=== PATIENT | female | born 1935 | race Caucasian/White ===

== ENCOUNTER 2017-08-05 23:07 | Inpatient (IN) | payer MEDICARE, OTHER ==
[~2017-08-05] VITALS: Ht 157.5 cm
[~2017-08-05 23:07] MED LIST: ACYCLOVIR PO; ACYCLOVIR200 MG; ANUCORT-HC25 MG; ASPIR 8181 MG PO; CALAN SR120 MG PO; CALCIUM600 MG PO; DOXAZOSIN MESYLA2 MG PO; FISH OIL500 M1; LOSARTAN POTASS50 MG PO; LYSINE500 MG PO; MAGNESIUM; MIRALAX17 GM PO; MULTIVITAMINS1 EAC7 PO; NEXIUM40 MG PO; NITROFURANTOIN100 MG PO; NITROGLYCERIN0.4 MG SL; PRAVACHOL40 MG PO; PRAVASTATIN SOD40 MG PO; PREMARIN42.5 GM VG; VERAPAMIL ER120 MG PO
--- OUTSIDE RECORDS SUMMARY | 2017-08-05 23:11 | XMS REPORT ---
Author Author [facility] Address Unknown Phone Unavailable Care Team Providers Care Commercial Internship Name Role Phone ALE STEVE Unavailable Unavailable Problems This patient has no known problems. Allergies, Adverse Reactions, Alerts This patient has no known allergies or adverse reactions. Medications This patient has no known medications. Results Test Description Test Time Test Comments Text Results Atomic Results Result Comments CHEST SINGLE (PORTABLE) [place] [address] Patient Name: LILLY BREWSTER MR #: [id number] : 1935 Age/Sex: 81/F Req #: [id number] Adm Physician: Ordered by: ALE STEVE MD Report #: [id number] Location: ER Room/Bed: Procedure: [id number] DX/CHEST SINGLE (PORTABLE) Exam Date: 01/18/17 Exam Time: 0920 REPORT STATUS: Signed PROCEDURE: A single AP view of the chest. COMPARISON: Portable chest 10/04/2014. INDICATIONS: CHEST PAIN FINDINGS: Lines/tubes: None. Lungs : The lungs are well inflated and clear. There is no evidence of pneumonia or pulmonary edema. Pleura: There is no pleural effusion or pneumothorax. Heart and mediastinum: The heart and the mediastinum are unremarkable. Bones: No acute bony abnormality. Degenerative changes of the thoracic spine. IMPRESSION: No acute radiographic abnormality. Dictated by: Elbert Thompson M.D. on 01/18/2017 at 9:55 Electronically approved by: Elbert Thompson M.D. on 01/18/2017 at 9:55 Dictated By: ELBERT THOMPSON MD 4 COPY TO: ALE STEVE MD
[2017-08-06] VITALS (8 sets, daily range): BP systolic 111–188; BP diastolic 65–98
[2017-08-06 00:12] LABS: BASOPHILS # (AUTO) 0.1 (0.0-0.1); BASOPHILS % 1.1 % (0.0-1.0); EOSINOPHILS # (AUTO) 0.2 (0.0-0.4); EOSINOPHILS % 2.4 % (0.0-6.0); HEMOGLOBIN 10.2 g/dL (12.0-16.0); LYMPHOCYTES % 21.9 % (18.0-39.1); MEAN CORPUSCULAR HEMOGLOBIN 29.1 pg (28-32); MEAN CORPUSCULAR HGB CONC 35.2 g/dL (31-35); MEAN CORPUSCULAR VOLUME 82.9 fL (81-99); MONOCYTES # (AUTO) 1.2 (0.2-0.8); MONOCYTES % 13.9 % (4.4-11.3); NEUTROPHILS # (AUTO) 5.4 (2.1-6.9); NEUTROPHILS % 60.5 % (38.7-80.0); PLATELET COUNT 274 x10e3/uL (140-360); RED CELL DISTRIBUTION WIDTH 12.4 % (11.7-14.4)
[2017-08-06 00:32] LABS: ALBUMIN/GLOBULIN RATIO 1.4 (0.8-2.0); ANION GAP 13.5 mmol/L (8-16); CREATININE, SERUM 1.25 mg/dL (0.57-1.11); POTASSIUM 4.5 mmol/L (3.5-5.1)
[2017-08-06] MEDS ORDERED: SODIUM CHLORIDE 0.9% 1000ML 1,000 ML ONE (02:39)
[2017-08-06] MEDS: SODIUM CHLORIDE 0.9% 1000ML 1,000 ML IV SCH ×3 (02:42→17:18)
[2017-08-06] MEDS ORDERED: ONDANSETRON HCL INJ 2 MG/ML VIAL IV PRN (02:45)
[2017-08-06] MEDS ORDERED: MORPHINE SULFATE 2 MG/ML SYR IV PRN (03:03)
[2017-08-06] MEDS ORDERED: ACYCLOVIR200 MG PO (04:13)
[2017-08-06] MEDS ORDERED: ASPIR 8181 MG PO (04:13)
[2017-08-06] MEDS ORDERED: HYDRALAZINE HCL25 MG PO (04:13)
[2017-08-06] MEDS ORDERED: ROPINIROLE HC0.25 MG PO (04:18)
[2017-08-06] MEDS ORDERED: RANITIDINE HCL150 MG PO (04:18)
[2017-08-06] MEDS ORDERED: VERAPAMIL ER120 MG PO (04:18)
[2017-08-06] MEDS ORDERED: PREMARIN VAGINAL TOP (04:18)
[2017-08-06] MEDS ORDERED: PRAVASTATIN SOD80 MG PO (04:18)
[2017-08-06] MEDS ORDERED: [UNRECOGNIZED DRUG - OTHER] PO (04:18)
[2017-08-06] MEDS ORDERED: OMEPRAZOLE40 MG PO (04:18)
[2017-08-06] MEDS ORDERED: ACETAMINOPHEN 325 MG TAB PO PRN (16:15)
[2017-08-06] MEDS ORDERED: CLONIDINE HCL 0.1 MG TAB PO PRN (16:15)
[2017-08-06] MEDS: HYDRALAZINE HCL 25 MG TAB PO SCH (18:20)
[2017-08-06] MEDS ORDERED: SIMVASTATIN 40 MG TAB PO SCH (21:00)
[2017-08-06] MEDS: SODIUM CHLORIDE 1 GM TAB PO SCH (21:33)
[2017-08-07 00:24] VITALS: BP 145/92
--- NOTE | 2017-08-07 02:18 | History and Physical ---
HISTORY OF PRESENT ILLNESS: My[age]old female with past medical history positive for hypertension, history of chronic renal failure, anemia of chronic disease, came here because her sodium was found to be low on her routine lab work which was 120. Patient was sent to the ER. The sodium today is 121. REVIEW OF SYSTEMS: CARDIOVASCULAR: No chest pain, no palpitations. RESPIRATORY: No shortness of breath, no cough. GASTROINTESTINAL: No nausea, no vomiting, no diarrhea. GENITOURINARY: No frequency, no dysuria. ALLERGIES: SHE IS ALLERGIC TO A LONG LIST OF MEDICATIONS INCLUDING LISINOPRIL, PAROXETINE, SERTRALINE, ERYTHROMYCIN, LATEX, LEVAQUIN, ALENDRONATE, AND DILTIAZEM AND NOVOCAIN. PAST MEDICAL HISTORY: Hypertension, hypertensive nephropathy. SOCIAL HISTORY: She does not smoke, she does not drink. PHYSICAL EXAMINATION: HEART: Shows regular rhythm. Normal S1 and S2 sounds. LUNGS: Clear bilaterally. ABDOMEN: Soft. EXTREMITIES: Showed no evidence of cyanosis, edema, or trauma. BLOOD WORK: We have BMP with a sodium of 121, potassium 4.5, chloride 88, CO2 24, BUN 27, creatinine 1.25, glucose 93. On the CBC: White blood count 8.90, hemoglobin 10.2, hematocrit 29.0, platelet count 274,000. AST 21, ALT 18, total bilirubin 0.8, alkaline phosphatase 44. FINAL IMPRESSION: 1. Severe hyponatremia. 2. Uncontrolled hypertension. 3. Hypertensive nephropathy. 4. Chronic renal failure, stage 3 secondary to hypertensive nephropathy. 5. Anemia of chronic disease secondary to chronic renal insufficiency. PLAN OF TREATMENT: Continue sodium chloride 125 mL an hour, which we are going to decrease to 80 mL an hour. Continue sodium tablets 2 g q.8h. Continue Zofran 4 mg IV every 4 hours as needed. Continue home medications. We are going to get a nephrology consult with Dr. Garcia also. Job#: [id number]
[2017-08-07 05:55] VITALS: BP 151/66
[2017-08-07 07:05] VITALS: BP 163/67
[2017-08-07] MEDS ORDERED: PANTOPRAZOLE SOD 40 MG TABEC PO SCH (07:30)
[2017-08-07 07:34] VITALS: BP 163/67
[2017-08-07 08:27] LABS: ANION GAP 10.3 mmol/L (8-16); BLOOD UREA NITROGEN 18 mg/dL (7-26); BUN/CREATININE RATIO 23 (6-25); CALCIUM 9.6 mg/dL (8.4-10.2); CARBON DIOXIDE 24 mmol/L (22-29); CHLORIDE 103 mmol/L (98-107); EST GLOMERULAR FILTRATION RATE > 60 ML/MIN (60-); GLUCOSE 80 mg/dL (74-118); POTASSIUM 4.3 mmol/L (3.5-5.1); SODIUM 133 mmol/L (136-145)
[2017-08-07] MEDS ORDERED: ROPINIROLE HCL 0.25 MG TAB PO SCH (09:00)
[2017-08-07] MEDS ORDERED: VERAPAMIL HCL 120 MG TABSR PO SCH (09:00)
[2017-08-07] MEDS ORDERED: HYDRALAZINE HCL 25 MG TAB PO SCH (09:00)
[2017-08-07] MEDS ORDERED: ASPIRIN 81 MG CHEW TAB PO SCH (09:00)
[2017-08-07] MEDS: HYDRALAZINE HCL 25 MG TAB PO SCH (09:21)
[2017-08-07] MEDS: SODIUM CHLORIDE 1 GM TAB PO SCH ×2 (09:22→15:26)
--- NOTE | 2017-08-07 11:32 | Consultation ---
DATE OF CONSULTATION: August 06, 2017 ATTENDING PHYSICIAN: Dr. Snyder REASON FOR CONSULTATION: Hyponatremia. HISTORY OF PRESENT ILLNESS: The patient is a pleasant, 82-year-old, female with a past medical history of hypertension, admitted with hyponatremia. The patient was started on hydrochlorothiazide 25 mg p.o. daily in early July because of lower extremity edema. The patient went to see her primary care physician on Tuesday, and hydrochlorothiazide and hydralazine were stopped as the blood pressure was running low. The patient had blood work done and was found to have sodium of 120. She came to the emergency room. The patient was started on normal saline. This morning, sodium was at 121. The patient has been having poor p.o. intake, and she s a very picky eater. PAST MEDICAL HISTORY 1. Hypertension. 2. Gastroesophageal reflux disease. 3. Hyperlipidemia. PAST SURGICAL HISTORY 1. Hysterectomy in 1973. 2. Appendectomy in 1979. 3. Rectocele and cystocele repair in 1990. ALLERGIES: ERYTHROMYCIN, NOVOCAIN, ALENDRONATE, ALOE VERA, CARVEDILOL, DILTIAZEM, SERTRALINE, PAROXETINE, AND LISINOPRIL. REVIEW OF SYSTEMS GENERAL: No fatigue. No fever, no chills. HEENT: No headache or blurry vision. NECK: No dysphagia. CARDIOVASCULAR: No chest pain. No PND. No orthopnea. RESPIRATORY: No shortness of breath or dyspnea on exertion. No cough or hemoptysis. GI: No nausea, vomiting, diarrhea, constipation, abdominal pain, hematemesis, melena. MUSCULOSKELETAL: No ankle swelling. NEUROLOGIC: No numbness or tingling. SKIN: No new rash. PHYSICAL EXAMINATION VITAL SIGNS: Blood pressure 188/82, pulse 75, respirations 18, temperature 97.3. GENERAL: Awake, alert and oriented times 3. Not in apparent distress. HEENT: PERRLA. Extraocular muscles are intact. NECK: No JVD. HEART: S1 and S2. LUNGS: Clear to auscultation bilaterally. ABDOMEN: Soft. Bowel sounds positive. EXTREMITIES: No cyanosis, clubbing or edema. NEUROLOGIC: No focal deficits. SKIN: No new rash. MEDICATIONS: At home, the patient was on acyclovir, aspirin, hydralazine, losartan, omeprazole, pravastatin, ranitidine, ropinirole, verapamil. Also was on hydrochlorothiazide. The hydrochlorothiazide and hydralazine were stopped recently yesterday. Here in the hospital, the patient has been on clonidine p.r.n., normal saline at 125 mL an hour, verapamil, ropinirole, pantoprazole, hydralazine 25 mg p.o. daily, and Zofran. LABS: White count 8.9, hemoglobin 10.2, platelet count 274. Sodium 121, potassium 4.5, chloride 88, CO2 24, BUN 27, creatinine 1.25, glucose 93, calcium 10.0, albumin 4.0. ASSESSMENT AND PLAN 1. Hyponatremia, likely secondary to hydrochlorothiazide. The patient currently is hypovolemic. The blood pressure is up. Will discontinue normal saline after this bag is done and repeat the labs in the morning. Hydrochlorothiazide has been stopped already. 2. Hypertension. Adjust the hydralazine and discontinue IV fluids after this bag. 3. Gastroesophageal reflux disease on pantoprazole. 4. Hyperlipidemia. I want to thank Dr. Snyder for the consult. Discussed with at bedside. Job#: [id number]
[2017-08-07 11:53] VITALS: BP 142/73
--- NOTE | 2017-08-08 06:44 | Discharge Summary ---
Patient is an 82-year-old female with a past medical history positive for hypertension. The patient came with hyponatremia. Sodium was 120 when she came and now is 133. She was placed on normal saline and sodium tablets. Patient is going home. She was seen by calculating machine operator also, and dietary as well in the past. PHYSICAL EXAMINATION HEART: Shows regular rhythm. Normal S1 and S2 sounds. LUNGS: Clear bilaterally. ABDOMEN: Soft. EXTREMITIES: Show no evidence of cyanosis or trauma. VITALS: Blood pressure 142/73, temperature 97 degrees, heart rate 65 per minute, respiratory rate is 18 per minute, oxygen saturation 97%. On the BMP, sodium 133, potassium 4.3, chloride 103, CO2 24, BUN 18, creatinine 0.8, glucose 80. On the CBC, white blood count 8.90, hemoglobin 10.2, hematocrit 29, and platelet count 274,000. AST 21, ALT 18, total bilirubin 0.8, alkaline phosphatase 44. FINAL IMPRESSION 1. Hyponatremia. 2. Hypertension. PLAN OF TREATMENT: Patient will continue with the rest of the home medications. Continue with: 1. Sodium tablets 2 g daily. 2. Protonix 40 mg daily. 3. Verapamil 120 mg daily. 4. Hydralazine 25 mg twice a day. 5. Clonidine 0.1 mg 3 times a day. 6. Requip 0.25 mg at bedtime. Follow up with Dr. Vasyl Kimbrough, her primary care physician a week. ALIRIO HARRIS MD Job#: [id number] [place]
== END 2017-08-07 15:58 | disposition home or self-care (01) | DRG 641 ==
LOC: ER 23:07 → MED/SURG3 08-06 04:55
DX: E87.1 Hypo-osmolality and hyponatremia (principal); I13.10 Hypertensive heart and chronic kidney disease without heart failure, with stage 1 through stage 4 chronic kidney disease, or unspecified chronic kidney disease; N18.3 Chronic kidney disease, stage 3 (moderate); D63.1 Anemia in chronic kidney disease; Z88.5 Allergy status to narcotic agent; Z88.8 Allergy status to other drugs, medicaments and biological substances; Z88.1 Allergy status to other antibiotic agents; Z91.040 Latex allergy status; K21.9 Gastro-esophageal reflux disease without esophagitis; E78.5 Hyperlipidemia, unspecified
CPT/HCPCS: 36415; 80048; 80053; 85025; 96361; 99284; J7030

== ENCOUNTER → 2018-08-14 | Outpatient (CLI) | payer MEDICARE, OTHER ==
[~2018-08-14] MED LIST changes: +ACYCLOVIR200 MG PO; +HYDRALAZINE HCL25 MG PO; +OMEPRAZOLE40 MG PO; +PRAVASTATIN SOD80 MG PO; +PREMARIN VAGINAL TOP; +RANITIDINE HCL150 MG PO; +ROPINIROLE HC0.25 MG PO; +[UNRECOGNIZED DRUG - OTHER] PO
--- NOTE | 2018-08-14 13:35 | Diagnostic Imaging Report ---
TECHNIQUE: Magnetic resonance imaging of the LEFT SHOULDER was performed WITHOUT injected contrast. COMPARISON: None available. HISTORY: Left shoulder pain FINDINGS: MUSCLES AND TENDONS: Rotator Cuff: Tendons: Supraspinatus: Intact Infraspinatus: Intact Teres Minor: Intact Subscapularis: Intact Muscles: No focal muscle atrophy. Biceps Tendon: The long head of the biceps tendon is intact and within the intertubercular groove. GLENOHUMERAL JOINT: Glenoid Labrum: No displaced tear. Articular Cartilage: No focal defect. AC JOINT AND ACROMION: Mild hypertrophic degenerative changes of the acromioclavicular joint. Subacromial spurring. BONE: No specific evidence of a focal or infiltrative bone marrow replacing abnormality. No acute fracture. SOFT TISSUES: Mild subacromial subdeltoid bursal fluid. IMPRESSION: Intact rotator cuff. Subacromial spurring with mild subacromial subdeltoid bursal fluid may reflect bursitis. Signed by: Dr. Denzel Dior M.D. on 08/14/2018 1:32 PM
== END ==
LOC: MRI 10:58
PROVIDERS: ATTEND Internal Medicine
DX: M25.512 Pain in left shoulder (principal)

== ENCOUNTER 2018-09-01 08:05 | Outpatient (RCR) | payer MEDICARE, OTHER | END 2018-09-03 | LOC: PT 08:05 | PROVIDERS: ATTEND Specialist | DX: S46.012A Strain of muscle(s) and tendon(s) of the rotator cuff of left shoulder, initial encounter (principal) ==

== ENCOUNTER 2018-10-02 08:59 | Outpatient (RCR) | payer MEDICARE, OTHER | END 2018-10-04 | LOC: PT 08:59 | PROVIDERS: ATTEND Specialist | DX: S46.012D Strain of muscle(s) and tendon(s) of the rotator cuff of left shoulder, subsequent encounter (principal); M25.512 Pain in left shoulder; M25.612 Stiffness of left shoulder, not elsewhere classified; M47.812 Spondylosis without myelopathy or radiculopathy, cervical region; M62.81 Muscle weakness (generalized) | CPT/HCPCS: 97139 ==

== ENCOUNTER 2018-10-24 15:00 | Outpatient (RCR) | payer MEDICARE | END 2018-11-04 | LOC: PT 15:00 | PROVIDERS: ATTEND Specialist | DX: M47.812 Spondylosis without myelopathy or radiculopathy, cervical region (principal); S46.012D Strain of muscle(s) and tendon(s) of the rotator cuff of left shoulder, subsequent encounter; M25.512 Pain in left shoulder; M62.81 Muscle weakness (generalized) | CPT/HCPCS: 97139 ==

== ENCOUNTER → 2018-12-06 | Outpatient (CLI) | payer MEDICARE | LOC: RAD 12:11 | PROVIDERS: ATTEND Internal Medicine | DX: M79.604 Pain in right leg (principal) | CPT/HCPCS: 93971 ==

== ENCOUNTER 2019-10-13 18:55 | Emergency (ER) | payer MEDICARE ==
[~2019-10-13] VITALS: Ht 157.5 cm; Wt 62.6 kg
[2019-10-13] MEDS ORDERED: CLONIDINE HCL 0.1 MG TAB PO ONE (20:15)
--- NOTE | 2019-10-13 21:36 | Emergency Department Note ---
History of Present Illnes History of Present Illness Chief Complaint: Hypertension History of Present Illness This is a 84 year old female PRESENTS TO ED WITH REPORT OF HTN AND BRAY; BP 191/68 AT THIS TIME, PT REPORTS TOOK RX'D HYDRALAZINE AT APPROX 1600; PT REPORTS BRAY HAS RESOLVED; GAIT STEADY;. Historian: Patient, Family Member Arrival Mode: Car Onset (how long ago): hour(s) (6) Location: HEAD Quality: HEADACHE, ELEVATED BLOOD PRESSURE Radiation: Reports non-radiation Severity: mild Onset quality: gradual Duration (how long): hour(s) (6) Timing of current episode: unable to specify Progression: improving Context: Denies recent illness Relieving factors: none Exacerbating factors: none Associated symptoms: Reports headaches Treatments prior to arrival: none Past Medical/Family History Physician Review I have reviewed the patient's past medical and family history. Any updates have been documented here. Past Medical History Recent Fever: No Clinical Suspicion of Infectio: No New/Unexplained Change in Ment: No Past Medical History: Hypertension, Hypothyroidism Other Medical History: FATTY TUMOR TO KIDNEY ATHEROSCLEROSIS DIVERTICULOSIS Past Surgical History: Appendectomy, Hysterectomy Other Surgery: COLON SURGERY "PROLAPSE OF VAGINA AND COLON" PER PT LEFT BREAST BIOPSY Social History Smoking Cessation: Never Smoker Counseling Performed: No Alcohol Use: None Any Illegal Drug Use: No Other Last Tetanus: UTD Any Pre-Existing Lines (PICC,: No Review of Systems Review of Systems Constitutional: Reports no symptoms EENTM: Reports no symptoms Cardiovascular: Reports no symptoms Respiratory: Reports no symptoms Gastrointestinal: Reports no symptoms Genitourinary: Reports no symptoms Musculoskeletal: Reports no symptoms Integumentary: Reports no symptoms Neurological: Reports as per HPI Psychological: Reports no symptoms Endocrine: Reports no symptoms Hematological/Lymphatic: Reports no symptoms Physical Exam Related Data Allergies: Coded Allergies: Erythromycin Lactobionate (Verified Allergy, Unknown, 01/18/17) alendronate sodium (Verified Allergy, Unknown, 01/18/17) aloe vera (Verified Allergy, Unknown, 01/18/17) azithromycin (Verified Allergy, Unknown, 01/18/17) carvedilol (Verified Allergy, Unknown, 01/18/17) diltiazem (Verified Allergy, Unknown, 01/18/17) hydrochlorothiazide (Verified Allergy, Unknown, 01/18/17) latex (Verified Allergy, Unknown, 01/18/17) levofloxacin (Verified Allergy, Unknown, 01/18/17) lisinopril (Verified Allergy, Unknown, 01/18/17) metoprolol (Verified Allergy, Unknown, 01/18/17) paroxetine HCl (Verified Allergy, Unknown, 01/18/17) sertraline HCl (Verified Allergy, Unknown, 01/18/17) simvastatin (Verified Allergy, Unknown, 01/18/17) sulfamethoxazole (Verified Allergy, Unknown, 01/18/17) trimethoprim (Verified Allergy, Unknown, 01/18/17) Uncoded Allergies: NOVACAINE (Allergy, Unknown, 01/18/17) Triage Vital Signs Vital Signs Date Time Temp Pulse Resp B/P (MAP) Pulse Ox O2 Delivery O2 Flow Rate FiO2 10/13/19 19:34 97.7 78 16 191/78 98 Room Air Vital signs reviewed: Yes Physical Exam CONSTITUTIONAL Constitutional: Present well-developed, Present well-nourished HENT HENT: Present normocephalic, Present atraumatic, Present oropharynx clear/moist, Present nose normal HENT L/R: Present left ext ear normal, Present right ext ear normal EYES Eyes: Reports PERRL, Reports conjunctivae normal NECK Neck: Present ROM normal PULMONARY Pulmonary: Present effort normal, Present breath sounds normal CARDIOVASCULAR Cardiovascular: Present regular rhythm, Present heart sounds normal, Present capillary refill normal, Present normal rate GASTROINTESTINAL Abdominal: Present soft, Present nontender, Present bowel sounds normal GENITOURINARY Genitourinary: Present exam deferred SKIN Skin: Present warm, Present dry MUSCULOSKELETAL Musculoskeletal: Present ROM normal NEUROLOGICAL Neurological: Present alert, Present oriented x 3, Present no gross motor or sensory deficits PSYCHOLOGICAL Psychological: Present mood/affect normal, Present judgement normal Assessment & Plan Medical Decision Making MDM PT WITH ELEVATED BLOOD PRESSURE, HAD A MILD HEADACHE EARLIER THAT HAS RESOLVED CLONIDINE 0.1 MG ORDERED Reassessment Reassessment time: 21:25 Reassessment BP NOW 164/69 PT STATES SHE FEELS FINE, HAS NO SYMPTOMS AT THIS TIME Assessment & Plan Final Impression: (1) Hypertensive urgency Depart Disposition: HOME, SELF-CARE Last Vital Signs Date Time Temp Pulse Resp B/P (MAP) Pulse Ox O2 Delivery O2 Flow Rate FiO2 10/13/19 21:23 96.6 72 18 169/64 98 Room Air Home Meds Reported Medications Ranitidine Hcl (RANITIDINE HCL) 150 Mg Tablet, 150 MG PO DAILY 08/06/17 Omeprazole (OMEPRAZOLE) 40 Mg Capsule.dr, 40 MG PO DAILY 08/06/17 Verapamil Hcl (VERAPAMIL ER) 120 Mg Cap24h.pel, 120 MG PO DAILY 08/06/17 [Premarin Vaginal Crm] No Conflict Check, 1 APPLIC TOP PRN 08/06/17 Ropinirole Hcl (ROPINIROLE HCL) 0.25 Mg Tablet, 0.25 MG PO DAILY, #90 TAB 08/06/17 Pravastatin Sodium (PRAVASTATIN SODIUM) 80 Mg Tablet, 80 MG PO DAILY THERAPEUTICALLY SUBSTITUTED WITH SIMVASTATIN 40MG 08/06/17 [Perform Total Health] No Conflict Check, 1 TAB PO DAILY 08/06/17 Hydralazine Hcl (HYDRALAZINE HCL) 25 Mg Tab, 25 MG PO DAILY, TAB 08/06/17 Aspirin (ASPIR 81) 81 Mg Tablet.dr, 81 MG PO DAILY 08/06/17 Acyclovir (ACYCLOVIR) 200 Mg Capsule, 400 MG PO DAILY, #30 CAP 08/06/17 Losartan Potassium (LOSARTAN POTASSIUM) 50 Mg Tablet, 100 MG PO DAILY 02/18/14 [Acyclovir] No Conflict Check, 400 MG PO QID PRN FOR OUTBREAKS 02/18/14 Medications in the ED Clonidine HCl 0.1 mg ONCE ONCE PO Last administered on 10/13/19at 20:08; Admin Dose 0.1 MG; Start 10/13/19 at 20:15; Stop 10/13/19 at 20:16 SVEN TRAN MD Oct 13, 2019 21:36
--- OUTSIDE RECORDS SUMMARY | 2019-10-13 23:02 | XMS REPORT | Clinical Summary ---
Author Author [facility] Address Unknown Phone Unavailable Care Team Providers Care Wheel Presser Name Role Phone Panda Kimbrough MD PCP Allergies Not on File Medications End Date Status Medication Sig Dispensed Refills Start Date Active verapamil sustained Take 120 mg 0 release (CALAN-SR) 120 MG by mouth. 6 SR tablet Active hydrALAZINE (APRESOLINE) 25 mg 3 0 06/20 25 MG tablet (three) times 9 a day. Active Problems Not on file Family History Relation Name Status Comments Father Mother Social History Date Tobacco Use Types Packs/Day Years Used Never Smoker Smokeless Tobacco: Never Used Drinks/Week oz/Week Comments Alcohol Use No Alcohol Habits Answer Date Recorded How often do you have a drink containing alcohol? Never 06/21/2018 How many drinks containing alcohol do you have on No t asked a typical day when you are drinking? How often do you have six or more drinks on one Not asked occasion? Sex Assigned at Date Recorded Not on file Industry Job Start Date Occupation Not on file Not on file Not on file Travel End Travel History Travel Start No recent travel history available. Last Filed Vital Signs Not on file Plan of Treatment Health Maintenance Due Date Last Done Comments SHINGLES VACCINES (#1) 1985 65+ PNEUMOCOCCAL VACCINE 2000 (1 of 2 - PCV13) INFLUENZA VACCINE 10/06/2019 Results Not on fileafter 10/12/2018 Insurance Type Payer Benefit Subscriber ID Effective Phone Address Plan / Dates Group Medicare MEDICARE MEDICARE xxxxxxxxxx 2000-P [place], PART A AND resent [place] Commercial [employer] xxxxxxxxxx 2015- L LIFE INS Present [employer] [place] Advance Directives For more information, please contact: [phone] Patient Sap Specialist Explanation Type Date Recorded Advance Directives, Living Will and Medical Power of Virology Teacher
--- OUTSIDE RECORDS SUMMARY | 2019-10-13 23:02 | XMS REPORT | Continuity of Care Document ---
Author Author [facility] [employer] [employer] Address Unknown Phone Unavailable Care Team Providers Care Abrasives Sales Representative Name Role Phone [employer] Unavailable Un available Problems Problem Status Onset Date Classification Date Reported Comments Source Abnormal EKG Active Problem 04/19/2017 Sallie Vincent Essential hypertension Active Problem 04/19/2017 Sallie Vincent Precordial pain Active Problem 04/19/2017 Sallie Vincent Hypertensive left ventricular hypertroph y, without heart failure Active Prob isra 04/19/2017 Sallie Vincent Arteriosclerosis of both carotid arteries Active Problem 04/19/2017 Sallie Vincent Nonrheumatic tricuspid (valve) insufficiency Active Problem 04/19/2017 Sallie Vincent Former smoker Active Problem 04/19/2017 Sallie Vincent Palpitations Active Problem 04/19/2017 Sallie Vincent Right carotid bruit Active Problem 04/19/2017 Sallie Vincent Exertional dyspnea Active Problem 04/19/2017 Sallie Vincent Memory loss, short term Active Diagnosis 04/19/2017 Sallie Vincent Medications Medication Details Route Status Patient Instructions Ordering Provider Order Date Source Verapamil HCl 1 tablet Orally Active 120 MG Orally Three lang es a day Melisa Vincent Losartan Potassium 1 tablet Orally Active 100 MG Orally Once a day Melisa Vincent HydrALAZINE HCl 1 tablet Orally Active 25 MG Orally daily Melisa Vincent Vitamin D3 1 capsule Orally Active 1000 UNIT Orally Once a day Melisa Vincent Doxazosin Mesylate 2 tablet Orally Active 2 MG Orally qAM and 1.5tablets qPM Melisa Vincent Acyclovir 1 tablet Orally Active 400 MG Orally Twice a d ay Melisa Vincent Allergies, Adverse Reactions, Alerts Substance Category Reaction Severity Reaction type Status Date Reported Comments Source Zoloft Adverse Reaction tingling Adverse Reaction Active 02/23/2017 Mohamed O Jeroudi Zocor Adverse Reaction myalgias Adverse Reaction Active 02/23/2017 Mohamed O Jeroudi Diltiazem CD Adverse Reaction rash Adverse Reaction Active 02/23/2017 Mohamed O Jeroudi Metoprolol Succinate Adverse R eaction cold extremities Adverse Reaction Active 02/23/2017 Mohamed O Jeroudi Lisinopril Adverse Reaction rash Adverse Reaction Active 02/23/2017 Mohamed O Jeroudi Levaquin Adverse Reaction dizziness Adverse Reaction Active 02/23/2017 Mohamed O Jeroudi Hydrochlorothiazide Adverse Re action hyponatremia Adverse Reaction Active 02/23/2017 Mohamed O Jeroudi Fosamax Adverse Reaction nausea Adverse Reaction Active 02/23/2017 Mohamed O Jeroudi Erythromycin Adverse Reaction rash Adverse Reaction Active 02/23/2017 Mohamed O Jeroudi Coreg Adverse Reaction fatigue Adverse Reaction Active 02/23/2017 Mohamed O Jeroudi Bactrim Adverse Reaction palpitations Adverse Reaction Active 02/23/2017 Mohamed O Jeroudi Azithromycin Adverse Reaction rash Adverse Reaction Active 02/23/2017 Mohamed O Jaylonoudi aloe vera latex gloves Adverse Reaction blisters Ad verse Reaction Active 02/23/2017 Mohamed O Jeroudi Immunizations No Data Provided for This Section Results No Data Provided for This Section Pathology Reports No Data Provided for This Section Diagnostic Reports No Data Provided for This Section Consultation Notes No Data Provided for This Section Discharge Summaries No Data Provided for This Section History and Physicals No Data Provided for This Section Vital Signs Vital Sign Value Date Comments Source Weight 138 02/23/2017 Mohamed O Jaylonoudi Height 62 1 04/26/2016 Mohamed O Jaylonoudi Temperature Oral (F) 97.0 F 02/23/2017 Mohamed O Jaylonoudi Heart Rate 71 02/23/2017 Mohamed O Jeroudi Diastolic (mm Hg) 60 02/23/2017 Mohamed O Jeroudi Systolic (mm Hg) 112 02/23/2017 Mohamed O Jaylonoudi Encounters No Data Provided for This Section Procedures No Data Provided for This Section Assessment and Plan No Data Provided for This Section Plan of Care No Data Provided for This Section Social History No Data Provided for This Section Family History No Data Provided for This Section Advance Directives No Data Provided for This Section Functional Status No Data Provided for This Section
--- OUTSIDE RECORDS SUMMARY | 2019-10-13 23:03 | XMS REPORT | Summary of Care ---
Author Author [facility] Organization [facility] Address Unknown Phone Unavailable Care Team Providers Care Cataloging Assistant Name Role Phone PCP Unavailable Reason for Referral * Test (Routine) Referred By Contact Referred To Contact Status Reason Specialty Diagnoses / Procedures Usman Verdugo MD [address] [place] [id number] Pending Consult, Test, and Cardiology Diagnoses Treat HTN (hypertension), benign P rocedures EXTENDED HOLTER MONITOR (CONTINUOUS >48) Reason for Visit * Reason Comments Cardiology Follow-up Encounter Details Care Team Description Date Type Department Usman Verdugo MD [address] [place] [id number] Cardiology Follow-up 10/24/[address] [facility] Cardiology [address] [place] [id number] Allergies Comments Active Allergy Reactions Severity Noted Date Alendronic Acid Nausea And 11/07/2013 Vomiting Other reaction(s): Other: See Comments "fever blisters" Aloe Africana 11/07/2013 Azithromycin Rash 11/07/2013 Sulfamethoxazole Palpitations 05/17/2017 W/Trimethoprim Other reaction(s): Drowsiness/Fatigue Carvedilol 11/07/2013 Diltiazem Rash 11/07/2013 Erythromycin Rash 11/07/2013 Other reaction(s): Other: See Comments "Low sodium" Hydrochlorothiazide 11/07/2013 Blisters Latex Itching, Rash High 11/06/2013 Levofloxacin 11/07/2013 Lisinopril Rash 11/07/2013 Other reaction(s): Other: See Comments "cold extremities" Metoprolol 11/07/2013 Paroxetine 11/07/2013 Other reaction(s): Other: See Comments decreased RR Procaine 11/07/2013 Other reaction(s): Other: See Comments "tingling" Sertraline 11/07/2013 Other reaction(s): Other: See Comments "Myalgias" Simvastatin 11/07/2013 Sulfamethoxazole-Trimetho Palpitations 11/07/2013 prim documented as of this encounter (statuses as of 10/24/2018) Medications End Date Status Medication Sig Dispensed Refills Start Date Active acyclovir (ZOVIRAX) 400 as needed. 0 MG tablet 8 Active hydrALAZINE (APRESOLINE) 0 25 MG tablet 8 Active losartan (COZAAR) 100 MG 0 tablet 8 Active ropinirole (REQUIP) 0.25 Take 0.25 mg 0 MG tablet by mouth. Active verapamil (CALAN-SR) 120 Take 120 mg 0 11/16 MG CR tablet by mouth. 6 Active AZO-CRANBERRY OR Take by 0 mouth. Active Acetaminophen (TYLENOL) Take by 0 325 MG CAPS mouth. Active MELALEUCA SC Inject into 0 the skin. Active Aspirin (ASPIRIN 81) 81 Take 81 mg by 0 MG tablet mouth once. documented as of this encounter (statuses as of 10/24/2018) Active Problems Problem Noted Date H/O breast biopsy 05/18/2017 H/O: hysterectomy 05/18/2017 S/P appendectomy 05/18/2017 Chest pain 05/18/2017 documented as of this encounter (statuses as of 10/24/2018) Social History Date Tobacco Use Types Packs/Day Years Used Former Smoker Smokeless Tobacco: Never Used Drinks/Week oz/Week Comments Alcohol Use occas No Sex Assigned at Date Recorded Not on file Industry Job Start Date Occupation Not on file Not on file Not on file Travel End Travel History Travel Start No recent travel history available. documented as of this encounter Last Filed Vital Signs Reading Time Taken Comments Vital Sign 144/52 10/24/2018 9:44 AM CDT Blood Pressure 74 10/24/2018 9:44 AM CDT Pulse - - Temperature - - Respiratory Rate 99% 10/24/2018 9:44 AM CDT Oxygen Saturation - - Inhaled Oxygen Concentration 58.1 kg (128 lb) 10/24/2018 9:44 AM CDT Weight 160 cm (5' 3") 10/24/2018 9:44 AM CDT Height 22.67 10/24/2018 9:44 AM CDT Body Mass Index documented in this encounter Patient Instructions * Patient Instructions* Usman Verdugo MD - 10/24/2018 9:40 AM CDT 1) CBC,BMP,BNP,Lipids,Liver profile: HTN. 2) Follow-up in 6-8 weeks. 3) EKG now. 4) CardioKey x 4 weeks: Palpitations. documented in this encounter Progress Notes * Hua Lozada FNPC - 10/24/2018 9:40 AM CDT Date: October 24, 2018 Patient Name: Suzan Hong : 1935 Reason for Visit: Follow up: Last OV 1 year ago Problem List: #HTN - Losartan, hydralazine, verapamil Chief Complaint: Chief Complaint Patient presents with Cardiology Follow-up History of Present Illness: Suzan Hong is a 83 y.o. female with HTN. She she st ates noticed her feet last year for which he sought care from her primary care yovani gilbert. She presents to the clinic today after one year for her follow-up. Sh e states to have an episode of palpitations last night which resolved on own wit h no associated symptoms. No active complaints of chest pain, SOB, dizziness, s yncope/near syncopal episodes. Current Medications: Current Outpatient Medications Medication Sig Dispense Refill Acetaminophen (TYLENOL) 325 MG CAPS Take by mouth. acyclovir (ZOVIRAX) 400 MG tablet as needed. Aspirin (ASPIRIN 81) 81 MG tablet Take 81 mg by mouth once. AZO-CRANBERRY OR Take by mouth. hydrALAZINE (APRESOLINE) 25 MG tablet losartan (COZAAR) 100 MG tablet MELALEUCA SC Inject into the skin. ropinirole (REQUIP) 0.25 MG tablet Take 0.25 mg by mouth. verapamil (CALAN-SR) 120 MG CR tablet Take 120 mg by mouth. No current facility-administered medications for this visit. Allergies: Allergies Allergen Reactions Latex Itching and Rash Blisters Alendronic Acid Nausea And Vomiting Aloe Africana Other reaction(s): Other: See Comments "fever blisters" Azithromycin Rash Bactrim [Sulfamethoxazole W/Trimethoprim] Palpitations Carvedilol Other reaction(s): Drowsiness/Fatigue Diltiazem Rash Erythromycin Rash Hydrochlorothiazide Other reaction(s): Other: See Comments "Low sodium" Levofloxacin Lisinopril Rash Metoprolol Other reaction(s): Other: See Comments "cold extremities" Paroxetine Procaine Other reaction(s): Other: See Comments decreased RR Sertraline Other reaction(s): Other: See Comments "tingling" Simvastatin Other reaction(s): Other: See Comments "Myalgias" Sulfamethoxazole-Trimethoprim Palpitations Past Medical History: No past medical history on file. Past Surgical History: No past surgical history on file. Social History: Social History Tobacco Use Smoking status: Former Smoker Smokeless tobacco: Never Used Substance Use Topics Alcohol use: No Comment: occas Family History: No family history on file. Review of Systems: Constitutional: Negative. HENT: Negative. Eyes: Negative. Respiratory: Negative for shortness of breath. Cardiovascular: Positive for palpitations Gastrointestinal: Negative for abdominal pain. Genitourinary: Negative. Musculoskeletal: Negative. Skin: Negative. Neurological: Negative. Endo/Heme/Allergies: Negative. Psychiatric/Behavioral: Negative. EXAMINATION BP 144/52 | Pulse 74 | Ht 5' 3" (1.6 m) | Wt 128 lb (58.1 kg) | SpO2 99% | BMI 22.67 kg/m General appearance: alert, cooperative, no distress, appears stated age Head: Normocephalic, without obvious abnormality, atraumatic Eyes: conjunctivae/corneas clear. PERRL, EOM's intact. Fundi benign Neck: supple, symmetrical, trachea midline, no adenopathy, thyroid: not enlarg ed, symmetric, no tenderness/mass/nodules, no carotid bruit and no JVD Lungs: clear to auscultation bilaterally Heart: regular rate and rhythm, S1, S2 normal Abdomen: Soft, non-tender. Bowel sounds normal. No masses, No organomegaly Extremities: extremities normal, atraumatic, no cyanosis or edema Pulses: 2+ and symmetric Skin: Skin color, texture, turgor normal. No rashes or lesions Neurologic: Patient is alert and oriented to person, place, and time Laboratory Testing: No results found for this or any previous visit (from the past 24 hour(s)). ASSESSMENT/PLAN: 1. Palpitations - CBC,BMP,BNP,Lipids,Liver profile: HTN - CardioKey x 4 weeks: Palpitations. - EKG now - Follow-up in 6-8 weeks. Hua Lozada, MSN, CHLORINATOR, DENTAL SALES REPRESENTATIVE-C Nurse Practitioner/Instructor Office: Nurse Practitioner to Dr. Usman Verdugo MD Interventional Cardiology and Structural Heart Disease [facility] Supervising Physician Attestation: I, Usman Verdugo MD., have seen and examined the patient and discussed with Hua Lozada NP. I agree with the noted findings, examination, assessment and pl an of care as documented in the note. I have also reviewed the medications, lab s, and human resource consultant notes. Usman Verdugo MD, [facility] ([phone]) Interventional Cardiology and Structural Heart Disease Cardiology Section, [facility] Director, Structural Heart Disease [facility], [facility] 45 minutes spent in the care of the patient, with at least 50% of this time spen t face to face with patient in counseling and coordination of care. documented in this encounter Plan of Treatment Date/Time Name Type Priority Associated Diag noses 10/24/2018 10:16 AM CDT ELECTROCARDIOGRAM ECG Routine HTN (hyperte nsion), COMPLETE benign Palpitation Order Schedule Name Type Priority Associated Diag noses Expected: 10/24/2018, Expires: 0 EXTENDED HOLTER MONITOR ECG Routine HTN (h ypertension), (CONTINUOUS >48) benign Ordered: 10/24/2018 CBC W/AUTO DIFF WITH Lab Routine HTN (hype rtension), PLATELETS benign Ordered: 10/24/2018 BASIC METABOLIC PANEL Lab Routine HTN (hyp ertension), benign Ordered: 10/24/2018 BRAIN NATRIURETIC PEPTIDE Lab Routine HTN (hypertension), benign Ordered: 10/24/2018 LIPID PANEL Lab Routine HTN (hypertensi on), benign Ordered: 10/24/2018 HEPATIC FUNCTION PANEL Lab Routine HTN (hy pertension), benign Health Maintenance Due Date Last Done Comments MEDICARE AWV 1935 TETANUS SHOT (ADULT) 1950 FALL SCREEN 2000 OSTEOPOROSIS SCREENING 2000 PNEUMOVAX >=65 (PPSV23) 2000 PREVNAR >= 65 (PCV13) 2000 FLU VACCINE > 6 MONTHS 10/05/2018 documented as of this encounter Procedures Comments Procedure Name Priority Date/Time Associated Diag nosis ELECTROCARDIOGRAM Routine 10/24/2018 HTN (hyperte nsion), COMPLETE 10:16 AM CDT benign Palpitation documented in this encounter Results Not on filedocumented in this encounter Visit Diagnoses Diagnosis HTN (hypertension), benign - Primary Essential hypertension, benign Palpitation Palpitations documented in this encounter Insurance Type Payer Benefit Subscriber ID Effective Phone Address Plan / Dates Group Medicare MEDICARE MEDICARE xxxxxxxxxxx 2000-P [id number] [place] [address] documented as of this encounter
--- OUTSIDE RECORDS SUMMARY | 2019-10-13 23:03 | XMS REPORT | Continuity of Care Document ---
Author Author [facility] t Organization [facility] Address 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 Name Role Phone ALRIIO HARRIS MD PCP Lucina ALEXIS, Usman Attphys ALIRIO HARRIS Attphys Unavailable Janae STEVE Attphys Unavailable Payers Payer Name Policy Type Policy Number Effective Date Expiration Date Federico austin [employer] Medicare Replacement [id number] 2015 00:00:00 [facility] Medicare A & B [id number] 2000 00:00:00 [facility] A[employer]na Medicare Supplement Plan [id number] 2015 00:00 :00 [facility] Problems Condition Name Condition Details Condition Category Status Onset Date Resolution Date Last Treatment Date Treating Clinician Comments Source 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 2017-01-02 00:00:00 Last Assessment & Plan: Component Latest Ref Rng & Units 06/26/2018 Total Protein 6.0 - 8.2 gm/dL 7.0 Albumin 3.3 - 5.4 gm/dL 4.2 Alpha 1 Globulin 0.1 - 0.2 gm/dL 0.3 (H) Alpha 2 Globulin 0.6 - 0.9 gm/dL 0.7 Beta Globulin 0.6 - 1.1 gm/dL 0.9 Gamma Globulin 0.7 - 1.5 gm/dL 0.9 SPE Path Review Serum Immunofixation JOHANNA Path Review Gel 1 Gel 2 U Knights[place]-Shields <0.9000 mg/dL Lambda Total Light Chain Urine <0.7000 mg/dL U K/L Ratio-Shields 0.7000 - 6.20 SPE Path Interp The follow-up serum protein electrophoretic pattern does not show definitive evidence of an M-protein peak. If a paraproteinemia is suspected clinically, however, serum JOHANNA studies, serum immunoglobulin quantitation and urine Bence-Patrick protein studies . . . Free Lambda 5.71 - 26.30 mg/L 16.64 Free Knightsen 3.30 - 19.40 mg/L 19.66 (H) IgM 35 - 242 mg/dL IgG 600 - 1,616 mg/dL IgA 85 - 499 mg/dL Free Knightsen/ Free Lambda Ratio 0.26 - 1.65 1.18 JOHANNA Path Int Beta2 Microglob 0.8 - 2.3 mg/L There has been no progression of her abnormal kappa light chain. We will continue to observe. MD Ardon Osteoporosis Osteoporosis Disease Active 2015-12-22 00:00:00 Last Assessment & Plan: I have seen the patient with . Dilcia Gardner and co- managed the case. I participated in all aspects, including history, physical exam, and decision making. I confirm the above findings.My involvement included review of history and relevant imaging and laboratory studies, discussion with Ms. Gardner of diagnostic possibilities, evaluation of the patient, interaction with family and making recommendations regarding therapy. Briefly, Mrs. Brewster has been followed for osteoporosis. Since her initial visit she has MD Ardon Gastric reflux Gastric reflux syndrome Problem Active [facility] Hyponatremia Hyponatremia Problem Active [facility] Abnormal EKG Abno rmal EKG Active Problem 04/19/2017 Sallie Vincent Problem Active 2017-04-19 03:45:20 [facility] Essential hypertension Esse ntial hypertension Active Problem 04/19/2017 Sallie Vincent Problem Active 20 24-04-12 03:45:20 [facility] Precordial pain Prec ordial pain Active Problem 04/19/2017 Sallie Vincent Problem Active 2017-04-19 03:45:20 [facility] [place] Hypertensive left ventricular hypertrophy, without hea rt failure Hypertensive left ventricular hypertrophy, without heart failure Active Problem 04/19/2017 Sallie Vincent Problem Active 20 24-04-12 03:45:20 [facility] Chint[place] Arteriosclerosis of both carotid arteries Arteriosclerosis of both carotid arteries Active Problem 04/19/2017 Sallie Vincent Problem Active 2017-04-19 03:45:20 [facility] [place] Nonrheumatic tricuspid (valve) insufficiency Nonrheumatic tricuspid (valve) insufficiency Active Problem 04/19/2017 Sallie Vincent Problem Active 2017-04-19 03:45:20 [facility] [place] Former smoker Form er smoker Active Problem 04/19/2017 Sallie Vincent Problem Active 2017-04-19 03:45:20 [facility] [place] Palpitations Palp itations Active Problem 04/19/2017 Sallie Vincent Problem Active 2017-04-19 03:45:20 [facility] Right carotid bruit Righ t carotid bruit Active Problem 04/19/2017 Sallie Vincent Problem Active 2017-04-19 03:45:20 [facility] Exertional dyspnea Exer tional dyspnea Active Problem 04/19/2017 Sallie Vincent Problem Active 2017-04-19 03:45:20 [facility] [place] Memory loss, short term Cal ry loss, short term Active Diagnosis 04/19/2017 Sallie Vincent Diagnosis Active 2017-04-19 03:45:20 Asiya Woodson Arthritis of spine Arthritis of spine Disease Active MD Ardon Allergies, Adverse Reactions, Alerts Allergy Name Allergy Type Status Severity Reaction(s) Onset Date Inacti ve Date Treating Clinician Comments Source Zoloft Zoloft Active tingling 2017-02-23 00:00:00 Asiya Woodson Zocor Zocor Active myalgias 2017-02-23 00:00:00 Asiya Woodson Diltiazem CD Diltiazem CD Active rash 2017-02-23 00:00:00 Asiya Woodson Metoprolol Succinate Metoprolol Succinate Active cold extremities 2017-02-23 00:00:00 Asiya Woodson Lisinopril Lisinopril Active rash 2017-02-23 00:00:00 [facility] Levaquin Levaquin Active dizziness 2017-02-23 00:00:00 [facility] Hydrochlorothiazide Hydrochlorothiazide Active hyponat remia 2017-02-23 00:00:00 [facility] Fosamax Fosamax Active nausea 2017-02-23 00:00:00 [facility] Erythromycin Erythromycin Active rash 2017-02-23 00:00:00 [facility] Coreg Coreg Active fatigue 2017-02-23 00:00:00 [facility] Bactrim Bactrim Active palpitations 2017-02-23 00:00:00 [facility] Azithromycin Azithromycin Active rash 2017-02-23 00:00:00 [facility] aloe vera latex gloves aloe vera latex gloves Active b listers 2017-02-23 00:00:00 [facility] Erythromycin Lactobionate Allergy to Substance Active 2 00:00:[address] [facility] sertraline HCl Allergy to Substance Active 2017-01-18 00:00 :00 [facility] paroxetine HCl Allergy to Substance Active 2017-01-18 00:00 :00 [facility] Lisinopril Allergy to Substance Active 2017-01-18 00:00:00 [facility] aloe vera Allergy to Substance Active 2017-01-18 00:00:00 [facility] Hydrochlorothiazide Allergy to Substance Active 2017-01-18 00:00:00 [facility] Sulfamethoxazole Allergy to Substance Active 2017-01-18 00: 00:00 [facility] Trimethoprim Allergy to Substance Active 2017-01-18 00:00:0 0 [facility] Simvastatin Allergy to Substance Active 2017-01-18 00:00:00 [facility] Metoprolol Allergy to Substance Active 2017-01-18 00:00:00 [facility] Azithromycin Allergy to Substance Active 2017-01-18 00:00:0 0 [facility] Carvedilol Allergy to Substance Active 2017-01-18 00:00:00 [facility] Diltiazem Allergy to Substance Active 2017-01-18 00:00:00 [facility] Alendronate sodium Allergy to Substance Active 2017-01-18 0 0:00:00 [facility] Levofloxacin Allergy to Substance Active 2017-01-18 00:00:0 0 [facility] Latex Allergy to Substance Active 2017-01-18 00:00:00 [facility] NOVACAINE Allergy to Substance Active 2017-01-18 00:00:00 [facility] lisinopril DA Active U 2013-09-12 00:00:00 [facility] erythromycin base DA Active U 2013-09-12 00:00:00 [facility] sulfamethoxazole DA Active U 2013-09-12 00:00:00 [facility] trimethoprim DA Active U 2013-09-12 00:00:00 [facility] simvastatin DA Active U 2013-09-12 00:00:00 [facility] azithromycin DA Active U 2013-09-12 00:00:00 [facility] paroxetine DA Active U 2013-09-12 00:00:00 [facility] diltiazem DA Active U 2013-09-12 00:00:00 [facility] sertraline DA Active U 2013-09-12 00:00:00 [facility] levofloxacin DA Active U 2013-09-12 00:00:00 [facility] NOVACAIN DA Active U 2013-09-12 00:00:00 [facility] Family History Family Member Diagnosis Comments Start Date Stop Date Source Natural brother Heart attack MD Junito jha Natural father Heart attack MD Gray son Natural mother Osteoporosis Isaac son Natural sister Heart attack Isaac son Natural son Heart attack MD Ardon Social History Social Habit Start Date Stop Date Quantity Comments Source History of tobacco use 1955-12-22 00:00:00 Current smoker MD Ardon History SDOH Alcohol Std Drinks [place] [employer] History SDOH Alcohol Binge [place] [employer] Sex Assigned At MD Ardon Tobacco use and exposure 2018-07-24 00:00:00 2018-07-24 00:00:00 Den Ardon Alcohol intake 2018-07-24 00:00:00 2018-07-24 00:00:00 Current drinker of alcohol (finding) MD Ardon History SDOH Alcohol Frequency 2018-06-21 00:00:00 2018-06-21 00:00:0 0 1 Randall Savage Tobacco Comment 2015-12-22 00:00:00 2015-12-22 00:00:00 Socially , but heavily for a total of 2 yrs MD Ardon Alcohol Comment 2015-12-22 00:00:00 2015-12-22 00:00:00 Once or twi ce per week. MD Ardon Smoking Status Start Date Stop Date Source Former smoker 2018-07-24 00:00:00 2018-07-24 00:00:00 Isaac son Never smoker Randall richard Medications Ordered Medication Name Filled Medication Name Start Date Stop Da te Current Medication? Ordering Clinician Indication Dosage Frequency Signature (SIG) Comments Components Source UNABLE TO FIND 2018-07-24 18:03:51 Yes 1{t bl} Take 1 tablet by mouth daily. Med Name: Melaluca vitamin supplement [employer]. Unknown amount of Calcium and D. MD Junito jha cholecalciferol, vitamin D3, (VITAMIN D3) 5,000 units tab ta blet 2018-07-24 18:01:16 Yes 5000U Take 5,000 Units by mouth cristobal ry 7 days. MD Ardon acyclovir (ZOVIRAX) 400 mg tablet 2018-07-24 18:01:16 Yes 400mg Take 400 mg by mouth daily. MD Ardon aspirin 81 mg EC tablet 2018-07-24 18:01:16 Yes 1{tbl} Take 1 tablet by mouth daily. MD Ardon celecoxib (CeleBREX) 200 mg capsule 2018-07-21 00:00:00 Yes 1{capsule} Take 1 capsule by mouth daily. [place] Ardon hydrALAZINE (APRESOLINE) 25 MG tablet 2018-06-20 00:00:00 Yes 25mg [id number] 25 mg 3 (three) times a day. Randall Savage atorvastatin (LIPITOR) 40 mg tablet 2018-06-20 00:00:00 Yes 1{tbl} Take 1 tablet by mouth at bedtime. MD Zoey leon hydrALAZINE (APRESOLINE) 25 mg tablet 2017-04-29 00:00:00 Y es 1{tbl} Take 1 tablet by mouth 3 (three) times a day. MD Ardon Verapamil HCl 2017-04-19 03:45:20 Yes Sallie Iyermarilyndi 1 tablet [facility] Losartan Potassium 2017-04-19 03:45:20 Yes Sallie Iyeroudi 1 tablet [facility] HydrALAZINE HCl 2017-04-19 03:45:20 Yes Sallie Garciadi 1 tablet [facility] Vitamin D3 2017-04-19 03:45:20 Yes Sallie Garciadi 1 capsule [facility] Doxazosin Mesylate 2017-04-19 03:45:20 Yes Sallie Garciadi 2 tablet [facility] Acyclovir 2017-04-19 03:45:20 Yes [facility] Tuls[facility]aye Garciadi 1 tablet [facility] verapamil sustained release (CALAN-SR) 120 MG SR tablet 2015-11-17 00:00:00 Yes 120mg Take 120 mg by mouth. Jose dickson [employer]oro[employer] verapamil (CALAN-SR) 120 mg CR tablet 2015-11-17 00:00:00 Y es 120mg Take 120 mg by mouth at bedtime. MD Zoey leon Acyclovir Acyclovir Yes 400 Four Times Daily [facility] Acyclovir 200 Mg Capsule Acyclovir 200 Mg Capsule Yes 400 Daily [facility] Aspirin (Aspir 81) 81 Mg Tablet. Aspirin (Aspir 81) 81 Mg Tablet. Yes 81 Daily [facility] Hydralazine Hcl 25 Mg Tab Hydralazine Hcl 25 Mg Tab Yes 25 Daily [facility] Losartan Potassium 50 Mg Tablet Losartan Potassium 50 Mg Tablet Yes 100 Daily [facility] Omeprazole 40 Mg Capsule. Omeprazole 40 Mg Capsule. Yes [address] [facility] Perform Total Health Perform Total Health Yes 1 Daily [facility] Pravastatin Sodium 80 Mg Tablet Pravastatin Sodium 80 Mg Tablet Yes 80 Daily [facility] Premarin Vaginal Crm Premarin Vaginal Crm Yes 1 As Needed [facility] Ranitidine Hcl 150 Mg Tablet Ranitidine Hcl 150 Mg Tablet Y es 150 Daily [facility] Ropinirole Hcl 0.25 Mg Tablet Ropinirole Hcl 0.25 Mg Tablet Yes .25 Daily [facility] Verapamil Hcl (Verapamil Er) 120 Mg Cap24h.pel Verapam il Hcl (Verapamil Er) 120 Mg Cap24h.pel Yes [address] [facility] Doxazosin Mesylate 2 Mg Tablet, 2 Mg Oral Doxazosin Me sylate 2 Mg Tablet, 2 Mg Oral 2017-08-06 00:00:00 No 2 Daily [facility] Doxazosin Mesylate 2 Mg Tablet, 1 Mg Oral Doxazosin Me sylate 2 Mg Tablet, 1 Mg Oral 2017-08-06 00:00:00 No 1 Bedtime [facility] Estrogens, Conjugated (Premarin) 42.5 Gm Cream.appl, 4 5 Gm Vaginal Estrogens, Conjugated (Premarin) 42.5 Gm Cream.appl, 45 Gm Vaginal 2017 00:00:00 No 45 Use As Directed [facility] Multivitamin (Multivitamins) 1 Each Capsule, Oral Mu ltivitamin (Multivitamins) 1 Each Capsule, Oral 2017-08-06 00:00:00 No D aily [facility] Pravastatin Sodium 40 Mg Tablet, 80 Mg Oral Pravastati n Sodium 40 Mg Tablet, 80 Mg Oral 2017-08-06 00:00:00 No 80 Daily [facility] Verapamil Hcl (Calan Sr) 120 Mg Tablet.er, 120 Mg Oral Verapamil Hcl (Calan Sr) 120 Mg Tablet.er, 120 Mg Oral 2017-08-06 00:00:00 No 120 Bedtime [facility] Esomeprazole Magnesium (Nexium) 40 Mg Capsule., 40 M g Oral Esomeprazole Magnesium (Nexium) 40 Mg Capsule.dr, 40 Mg Oral 2014-10-04 00:00:00 No 40 Daily [facility] Acyclovir 200 Mg Capsule, Acyclovir 200 Mg Capsule, 00:00:00 No [facility] Calcium Carbonate (Calcium) 600 Mg Tablet, 1200 Mg Ora l Calcium Carbonate (Calcium) 600 Mg Tablet, 1200 Mg Oral 2014-02-18 00:00:00 No 1200 Rt Daily [facility] Hydrocortisone Acetate (Anucort-Hc) 25 Mg Supp.rect, H ydrocortisone Acetate (Anucort-Hc) 25 Mg Supp.rect, 2014-02-18 00:00:00 No [facility] Losartan Potassium 50 Mg Tablet, 50 Mg Oral Losartan P otassium 50 Mg Tablet, 50 Mg Oral 2014-02-18 00:00:00 No 50 Rt Daily [facility] Lysine 500 Mg Tablet, 1500 Mg Oral Lysine 500 Mg Tablet, 1500 Mg Oral 2014-02-18 00:00:00 No 1500 [facility] Magnesium , Magnesium , 2014-02-18 00:00:00 No [facility] Nitrofurantoin Macrocrystal (Nitrofurantoin) 100 Mg Ca psule, 100 Mg Oral Nitrofurantoin Macrocrystal (Nitrofurantoin) 100 Mg Capsule, 100 Mg Oral 2014-02-18 00:00:00 No 100 Daily [facility] Nitroglycerin 0.4 Mg Tab.subl, 0.4 Mg Sublingual Nitro glycerin 0.4 Mg Tab.subl, 0.4 Mg Sublingual 2014-02-18 00:00:00 No .4 [facility] [place]-3 Fatty Acids (Fish Oil) 500 Mg Capsule.Julio Cesar lundberg a-3 Fatty Acids (Fish Oil) 500 Mg Capsule., 2014-02-18 00:00:00 No [facility] Polyethylene Glycol 3350 (Miralax) 17 Gm Powd.pack, 17 Gm Oral Polyethylene Glycol 3350 (Miralax) 17 Gm Powd.pack, 17 Gm Oral 2014-02-18 00:00:00 No 17 Rt Daily [facility] Pravastatin Sodium (Pravachol) 40 Mg Tablet, 40 Mg Ora l Pravastatin Sodium (Pravachol) 40 Mg Tablet, 40 Mg Oral 2014-02-18 00:00:00 No [address] [facility] Verapamil Hcl (Verapamil Er) 120 Mg Cap24h.pel, 120 Mg Oral Verapamil Hcl (Verapamil Er) 120 Mg Cap24h.pel, 120 Mg Oral 2014-02-18 00:00:00 No 120 Rt Daily [facility] Vital Signs Vital Name Observation Time Observation Value Comments Source Weight 2017-02-23 20:00:00 [facility] Height 2017-02-23 20:00:00 [facility] Temperature Oral (F) 2017-02-23 20:00:00 97.0 F [facility] Heart Rate 2017-02-23 20:00:00 [facility] Diastolic (mm Hg) 2017-02-23 20:00:00 [facility] [place] Systolic (mm Hg) 2017-02-23 20:00:00 [facility] Procedures Procedure Date / Time Performed Performing Clinician Sour e MRI joint upr extrem w/o dye 2018-08-14 00:00:00 ALIRIO HARRIS [facility] Plan of Care Planned Activity Planned Date Details Comments Source Future Scheduled Test 2019-10-06 00:00:00 INFLUENZA VACCINE [code = INFLUENZA VACCINE] [facility] Future Scheduled Test 2000 00:00:00 65+ PNEUMOCOCCAL V ACCINE (1 of 2 - PCV13) [code = 65+ PNEUMOCOCCAL VACCINE (1 of 2 - PCV13)] [facility] Scheduled Test 1985 00:00:00 SHINGLES VACCINES (#1) [code = SHINGLES VACCINES (#1)] [facility] Encounters Start Date/Time End Date/Time Encounter Type Admission Type Attendi RUST Care Department Encounter ID Source 2018-12-12 10:18:03 2018-12-12 10:38:03 Office Visit Usman Verdugo [facility] [id number] 2018-10-24 15:00:00 2018-11-04 23:59:00 Discharged Recurring [facility] [id number] [facility] 2018-10-24 09:13:19 2018-10-24 09:33:19 Office Visit Usman Verdugo [facility] [id number] 2018-09-05 11:12:00 2018-10-04 23:59:00 Discharged Recurring [facility] [id number] [facility] 2018-09-01 08:05:00 2018-09-03 23:59:00 Discharged Recurring [facility] [id number] [facility] 2018-08-14 10:58:00 2018-08-14 10:58:00 Registered Clinic 3 ALIRIO HARRIS [facility] [id number] [facility] 2018-06-06 13:34:00 2018-06-06 16:58:00 Departed Emergency Room [facility] [id number] [facility] 2017-08-06 04:55:00 2017-08-07 15:58:00 Discharged Inpatient [facility] [id number] [facility] 2017-02-23 14:00:00 2017-02-23 14:00:00 Outpatient Sallie Vincent MD [place] [id number] [employer] 2017-01-18 08:56:00 2017-01-18 18:20:00 Departed Emergency Room ER ALE STEVE [facility] [id number] [facility] Results Test Description Test Time Test Comments Results Result Comments Source MRI SHOULDER LEFT WO 2018-08-14 13:30:00 [place] [address] Patient Name: LILLY BREWSTER MR #: [id number] : 1935 Age/Sex: 83/F Req #: [id number] Adm Physician: Ordered by: ALIRIO HARRIS MD Report #: [id number] Location: MRI Room/Bed: Procedure: [id number] MRI/MRI SHOULDER LEFT WO Exam Date: Exam Time: REPORT STATUS: Signed TECHNIQUE: Magnetic resonance imaging of the LEFT SHOULDER was performed WITHOUT injected contrast. COMPARISON: None available. HISTORY: Left shoulder pain FINDINGS: MUSCLES AND TENDONS: Rotator Cuff: Tendons: Supraspinatus: Intact Infraspinatus: Intact Teres Minor: Intact Subscapularis: Intact Muscles: No focal muscle atrophy. Biceps Tendon: The long head of the biceps tendon is intact and within the intertubercular groove. GLENOHUMERAL JOINT: Glenoid Labrum: No displaced tear. Articular Cartilage: No focal defect. AC JOINT AND ACROMION: Mild hypertrophic degenerative changes of the acromioclavicular joint. Subacromial spurring. BONE: No specific evidence of a focal or infiltrative bone marrow replacing abnormality. No acute fracture. SOFT TISSUES: Mild subacromial subdeltoid bursal fluid. IMPRESSION: Intact rotator cuff. Subacromial spurring with mi ld subacromial subdeltoid bursal fluid may reflect bursitis. Signed by: Dr. Art Munoz M.D. on 08/14/2018 1:32 PM Dictated By: ART MUNOZ MD 31 Transcribed By: CODEY on 08/14/181331 COPY TO: ALIRIO HARRIS MD - XR FOREARM 2 VIEWS 2018-07-08 18:29:00 FAX : Airam Tatum MD [phone] [place]: B St: REG -- Name: LILLY BREWSTER [facility] : 1935 Age/S: 83/F [address] [facility] Unit #: [id number] Loc: [place] [address] Phys: Airam Tatum MD Acct: [id number] Dis Date: Status: REG ER PHONE #: [phone] Exam Date: 07/08/20181809 FAX #: [phone] Reason: pain, trauma EXAMS: CPT CODE: [id number] XR FOREARM [address] [place] [id number] CLINICAL HISTORY: pain, trauma TECHNIQUE: AP and lateral views of the bilateral forearms COMPARISON: None FINDINGS: No acute fracture. Bony trabecular pattern is unremarkable. No cortical destruction or periosteal reaction. Elbow and wrist joints do not appear dislocated. Regional soft tissues are unremarkable. IMPRESSION: No acute fracture or dislocation of the bilateral forearms. at 1829 Reported and signed by: Naya Reddy D.O. CC: Airam Tatum MD Technologist: JAROD BUCHANAN(R) Trnscrd Date/Time/By: 07/08/2018 (1828) : By: [email or web address] Orig Print D/T: S: 07/08/2018 (1831) PAGE 1 Signed Report - XR HUMERUS 2 + V BI 2018-07-08 18:28:00 FAX: Airam Tatum MD [phone] [place]: St: REG -- Name: LILYL BREWSTER [facility] : 1935 Age/S: 83/F [address] Unit #: [id number] Loc: [place] [address] Phys: Airam Tatum MD Acct: [id number] Dis Date: Status: REG ER PHONE #: [phone] Exam Date: 07/08/20181809 FAX #: [phone] Reason: pain, trauma EXAMS: CPT CODE: [id number] XR HUMERUS 2 + [place] [id number] CLINICAL HISTORY: pain, trauma TECHNIQUE: AP and lateral views of the bilateral humerus COMPARISON: None FINDINGS: No acute fracture. Bony trabecular pattern is unremarkable. No cortical destruction or periosteal reaction. Shoulder and elbow joints do not appear dislocated. Regional soft tissues are unremarkable. IMPRESSION: No acute fracture or dislocation of the bilateral humerus. at 1828 Reported and signed by: Naya Reddy D.O. CC: Airam Tatum MD Technologist: JAROD BUCHANAN(R) Trnscrd Date/Time/By: 07/08/2018 (1827) : By: [email or web address] Orig Print D/T: S: 07/08/2018 (1830) PAGE 1 Signed Report - CT C-SPINE W/O CONTRAST 2018-07-08 18:22:00 Name: LILLY BREWSTER [facility] : 1935 Age/S: 83 / F [address] [facility] Unit #: [id number] Loc: [place] [address] Phys: Airam Tatum MD Acct: [id number] Dis Date: Status: REG ER PHONE #: [phone] Exam Date: 07/08/20181801 FAX #: [phone] Reason: pain, trauma EXAMS: CPT CODE: [id number] CT C-SPINE W/O CONTRAST 76180 HISTORY: pain, trauma TECHNIQUE: 2.[address] of the cervical spine. Sagittal and coronal reformatted images were generated. Automated exposure control for dose reduction. COMPARISON: None FINDINGS: Craniocervical and cervicothoracic articulations are appropriate. Mild degenerative changes of the atlantoaxial joint. Mild dextroscoliosis. Vertebral body alignment is satisfactory. Vertebral body heights are preserved. Moderate C4-C5 disc space loss with posterior disc/osteophyte complex and bilateral uncovertebral arthrosis. Multilevel cervical facet arthrosis. No central canal or foraminal stenosis. No prevertebral or paraspinal soft tissue abnormality. Visualized posterior fossa contents are grossly unremarkable. Mild biapical intralobular septal thickening and patchy groundglass opacity. IMPRESSION: No acute fracture or subluxation of the cervical spine. at 1822 Reported and signed by: Naya Reddy D.O. CC: Airam Ttaum MD Technologist:Morena MorejonRT(R),CT; Estela CTDI: DLP: Trnscb Date/Time: 07/08/2018 (1821) [email or web address] Orig Print D/T: S: 07/08/2018 (1825) CTDI: DLP: PAGE 1 Signed Report - CT HEAD/BRAIN W/O CONT 2018-07-08 18:19:00 N shanna: [facility]Y [facility] : 1935 Age/S: 83 / F [address] [facility] Unit #: [id number] Loc: [place] [address] Phys: Airam Tatum MD Acct: [id number] Dis Date: Status: REG ER PHONE #: [phone] Exam Date: 07/08/20181801 FAX #: [phone] Reason: pain, trauma EXAMS: CPT CODE: [id number] CT HEAD/BRAIN W/O CONT 38109 HISTORY: pain, trauma TECHNIQUE: Noncontrast 2.[address] of the head. Examination acquired within 24 hours of arrival. Automated exposure control for dose reduction; DLP: 709 mGy-cm. COMPARISON: None FINDINGS: No acute hemorrhage. No CT evidence of acute infarct. Chronic left cerebellar lacunar infarct. Moderate periventricular chronic microvascular ischemic changes. No intracranial mass or mass effect. Mild parenchymal atrophy. No hydrocephalus. No extra-axial fluid collection. Atherosclerotic vascular calcification of the internal carotid and vertebral arteries. Visualized paranasal sinuses are clear. Mastoid air cells and middle ear cavities are clear. Bilateral lens implants. Calvarium and skull base are intact. IMPRESSION: No acute in tracranial process. No calvarial fracture. at 1819 Reported and signed by: Naya Reddy D.O. CC: Airam Tatum MD Technologist:RT Lianne(R),CT; Estela CTDI: DL P: Trnscb Date/Time: 07/08/2018 (1818) [email or web address] Orig Print D/T: S: 07/08/2018 (1821) CTDI: DLP: PAGE 1 Signed Report SCR MAMM BILATERAL ART CAD DIGITAL 2018-06-28 08:45:36 - SCR MAMM BILATERAL ART CAD DIGITALBILATERAL DIGITAL SCREENING MAMMOGRAM 3D/2D WITH CAD: 06/28/2018CLINICAL: Asymptomatic. Digital breast tomosynthesis was performed in addition to routine CC and MLO views. Current mammographic images were evaluated by either a Trenergi M-Vu or a Segmint ImageChecker CAD (computer aided detection system). Comparison is made to exams dated 03/18/2017 mammogram, 10/30 mammogram, and 07/01/2014 mammogram - [facility]. There are scattered fibroglandular tissues in both breasts. There are benign calcifications in both breasts. No suspicious mass, architectural distortion, malignant type calcification, or lymph node abnormality detected. Breast architecture is stable compared to prior exams.IMPRESSION: BENIGNThere is no mammographic evidence of malignancy. Resume annual screening mammography in one year. Jeovanny Cabrera M.D. et/penrad:06/28/2018 08:45:36 Nurse Practitioner Manager: Shirin AMARO, [facility] sent: BIRADS 1-2 Normal Mammogram BI-RADS: 2 Benign Urine WBC 2018-06-06 14:39:00 Test Item Urine WBC (test code = 5821-4) 0-5 0-5 [facility] [id number] 14:39:00* Test Item Value Reference Range Interpretation Comments Urine RBC (test code = 31124-4) NONE 0-5 [facility] Nmangybx0576-01-42 14:39:00* Test Item Value Reference Range Interpretation Comments Urine Bacteria (test code = 01444-8) NONE NONE [facility] Epithelial Wsuhu9834-53-47 14:39:00 * Test Item Value Reference Range Interpretation Comments Urine Epithelial Cells (test code = 28453-9) RARE NONE [facility] [id number] 14:39:00* Test Item Value Reference Range Interpretation Comments Urine WBC (test code = 5821-4) 0-5 0-5 [facility] [id number] 14:39:00* Test Item Value Reference Range Interpretation Comments Urine RBC (test code = 27185-6) NONE 0-5 [facility] Tueifiow6974-31-92 14:39:00* Test Item Value Reference Range Interpretation Comments Urine Bacteria (test code = 63135-2) NONE NONE [facility] Epithelial Yugxx3906-67-44 14:39:00 * Test Item Value Reference Range Interpretation Comments Urine Epithelial Cells (test code = 60548-1) RARE NONE [facility] GHK8038-69-61 14:39:00* Test Item Value Reference Range Interpretation Comments Urine WBC (test code = 5821-4) 0-5 0-5 [facility] NVT7127-30-98 14:39:00* Test Item Value Reference Range Interpretation Comments Urine RBC (test code = 42070-3) NONE 0-5 [facility] Zjrfsehy8038-67-73 14:39:00* Test Item Value Reference Range Interpretation Comments Urine Bacteria (test code = 87513-1) NONE NONE [facility] Epithelial Qyiar1832-90-99 14:39:00 * Test Item Value Reference Range Interpretation Comments Urine Epithelial Cells (test code = 10548-8) RARE NONE [facility] [id number] 14:39:00* Test Item Value Reference Range Interpretation Comments Urine WBC (test code = 5821-4) 0-5 0-5 [facility] [id number] 14:39:00* Test Item Value Reference Range Interpretation Comments Urine RBC (test code = 73877-6) NONE 0-5 [facility] Ksoglfvs6915-60-98 14:39:00* Test Item Value Reference Range Interpretation Comments Urine Bacteria (test code = 82988-3) NONE NONE [facility] Epithelial Sxpkv2927-96-55 14:39:00 * Test Item Value Reference Range Interpretation Comments Urine Epithelial Cells (test code = 42540-8) RARE NONE [facility] Wwtku3681-28-40 14:32:00* Test Item Value Reference Range Interpretation Comments Sodium Level (test code = 2951-2) 130 136-145 L [facility] CampusPotassium Jsvys4379-09-53 14:32:00* Test Item Value Reference Range Interpretation Comments Potassium Level (test code = 2823-3) 3.8 3.5-5.1 [facility] CampusChloride Xgvuk5001-99-98 14:32:00* Test Item Value Reference Range Interpretation Comments Chloride Level (test code = 2075-0) 97 98-107 L [facility] CampusCarbon Dioxide Jfauz2328-12-45 14:32:00* Test Item Value Reference Range Interpretation Comments Carbon Dioxide Level (test code = 2028-9) 26 22-29 [facility] CampusAnion Qbl2331-17-33 14:32:00* Test Item Value Reference Range Interpretation Comments Anion Gap (test code = 20056-3) 10.8 8-16 [facility] CampusBlood Urea Emcxfbak8915-26-78 14:32:00* Test Item Value Reference Range Interpretation Comments Blood Urea Nitrogen (test code = 3094-0) 12 7-26 [facility] CampusCreatinine2019-04-02 14:32:00* Test Item Value Reference Range Interpretation Comments Creatinine (test code = 2160-0) 0.75 0.57-1.11 [facility] CampusBUN/Creatinine Wsrmi9552-70-46 14:32:00* Test Item Value Reference Range Interpretation Comments BUN/Creatinine Ratio (test code = 3097-3) 16 6-25 [facility] CampusEstimat Glomerular Filtration Rate 2018-06-06 14:32:00* Test Item Value Reference Range Interpretation Comments Estimat Glomerular Filtration Rate (test code = 771245420) > 60 >60 Ranges were taken from the National Kidney Disease Education Program and the [facility] literature.Reference ranges:60 or greater: Dqkygc05-84 ( for 3 consecutive months): Chronic kidney disease 15 or less: Kidney failureThe [facility] of [facility] CampusGlucose Bslrk6772-63-49 14:32:00* Test Item Value Reference Range Interpretation Comments Glucose Level (test code = PSH8645) 86 74-118 [facility] CampusCalcium Fzwoi2765-62-95 14:32:00* Test Item Value Reference Range Interpretation Comments Calcium Level (test code = 64981-3) 10.1 8.4-10.2 [facility] CampusTotal Tikvbnshp8943-18-26 14:32:00* Test Item Value Reference Range Interpretation Comments Total Bilirubin (test code = 1975-2) 0.4 0.2-1.2 [facility] CampusAspartate Amino Transf (AST/SGOT) 2018-06-06 14:32:00* Test Item Value Reference Range Interpretation Comments Aspartate Amino Transf (AST/SGOT) (test code = Aspartate Amino Transf (AST/SGOT)) 27 5-34 [facility] CampusAlanine Aminotransferase (ALT/SGPT) 2018-06-06 14:32:00* Test Item Value Reference Range Interpretation Comments Alanine Aminotransferase (ALT/SGPT) (test code = 1742-6) 21 0-55 [facility] CampusTotal Glrofja6111-73-51 14:32:00* Test Item Value Reference Range Interpretation Comments Total Protein (test code = 2885-2) 7.5 6.5-8.1 [facility] CampusAlbumin2019-04-02 14:32:00* Test Item Value Reference Range Interpretation Comments Albumin (test code = 1751-7) 3.7 3.5-5.0 [facility] CampusGlobulin2019-04-02 14:32:00* Test Item Value Reference Range Interpretation Comments Globulin (test code = 53091-6) 3.8 2.3-3.5 H [facility] CampusAlbumin/Globulin Oanig9465-57-16 14:32:00 * Test Item Value Reference Range Interpretation Comments Albumin/Globulin Ratio (test code = 1759-0) 1.0 0.8-2.0 [facility] CampusAlkaline Cvtothmzgoe0056-89-14 14:32:00* Test Item Value Reference Range Interpretation Comments Alkaline Phosphatase (test code = 6768-6) 48 40-150 [facility] Njlqg8844-97-72 14:32:00* Test Item Value Reference Range Interpretation Comments Sodium Level (test code = 2951-2) 130 136-145 L [facility] CampusPotassium Zpfwo2119-77-68 14:32:00* Test Item Value Reference Range Interpretation Comments Potassium Level (test code = 2823-3) 3.8 3.5-5.1 [facility] CampusChloride Qpwmj3230-33-60 14:32:00* Test Item Value Reference Range Interpretation Comments Chloride Level (test code = 2075-0) 97 98-107 L [facility] CampusCarbon Dioxide Mobzo5673-85-19 14:32:00* Test Item Value Reference Range Interpretation Comments Carbon Dioxide Level (test code = 2028-9) 26 22-29 [facility] CampusAnion Eif0300-98-53 14:32:00* Test Item Value Reference Range Interpretation Comments Anion Gap (test code = 99832-8) 10.8 8-16 [facility] CampusBlood Urea Tfsgmnxb0776-21-75 14:32:00* Test Item Value Reference Range Interpretation Comments Blood Urea Nitrogen (test code = 3094-0) 12 7-26 [facility] CampusCreatinine2019-04-02 14:32:00* Test Item Value Reference Range Interpretation Comments Creatinine (test code = 2160-0) 0.75 0.57-1.11 [facility] CampusBUN/Creatinine Nvogl8471-23-59 14:32:00* Test Item Value Reference Range Interpretation Comments BUN/Creatinine Ratio (test code = 3097-3) 16 6-25 [facility] CampusEstimat Glomerular Filtration Rate 2018-06-06 14:32:00* Test Item Value Reference Range Interpretation Comments Estimat Glomerular Filtration Rate (test code = 821619589) > 60 >60 Ranges were taken from the National Kidney Disease Education Program and the [facility] literature.Reference ranges:60 or greater: Rvaoln21-07 ( for 3 consecutive months): Chronic kidney disease 15 or less: Kidney failureThe [facility] of [facility] CampusGlucose Jhkup9403-11-63 14:32:00* Test Item Value Reference Range Interpretation Comments Glucose Level (test code = FQK1889) 86 74-118 [facility] CampusCalcium Lefmi7943-30-24 14:32:00* Test Item Value Reference Range Interpretation Comments Calcium Level (test code = 12254-0) 10.1 8.4-10.2 [facility] CampusTotal Xpuhmzavh6246-59-01 14:32:00* Test Item Value Reference Range Interpretation Comments Total Bilirubin (test code = 1975-2) 0.4 0.2-1.2 [facility] CampusAspartate Amino Transf (AST/SGOT) 2018-06-06 14:32:00* Test Item Value Reference Range Interpretation Comments Aspartate Amino Transf (AST/SGOT) (test code = Aspartate Amino Transf (AST/SGOT)) 27 5-34 [facility] CampusAlanine Aminotransferase (ALT/SGPT) 2018-06-06 14:32:00* Test Item Value Reference Range Interpretation Comments Alanine Aminotransferase (ALT/SGPT) (test code = 1742-6) 21 0-55 [facility] CampusTotal Jjvmiqq6040-54-40 14:32:00* Test Item Value Reference Range Interpretation Comments Total Protein (test code = 2885-2) 7.5 6.5-8.1 [facility] CampusAlbumin2019-04-02 14:32:00* Test Item Value Reference Range Interpretation Comments Albumin (test code = 1751-7) 3.7 3.5-5.0 [facility] CampusGlobulin2019-04-02 14:32:00* Test Item Value Reference Range Interpretation Comments Globulin (test code = 45146-4) 3.8 2.3-3.5 H [facility] CampusAlbumin/Globulin Oygms6268-62-56 14:32:00 * Test Item Value Reference Range Interpretation Comments Albumin/Globulin Ratio (test code = 1759-0) 1.0 0.8-2.0 [facility] CampusAlkaline Pzyljaqyecg4491-48-02 14:32:00* Test Item Value Reference Range Interpretation Comments Alkaline Phosphatase (test code = 6768-6) 48 40-150 [facility]odium Csdku6806-50-81 14:32:00* Test Item Value Reference Range Interpretation Comments Sodium Level (test code = 2951-2) 130 136-145 L [facility] CampusPotassium Efvty9053-20-04 14:32:00* Test Item Value Reference Range Interpretation Comments Potassium Level (test code = 2823-3) 3.8 3.5-5.1 [facility] CampusChloride Qunmy0207-61-47 14:32:00* Test Item Value Reference Range Interpretation Comments Chloride Level (test code = 2075-0) 97 98-107 L [facility] CampusCarbon Dioxide Pgkjc8957-92-26 14:32:00* Test Item Value Reference Range Interpretation Comments Carbon Dioxide Level (test code = 2028-9) 26 22-29 [facility] CampusAnion Gfx7753-62-74 14:32:00* Test Item Value Reference Range Interpretation Comments Anion Gap (test code = 65421-6) 10.8 8-16 [facility] CampusBlood Urea Jjknyhkz9100-05-64 14:32:00* Test Item Value Reference Range Interpretation Comments Blood Urea Nitrogen (test code = 3094-0) 12 7-26 [facility] CampusCreatinine2019-04-02 14:32:00* Test Item Value Reference Range Interpretation Comments Creatinine (test code = 2160-0) 0.75 0.57-1.11 [facility] CampusBUN/Creatinine Axykr1255-67-07 14:32:00* Test Item Value Reference Range Interpretation Comments BUN/Creatinine Ratio (test code = 3097-3) 16 6-25 [facility] CampusEstimat Glomerular Filtration Rate 2018-06-06 14:32:00* Test Item Value Reference Range Interpretation Comments Estimat Glomerular Filtration Rate (test code = 545763521) > 60 >60 Ranges were taken from the National Kidney Disease Education Program and the [facility] Kidney Foundation literature.Reference ranges:60 or greater: Iymydq68-93 ( for 3 consecutive months): Chronic kidney disease 15 or less: Kidney failureThe [facility] of [facility] CampusGlucose Vihtv8082-89-39 14:32:00* Test Item Value Reference Range Interpretation Comments Glucose Level (test code = VKH5979) 86 74-118 [facility] CampusCalcium Sdwlz1139-64-34 14:32:00* Test Item Value Reference Range Interpretation Comments Calcium Level (test code = 13872-5) 10.1 8.4-10.2 [facility] CampusTotal Byncuxadu9385-44-40 14:32:00* Test Item Value Reference Range Interpretation Comments Total Bilirubin (test code = 1975-2) 0.4 0.2-1.2 [facility] CampusAspartate Amino Transf (AST/SGOT) 2018-06-06 14:32:00* Test Item Value Reference Range Interpretation Comments Aspartate Amino Transf (AST/SGOT) (test code = Aspartate Amino Transf (AST/SGOT)) 27 5-34 [facility] CampusAlanine Aminotransferase (ALT/SGPT) 2018-06-06 14:32:00* Test Item Value Reference Range Interpretation Comments Alanine Aminotransferase (ALT/SGPT) (test code = 1742-6) 21 0-55 [facility] Clubtal Wegnpsn7827-13-38 14:32:00* Test Item Value Reference Range Interpretation Comments Total Protein (test code = 2885-2) 7.5 6.5-8.1 [facility] CampusAlbumin2019-04-02 14:32:00* Test Item Value Reference Range Interpretation Comments Albumin (test code = 1751-7) 3.7 3.5-5.0 [facility] CampusGlobulin2019-04-02 14:32:00* Test Item Value Reference Range Interpretation Comments Globulin (test code = 54326-0) 3.8 2.3-3.5 H [facility] CampusAlbumin/Globulin Eodjd9146-72-60 14:32:00 * Test Item Value Reference Range Interpretation Comments Albumin/Globulin Ratio (test code = 1759-0) 1.0 0.8-2.0 [facility] CampusAlkaline Lwtfsbatgol3938-32-38 14:32:00* Test Item Value Reference Range Interpretation Comments Alkaline Phosphatase (test code = 6768-6) 48 40-150 [facility] Mmtwg2460-30-43 14:32:00* Test Item Value Reference Range Interpretation Comments Sodium Level (test code = 2951-2) 130 136-145 L [facility] CampusPotassium Lwmnn3104-11-37 14:32:00* Test Item Value Reference Range Interpretation Comments Potassium Level (test code = 2823-3) 3.8 3.5-5.1 [facility] CampusChloride Osmak0826-12-91 14:32:00* Test Item Value Reference Range Interpretation Comments Chloride Level (test code = 2075-0) 97 98-107 L [facility] CampusCarbon Dioxide Ofzcn6435-83-89 14:32:00* Test Item Value Reference Range Interpretation Comments Carbon Dioxide Level (test code = 2028-9) 26 22-29 [facility] CampusAnion Hxz1910-22-43 14:32:00* Test Item Value Reference Range Interpretation Comments Anion Gap (test code = 69860-2) 10.8 8-16 [facility] CampusBlood Urea Vyntczra7004-59-35 14:32:00* Test Item Value Reference Range Interpretation Comments Blood Urea Nitrogen (test code = 3094-0) 12 7-26 [facility] CampusCreatinine2019-04-02 14:32:00* Test Item Value Reference Range Interpretation Comments Creatinine (test code = 2160-0) 0.75 0.57-1.11 [facility] CampusBUN/Creatinine Zxwgy8213-31-72 14:32:00* Test Item Value Reference Range Interpretation Comments BUN/Creatinine Ratio (test code = 3097-3) 16 6-25 [facility] CampusEstimat Glomerular Filtration Rate 2018-06-06 14:32:00* Test Item Value Reference Range Interpretation Comments Estimat Glomerular Filtration Rate (test code = 987409827) > 60 >60 Ranges were taken from the National Kidney Disease Education Program and the [facility] Kidney Foundation literature.Reference ranges:60 or greater: Xvxebx68-00 ( for 3 consecutive months): Chronic kidney disease 15 or less: Kidney failureThe [facility] of [facility] CampusGlucose Rievl2530-69-20 14:32:00* Test Item Value Reference Range Interpretation Comments Glucose Level (test code = CII2990) 86 74-118 [facility] CampusCalcium Duulx7601-25-21 14:32:00* Test Item Value Reference Range Interpretation Comments Calcium Level (test code = 29749-4) 10.1 8.4-10.2 [facility] CampusTotal Xsbqrvrjq1201-83-11 14:32:00* Test Item Value Reference Range Interpretation Comments Total Bilirubin (test code = 1975-2) 0.4 0.2-1.2 [facility] CampusAspartate Amino Transf (AST/SGOT) 2018-06-06 14:32:00* Test Item Value Reference Range Interpretation Comments Aspartate Amino Transf (AST/SGOT) (test code = Aspartate Amino Transf (AST/SGOT)) 27 5-34 [facility] CampusAlanine Aminotransferase (ALT/SGPT) 2018-06-06 14:32:00* Test Item Value Reference Range Interpretation Comments Alanine Aminotransferase (ALT/SGPT) (test code = 1742-6) 21 0-55 [facility] CampusTotal Pzsqjzc4611-64-44 14:32:00* Test Item Value Reference Range Interpretation Comments Total Protein (test code = 2885-2) 7.5 6.5-8.1 [facility] CampusAlbumin2019-04-02 14:32:00* Test Item Value Reference Range Interpretation Comments Albumin (test code = 1751-7) 3.7 3.5-5.0 [facility] CampusGlobulin2019-04-02 14:32:00* Test Item Value Reference Range Interpretation Comments Globulin (test code = 94750-3) 3.8 2.3-3.5 H [facility] CampusAlbumin/Globulin Tgewp8584-13-12 14:32:00 * Test Item Value Reference Range Interpretation Comments Albumin/Globulin Ratio (test code = 1759-0) 1.0 0.8-2.0 [facility] CampusAlkaline Zedzvbddqso8391-08-68 14:32:00* Test Item Value Reference Range Interpretation Comments Alkaline Phosphatase (test code = 6768-6) 48 40-150 [facility] CampusUrine Hajel0526-96-70 14:30:00* Test Item Value Reference Range Interpretation Comments Urine Color (test code = 5778-6) YELLOW YELLOW [facility] CampusUrine Mqraxcm7325-56-69 14:30:00* Test Item Value Reference Range Interpretation Comments Urine Clarity (test code = 20825-4) CLEAR CLEAR [facility] Specific Hfshxiv0562-11-17 14:30:00 * Test Item Value Reference Range Interpretation Comments Urine Specific [place] (test code = 5811-5) 1.010 1.010-1.02 5 [facility] [id number] 14:30:00* Test Item Value Reference Range Interpretation Comments Urine pH (test code = 26507-3) 7 5-7 [facility] Leukocyte Hzdrryrm8788-19-85 14:30:00* Test Item Value Reference Range Interpretation Comments Urine Leukocyte Esterase (test code = 5799-2) NEGATIVE NEGATIVE [facility] Pfzkgkc9651-76-74 14:30:00* Test Item Value Reference Range Interpretation Comments Urine Nitrite (test code = 95258-6) NEGATIVE NEGATIVE [facility] Qpvtyvd5511-28-10 14:30:00* Test Item Value Reference Range Interpretation Comments Urine Protein (test code = 5804-0) NEGATIVE NEGATIVE [facility] Glucose (UA)2018-06-06 14:30:00* Test Item Value Reference Range Interpretation Comments Urine Glucose (UA) (test code = 2349-9) NEGATIVE NEGATIVE [facility] Uycorzr9010-39-13 14:30:00* Test Item Value Reference Range Interpretation Comments Urine Ketones (test code = 88863-9) NEGATIVE NEGATIVE [facility] Cptlrhvqrpyu2458-17-40 14:30:00* Test Item Value Reference Range Interpretation Comments Urine Urobilinogen (test code = 67214-7) 0.2 0.2-1 [facility] Xrqubtlip9042-52-46 14:30:00* Test Item Value Reference Range Interpretation Comments Urine Bilirubin (test code = 1978-6) NEGATIVE NEGATIVE [facility] Ozvle4375-56-20 14:30:00* Test Item Value Reference Range Interpretation Comments Urine Blood (test code = 14362-8) NEGATIVE NEGATIVE [facility] Nfkrn4610-17-60 14:30:00* Test Item Value Reference Range Interpretation Comments Urine Color (test code = 5778-6) YELLOW YELLOW [facility] Rnvenzg5094-30-66 14:30:00* Test Item Value Reference Range Interpretation Comments Urine Clarity (test code = 94163-1) CLEAR CLEAR [facility] Specific Kdaitet4531-85-84 14:30:00 * Test Item Value Reference Range Interpretation Comments Urine Specific [place] (test code = 5811-5) 1.010 1.010-1.02 5 [facility] [id number] 14:30:00* Test Item Value Reference Range Interpretation Comments Urine pH (test code = 08497-9) 7 5-7 [facility] Leukocyte Sxzbimhl0812-02-19 14:30:00* Test Item Value Reference Range Interpretation Comments Urine Leukocyte Esterase (test code = 5799-2) NEGATIVE NEGATIVE [facility] Spzsgfl1900-18-04 14:30:00* Test Item Value Reference Range Interpretation Comments Urine Nitrite (test code = 51405-8) NEGATIVE NEGATIVE [facility] Egqwirv3005-44-61 14:30:00* Test Item Value Reference Range Interpretation Comments Urine Protein (test code = 5804-0) NEGATIVE NEGATIVE [facility] Glucose (UA)2018-06-06 14:30:00* Test Item Value Reference Range Interpretation Comments Urine Glucose (UA) (test code = 2349-9) NEGATIVE NEGATIVE [facility] Qdttzxl2652-14-28 14:30:00* Test Item Value Reference Range Interpretation Comments Urine Ketones (test code = 99092-2) NEGATIVE NEGATIVE [facility] Syauompnspic0939-71-04 14:30:00* Test Item Value Reference Range Interpretation Comments Urine Urobilinogen (test code = 10327-1) 0.2 0.2-1 [facility] Jztxqbqub6831-54-50 14:30:00* Test Item Value Reference Range Interpretation Comments Urine Bilirubin (test code = 1978-6) NEGATIVE NEGATIVE [facility] Mzgxk6778-95-68 14:30:00* Test Item Value Reference Range Interpretation Comments Urine Blood (test code = 36250-0) NEGATIVE NEGATIVE [facility] Qnimf3259-99-08 14:30:00* Test Item Value Reference Range Interpretation Comments Urine Color (test code = 5778-6) YELLOW YELLOW [facility] Mskltys7754-90-22 14:30:00* Test Item Value Reference Range Interpretation Comments Urine Clarity (test code = 89372-1) CLEAR CLEAR [facility] Specific Hjfykyl2258-39-47 14:30:00 * Test Item Value Reference Range Interpretation Comments Urine Specific [place] (test code = 5811-5) 1.010 1.010-1.02 5 [facility] eF5613-14-97 14:30:00* Test Item Value Reference Range Interpretation Comments Urine pH (test code = 52243-8) 7 5-7 [facility] Leukocyte Wejfctal9201-97-73 14:30:00* Test Item Value Reference Range Interpretation Comments Urine Leukocyte Esterase (test code = 5799-2) NEGATIVE NEGATIVE [facility] Gfkntwf4971-69-58 14:30:00* Test Item Value Reference Range Interpretation Comments Urine Nitrite (test code = 55349-6) NEGATIVE NEGATIVE [facility] Bnppdhd4740-22-33 14:30:00* Test Item Value Reference Range Interpretation Comments Urine Protein (test code = 5804-0) NEGATIVE NEGATIVE [facility] Glucose (UA)2018-06-06 14:30:00* Test Item Value Reference Range Interpretation Comments Urine Glucose (UA) (test code = 2349-9) NEGATIVE NEGATIVE [facility] Sildhnl2020-63-02 14:30:00* Test Item Value Reference Range Interpretation Comments Urine Ketones (test code = 49268-3) NEGATIVE NEGATIVE [facility] Fvyogrhdsoqw8609-33-27 14:30:00* Test Item Value Reference Range Interpretation Comments Urine Urobilinogen (test code = 61387-7) 0.2 0.2-1 [facility] Kgyqkdelg9514-28-12 14:30:00* Test Item Value Reference Range Interpretation Comments Urine Bilirubin (test code = 1978-6) NEGATIVE NEGATIVE [facility] Vwwvp8326-95-69 14:30:00* Test Item Value Reference Range Interpretation Comments Urine Blood (test code = 12800-9) NEGATIVE NEGATIVE [facility] Kgikv0119-24-33 14:30:00* Test Item Value Reference Range Interpretation Comments Urine Color (test code = 5778-6) YELLOW YELLOW [facility] Zsthqlz7815-81-15 14:30:00* Test Item Value Reference Range Interpretation Comments Urine Clarity (test code = 28069-5) CLEAR CLEAR [facility] Specific Mhqtorq5107-19-86 14:30:00 * Test Item Value Reference Range Interpretation Comments Urine Specific [place] (test code = 5811-5) 1.010 1.010-1.02 5 [facility] rT0619-11-38 14:30:00* Test Item Value Reference Range Interpretation Comments Urine pH (test code = 30996-1) 7 5-7 [facility] Leukocyte Loytknet1870-92-88 14:30:00* Test Item Value Reference Range Interpretation Comments Urine Leukocyte Esterase (test code = 5799-2) NEGATIVE NEGATIVE [facility] Pndoidu6191-10-10 14:30:00* Test Item Value Reference Range Interpretation Comments Urine Nitrite (test code = 52969-6) NEGATIVE NEGATIVE [facility] Ljqcqvt0371-74-87 14:30:00* Test Item Value Reference Range Interpretation Comments Urine Protein (test code = 5804-0) NEGATIVE NEGATIVE [facility] Glucose (UA)2018-06-06 14:30:00* Test Item Value Reference Range Interpretation Comments Urine Glucose (UA) (test code = 2349-9) NEGATIVE NEGATIVE [facility] Yoswzrh1134-14-10 14:30:00* Test Item Value Reference Range Interpretation Comments Urine Ketones (test code = 20825-3) NEGATIVE NEGATIVE [facility] Lqerwawdapuv6851-43-89 14:30:00* Test Item Value Reference Range Interpretation Comments Urine Urobilinogen (test code = 11299-2) 0.2 0.2-1 [facility] Bqkwcuums1871-40-00 14:30:00* Test Item Value Reference Range Interpretation Comments Urine Bilirubin (test code = 1978-6) NEGATIVE NEGATIVE [facility] Ocpyq9148-15-65 14:30:00* Test Item Value Reference Range Interpretation Comments Urine Blood (test code = 92655-1) NEGATIVE NEGATIVE [facility] CampusWhite Blood Sjdnf0025-86-96 14:13:00* Test Item Value Reference Range Interpretation Comments White Blood Count (test code = 6690-2) 5.63 4.8-10.8 [facility] CampusRed Blood Ooxkf8360-92-66 14:13:00* Test Item Value Reference Range Interpretation Comments Red Blood Count (test code = 789-8) 3.81 3.6-5.1 [facility] CampusHemoglobin2019-04-02 14:13:00* Test Item Value Reference Range Interpretation Comments Hemoglobin (test code = 17809-1) 11.4 12.0-16.0 L [facility] CampusHematocrit2019-04-02 14:13:00* Test Item Value Reference Range Interpretation Comments Hematocrit (test code = 4544-3) 33.8 34.2-44.1 L [facility] CampusMean Corpuscular Rqwlsj1792-97-25 14:13:00* Test Item Value Reference Range Interpretation Comments Mean Corpuscular Volume (test code = 787-2) 88.7 81-99 [facility] CampusMean Corpuscular Cxfnojlali7949-67-89 14:13:00* Test Item Value Reference Range Interpretation Comments Mean Corpuscular Hemoglobin (test code = 785-6) 29.9 28-32 [facility] CampusMean Corpuscular Hemoglobin Concent 2018-06-06 14:13:00* Test Item Value Reference Range Interpretation Comments Mean Corpuscular Hemoglobin Concent (test code = 786-4) 33.7 31-35 [facility] CampusRed Cell Distribution Bnhcb6868-18-05 14:13:00* Test Item Value Reference Range Interpretation Comments Red Cell Distribution Width (test code = 89899-6) 13.1 11.7 -14.4 [facility] CampusPlatelet Vaaga0456-30-47 14:13:00* Test Item Value Reference Range Interpretation Comments Platelet Count (test code = 777-3) 284 140-360 [facility] CampusNeutrophils (%) (Auto)2018-06-06 14:13:00 * Test Item Value Reference Range Interpretation Comments Neutrophils (%) (Auto) (test code = 20390-1) 55.5 38.7-80.0 [facility] CampusLymphocytes (%) (Auto)2018-06-06 14:13:00 * Test Item Value Reference Range Interpretation Comments Lymphocytes (%) (Auto) (test code = 736-9) 25.8 18.0-39.1 [facility] CampusMonocytes (%) (Auto)2018-06-06 14:13:00* Test Item Value Reference Range Interpretation Comments Monocytes (%) (Auto) (test code = 5905-5) 13.0 4.4-11.3 H [facility] CampusEosinophils (%) (Auto)2018-06-06 14:13:00 * Test Item Value Reference Range Interpretation Comments Eosinophils (%) (Auto) (test code = 713-8) 4.3 0.0-6.0 [facility] CampusBasophils (%) (Auto)2018-06-06 14:13:00* Test Item Value Reference Range Interpretation Comments Basophils (%) (Auto) (test code = 706-2) 1.2 0.0-1.0 H [facility] CampusIM GRANULOCYTES %2018-06-06 14:13:00* Test Item Value Reference Range Interpretation Comments IM GRANULOCYTES % (test code = IM GRANULOCYTES %) 0.2 0.0- 1.0 [facility] CampusNeutrophils # (Auto)2018-06-06 14:13:00* Test Item Value Reference Range Interpretation Comments Neutrophils # (Auto) (test code = 751-8) 3.1 2.1-6.9 [facility] CampusLymphocytes # (Auto)2018-06-06 14:13:00* Test Item Value Reference Range Interpretation Comments Lymphocytes # (Auto) (test code = 32348-1) 1.5 1.0-3.2 [facility] CampusMonocytes # (Auto)2018-06-06 14:13:00* Test Item Value Reference Range Interpretation Comments Monocytes # (Auto) (test code = 742-7) 0.7 0.2-0.8 [facility] CampusEosinophils # (Auto)2018-06-06 14:13:00* Test Item Value Reference Range Interpretation Comments Eosinophils # (Auto) (test code = 711-2) 0.2 0.0-0.4 [facility] CampusBasophils # (Auto)2018-06-06 14:13:00* Test Item Value Reference Range Interpretation Comments Basophils # (Auto) (test code = 704-7) 0.1 0.0-0.1 [facility] CampusAbsolute Immature Granulocyte (auto 2018-06-06 14:13:00* Test Item Value Reference Range Interpretation Comments Absolute Immature Granulocyte (auto (chuyita t code = Absolute Immature Granulocyte (auto) 0.01 0-0.1 [facility] CampusWhite Blood Sdrmn2022-71-03 14:13:00* Test Item Value Reference Range Interpretation Comments White Blood Count (test code = 6690-2) 5.63 4.8-10.8 [facility] CampusRed Blood Hxjup6388-24-71 14:13:00* Test Item Value Reference Range Interpretation Comments Red Blood Count (test code = 789-8) 3.81 3.6-5.1 [facility] CampusHemoglobin2019-04-02 14:13:00* Test Item Value Reference Range Interpretation Comments Hemoglobin (test code = 92714-1) 11.4 12.0-16.0 L [facility] CampusHematocrit2019-04-02 14:13:00* Test Item Value Reference Range Interpretation Comments Hematocrit (test code = 4544-3) 33.8 34.2-44.1 L [facility] CampusMean Corpuscular Xrplcn2900-31-49 14:13:00* Test Item Value Reference Range Interpretation Comments Mean Corpuscular Volume (test code = 787-2) 88.7 81-99 [facility] CampusMean Corpuscular Xsvpeustof2188-94-56 14:13:00* Test Item Value Reference Range Interpretation Comments Mean Corpuscular Hemoglobin (test code = 785-6) 29.9 28-32 [facility] CampusMean Corpuscular Hemoglobin Concent 2018-06-06 14:13:00* Test Item Value Reference Range Interpretation Comments Mean Corpuscular Hemoglobin Concent (test code = 786-4) 33.7 31-35 [facility] CampusRed Cell Distribution Eeplk0912-04-93 14:13:00* Test Item Value Reference Range Interpretation Comments Red Cell Distribution Width (test code = 97956-7) 13.1 11.7 -14.4 [facility] CampusPlatelet Mxmmo3154-24-87 14:13:00* Test Item Value Reference Range Interpretation Comments Platelet Count (test code = 777-3) 284 140-360 [facility] CampusNeutrophils (%) (Auto)2018-06-06 14:13:00 * Test Item Value Reference Range Interpretation Comments Neutrophils (%) (Auto) (test code = 16520-4) 55.5 38.7-80.0 [facility] CampusLymphocytes (%) (Auto)2018-06-06 14:13:00 * Test Item Value Reference Range Interpretation Comments Lymphocytes (%) (Auto) (test code = 736-9) 25.8 18.0-39.1 [facility] CampusMonocytes (%) (Auto)2018-06-06 14:13:00* Test Item Value Reference Range Interpretation Comments Monocytes (%) (Auto) (test code = 5905-5) 13.0 4.4-11.3 H [facility] CampusEosinophils (%) (Auto)2018-06-06 14:13:00 * Test Item Value Reference Range Interpretation Comments Eosinophils (%) (Auto) (test code = 713-8) 4.3 0.0-6.0 [facility] CampusBasophils (%) (Auto)2018-06-06 14:13:00* Test Item Value Reference Range Interpretation Comments Basophils (%) (Auto) (test code = 706-2) 1.2 0.0-1.0 H [facility] CampusIM GRANULOCYTES %2018-06-06 14:13:00* Test Item Value Reference Range Interpretation Comments IM GRANULOCYTES % (test code = IM GRANULOCYTES %) 0.2 0.0- 1.0 [facility] CampusNeutrophils # (Auto)2018-06-06 14:13:00* Test Item Value Reference Range Interpretation Comments Neutrophils # (Auto) (test code = 751-8) 3.1 2.1-6.9 [facility] CampusLymphocytes # (Auto)2018-06-06 14:13:00* Test Item Value Reference Range Interpretation Comments Lymphocytes # (Auto) (test code = 37549-2) 1.5 1.0-3.2 [facility] CampusMonocytes # (Auto)2018-06-06 14:13:00* Test Item Value Reference Range Interpretation Comments Monocytes # (Auto) (test code = 742-7) 0.7 0.2-0.8 [facility] CampusEosinophils # (Auto)2018-06-06 14:13:00* Test Item Value Reference Range Interpretation Comments Eosinophils # (Auto) (test code = 711-2) 0.2 0.0-0.4 [facility] CampusBasophils # (Auto)2018-06-06 14:13:00* Test Item Value Reference Range Interpretation Comments Basophils # (Auto) (test code = 704-7) 0.1 0.0-0.1 [facility] CampusAbsolute Immature Granulocyte (auto 2018-06-06 14:13:00* Test Item Value Reference Range Interpretation Comments Absolute Immature Granulocyte (auto (chuyita t code = Absolute Immature Granulocyte (auto) 0.01 0-0.1 [facility] CampusWhite Blood Vorhd8745-18-20 14:13:00* Test Item Value Reference Range Interpretation Comments White Blood Count (test code = 6690-2) 5.63 4.8-10.8 [facility] CampusRed Blood Bhquk8613-86-17 14:13:00* Test Item Value Reference Range Interpretation Comments Red Blood Count (test code = 789-8) 3.81 3.6-5.1 [facility] CampusHemoglobin2019-04-02 14:13:00* Test Item Value Reference Range Interpretation Comments Hemoglobin (test code = 01891-5) 11.4 12.0-16.0 L [facility] CampusHematocrit2019-04-02 14:13:00* Test Item Value Reference Range Interpretation Comments Hematocrit (test code = 4544-3) 33.8 34.2-44.1 L [facility] CampusMean Corpuscular Upwdix3102-22-28 14:13:00* Test Item Value Reference Range Interpretation Comments Mean Corpuscular Volume (test code = 787-2) 88.7 81-99 [facility] CampusMean Corpuscular Lvqanjyxiz1791-42-27 14:13:00* Test Item Value Reference Range Interpretation Comments Mean Corpuscular Hemoglobin (test code = 785-6) 29.9 28-32 [facility] CampusMean Corpuscular Hemoglobin Concent 2018-06-06 14:13:00* Test Item Value Reference Range Interpretation Comments Mean Corpuscular Hemoglobin Concent (test code = 786-4) 33.7 31-35 [facility] CampusRed Cell Distribution Iwuov0376-18-44 14:13:00* Test Item Value Reference Range Interpretation Comments Red Cell Distribution Width (test code = 84263-4) 13.1 11.7 -14.4 [facility] CampusPlatelet Spcby0428-09-37 14:13:00* Test Item Value Reference Range Interpretation Comments Platelet Count (test code = 777-3) 284 140-360 [facility] CampusNeutrophils (%) (Auto)2018-06-06 14:13:00 * Test Item Value Reference Range Interpretation Comments Neutrophils (%) (Auto) (test code = 16655-4) 55.5 38.7-80.0 [facility] CampusLymphocytes (%) (Auto)2018-06-06 14:13:00 * Test Item Value Reference Range Interpretation Comments Lymphocytes (%) (Auto) (test code = 736-9) 25.8 18.0-39.1 [facility] CampusMonocytes (%) (Auto)2018-06-06 14:13:00* Test Item Value Reference Range Interpretation Comments Monocytes (%) (Auto) (test code = 5905-5) 13.0 4.4-11.3 H [facility] CampusEosinophils (%) (Auto)2018-06-06 14:13:00 * Test Item Value Reference Range Interpretation Comments Eosinophils (%) (Auto) (test code = 713-8) 4.3 0.0-6.0 [facility] CampusBasophils (%) (Auto)2018-06-06 14:13:00* Test Item Value Reference Range Interpretation Comments Basophils (%) (Auto) (test code = 706-2) 1.2 0.0-1.0 H [facility] CampusIM GRANULOCYTES %2018-06-06 14:13:00* Test Item Value Reference Range Interpretation Comments IM GRANULOCYTES % (test code = IM GRANULOCYTES %) 0.2 0.0- 1.0 [facility] CampusNeutrophils # (Auto)2018-06-06 14:13:00* Test Item Value Reference Range Interpretation Comments Neutrophils # (Auto) (test code = 751-8) 3.1 2.1-6.9 [facility] CampusLymphocytes # (Auto)2018-06-06 14:13:00* Test Item Value Reference Range Interpretation Comments Lymphocytes # (Auto) (test code = 72992-7) 1.5 1.0-3.2 [facility] CampusMonocytes # (Auto)2018-06-06 14:13:00* Test Item Value Reference Range Interpretation Comments Monocytes # (Auto) (test code = 742-7) 0.7 0.2-0.8 [facility]Eosinophils # (Auto)2018-06-06 14:13:00* Test Item Value Reference Range Interpretation Comments Eosinophils # (Auto) (test code = 711-2) 0.2 0.0-0.4 [facility] CampusBasophils # (Auto)2018-06-06 14:13:00* Test Item Value Reference Range Interpretation Comments Basophils # (Auto) (test code = 704-7) 0.1 0.0-0.1 [facility] CampusAbsolute Immature Granulocyte (auto 2018-06-06 14:13:00* Test Item Value Reference Range Interpretation Comments Absolute Immature Granulocyte (auto (chuyita t code = Absolute Immature Granulocyte (auto) 0.01 0-0.1 [facility]White Blood Sxutt4989-53-11 14:13:00* Test Item Value Reference Range Interpretation Comments White Blood Count (test code = 6690-2) 5.63 4.8-10.8 [facility]Red Blood Ktiew1275-74-83 14:13:00* Test Item Value Reference Range Interpretation Comments Red Blood Count (test code = 789-8) 3.81 3.6-5.1 [facility] CampusHemoglobin2019-04-02 14:13:00* Test Item Value Reference Range Interpretation Comments Hemoglobin (test code = 15329-5) 11.4 12.0-16.0 L [facility] CampusHematocrit2019-04-02 14:13:00* Test Item Value Reference Range Interpretation Comments Hematocrit (test code = 4544-3) 33.8 34.2-44.1 L [facility] CampusMean Corpuscular Mwbqcs5648-38-22 14:13:00* Test Item Value Reference Range Interpretation Comments Mean Corpuscular Volume (test code = 787-2) 88.7 81-99 [facility] CampusMean Corpuscular Xzmytppekj4945-34-51 14:13:00* Test Item Value Reference Range Interpretation Comments Mean Corpuscular Hemoglobin (test code = 785-6) 29.9 28-32 [facility] Hemoglobin Concent 2018-06-06 14:13:00* Test Item Value Reference Range Interpretation Comments Mean Corpuscular Hemoglobin Concent (test code = 786-4) 33.7 31-35 [facility] CampusRed Cell Distribution Zxhzz8755-92-68 14:13:00* Test Item Value Reference Range Interpretation Comments Red Cell Distribution Width (test code = 15992-7) 13.1 11.7 -14.4 [facility] CampusPlatelet Bvdal1336-59-34 14:13:00* Test Item Value Reference Range Interpretation Comments Platelet Count (test code = 777-3) 284 140-360 [facility] CampusNeutrophils (%) (Auto)2018-06-06 14:13:00 * Test Item Value Reference Range Interpretation Comments Neutrophils (%) (Auto) (test code = 09821-4) 55.5 38.7-80.0 [facility] CampusLymphocytes (%) (Auto)2018-06-06 14:13:00 * Test Item Value Reference Range Interpretation Comments Lymphocytes (%) (Auto) (test code = 736-9) 25.8 18.0-39.1 [facility] CampusMonocytes (%) (Auto)2018-06-06 14:13:00* Test Item Value Reference Range Interpretation Comments Monocytes (%) (Auto) (test code = 5905-5) 13.0 4.4-11.3 H [facility] CampusEosinophils (%) (Auto)2018-06-06 14:13:00 * Test Item Value Reference Range Interpretation Comments Eosinophils (%) (Auto) (test code = 713-8) 4.3 0.0-6.0 [facility] CampusBasophils (%) (Auto)2018-06-06 14:13:00* Test Item Value Reference Range Interpretation Comments Basophils (%) (Auto) (test code = 706-2) 1.2 0.0-1.0 H [facility] CampusIM GRANULOCYTES %2018-06-06 14:13:00* Test Item Value Reference Range Interpretation Comments IM GRANULOCYTES % (test code = IM GRANULOCYTES %) 0.2 0.0- 1.0 [facility] CampusNeutrophils # (Auto)2018-06-06 14:13:00* Test Item Value Reference Range Interpretation Comments Neutrophils # (Auto) (test code = 751-8) 3.1 2.1-6.9 [facility] CampusLymphocytes # (Auto)2018-06-06 14:13:00* Test Item Value Reference Range Interpretation Comments Lymphocytes # (Auto) (test code = 57278-1) 1.5 1.0-3.2 [facility] CampusMonocytes # (Auto)2018-06-06 14:13:00* Test Item Value Reference Range Interpretation Comments Monocytes # (Auto) (test code = 742-7) 0.7 0.2-0.8 [facility] CampusEosinophils # (Auto)2018-06-06 14:13:00* Test Item Value Reference Range Interpretation Comments Eosinophils # (Auto) (test code = 711-2) 0.2 0.0-0.4 [facility] CampusBasophils # (Auto)2018-06-06 14:13:00* Test Item Value Reference Range Interpretation Comments Basophils # (Auto) (test code = 704-7) 0.1 0.0-0.1 [facility] CampusAbsolute Immature Granulocyte (auto 2018-06-06 14:13:00* Test Item Value Reference Range Interpretation Comments Absolute Immature Granulocyte (auto (chuyita t code = Absolute Immature Granulocyte (auto) 0.01 0-0.1 [facility]odium Oppeg0484-11-36 08:28:00* Test Item Value Reference Range Interpretation Comments Sodium Level (test code = 2951-2) 133 136-145 L [facility] CampusPotassium Buwbs4938-77-25 08:28:00* Test Item Value Reference Range Interpretation Comments Potassium Level (test code = 2823-3) 4.3 3.5-5.1 [facility] CampusChloride Jzytf8317-84-73 08:28:00* Test Item Value Reference Range Interpretation Comments Chloride Level (test code = 2075-0) 103 98-107 [facility] CampusCarbon Dioxide Pobrs2177-71-63 08:28:00* Test Item Value Reference Range Interpretation Comments Carbon Dioxide Level (test code = 2028-9) 24 22-29 [facility] CampusAnion Jxb2002-28-76 08:28:00* Test Item Value Reference Range Interpretation Comments Anion Gap (test code = 19478-4) 10.3 8-16 [facility] CampusBlood Urea Khcohyio3546-70-48 08:28:00* Test Item Value Reference Range Interpretation Comments Blood Urea Nitrogen (test code = 3094-0) 18 7-26 [facility] CampusCreatinine2018-06-03 08:28:00* Test Item Value Reference Range Interpretation Comments Creatinine (test code = 2160-0) 0.80 0.57-1.11 [facility] CampusBUN/Creatinine Orgug6382-95-11 08:28:00* Test Item Value Reference Range Interpretation Comments BUN/Creatinine Ratio (test code = 3097-3) 23 6-25 [facility] CampusEstimat Glomerular Filtration Rate 2017-08-07 08:28:00* Test Item Value Reference Range Interpretation Comments Estimat Glomerular Filtration Rate (test code = 33413-3) 60- >60 Ranges were taken from the National Kidney Disease Education Program and the [facility] Kidney Foundation literature.Reference ranges:60 or greater: Lncxxb49-17 ( for 3 consecutive months): Chronic kidney disease 15 or less: Kidney failureThe [facility] of [facility] CampusGlucose Djrrb8799-94-33 08:28:00* Test Item Value Reference Range Interpretation Comments Glucose Level (test code = WTY4669) 80 74-118 [facility] CampusCalcium Ndlww4112-86-51 08:28:00* Test Item Value Reference Range Interpretation Comments Calcium Level (test code = 56803-2) 9.6 8.4-10.2 [facility] CampusTothe [facility] Xpoadjlun0023-30-72 00:37:00* Test Item Value Reference Range Interpretation Comments Total Bilirubin (test code = 1975-2) 0.8 0.2-1.2 [facility] CampusAspartate Amino Transf (AST/SGOT) 2017-08-06 00:37:00* Test Item Value Reference Range Interpretation Comments Aspartate Amino Transf (AST/SGOT) (test code = Aspartate Amino Transf (AST/SGOT)) 21 5-34 [facility] CampusAlanine Aminotransferase (ALT/SGPT) 2017-08-06 00:37:00* Test Item Value Reference Range Interpretation Comments Alanine Aminotransferase (ALT/SGPT) (test code = 1742-6) 18 0-55 [facility] Clubtal Vxtovsl5174-61-13 00:37:00* Test Item Value Reference Range Interpretation Comments Total Protein (test code = 2885-2) 6.9 6.5-8.1 [facility] CampusAlbumin2018-06-02 00:37:00* Test Item Value Reference Range Interpretation Comments Albumin (test code = 1751-7) 4.0 3.5-5.0 [facility] CampusGlobulin2018-06-02 00:37:00* Test Item Value Reference Range Interpretation Comments Globulin (test code = 76004-7) 2.9 2.3-3.5 [facility] CampusAlbumin/Globulin Nmbtt5625-95-74 00:37:00 * Test Item Value Reference Range Interpretation Comments Albumin/Globulin Ratio (test code = 1759-0) 1.4 0.8-2.0 [facility] CampusAlkaline Wsxpwtedpof0397-56-50 00:37:00* Test Item Value Reference Range Interpretation Comments Alkaline Phosphatase (test code = 6768-6) 44 40-150 [facility] CampusWhite Blood Hjyuv2519-40-06 00:13:00* Test Item Value Reference Range Interpretation Comments White Blood Count (test code = 6690-2) 8.90 4.8-10.8 [facility] CampusRed Blood Btwdc6385-19-73 00:13:00* Test Item Value Reference Range Interpretation Comments Red Blood Count (test code = 789-8) 3.50 3.6-5.1 L [facility] CampusHemoglobin2018-06-02 00:13:00* Test Item Value Reference Range Interpretation Comments Hemoglobin (test code = 93745-8) 10.2 12.0-16.0 L [facility] CampusHematocrit2018-06-02 00:13:00* Test Item Value Reference Range Interpretation Comments Hematocrit (test code = 4544-3) 29.0 34.2-44.1 L [facility] CampusMean Corpuscular Xinwxi4825-10-66 00:13:00* Test Item Value Reference Range Interpretation Comments Mean Corpuscular Volume (test code = 787-2) 82.9 81-99 [facility] CampusMean Corpuscular Volleqqumv3401-61-10 00:13:00* Test Item Value Reference Range Interpretation Comments Mean Corpuscular Hemoglobin (test code = 785-6) 29.1 28-32 [facility] CampusMean Corpuscular Hemoglobin Concent 2017-08-06 00:13:00* Test Item Value Reference Range Interpretation Comments Mean Corpuscular Hemoglobin Concent (test code = 786-4) 35.2 31-35 H [facility] CampusRed Cell Distribution Cjeex8333-06-19 00:13:00* Test Item Value Reference Range Interpretation Comments Red Cell Distribution Width (test code = 19277-8) 12.4 11.7 -14.4 [facility] CampusPlatelet Tzqxa8673-52-72 00:13:00* Test Item Value Reference Range Interpretation Comments Platelet Count (test code = 777-3) 274 140-360 [facility] CampusNeutrophils (%) (Auto)2017-08-06 00:13:00 * Test Item Value Reference Range Interpretation Comments Neutrophils (%) (Auto) (test code = 66689-6) 60.5 38.7-80.0 [facility] CampusLymphocytes (%) (Auto)2017-08-06 00:13:00 * Test Item Value Reference Range Interpretation Comments Lymphocytes (%) (Auto) (test code = 736-9) 21.9 18.0-39.1 [facility] CampusMonocytes (%) (Auto)2017-08-06 00:13:00* Test Item Value Reference Range Interpretation Comments Monocytes (%) (Auto) (test code = 5905-5) 13.9 4.4-11.3 H [facility] CampusEosinophils (%) (Auto)2017-08-06 00:13:00 * Test Item Value Reference Range Interpretation Comments Eosinophils (%) (Auto) (test code = 713-8) 2.4 0.0-6.0 [facility] CampusBasophils (%) (Auto)2017-08-06 00:13:00* Test Item Value Reference Range Interpretation Comments Basophils (%) (Auto) (test code = 706-2) 1.1 0.0-1.0 H [facility] CampusIM GRANULOCYTES %2017-08-06 00:13:00* Test Item Value Reference Range Interpretation Comments IM GRANULOCYTES % (test code = IM GRANULOCYTES %) 0.2 0.0- 1.0 [facility] CampusNeutrophils # (Auto)2017-08-06 00:13:00* Test Item Value Reference Range Interpretation Comments Neutrophils # (Auto) (test code = 751-8) 5.4 2.1-6.9 [facility] CampusLymphocytes # (Auto)2017-08-06 00:13:00* Test Item Value Reference Range Interpretation Comments Lymphocytes # (Auto) (test code = 29452-9) 2.0 1.0-3.2 [facility] CampusMonocytes # (Auto)2017-08-06 00:13:00* Test Item Value Reference Range Interpretation Comments Monocytes # (Auto) (test code = 742-7) 1.2 0.2-0.8 H [facility] CampusEosinophils # (Auto)2017-08-06 00:13:00* Test Item Value Reference Range Interpretation Comments Eosinophils # (Auto) (test code = 711-2) 0.2 0.0-0.4 [facility] CampusBasophils # (Auto)2017-08-06 00:13:00* Test Item Value Reference Range Interpretation Comments Basophils # (Auto) (test code = 704-7) 0.1 0.0-0.1 [facility] CampusAbsolute Immature Granulocyte (auto 2017-08-06 00:13:00* Test Item Value Reference Range Interpretation Comments Absolute Immature Granulocyte (auto (chuyita t code = Absolute Immature Granulocyte (auto) 0.02 0-0.1 [facility] CampusUrine Hktumpm7236-18-04 09:24:00* Test Item Value Reference Range Interpretation Comments Urine Culture (test code = 630-4) Organism: STREPTOCOCCUS VIRIDANS [facility] CampusTroponin Y1190-49-91 16:20:00* Test Item Value Reference Range Interpretation Comments Troponin I (test code = TOT1303) 0.017 0-0.300 [facility] CampusUrine TCP7574-76-00 12:48:00* Test Item Value Reference Range Interpretation Comments Urine WBC (test code = 5821-4) 6-10 0-5 H [facility] CampusUrine TMH2290-93-47 12:48:00* Test Item Value Reference Range Interpretation Comments Urine RBC (test code = 94806-1) NONE 0-5 [facility] CampusUrine Humsufub7739-99-01 12:48:00* Test Item Value Reference Range Interpretation Comments Urine Bacteria (test code = 09882-6) FEW NONE [facility] CampusUrine Epithelial Mtesw5227-40-34 12:48:00 * Test Item Value Reference Range Interpretation Comments Urine Epithelial Cells (test code = 63729-7) RARE NONE [facility] CampusUrine Transitional Epithelial Cells 2017-01-18 12:48:00* Test Item Value Reference Range Interpretation Comments Urine Transitional Epithelial Cells (test code = 8249-5) FEW NONE H [facility] CampusUrine Renal Epithelial Fxuem7210-95-45 12:48:00* Test Item Value Reference Range Interpretation Comments Urine Renal Epithelial Cells (test code = 07524-7) RARE NON E H [facility] CampusUrine Lpvwh5941-43-84 12:29:00* Test Item Value Reference Range Interpretation Comments Urine Color (test code = 5778-6) YELLOW YELLOW [facility] CampusUrine Glrpnzu0164-71-24 12:29:00* Test Item Value Reference Range Interpretation Comments Urine Clarity (test code = 28144-0) SL CLOUDY CLEAR [facility] CampusUrine Specific Ijotusw3027-53-13 12:29:00 * Test Item Value Reference Range Interpretation Comments Urine Specific [place] (test code = 5811-5) 1.015 1.010-1.02 5 [facility] CampusUrine hL7141-42-18 12:29:00* Test Item Value Reference Range Interpretation Comments Urine pH (test code = 01715-2) 8 5-7 H [facility] CampusUrine Leukocyte Fwmzbugu7664-88-65 12:29:00* Test Item Value Reference Range Interpretation Comments Urine Leukocyte Esterase (test code = 5799-2) 2+ NEGATIVE H [facility] CampusUrine Xuomwlt6222-00-50 12:29:00* Test Item Value Reference Range Interpretation Comments Urine Nitrite (test code = 67510-0) NEGATIVE NEGATIVE [facility] CampusUrine Xuttqta9107-66-93 12:29:00* Test Item Value Reference Range Interpretation Comments Urine Protein (test code = 5804-0) NEGATIVE NEGATIVE [facility] CampusUrine Glucose (UA)2017-01-18 12:29:00* Test Item Value Reference Range Interpretation Comments Urine Glucose (UA) (test code = 2349-9) NEGATIVE NEGATIVE [facility] CampusUrine Bviprmv6217-95-47 12:29:00* Test Item Value Reference Range Interpretation Comments Urine Ketones (test code = 40061-0) NEGATIVE NEGATIVE [facility] CampusUrine Sdbqslovmmcd4399-15-61 12:29:00* Test Item Value Reference Range Interpretation Comments Urine Urobilinogen (test code = 92196-9) 0.2 0.2-1 [facility] CampusUrine Vwqtpieyg0361-69-26 12:29:00* Test Item Value Reference Range Interpretation Comments Urine Bilirubin (test code = 1978-6) NEGATIVE NEGATIVE [facility] CampusUrine Rvakz4466-59-55 12:29:00* Test Item Value Reference Range Interpretation Comments Urine Blood (test code = 42457-0) NEGATIVE NEGATIVE [facility] CampusCreatine Kinase MX6925-97-08 10:52:00* Test Item Value Reference Range Interpretation Comments Creatine Kinase MB (test code = 13651-6) 1.80 0-4.3 [facility] CampusCreatine Wdxlai2329-47-44 10:50:00* Test Item Value Reference Range Interpretation Comments Creatine Kinase (test code = 2157-6) 103 29-168 [facility] CampusLipase2017-11-14 10:50:00* Test Item Value Reference Range Interpretation Comments Lipase (test code = 3040-3) 17 8-78 [facility] CampusD-Dimer Quantitative (PE/DVT)2017-01-18 10:43:00* Test Item Value Reference Range Interpretation Comments D-Dimer Quantitative (PE/DVT) (test code = 78005-6) 0.78 0. 00-0.45 H As with all in vitro diagnostic tests, the test results should be interpreted by the physician in conjunction with clinical findings and other test results.Test results are reported in NEW D-dimer units(ug/mLFEU).[facility] CampusCHEST SINGLE (PORTABLE) [place] [address] Patient Name: LILLY BREWSTER MR #: [id number] : 1935 Age/Sex: 81/F Req #: [id number] Adm Physician: Ordered by: ALE STEVE MD Report #: [id number] Location: ER Room/Bed: Procedure: [id number] DX/CHEST SINGLE (PORTABLE) Ex am Date: 01/18/17 Exam Time: 919 REPORT STATUS : Signed PROCEDURE: A single AP view of the chest. COMPARISON: Portab le chest 10/04/2014. INDICATIONS: CHEST PAIN FINDINGS: Lines/ tubes: None. Lungs: The lungs are well inflated and clear. There is no e vidence of pneumonia or pulmonary edema. Pleura: There is no pleural e ffusion or pneumothorax. Heart and mediastinum: The heart and the mediast inum are unremarkable. Bones: No acute bony abnormality. Degenerative craig nges of the thoracic spine. IMPRESSION: No acute radiographic ab normality. Dictated by: Elbert Thompson M.D. on 01/18/2017 at 9:55 El ectronically approved by: Elbert Thompson M.D. on 01/18/2017 at 9:55 Dictated By: ELBERT THOMPSON MD 4 COPY TO: ALE STEVE MD
--- OUTSIDE RECORDS SUMMARY | 2019-10-13 23:03 | XMS REPORT | Summary of Care ---
Author Author [facility] Organization [facility] Address Unknown Phone Unavailable Care Team Providers Care Network Security Officer Name Role Phone PCP Unavailable Reason for Visit * Reason Comments Cardiology Follow-up Encounter Details Care Team Description Date Type Department Usman Verdugo MD [address] [place] [address] Cardiology Follow-up 12/12/2018 Office Visit [facility] Cardiology [address] [facility] [address] [place] [address] Allergies Comments Active Allergy Reactions Severity [...] as of this encounter (statuses as of 12/12/2018) Medications End Date Status Medication Sig Dispensed [...] as of this encounter (statuses as of 12/12/2018) Active Problems Problem Noted Date H/O breast biopsy 05/18/2017 H/O: hysterectomy 05/18/2017 S/P appendectomy 05/18/2017 Chest pain 05/18/2017 documented as of this encounter (statuses as of 12/12/2018) Social History Date Tobacco Use Types Packs/Day [...] Signs Reading Time Taken Comments Vital Sign 140/60 12/12/2018 10:24 AM CDT Blood Pressure 87 12/12/2018 10:24 AM CDT Pulse - - Temperature 15 12/12/2018 10:24 AM CDT Respiratory Rate 98% 12/12/2018 10:24 AM CDT Oxygen Saturation - - Inhaled Oxygen Concentration 58.5 kg (129 lb) 12/12/2018 10:24 AM CDT Weight 160 cm (5' 3") 12/12/2018 10:24 AM CDT Height 22.85 12/12/2018 10:24 AM CDT Body Mass Index documented in this encounter Patient Instructions * Patient Instructions* Hua Lozada FNPC - 12/12/2018 10:20 AM CDT 1. Palpitations - Monitor results reviewed - Per patient self resolved 2. HTN - Continue to monitor BP at home. To keep a log and bring to clinic during next office visit - Low sodium diet. Less than 1,500mg/1.5grams of sodium daily - Engage in relaxation techniques: Meditation, Yoga 3. Follow up in 3-4 months documented in this encounter Progress Notes * Hua Lozada FNPC - 12/12/2018 10:20 AM CDT Date: December 12, 2018 Patient Name: Suzan Hong : 1935 Reason for Visit: Follow up: Last OV 1 year ago Problem List: #HTN - Losartan, hydralazine, verapamil #Palpitations - Cardio [place] with occasional sinus tachycardia. No A-fib Chief Complaint: Chief Complaint Patient presents with Cardiology Follow-up History of Present Illness: Suzan Hong is a 83 y.o. female with HTN. She she st ates noticed her feet last year for which he sought care from her primary care yovani gilbert. She presents to the clinic today for her palpitation follow up. No ac tive complaints of chest pain, SOB, palpitations, dizziness, syncope/near syncop al episodes. Current Medications: Current Outpatient Medications Medication [...] Respiratory: Negative for shortness of breath. Cardiovascular: Negative Gastrointestinal: Negative for abdominal pain. Genitourinary: Negative. Musculoskeletal: Negative. Skin: Negative. Neurological: Negative. Endo/Heme/Allergies: Negative. Psychiatric/Behavioral: Negative. EXAMINATION BP 140/60 | Pulse 87 | Resp 15 | Ht 5' 3" (1.6 m) | Wt 129 lb (58.5 kg) | S pO2 98% | BMI 22.85 kg/m General appearance: alert, cooperative, no distress, [...] and oriented to person, place, and time Echocardiogram: TTE 05/23/2017: SUMMARY: ++++++++++++++++++++++++++++++++++++ 1. Left ventricular chamber size (by PSLAX dimension) is small (female - LVIDd < 3.8 cm). Mild concentric LVH noted. All of the LV segments contract normally. LVEF by quantitative assessment is normal (> 60%). Grade 2 diastolic dysfunction (moderately increased LA pressure). 2. The right ventricular chamber size and systolic function are within normal limits. 3. LA size is mildly enlarged. RA cavity size is normal. 4. Mild mitral annular calcification. Mild MV leaflet thickening and calcification. Mild mitral regurgitation. 5. A trace of tricuspid regurgitation. Unable to estimate peak systolic PA pressure; inadequate TR velocity signal. The estimated RA pressure by IVC dynamics 0-5 mm Hg. No prior exam available for comparison. ASSESSMENT/PLAN: 1. Palpitations - Monitor results reviewed - Per patient self resolved 2. HTN - Continue to monitor BP at home. To keep a log and bring to clinic during next office visit - Low sodium diet. Less than 1,500mg/1.5grams of sodium daily - Engage in relaxation techniques: Meditation, Yoga Hua Lozada, MSN, AIRPLANE MECHANIC APPRENTICE, [employer] Nurse Practitioner/Instructor Office: Nurse Practitioner to Dr. Usman Verdugo MD Interventional Cardiology and Structural Heart Disease [facility] [employer] [facility] Supervising Physician Attestation: I, Usman Verdugo MD., have seen and examined the patient and discussed with Hua Lozada NP. I agree with the noted findings, examination, assessment and pl an of care as documented in the note. I have also reviewed the medications, lab s, and documentation consultant notes. Usman Verdugo MD, [facility] ([phone]) Interventional Cardiology and Structural Heart Disease Cardiology Section, [facility] Director, Structural Heart Disease [facility], [facility] [employer] 45 minutes spent in the care of the patient, with at least 50% of this time spen t face to face with patient in counseling and coordination of care. documented in this encounter Plan of Treatment Health Maintenance Due Date Last Done Comments MEDICARE AWV 1935 FALL SCREEN 2000 OSTEOPOROSIS SCREENING 2000 PNEUMOVAX >=65 (PPSV23) 2000 PREVNAR >= 65 (PCV13) 2000 FLU VACCINE > 6 MONTHS 10/05/2018 TETANUS SHOT (ADULT) 07/24/2024 07/24/2014 documented as of this encounter Results Not on filedocumented in this encounter Visit Diagnoses Diagnosis Palpitation - Primary Palpitations documented in this encounter Insurance Type Payer Benefit Subscriber ID Effective Phone Address Plan / Dates Group Medicare MEDICARE MEDICARE xxxxxxxxxxx 2000-P [id number] [place] [address] Medicare AETNA AETNA xxxxxxxxxx 2015-P [address] resent [id number] [place] [address] documented as of this encounter
== END 2019-10-13 21:00 | disposition home or self-care (01) ==
LOC: ER 20:10
DX: I16.0 Hypertensive urgency (principal); R51 Headache; I10 Essential (primary) hypertension; E03.9 Hypothyroidism, unspecified
CPT/HCPCS: 99282

== ENCOUNTER 2020-01-26 02:18 | Observation (INO) | payer MEDICARE, OTHER ==
[~2020-01-26] VITALS: Ht 157.5 cm; Wt 62.6 kg
[2020-01-26] VITALS (7 sets, daily range): BP systolic 126–157; BP diastolic 41–60
--- NOTE | 2020-01-26 02:22 | Emergency Department Note ---
History of Present Illnes History of Present Illness History of Present Illness This is a 84 year old female with epigastric pain of 3 days duration. patient seen at [facility]. Historian: Patient, Family Member Arrival Mode: Car Onset (how long ago): day(s) (3) Location: epigastric Radiation: Reports non-radiation Severity: moderate Duration (how long): day(s) (3) Timing of current episode: constant Progression: worsening Chronicity: new Context: Reports recent immobilization Relieving factors: none Exacerbating factors: none Associated symptoms: Reports chest pain, Reports shortness of breath Treatments prior to arrival: none Previous service: tests performed, observation, one or more referrals, re- evaluation Past Medical/Family History Physician Review I have reviewed the patient's past medical and family history. Any updates have been documented here. Past Medical History Recent Fever: No Clinical Suspicion of Infectio: No New/Unexplained Change in Ment: No Past Medical History: Hypertension, Hypothyroidism Other Medical History: FATTY TUMOR TO KIDNEY ATHEROSCLEROSIS DIVERTICULOSIS Past Surgical History: Appendectomy, Hysterectomy Other Surgery: COLON SURGERY "PROLAPSE OF VAGINA AND COLON" PER PT LEFT BREAST BIOPSY Social History Smoking Cessation: Never Smoker Alcohol Use: None Any Illegal Drug Use: No Other Last Tetanus: UTD Review of Systems Review of Systems Constitutional: Reports no symptoms EENTM: Reports no symptoms Cardiovascular: Reports no symptoms Respiratory: Reports dyspnea Gastrointestinal: Reports abdominal pain; Denies nausea, Denies vomiting Genitourinary: Reports no symptoms Musculoskeletal: Reports no symptoms Integumentary: Reports no symptoms Neurological: Reports no symptoms Psychological: Reports no symptoms Endocrine: Reports no symptoms Hematological/Lymphatic: Reports no symptoms Physical Exam Related Data Allergies: Coded Allergies: Erythromycin Lactobionate (Verified Allergy, Unknown, 01/18/17) alendronate sodium (Verified Allergy, Unknown, 01/18/17) aloe vera (Verified Allergy, Unknown, 01/18/17) amoxicillin (Verified Allergy, Unknown, "EFFECTED THE HEART", 01/26/20) azithromycin (Verified Allergy, Unknown, 01/18/17) carvedilol (Verified Allergy, Unknown, 01/18/17) clavulanic acid (Verified Allergy, Unknown, "EFFECTED THE HEART", 01/26/20) diltiazem (Verified Allergy, Unknown, 01/18/17) doxycycline (Verified Allergy, Unknown, NAUSEA, 01/26/20) hydrochlorothiazide (Verified Allergy, Unknown, 01/18/17) latex (Verified Allergy, Unknown, 01/18/17) levofloxacin (Verified Allergy, Unknown, 01/18/17) lisinopril (Verified Allergy, Unknown, 01/18/17) metoprolol (Verified Allergy, Unknown, 01/18/17) paroxetine HCl (Verified Allergy, Unknown, 01/18/17) sertraline HCl (Verified Allergy, Unknown, 01/18/17) simvastatin (Verified Allergy, Unknown, 01/18/17) sulfamethoxazole (Verified Allergy, Unknown, 01/18/17) trimethoprim (Verified Allergy, Unknown, 01/18/17) Uncoded Allergies: ALOE VERA LATEX GLOVES (Allergy, Unknown, FEVER BLISTERS, 01/26/20) NOVACAINE (Allergy, Unknown, 01/18/17) VASACARE (Allergy, Unknown, DIZZINESS, 01/26/20) Triage Vital Signs Vital Signs Date Time Temp Pulse Resp B/P (MAP) Pulse Ox O2 Delivery O2 Flow Rate FiO2 01/26/20 02:18 98.3 75 19 155/55 100 Room Air Vital signs reviewed: Yes Physical Exam CONSTITUTIONAL Constitutional: Present well-developed, Present well-nourished HENT HENT: Present normocephalic, Present atraumatic, Present oropharynx clear/moist, Present nose normal HENT L/R: Present left ext ear normal, Present right ext ear normal EYES Eyes: Reports PERRL, Reports conjunctivae normal NECK Neck: Present ROM normal PULMONARY Pulmonary: Present effort normal, Present breath sounds normal CARDIOVASCULAR Cardiovascular: Present regular rhythm, Present heart sounds normal, Present capillary refill normal, Present normal rate GASTROINTESTINAL Abdominal: Present soft, Present tender (epigastrdic) GENITOURINARY Genitourinary: Present exam deferred SKIN Skin: Present warm, Present dry MUSCULOSKELETAL Musculoskeletal: Present ROM normal NEUROLOGICAL Neurological: Present alert, Present oriented x 3, Present no gross motor or sensory deficits PSYCHOLOGICAL Psychological: Present mood/affect normal, Present judgement normal Results Laboratory Lab results reviewed: Yes Laboratory comments Laboratory Tests Test 01/26/20 04:35 01/26/20 02:50 White Blood Count 10.95 x10e3/uL (4.8-10.8) Red Blood Count 3.56 x10e6/uL (3.6-5.1) Hemoglobin 10.4 g/dL (12.0-16.0) Hematocrit 31.4 % (34.2-44.1) Mean Corpuscular Volume 88.2 fL (81-99) Mean Corpuscular Hemoglobin 29.2 pg (28-32) Mean Corpuscular Hemoglobin Concent 33.1 g/dL (31-35) Red Cell Distribution Width 12.8 % (11.7-14.4) Platelet Count 250 x10e3/uL (140-360) Neutrophils (%) (Auto) 65.5 % (38.7-80.0) Lymphocytes (%) (Auto) 17.3 % (18.0-39.1) Monocytes (%) (Auto) 12.4 % (4.4-11.3) Eosinophils (%) (Auto) 3.7 % (0.0-6.0) Basophils (%) (Auto) 0.7 % (0.0-1.0) Neutrophils # (Auto) 7.2 (2.1-6.9) Lymphocytes # (Auto) 1.9 (1.0-3.2) Monocytes # (Auto) 1.4 (0.2-0.8) Eosinophils # (Auto) 0.4 (0.0-0.4) Basophils # (Auto) 0.1 (0.0-0.1) Absolute Immature Granulocyte (auto 0.04 x10e3/uL (0-0.1) Urine Color Yellow (YELLOW) Urine Clarity Sl cloudy (CLEAR) Urine pH 7 (5 - 7) Urine Specific [place] 1.015 (1.010-1.025) Urine Protein Negative (NEGATIVE) Urine Glucose (UA) Negative (NEGATIVE) Urine Ketones Negative (NEGATIVE) Urine Blood Negative (NEGATIVE) Urine Nitrite Positive (NEGATIVE) Urine Bilirubin Negative (NEGATIVE) Urine Urobilinogen 0.2 mg/dL (0.2 - 1) Urine Leukocyte Esterase Moderate (NEGATIVE) Urine RBC 0-5 /HPF (0-5) Urine WBC >50 /HPF (0-5) Urine Epithelial Cells Few /LPF (NONE) Urine Bacteria Moderate /HPF (NONE) Sodium Level 129 mmol/L (136-145) Potassium Level 3.9 mmol/L (3.5-5.1) Chloride Level 97 mmol/L (98-107) Carbon Dioxide Level 19 mmol/L (22-29) Anion Gap 16.9 mmol/L (8-16) Blood Urea Nitrogen 11 mg/dL (7-26) Creatinine 0.72 mg/dL (0.57-1.11) Estimat Glomerular Filtration Rate > 60 ML/MIN (60-) BUN/Creatinine Ratio 15 (6-25) Glucose Level 113 mg/dL (74-118) Calcium Level 8.9 mg/dL (8.4-10.2) Total Bilirubin 0.4 mg/dL (0.2-1.2) Aspartate Amino Transf (AST/SGOT) 22 IU/L (5-34) Alanine Aminotransferase (ALT/SGPT) 18 IU/L (0-55) Alkaline Phosphatase 36 IU/L (40-150) Creatine Kinase 109 IU/L (29-168) Creatine Kinase MB 2.10 ng/mL (0-5.0) Troponin I 0.010 ng/mL (0-0.300) Total Protein 7.0 g/dL (6.5-8.1) Albumin 3.9 g/dL (3.5-5.0) Globulin 3.1 g/dL (2.3-3.5) Albumin/Globulin Ratio 1.3 (0.8-2.0) Lipase 28 U/L (8-78) Imaging Imaging results reviewed: Yes Impressions [place] [address] Patient Name: LILLY BREWSTER MR #: [id number] : 1935 Age/Sex: 84/F Req #: [id number] Adm Physician: Ordered by: MAGDALENA ESCOTO DO Report #: [id number] Location: ER Room/Bed: Procedure: CT/CT ABDOMEN/PELVIS WO Exam Date: 01/26/20 Exam Time: 316 REPORT STATUS: Signed EXAM: CT Abdomen and Pelvis WITHOUT contrast INDICATION: ^epigastric ^[id number] ^316 COMPARISON: TECHNIQUE: Abdomen and pelvis were scanned utilizing a multidetector helical scanner from the lung base to the pubic symphysis without administration of IV contrast. Absence of intravenous contrast decreases sensitivity for detection of focal lesions and vascular pathology. Coronal and sagittal reformations were obtained. Routine protocol was performed. IV CONTRAST: None ORAL CONTRAST: None COMPLICATIONS: None FINDINGS: LOWER THORAX: Unremarkable HEPATOBILIARY: Unchanged lobulated left hepatic lobe cysts as seen on prior CT. No biliary ductal dilation. GALLBLADDER: No radio-opaque stones or sludge. No wall thickening. Nondistended. SPLEEN: No splenomegaly. PANCREAS: No focal masses or ductal dilatation. ADRENALS: Mild thickening of the left adrenal gland. 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 Additional complex cystic lesions seen on prior CT no definitely increased in size, but although evaluation is markedly limited given noncontrast technique. No urinary tract calculi. No hydronephrosis. GI TRACT: No abnormal distention, wall thickening, or evidence of bowel obstruction. Appendix is not clearly identified. There is however no fat stranding or adenopathy in the right lower quadrant to suggest appendicitis. Stomach is decompressed which limits evaluation. Extensive sigmoid diverticulosis without evidence of acute diverticulitis. PELVIC ORGANS/BLADDER: Uterus is absent.. LYMPH NODES: No lymphadenopathy. 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 Moderate to severe atherosclerotic calcifications of the abdominal aorta and its main branches. No aneurysmal dilatation of the abdominal aorta. PERITONEUM / RETROPERITONEUM: No free air or fluid. BONES: There are degenerative changes in the spine. IMPRESSION: 1. No acute abdominopelvic process. 2. Complex bilateral renal lesions are incompletely assessed on this noncontrast CT exam, but not definitely changed in size. Recommend nonemergent follow-up renal mass protocol MRI for definitive characterization. 3. Extensive diverticulosis of the sigmoid colon without evidence of acute diverticulitis. Signed by: Elbert Mary MD on 01/26/2020 4:23 AM Dictated By: ELBERT MARY MD 2 Transcribed By: CODEY on 01/26/20422 COPY TO: MAGDALENA ESCOTO DO~ [place] [address] Patient Name: LILLY BREWSTER MR #: [id number] : 1935 Age/Sex: 84/F Req #: [id number] Adm Physician: Ordered by: MAGDALENA ESCOTO DO Report #: [id number] Location: ER Room/Bed: Procedure: [id number] DX/CHEST SINGLE (PORTABLE) Exam Date: Exam Time: REPORT STATUS: Signed EXAMINATION: CHEST SINGLE (PORTABLE) INDICATION: ^epigastric COMPARISON: xray 01/18/17 FINDINGS: LUNGS: Normal lung volumes. Lungs are clear. No consolidations. PLEURA: No pleural effusion or pneumothorax. HEART AND MEDIASTINUM: The cardiomediastinal silhouette is unremarkable. IMPRESSION: No acute thoracic radiographic abnormality. Signed by: Elbert Mary MD on 01/26/2020 3:48 AM Dictated By: ELBERT MARY MD 7 Transcribed By: CODEY on 01/26/20347 COPY TO: MAGDALENA ESCOTO DO~ Procedures 12 Lead ECG Interpretation ECG Interpretation : ECG: ECG 1 Contract Administration Coordinator: Interpreted by ED physician Date: Jan 26, 2020 Time: 02:39 Prior ECG tracings: reviewed Rhythm: sinus rhythm Rate: normal BPM: 74 QRS axis: normal ST segments normal: No ST segment flattening: V4, V5, V6 T waves flattening: aVR, aVL Assessment & Plan Medical Decision Making MDM Diff Dx: ACS, PE, ACS, Sepsis, PNA, covid-19 URI, pancreatitis , Appendicitis, biliary pathology Reassessment Reassessment Patient concerned that is missing $85 from purse. Earlier conversation , patient stated that while she was in [facility] that the physician that had seen her appeared "drunk". Assessment & Plan Final Impression: (1) Chest pain Depart Disposition: ADMITTED Home Meds Reported Medications Ranitidine Hcl (RANITIDINE HCL) 150 Mg Tablet, 150 MG PO DAILY 08/06/17 Omeprazole (OMEPRAZOLE) 40 Mg Capsule.dr, 40 MG PO DAILY 08/06/17 Verapamil Hcl (VERAPAMIL ER) 120 Mg Cap24h.pel, 120 MG PO DAILY 08/06/17 [Premarin Vaginal Crm] No Conflict Check, 1 APPLIC TOP PRN 08/06/17 Ropinirole Hcl (ROPINIROLE HCL) 0.25 Mg Tablet, 0.25 MG PO DAILY, #90 TAB 08/06/17 Pravastatin Sodium (PRAVASTATIN SODIUM) 80 Mg Tablet, 80 MG PO DAILY THERAPEUTICALLY SUBSTITUTED WITH SIMVASTATIN 40MG 08/06/17 [Perform Total Health] No Conflict Check, 1 TAB PO DAILY 08/06/17 Hydralazine Hcl (HYDRALAZINE HCL) 25 Mg Tab, 25 MG PO DAILY, TAB 08/06/17 Aspirin (ASPIR 81) 81 Mg Tablet.dr, 81 MG PO DAILY 08/06/17 Acyclovir (ACYCLOVIR) 200 Mg Capsule, 400 MG PO DAILY, #30 CAP 08/06/17 Losartan Potassium (LOSARTAN POTASSIUM) 50 Mg Tablet, 100 MG PO DAILY 02/18/14 [Acyclovir] No Conflict Check, 400 MG PO QID PRN FOR OUTBREAKS 02/18/14 MAGDALENA ESCOTO DO Jan 26, 2020 02:22
[2020-01-26 03:01] LABS: BASOPHILS # (AUTO) 0.1 (0.0-0.1); BASOPHILS % 0.7 % (0.0-1.0); EOSINOPHILS # (AUTO) 0.4 (0.0-0.4); EOSINOPHILS % 3.7 % (0.0-6.0); HEMATOCRIT 31.4 % (34.2-44.1); HEMOGLOBIN 10.4 g/dL (12.0-16.0); LYMPHOCYTES # (AUTO) 1.9 (1.0-3.2); LYMPHOCYTES % 17.3 % (18.0-39.1); MEAN CORPUSCULAR HEMOGLOBIN 29.2 pg (28-32); MEAN CORPUSCULAR HGB CONC 33.1 g/dL (31-35); MEAN CORPUSCULAR VOLUME 88.2 fL (81-99); MONOCYTES # (AUTO) 1.4 (0.2-0.8); MONOCYTES % 12.4 % (4.4-11.3); NEUTROPHILS # (AUTO) 7.2 (2.1-6.9); NEUTROPHILS % 65.5 % (38.7-80.0); PLATELET COUNT 250 x10e3/uL (140-360); RED BLOOD COUNT 3.56 x10e6/uL (3.6-5.1); RED CELL DISTRIBUTION WIDTH 12.8 % (11.7-14.4)
[2020-01-26 03:02] LABS: BILIRUBIN,URINE NEGATIVE (NEGATIVE); CLARITY,URINE SL CLOUDY (CLEAR); COLOR,URINE YELLOW (YELLOW); KETONES,URINE NEGATIVE (NEGATIVE); LEUKOCYTE ESTERASE ,URINE MODERATE (NEGATIVE); NITRITE,URINE POSITIVE (NEGATIVE); PROTEIN,URINE DIPSTICK NEGATIVE (NEGATIVE); URINE UROBILINOGEN 0.2 mg/dL (0.2 - 1)
--- NOTE | 2020-01-26 03:08 | NUR ---
Unable to obtain IV access at this time. ER notified.
[2020-01-26 03:11] LABS: BACTERIA,URINE MODERATE /HPF; EPITHELIAL CELLS,URINE FEW /LPF; RBC,URINE 0-5 /HPF (0-5); WBC,URINE (MAN) >50 /HPF (0-5)
[2020-01-26 03:24] LABS: ALANINE AMINOTRANSFERASE 18 IU/L (0-55); ALBUMIN 3.9 g/dL (3.5-5.0); ALBUMIN/GLOBULIN RATIO 1.3 (0.8-2.0); ALKALINE PHOSPHATASE 36 IU/L (40-150); ANION GAP 16.9 mmol/L (8-16); BLOOD UREA NITROGEN 11 mg/dL (7-26); BUN/CREATININE RATIO 15 (6-25); CALCIUM 8.9 mg/dL (8.4-10.2); CARBON DIOXIDE 19 mmol/L (22-29); CHLORIDE 97 mmol/L (98-107); CREATINE KINASE 109 IU/L (29-168); CREATININE, SERUM 0.72 mg/dL (0.57-1.11); EST GLOMERULAR FILTRATION RATE > 60 ML/MIN (60-); GLUCOSE 113 mg/dL (74-118); POTASSIUM 3.9 mmol/L (3.5-5.1); SODIUM 129 mmol/L (136-145)
--- NOTE | 2020-01-26 03:52 | Diagnostic Imaging Report ---
EXAMINATION: CHEST SINGLE (PORTABLE) INDICATION: ^epigastric COMPARISON: xray 01/18/17 FINDINGS: LUNGS: Normal lung volumes. Lungs are clear. No consolidations. PLEURA: No pleural effusion or pneumothorax. HEART AND MEDIASTINUM: The cardiomediastinal silhouette is unremarkable. IMPRESSION: No acute thoracic radiographic abnormality. Signed by: Donald Hill MD on 01/26/2020 3:48 AM
--- NOTE | 2020-01-26 04:27 | Diagnostic Imaging Report ---
EXAM: CT Abdomen and Pelvis WITHOUT contrast INDICATION: ^epigastric ^[id number] ^[id number] COMPARISON: TECHNIQUE: Abdomen and pelvis were scanned utilizing a multidetector helical scanner from the lung base to the pubic symphysis without administration of IV contrast. Absence of intravenous contrast decreases sensitivity for detection of focal lesions and vascular pathology. Coronal and sagittal reformations were obtained. Routine protocol was performed. IV CONTRAST: None ORAL CONTRAST: None COMPLICATIONS: None FINDINGS: LOWER THORAX: Unremarkable HEPATOBILIARY: Unchanged lobulated left hepatic lobe cysts as seen on prior CT. No biliary ductal dilation. GALLBLADDER: No radio-opaque stones or sludge. No wall thickening. Nondistended. SPLEEN: No splenomegaly. PANCREAS: No focal masses or ductal dilatation. ADRENALS: Mild thickening of the left adrenal gland. 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 Additional complex cystic lesions seen on prior CT no definitely increased in size, but although evaluation is markedly limited given noncontrast technique. No urinary tract calculi. No hydronephrosis. GI TRACT: No abnormal distention, wall thickening, or evidence of bowel obstruction. Appendix is not clearly identified. There is however no fat stranding or adenopathy in the right lower quadrant to suggest appendicitis. Stomach is decompressed which limits evaluation. Extensive sigmoid diverticulosis without evidence of acute diverticulitis. PELVIC ORGANS/BLADDER: Uterus is absent.. LYMPH NODES: No lymphadenopathy. 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 Moderate to severe atherosclerotic calcifications of the abdominal aorta and its main branches. No aneurysmal dilatation of the abdominal aorta. PERITONEUM / RETROPERITONEUM: No free air or fluid. BONES: There are degenerative changes in the spine. IMPRESSION: 1. No acute abdominopelvic process. 2. Complex bilateral renal lesions are incompletely assessed on this noncontrast CT exam, but not definitely changed in size. Recommend nonemergent follow-up renal mass protocol MRI for definitive characterization. 3. Extensive diverticulosis of the sigmoid colon without evidence of acute diverticulitis. Signed by: Donald Hill MD on 01/26/2020 4:23 AM
[2020-01-26] MEDS ORDERED: ONDANSETRON HCL INJ 2MG/ML 2ML 2 MG/ML VIAL IV PRN (04:45)
[2020-01-26] MEDS ORDERED: MORPHINE SULFATE INJ 4 MG/ML INJ 1ML IV PRN (04:45)
[2020-01-26] MEDS ORDERED: ASPIRIN 81 MG CHEW TAB PO ONE (04:45)
--- NOTE | 2020-01-26 04:46 | NUR ---
Consent for PICC line obtained at this time
--- NOTE | 2020-01-26 05:30 | NUR ---
patient is a new admit from the Emergency Room. patient is alert and oriented. Upon patients arrival was notified by Emergency room nurse that patient claims she lost $84 down in the Emergency room. patient has been assisted into the bed. bed is in the lowest position and call light is within reach. will continue to monitor patient.
--- NOTE | 2020-01-26 06:41 | NUR ---
Cardiologists answering service notified of routine consultation.
--- OUTSIDE RECORDS SUMMARY | 2020-01-26 10:29 | XMS REPORT | Clinical Summary ---
Author Author [facility] Organization [facility] Address Unknown Phone Unavailable Care Team Providers Care Keg Raiser Name Role Phone Panda Kimbrough MD PCP Allergies Not on File Medications End Date Status Medication Sig Dispensed Refills Start Date Active verapamil sustained Take 120 mg 0 release (CALAN-SR) 120 MG by mouth. 6 SR tablet Active hydrALAZINE (APRESOLINE) 25 mg 3 0 06/20 25 MG tablet (three) times 9 a day. Active Problems Not on file Encounters Care Team Description Date Type Specialty Augusto Little NP-C 12/25/2019 Telephone Neurology Augusto Little NP-C 12/24/2019 Telephone Neurology Lien Tony MD 12/20/2019 Orders Only Neurology Augusto Little NP-C Mild cognitive impairment (Primary Dx); Vitamin B12 deficiency; Other disorders of iron metabolism ; Pyridoxine deficiency 12/20/2019 Orders Only Neurology Chelo Rodríguez MA 12/12/2019 Telephone Neurology Augusto Little NP-C 12/10/2019 Telephone Neurology Lien Tony MD Cognitive impairment 12/06/2019 Hospital Radiology Encounter 12/06/2019 Travel Chelo Rodríguez MA Cognitive impairment (Primary Dx) 12/05/2019 Orders Only Neurology 12/04/2019 Lien Zamora MD 12/04/2019 Telephone Neurology Lien Tony MD Dulay, Mario, PhD Cognitive impairment; Memory loss; Executive function deficit; Mild cognitive impairment, so stated; Mild traumatic brain injury, with loss of consciousness of 30 minutes or less, initial encounter ([facility]); Apathy; Depression, unspecified depression type 11/30/2019 Office Visit Neuropsychology 11/30/2019 Travel 11/06/2019 Chelo Frost MA Cognitive impairment (Primary Dx) 11/02/2019 Telephone Neurology 10/29/2019 Travel after 01/25/2019 Surgical History Surgery Date Site/Laterality Comments BLADDER SUSPENSION RECTAL SURGERY CATARACT EXTRACTION, BILATERAL HYSTERECTOMY, VAGINAL BREAST BIOPSY Medical History Medical History Date Comments Sleep apnea Hypertension Family History Relation Name Status Comments Father [...] Assigned at Date Recorded Not on file Last Filed Vital Signs Not on file Plan of Treatment Care Team Description Date Type Specialty Lien Tony MD [address] [place] [address] [phone] Augusto Little NP-C [address] [place] [address], [place] [address] [phone] 02/06/2020 Office Visit Neurology Health Maintenance Due Date Last Done Comments SHINGLES VACCINES (#1) 1985 65+ PNEUMOCOCCAL VACCINE 2000 (1 of 1 - PPSV23) INFLUENZA VACCINE 10/06/2019 Procedures Comments Procedure Name Priority Date/Time Associated Diag nosis HEMOGLOBIN A1C Routine 12/20/2019 12:35 PM CDT VITAMIN B6 LEVEL, PLASMA Routine 12/20/2019 12:35 PM CDT VITAMIN B12 LEVEL Routine 12/20/2019 12:35 PM CDT THYROID STIMULATING Routine 12/20/2019 HORMONE 12:35 PM CDT FOLATE LEVEL Routine 12/20/2019 12:35 PM CDT VITAMIN B1 LEVEL Routine 12/20/2019 12:35 PM CDT SEDIMENTATION RATE Routine 12/20/2019 12:35 PM CDT MRI BRAIN WO CONTRAST Routine 12/06/2019 Cognitiv e impairment 11:01 AM CDT KARINA SCREEN W IFA W REFLEX Routine 12/06/2019 Cogn itive impairment TO TITER 12:00 AM CDT after 01/25/2019 Results * Sedimentation rate (12/20/2019 12:35 PM CDT) Sedimentation 6 < OR = 30 mm/h Simin[facility] TACOMA Specimen Narrative Performed At FASTING:YES [facility] FASTING: YES Resulting Agency Comment Performing Organization Information: Site ID: [id number] Name: [facility] Address: [address] [place] [phone] Director: Michel Cabrera Performing Organization Address [facility] P kailey Number [facility] [place] [phone] * Thyroid stimulating hormone (12/20/2019 12:35 PM CDT) Pathologist [facility] TSH 2.64 0.40 - 4.50 mIU/L Disability Care Givers [place] Specimen Narrative Performed At FASTING:YES [facility] FASTING: YES Resulting Agency Comment Performing Organization Information: Site ID: [facility] Name: [facility] Address: [address] [place] [phone] Director: Michel Cabrera Performing Organization Address [facility] P kailey Number [facility] [place] [phone] * Vitamin B1 level (12/20/2019 12:35 PM CDT) Pathologist [facility] Vitamin B1 24 8 - 30 nmol/L [facility] Comment: DIAGNOSTICS Vitamin supplementation within [place] 24 hours prior to [place] blood draw may affect the accuracy of results. This test was developed and its analytical performance characteristics have been determined by [facility]. It has not been cleared or approved by the FDA. This assay has been validated pursuant to the CLIA regulations and is used for clinical purposes. Specimen Narrative Performed At FASTING:YES [facility] FASTING: YES Resulting Agency Comment Performing Organization Information: Site ID: [id number] Name: [facility] Address: [address] [place] [address] Director: Cecil Hamlin M.D. Performing Organization Address [facility] P kailey Number [facility] [place] [id number] [place] [phone] [place] * Vitamin B6 level, plasma (12/20/2019 12:35 PM CDT) Vitamin B6 29.2 (H) 2.1 - 21.7 ng/mL [facility] Comment: DIAGNOSTICS Vitamin supplementation within [place] 24 hours prior to blood [place] draw may affect the accuracy of results. This test was developed and its analytical performance characteristics have been determined by [facility]. It has not been cleared or approved by the FDA. This assay has been validated pursuant to the CLIA regulations and is used for clinical purposes. Specimen Narrative Performed At FASTING:YES [facility] FASTING: YES Resulting Agency Comment Performing Organization Information: Site ID: SLI Name: [facility] Address: [address] [place] [phone] Director: Cecil Hamlin M.D. Performing Organization Address [facility] P kailey Number [facility] [place] [phone] [place] * Hemoglobin A1c (12/20/2019 12:35 PM CDT) Hemoglobin A1C 5.2 <5.7 % of total Hgb [facility] Comment: DIAGNOSTICS For the purpose of screening [place] for the presence of diabetes: <5.7% Consistent with the absence of diabetes 5.7-6.4% Consistent with increased risk for diabetes (prediabetes) > or =6.5% Consistent with diabetes This assay result is consistent with a decreased risk of diabetes. Currently, no consensus exists regarding use of hemoglobin A1c for diagnosis of diabetes in children. According to [place] Diabetes Association (ADA) guidelines, hemoglobin A1c <7.0% represents optimal control in non- diabetic patients. Different metrics may apply to specific patient populations. Standards of Medical Care in Diabetes(ADA). Specimen Narrative Performed At FASTING:YES [facility] FASTING: YES Resulting Agency Comment Performing Organization Information: Site ID: RGA Name: [facility] Address: [address] [place] [phone] Director: Michel Cabrera Performing Organization Address [facility] P kailey Number [facility] [address] [phone] * Folate level (12/20/2019 12:35 PM CDT) Folate 17.5 ng/mL [facility] Comment: [facility] Reference Range Low: <3.4 Borderline: 3.4-5.4 Normal: >5.4 Specimen Narrative Performed At FASTING:YES [facility] FASTING: YES Resulting Agency Comment Performing Organization Information: Site ID: [facility] Name: [facility] Lab Address: [address] [place], [place] [phone] Director: Michel Cabrera Performing Organization Address City/[facility] P kailey Number [place] [phone] * Vitamin B12 level (12/20/2019 12:35 PM CDT) Vitamin B12 694 200 - 1,100 pg/mL [facility] Specimen Narrative Performed At FASTING:YES [facility] FASTING: YES Resulting Agency Comment Performing Organization Information: Site ID: [facility] Name: [facility] Lab Address: [address] [place] [address] Director: Michel Cabrera Performing Organization Address [facility] P kailey Number [place] [phone] * MRI Brain Wo Contrast (12/06/2019 11:01 AM CDT) Specimen Narrative Performed At [facility] EXAMINATION: MRI BRAIN WO CONTRAST CLINICAL HISTORY: R41.89 Other symptoms and signs involving cognitive functions and awareness, Neuro deficit(s) subac larry COMPARISON: None TECHNIQUE: Multiplanar and multisequenc e MRI imaging of the brain was obtained without contrast. FINDINGS: Extensive T2/FLAIR hyperintensities are noted throughout the periventricular and subcortical white matter, nonspecific b ut likely related to advanced chronic microvascular ischemic changes. No rest ricted diffusion identified to indicate recent infarct. No intra or extra-axial fluid collectio ns identified. No mass, mass effect, or midline shift is seen. The basal ganglia, thalami, midbrain, p ons and cervicomedullary junction are unremarkable. Sella turcica is partiall y empty, nonspecific. The ventricular system and sulci are prominent, compati ble with global parenchymal volume loss, unremarkable for patient's age. The basal cisterns are p atent. The calvarium appears intact. The major intracranial vascular flow voids are present. Prior cataract lens extractions are not ed bilaterally. The paranasal sinuses are unremarkable. Tiny left mastoid effusio n is noted. The right mastoid air cells and middle ear cavities are clear. IMPRESSION: No acute intracranial abnormality ident ified. Age commensurate global parenchymal volume loss and extensive n onspecific white matter findings, likely reflecting advanced chronic microvascul ar ischemic changes. [id number] Procedure Note Hm Interface, Radiology Results Incoming - 12/06/2019 11:10 AM CDT EXAMINATION: MRI BRAIN WO CONTRAST CLINICAL HISTORY: R41.89 Other symptoms and signs involving cognitive functions and awareness, Neuro deficit(s) subacute COMPARISON: None TECHNIQUE: Multiplanar and multisequence MRI imaging of the brain was obtained without contrast. FINDINGS: Extensive T2/FLAIR hyperintensities are noted throughout the periventricular and subcortical white matter, nonspecific but likely related to advanced chronic microvascular ischemic changes. No restricted diffusion identified to indicate recent infarct. No intra or extra-axial fluid collections identified. No mass, mass effect, or midline shift is seen. The basal ganglia, thalami, midbrain, huy and cervicomedullary junction are unremarkable. Sella turcica is partially empty, nonspecific. The ventricular system and sulci are prominent, compatible with global parenchymal volume loss, unremarkable for patient's age. The basal cisterns are patent. The calvarium appears intact. The major intracranial vascular flow voids are present. Prior cataract lens extractions are noted bilaterally. The paranasal sinuses are unremarkable. Tiny left mastoid effusion is noted. The right mastoid air cells and middle ear cavities are clear. IMPRESSION: No acute intracranial abnormality identified. Age commensurate global parenchymal volume loss and extensive nonspecific white matter findings, likely reflecting advanced chronic microvascular ischemic changes. [id number] Performing Organization Address City/State/ZIP Code P kailey Number [facility] [address] [place] [address] * KARINA SCREEN W IFA W REFLEX TO TITER (12/06/2019 12:00 AM CDT) KARINA screen POSITIVE (A) NEGATIVE [facility] Comment: DIAGNOSTICS-KAYE KARINA IFA is a first line screen ING II for detecting the presence of up to approximately 150 autoantibodies in various autoimmune diseases. A positive KARINA IFA result is suggestive of autoimmune disease and reflexes to titer and pattern. Further laboratory testing may be considered if clinically indicated. For additional information, please refer to http://education.Live[employer]/faq/OON709 (This link is being provided for informational/ educational purposes only.) KARINA titer 1:40 (H) titer [facility] Comment: DIAGNOSTICS-KAYE A low level KARINA titer may be ING II present in pre-clinical autoimmune diseases and normal individuals. Reference Range <1:40 Negative 1:40-1:80 Low Antibody Level >1:80 Elevated Antibody Level KARINA pattern Cytoplasmic (A) [facility] Comment: DIAGNOSTICS-KAYE The presence of cytoplasmic ING II fluorescence was noted on the HEp-2 slide. Other reactivities (e.g., anti- mitochondrial antibodies or anti-smooth muscle antibodies) may be responsible for this fluorescence. The clinical significance of this finding is uncertain. Clinical correlation is recommended. AC-15 to AC-23: Cytoplasmic International Consensus on KARINA Patterns (https://doi.org/10.1515/cclm- 5083-4447) KARINA titer 1:80 (H) titer [facility] Comment: DIAGNOSTICS-KAYE A low level KARINA titer may be ING II present in pre-clinical autoimmune diseases and normal individuals. Reference Range <1:40 Negative 1:40-1:80 Low Antibody Level >1:80 Elevated Antibody Level KARINA pattern Nuclear, Homogeneous (A) [facility] Comment: DIAGNOSTICS-KAYE Homogeneous pattern is ING II associated with systemic lupus erythematosus (SLE), drug-induced lupus and juvenile idiopathic arthritis. AC-1: Homogeneous International Consensus on KARINA Patterns (https://doi.org/10.1515/cclm- 9082-5258) Specimen Blood Resulting Agency Comment Performing Organization Information: Site ID: IG Name: [facility] Address: [address] [place] [address] Director: Dr. Michel Cabrera Performing Organization Address City/State/ZIP Code P kailey Number [facility] [address] [place] [address]. 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
--- OUTSIDE RECORDS SUMMARY | 2020-01-26 10:30 | XMS REPORT | Clinical Summary ---
Author Author BRI ClipsourceB[facility] HospitalNearbox [facility] CenterS[facility]Military [facility] Address Unknown Phone Unavailable Care Team Providers Care Director Of Casino Marketing Name Role Phone Elbert Victoria Unavailable Allergies Comments Active Allergy Reactions Severity Noted Date Aloe 01/22/2020 Amoxicillin-Pot 01/22/2020 Clavulanate Azithromycin 01/22/2020 Sulfamethoxazole-Trimetho 01/22/2020 prim Carvedilol 01/22/2020 Diltiazem 01/22/2020 Doxycycline 01/22/2020 Erythromycin 01/22/2020 Alendronate 01/22/2020 Hydrochlorothiazide 01/22/2020 Levofloxacin 01/22/2020 Lisinopril 01/22/2020 Metoprolol 01/22/2020 Paroxetine Hcl 01/22/2020 Simvastatin 01/22/2020 Sertraline 01/22/2020 Medications End Date Status Medication Sig Dispensed Refills Start Date Active acyclovir (ZOVIRAX) 400 Take 400 mg 0 MG tablet by mouth 3 (three) times daily as needed for Outbreaks. Active aspirin 81 MG EC tablet Take 81 mg by 0 mouth daily. Active hydrALAZINE (APRESOLINE) Take 25 mg by 0 25 MG tablet mouth 2 (two) times daily . Active verapamiL (CALAN-SR) 120 Take 120 mg 0 MG ER tablet by mouth nightly. Active Problems Problem Noted Date SOB (shortness of breath) 01/24/2020 Chest pain 01/22/2020 Osteoporosis Memory loss or impairment MGUS (monoclonal gammopathy of unknown significance) Encounters Care Team Description Date Type Specialty Hedy Pop MD Hospital Follow Up 01/25/2020 Telephone Geriatric Medicine Vasyl Cesar MD Brann, MD Danielito Arguello Srilakshmi, MD SOB (shortness of breath) (Primary Dx); Other chest pain; Chest pain, unspecified type; MCI (mild cognitive impairment) with memory loss; Paranoia (HCC); Frailty syndrome in geriatric patient; Mood disorder (HCC) 01/22/2020 Hospital Cardiology - Encounter 01/24/2020 01/22/2020 Orders Only General Internal Me jason 01/22/2020 Travel after 01/25/2019 Family History Medical History Relation Name Comments Heart disease Brother Heart disease Sister Relation Name Status Comments Brother Sister Social History Date Tobacco Use Types Packs/Day Years Used Former Smoker Smokeless Tobacco: Never Used Drinks/Week oz/Week Comments Alcohol Use Yes Alcohol Habits Answer Date Recorded How often do you have a drink containing alcohol? Monthly or less 01/23/2020 How many drinks containing alcohol do you have on No t asked a typical day when you are drinking? How often do you have six or more drinks on one Not asked occasion? Sex Assigned at Date Recorded Not on file Date Recorded COVID-19 Exposure Response 01/22/2020 7:28 PM OPTICS TEST TECHNICIAN In the last month, have you been in contact with No / Unsure someone who was confirmed or suspected to have Coronavirus / COVID-19? Last Filed Vital Signs Reading Time Taken Comments Vital Sign 145/63 01/24/2020 8:16 PM OPTICS TEST TECHNICIAN Blood Pressure 77 01/24/2020 8:16 PM OPTICS TEST TECHNICIAN Pulse 36.2 C (97.2 F) 01/24/2020 8:16 PM OPTICS TEST TECHNICIAN Temperature 18 01/24/2020 8:16 PM OPTICS TEST TECHNICIAN Respiratory Rate 97% 01/24/2020 8:16 PM OPTICS TEST TECHNICIAN Oxygen Saturation - - Inhaled Oxygen Concentration 60 kg (132 lb 4.8 oz) 01/24/2020 4:59 AM OPTICS TEST TECHNICIAN Weight 160 cm (5' 2.99") 01/23/2020 4:00 AM OPTICS TEST TECHNICIAN Height 23.44 01/23/2020 4:00 AM OPTICS TEST TECHNICIAN Body Mass Index Plan of Treatment Health Maintenance Due Date Last Done Comments PNEUMOCOCCAL 65+ YRS (1 2000 of 1 - [id number]) MEDICARE ANNUAL WELLNESS 04/08/2001 (YEAR 2 or FIRST YEAR if no IPPE) INFLUENZA VACCINE (#1) 2019 Procedures Comments Procedure Name Priority Date/Time Associated Diag nosis NM MYOCARDIAL PERFUSION Routine 01/24/2020 PET/CT (REST & STRESS) 12:27 PM OPTICS TEST TECHNICIAN ECG 12-LEAD Routine 01/24/2020 12:19 PM OPTICS TEST TECHNICIAN Procedure Note - Interface, External Ris In - 01/24/2020 12:39 PM OPTICS TEST TECHNICIAN Ventricula r Rate 70 BPM Atrial Rate 70 BPM P-R Interval 204 ms QRS Duration 78 ms Q-T Interval 432 ms QTC Calculatio n(Bazett) 466 ms P [place] 64 degrees R [place] 50 degrees T [place] 68 degrees Normal sinus rhythm Nonspecifi c ST and T wave abnormalit y Abnormal ECG ECG 12-LEAD Routine 01/24/2020 12:19 PM OPTICS TEST TECHNICIAN ECG 12-LEAD Routine 01/24/2020 12:19 PM OPTICS TEST TECHNICIAN Procedure Note - Interface, External Ris In - 01/24/2020 12:39 PM OPTICS TEST TECHNICIAN Ventricula r Rate 67 BPM Atrial Rate 67 BPM P-R Interval 202 ms QRS Duration 80 ms Q-T Interval 428 ms QTC Calculatio n(Bazett) 452 ms P [place] 64 degrees R [place] 47 degrees T [place] 57 degrees Normal sinus rhythm Nonspecifi c ST and T wave abnormalit y Abnormal ECG 2D ECHO W/ DOPPLER STAT 01/24/2020 (CW/PW/COLOR) 7:58 AM OPTICS TEST TECHNICIAN CBC W/PLT COUNT & AUTO Routine 01/24/2020 DIFFERENTIAL 3:54 AM OPTICS TEST TECHNICIAN IRON, TIBC, % SAT. Routine 01/24/2020 (WITHOUT FERRITIN) 3:54 AM OPTICS TEST TECHNICIAN VITAMIN B12 AND FOLATE Routine 01/24/2020 3:54 AM OPTICS TEST TECHNICIAN TSH/FREE T4 IF INDICATED Routine 01/24/2020 3:54 AM OPTICS TEST TECHNICIAN CBC W/PLT COUNT & AUTO Routine 01/24/2020 DIFFERENTIAL 3:54 AM OPTICS TEST TECHNICIAN BASIC METABOLIC PANEL (7) Routine 01/24/2020 3:54 AM OPTICS TEST TECHNICIAN TROPONIN I STAT 01/23/2020 10:02 PM OPTICS TEST TECHNICIAN CHLORIDE, RANDOM URINE Routine 01/23/2020 4:02 PM OPTICS TEST TECHNICIAN SODIUM, RANDOM URINE Routine 01/23/2020 4:02 PM OPTICS TEST TECHNICIAN OSMOLALITY, URINE Routine 01/23/2020 4:02 PM OPTICS TEST TECHNICIAN URINALYSIS WITHOUT Routine 01/23/2020 MICROSCOPIC 4:02 PM OPTICS TEST TECHNICIAN TROPONIN I STAT 01/23/2020 3:35 PM OPTICS TEST TECHNICIAN CBC W/PLT COUNT & AUTO Routine 01/23/2020 DIFFERENTIAL 6:04 AM OPTICS TEST TECHNICIAN CBC W/PLT COUNT & AUTO Routine 01/23/2020 DIFFERENTIAL 6:04 AM OPTICS TEST TECHNICIAN BASIC METABOLIC PANEL (7) Routine 01/23/2020 6:04 AM OPTICS TEST TECHNICIAN OSMOLALITY, SERUM Routine 01/23/2020 6:04 AM OPTICS TEST TECHNICIAN PHOSPHORUS Routine 01/23/2020 6:04 AM OPTICS TEST TECHNICIAN MAGNESIUM Routine 01/23/2020 6:04 AM OPTICS TEST TECHNICIAN PROTHROMBIN TIME/INR Routine 01/23/2020 6:04 AM OPTICS TEST TECHNICIAN CT CHEST WITHOUT IV Routine 01/23/2020 CONTRAST 4:10 AM OPTICS TEST TECHNICIAN SARS-COV2/RT-PCR ([facility] & STAT 01/22/2020 REF LABS) 10:47 PM OPTICS TEST TECHNICIAN D-DIMER STAT 01/22/2020 8:55 PM OPTICS TEST TECHNICIAN CBC W/PLT COUNT & AUTO STAT 01/22/2020 DIFFERENTIAL 8:54 PM OPTICS TEST TECHNICIAN HEPATIC FUNCTION PANEL Routine 01/22/2020 8:54 PM OPTICS TEST TECHNICIAN TROPONIN I STAT 01/22/2020 8:54 PM OPTICS TEST TECHNICIAN BASIC METABOLIC PANEL (7) STAT 01/22/2020 8:54 PM OPTICS TEST TECHNICIAN B-TYPE NATRIURETIC FACTOR STAT 01/22/2020 (BNP) 8:54 PM OPTICS TEST TECHNICIAN CBC W/PLT COUNT & AUTO STAT 01/22/2020 DIFFERENTIAL 8:54 PM OPTICS TEST TECHNICIAN XR CHEST 1 VIEW STAT 01/22/2020 PORTABLE/BEDSIDE 8:25 PM OPTICS TEST TECHNICIAN ED ECG INTERPRETATION Routine 01/22/2020 8:11 PM OPTICS TEST TECHNICIAN ECG 12-LEAD Routine 01/22/2020 7:24 PM OPTICS TEST TECHNICIAN Procedure Note - Interface, External Ris In - 01/23/2020 12:25 AM OPTICS TEST TECHNICIAN Ventricula r Rate 79 BPM Atrial Rate 79 BPM P-R Interval 188 ms QRS Duration 76 ms Q-T Interval 376 ms QTC Calculatio n(Bazett) 431 ms P [place] 65 degrees R [place] 16 degrees T [place] 79 degrees Normal sinus rhythm Nonspecifi c T wave abnormalit y Abnormal ECG No previous ECGs available ECG 12-LEAD STAT 01/22/2020 7:24 PM OPTICS TEST TECHNICIAN after 01/25/2019 Results * NM Myocardial Perfusion Pet/CT (Rest & Stress) (01/24/2020 12:27 PM OPTICS TEST TECHNICIAN) Specimen Narrative Performed At FINAL REPORT [employer] [facility] [place] PROCEDURE: MYOCARDIAL PERFUSION PET/CT IMAGING (Rest/Stress) CPT CODE: 34506 INDICATION: Chest pain, coronary artery disease CARDIOVASCULAR PROFILE: CAD History: None Symptoms: Chest pain, dyspnea Risk Factors: Hypertension, tobacco use BMI: 24.2 Medications: Hydralazine STRESS PROTOCOL: Pharmacologic stress was achieved with a 10-second intravenous infusion of regadenoson 0.4 mg. The rad iopharmaceutical was administered 30 seconds after the start of the regadenoson infusion. IMAGING PROTOCOL: Limited low-dose CT imaging was perform ed for attenuation correction. 40.0 mCi of Rb-82 chloride was injected intravenously at rest, and gated PET images were obtained. Then, 4 0.1 mCi of Rb-82 chloride was injected intravenously at peak stress, and gated PET images were obtained. REST FINDINGS: HR: 69/min BP: 143/63 mmHg Prelim. EKG: Normal sinus rhythm. Perfusion: Mild decrease in activity in the apical LV Wall Motion: Normal (LVEF >70%). LV Volume: Normal. STRESS FINDINGS: HR: 83/min (61% of MPHR) BP: 113/29 mmHg Prelim. EKG: >than [address] depressions. Symptoms: None (treatment not required) . Perfusion:Mild decrease in activity in the lateral apical, apical LV segments. Wall Motion: Normal (LVEF >70%). LV Volume: Not significantly changed fr om rest. IMPRESSION: 1. Abnormal study. 2. Abnormal myocardial perfusion. There is a small, mild, mostly reversible apical/periapical perfusion defect. 3. Normal resting LVEF, which does not deteriorate with pharmacologic stress. 4. Normal extracardiac tracer distribut ion. 5. There is no prior study for comparis on. Signed: Mercy Green MD Report Verified Date/Time: 01/24/2020 15:06:52 Reading Location: [address] Reading Room Procedure Note Interface, External Ris In - 01/24/2020 3:09 PM OPTICS TEST TECHNICIAN FINAL REPORT PROCEDURE: MYOCARDIAL PERFUSION PET/CT IMAGING (Rest/Stress) CPT CODE: 11047 INDICATION: Chest pain, coronary artery disease CARDIOVASCULAR PROFILE: CAD History: None Symptoms: Chest pain, dyspnea Risk Factors: Hypertension, tobacco use BMI: 24.2 Medications: Hydralazine STRESS PROTOCOL: Pharmacologic stress was achieved with a 10-second intravenous infusion of regadenoson 0.4 mg. The radiopharmaceutical was administered 30 seconds after the start of the regadenoson infusion. IMAGING PROTOCOL: Limited low-dose CT imaging was performed for attenuation correction. 40.0 mCi of Rb-82 chloride was injected intravenously at rest, and gated PET images were obtained. Then, 40.1 mCi of Rb-82 chloride was injected intravenously at peak stress, and gated PET images were obtained. REST FINDINGS: HR: 69/min BP: 143/63 mmHg Prelim. EKG: Normal sinus rhythm. Perfusion: Mild decrease in activity in the apical LV Wall Motion: Normal (LVEF >70%). LV Volume: Normal. STRESS FINDINGS: HR: 83/min (61% of MPHR) BP: 113/29 mmHg Prelim. EKG: >than [address] depressions. Symptoms: None (treatment not required). Perfusion:Mild decrease in activity in the lateral apical, apical LV segments. Wall Motion: Normal (LVEF >70%). LV Volume: Not significantly changed from rest. IMPRESSION: 1. Abnormal study. 2. Abnormal myocardial perfusion. There is a small, mild, mostly reversible apical/periapical perfusion defect. 3. Normal resting LVEF, which does not d eteriorate with pharmacologic stress. 4. Normal extracardiac tracer distributi on. 5. There is no prior study for andreao n. Signed: Mercy Green MD Report Verified Date/Time: 01/24/2020 15:06:52 Reading Location: [place] [id number] Reading Room Performing Organization Address City/[facility] Ph one Number GE RIS * ECG 12 lead (01/24/2020 12:19 PM OPTICS TEST TECHNICIAN) Only the most recent of 2 results within the time period is included. Specimen Narrative Performed At Ventricular Rate 67 BPM GE MUSE Atrial Rate 67 BPM P-R Interval 202 ms QRS Duration 80 ms Q-T Interval 428 ms QTC Calculation(Bazett) 452 ms P [place] 64 degrees R [place] 47 degrees T [place] 57 degrees Normal sinus rhythm Nonspecific ST and T wave abnormality Abnormal ECG Confirmed by MD Almaraz Roberto ([id number]) on 01/24/2020 3:04:31 PM Procedure Note Interface, External Ris In - 01/24/2020 3:04 PM OPTICS TEST TECHNICIAN Ventricular Rate 67 BPM Atrial Rate 67 BPM P-R Interval 202 ms QRS Duration 80 ms Q-T Interval 428 ms QTC Calculation(Bazett) 452 ms P [place] 64 degrees R [place] 47 degrees T [place] 57 degrees Normal sinus rhythm Nonspecific ST and T wave abnormality Abnormal ECG Confirmed by MD Almaraz Roberto ([id number]) on 01/24/2020 3:04:31 PM Performing Organization Address [facility] one Number GE MUSE * 2D Echo W/Doppler(CW/PW/Color) (01/24/2020 7:58 AM OPTICS TEST TECHNICIAN) Ejection [facility] ECHO Fraction [facility] Specimen Narrative Performed At Transthoracic Echocardiography Report (TTE) [facility] ECH O HEARTLAB Demographics [facility] Patient Name LILLY BREWSTER Brannon e of Study 01/24/2020 KELLY Gender Female Visit Number [id number] Ra ce R oom Number [id number] Number Date of 1935 Ref erring Physician Lucina Mary MD Age 84 year(s) Aircraft Stress Analyst Fanny Duffy RDCS Interpreting Bob Carpenter MD Physician Procedure Type of Study TTE procedure:2DECHO W DOPP LER(CW/PW/COLOR) (STAT) Indications:Acute Chest Pain/ Suspected CAD. Clinical History HGB 9.6 HCT 28.7% HTN, MGUS, HX SMOKING Contrast Medium: Bubble Study. Height: 63 inches Weight: 59.87 kg (132 lbs) BSA: 1.62 m^2 BMI: 23.38 kg/m^2 HR: 74 bpm BP: 124/58 mmHg Summary 1. The left ventricle is chamber size ( by vol index) is normal. Normal LV wall thickness. All of the LV segments contract normally . LVEF by Almanza's method of disk assessment is normal (>60%) . Grade 1 diastolic dysfunction (impaired relaxation with m ildly elevated LA pressure). LA size is normal (16-34 ml/m2) . 2. RV chamber size is normal . Global R V systolic function is normal . RA size is normal. Unable to estimate peak systolic PA pressure; inadequate TR velocity signal. 3. No significant valvular abnormalitie s. 4. Redundant interatrial septum (not me eting criteria for aneurysm). IV saline contrast injection demonstrates a PFO (patent foramen ovale) post Valsalva . Previous Study No prior studies available for comparis on. Signature Findings Rhythm/BP Regular s inus rhythm during the exam. Left Ventricle The LV endoc ardium is adequately visualized. The left ventricle is chamber size (by vol index) is n ormal (female - LVED vol - 29-61ml/m2). Norm al LV wall thickness. All of the LV segments contract normally . LVEF by Almanza's method of disk assessment is norm al (>60%) .Grade 1 diastolic dysfunction (imp aired relaxation with mildly elevated LA pres sure). Left Atrium LA size is normal (16-34 ml/m2) . Right Ventricle RV chamber s ize is normal . Glob al RV systolic function is normal . Right Atrium RA size is normal. Atrial Septum Redundant i nteratrial septum (not meeting criteria for aneurysm). IV s jen contrast injection demonstrates a PFO (pat ent foramen ovale) post Valsalva . Aortic Valve Normal tri- leaflet Aortic Valve. Mild AoV cusp thic kening. No evidence of aortic regurgitation. Mitral Valve Mild to mod erate mitral annular calcification. Mild MV leaflet thickening. Trac e mitral regurgitation. Tricuspid Valve TV structure is normal. A tr travis of tricuspid regurgitation. Unab le to estimate peak systolic PA pressure; inad equate TR velocity signal. Pulmonic Valve Normal PV st ructure and function by limited views and Doppler. Aorta Aortic root size (SInus of Valsalva diameter) is norm al . Pericardium No pericar dial effusion is visualized. IVC/SVC/PA/PV/Pleural The estimated R A pressure by IVC dynamics 5-10mmHg . Chambers/Structures Left Atrium LA Volume: 51.21 ml LA Area: 18.64 cm^2 LA Vol. Index: 32 ml/m^2 Left Ventricle LVIDd: 3.76 cm LVEDV:60.32 ml LVIDs: 2.74 cm LVESV:20.65 ml LV Septum Diastolic: 0.79 cm LVEF 2D Cube: 61.1 % LV PW Diastolic: 0.88 cm LVEDV Almanza's:77.01 ml LV Length: 7.26 cm LVESV Almanza's:26.18 ml LV FS: 27.1 % LVEF Almanza's: 66 % LVEDVI: 48 ml/m^2 LVOT Diameter: 1.96 cm LVESVI: 16 ml/m^2 LVEF: 65.8 % Right Atrium RA Area: 14.47 cm^ 2 Right Ventricle RVOT VTI: 25.59 cm TAPSE: 2.22 cm Aorta Ao Root S of Jesi.: 2.7 cm Ascending Aorta: 3.1 cm Doppler/Quantitative Measurements Mitral Valve MV Peak E-Wave: 0.95 m/s MV Peak A-Wave: 1.34 m/s P1/2t: 97.8 msec E/A Ratio: 0.71 Peak Gradient: 3.64 mmHg Deceleration Time: 333.6 msec MV Area (PHT): 2.25 cm^2 MV Scooby. Peak: Tissue Doppler E' Septal Velocity: 0.07 m/s E/E': 15.15 E' Lateral Velocity: 0.06 m/s Aortic Valve Peak Velocity: 1.42 m/s Mean Velocity: 1 m/s Peak Gradient: 8.06 mmHg Mean Gradient: 4.38 mmHg AV Area (continuity): 2.5 cm^2 AV VTI: 32.04 cm AV DVI: 0.83 LVOT Peak Velocity: 1.14 m/s Peak Gradient: 5.19 mmHg Mean Velocity: 0.86 m/s Mean Gradient: 3.11 mmHg LVOT Diameter: 1.96 cm LVOT VTI: 26.54 cm LVOT Area: 3.02 cm^2 LVOT SV:80.04 ml LVOT CO: 5.92 l/min LVOT CI: 3.65 l/min/m^2 Procedure Note Interface, External Ris In - 01/24/2020 1:00 PM OPTICS TEST TECHNICIAN Transthoracic Echocardiography Report (TTE) Demographics Patient Name LILLY BREWSTER Date of Study 01/24/2020 KELLY Gender Female Visit Number [id number] Race Room Number [id number] Number Date of 1935 Referring Physician Lucina Mary MD Age 84 year(s) Aircraft Stress Analyst Fanny Duffy [facility] Interpreting Bob Carpenter MD Physician Procedure Type of Study TTE procedure:2DECHO W DOPPLER(CW/PW/COLOR) (STAT) Indications:Acute Chest Pain/ Suspected CAD. Clinical History HGB 9.6 HCT 28.7% HTN, MGUS, HX SMOKING Contrast Medium: Bubble Study. Height: 63 inches Weight: 59.87 kg (132 lbs) BSA: 1.62 m^2 BMI: 23.38 kg/m^2 HR: 74 bpm BP: 124/58 mmHg Summary 1. The left ventricle is chamber size (by vol index) is normal. Normal LV wall thickness. All of the LV segments contract normally . LVEF by Almanza's method of disk assessment is normal (>60%) . Grade 1 diastolic dysfunction (impaired relaxation with mildly elevated LA pressure). LA size is normal (16-34 ml/m2) . 2. RV chamber size is normal . Global RV systolic function is normal . RA size is normal. Unable to estimate peak systolic PA pressure; inadequate TR velocity signal. 3. No significant valvular abnormalities. 4. Redundant interatrial septum (not meeting criteria for aneurysm). IV saline contrast injection demonstrates a PFO (patent foramen ovale) post Valsalva . Previous Study No prior studies available for comparison. Signature Findings Rhythm/BP Regular sinus rhythm during the exam. Left Ventricle The LV endocardium is adequately visualized. The left ventricle is chamber size (by vol index) is normal (female - LVED vol - 29-61ml/m2). Normal LV wall thickness. All of the LV segments contract normally . LVEF by Almanza's method of disk assessment is normal (>60%) .Grade 1 diastolic dysfunction (impaired relaxation with mildly elevated LA pressure). Left Atrium LA size is normal (16-34 ml/m2) . Right Ventricle RV chamber size is normal . Global RV systolic function is normal . Right Atrium RA size is normal. Atrial Septum Redundant interatrial septum (not meeting criteria for aneurysm). IV saline contrast injection demonstrates a PFO (patent foramen ovale) post Valsalva . Aortic Valve Normal tri-leaflet Aortic Valve. Mild AoV cusp thickening. No evidence of aortic regurgitation. Mitral Valve Mild to moderate mitral annular calcification. Mild MV leaflet thickening. Trace mitral regurgitation. Tricuspid Valve TV structure is normal. A trace of tricuspid regurgitation. Unable to estimate peak systolic PA pressure; inadequate TR velocity signal. Pulmonic Valve Normal PV structure and function by limited views and Doppler. Aorta Aortic root size (SInus of Valsalva diameter) is normal . Pericardium No pericardial effusion is visualized. IVC/SVC/PA/PV/Pleural The estimated RA pressure by IVC dynamics 5-10mmHg . Chambers/Structures Left Atrium LA Volume: 51.21 ml LA Area: 18.64 cm^2 LA Vol. Index: 32 ml/m^2 Left Ventricle LVIDd: 3.76 cm LVEDV:60.32 ml LVIDs: 2.74 cm LVESV:20.65 ml LV Septum Diastolic: 0.79 cm LVEF 2D Cube: 61.1 % LV PW Diastolic: 0.88 cm LVEDV Almanza's:77.01 ml LV Length: 7.26 cm LVESV Almanza's:26.18 ml LV FS: 27.1 % LVEF Almanza's: 66 % LVEDVI: 48 ml/m^2 LVOT Diameter: 1.96 cm LVESVI: 16 ml/m^2 LVEF: 65.8 % Right Atrium RA Area: 14.47 cm^2 Right Ventricle RVOT VTI: 25.59 cm TAPSE: 2.22 cm Aorta Ao Root S of Jesi.: 2.7 cm Ascending Aorta: 3.1 cm Doppler/Quantitative Measurements Mitral Valve MV Peak E-Wave: 0.95 m/s MV Peak A-Wave: 1.34 m/s P1/2t: 97.8 msec E/A Ratio: 0.71 Peak Gradient: 3.64 mmHg Deceleration Time: 333.6 msec MV Area (PHT): 2.25 cm^2 MV Scooby. Peak: Tissue Doppler E' Septal Velocity: 0.07 m/s E/E': 15.15 E' Lateral Velocity: 0.06 m/s Aortic Valve Peak Velocity: 1.42 m/s Mean Velocity: 1 m/s Peak Gradient: 8.06 mmHg Mean Gradient: 4.38 mmHg AV Area (continuity): 2.5 cm^2 AV VTI: 32.04 cm AV DVI: 0.83 LVOT Peak Velocity: 1.14 m/s Peak Gradient: 5.19 mmHg Mean Velocity: 0.86 m/s Mean Gradient: 3.11 mmHg LVOT Diameter: 1.96 cm LVOT VTI: 26.54 cm LVOT Area: 3.02 cm^2 LVOT SV:80.04 ml LVOT CO: 5.92 l/min LVOT CI: 3.65 l/min/m^2 Performing Organization Address [facility] one Number AFSHAN ECHO HEARTLAB [id number] CPACS * Vitamin B12 and Folate (01/24/2020 3:54 AM OPTICS TEST TECHNICIAN) Vitamin B12 512 213 - 816 pg/mL [facility] Folate 13.20 >=7.00 ng/mL [facility] Specimen Blood Narrative Performed At Supervisor [employer] Storage ID - [facility] Performing Organization Address [facility] one Number [address] [phone] [place] [address] * TSH/Free T4 If Indicated (01/24/2020 3:54 AM OPTICS TEST TECHNICIAN) TSH 1.768 0.350 - 4.940 uIU/mL [facility] Specimen Blood Narrative Performed At Supervisor Tank Storage ID - [facility] [place] [facility] Performing Organization Address [facility] one [address] 0 [phone] [place] [address] * Iron, TIBC, % sat. (without ferritin) (01/24/2020 3:54 AM OPTICS TEST TECHNICIAN) Iron 73.0 40.0 - 160.0 ug/dL [facility] TIBC 271 250 - 450 ug/dL [facility] Iron % 27 20 - 55 % [facility] Specimen Blood Narrative Performed At Supervisor Tank Storage ID - [facility] Performing Organization Address [facility] one Number [address] [facility] * CBC with platelet count + automated diff (01/24/2020 3:54 AM OPTICS TEST TECHNICIAN) Only the most recent of 3 results within the time period is included. WBC 10.6 (H) 3.5 - 10.5 K/L [facility] RBC 3.26 (L) 3.93 - 5.22 M/L [facility] Hemoglobin 9.6 (L) 11.2 - 15.7 GM/DL [facility] Hematocrit 28.7 (L) 34.1 - 44.9 % [facility] MCV 88.0 79.4 - 94.8 fL [facility] MCH 29.4 25.6 - 32.2 pg [facility] MCHC 33.4 32.2 - 35.5 GM/DL [facility] RDW 13.0 11.7 - 14.4 % [facility] Platelets 242 150 - 450 K/CU MM [facility] MPV 8.9 (L) 9.4 - 12.3 fL [facility] nRBC 0 0 - 0 /100 WBC [facility] % Neutros 71 % [facility] % Lymphs 12 % [facility] % Monos 13 % [facility] % Eos 3 % [facility] % Baso 1 % [facility] # Neutros 7.53 (H) 1.56 - 6.13 K/L [facility] # Lymphs 1.28 1.18 - 3.74 K/L [facility] [facility]PITAL # Monos 1.39 (H) 0.24 - 0.36 K/L [facility] # Eos 0.30 0.04 - 0.36 K/L [facility] # Baso 0.05 0.01 - 0.08 K/L [facility] Immature 0 0 - 1 % [facility] Specimen Blood Performing Organization Address [facility] one Number [address] [address] [facility] * Basic metabolic panel (01/24/2020 3:54 AM OPTICS TEST TECHNICIAN) Only the most recent of 3 results within the time period is included. Sodium 131 (L) 136 - 145 meq/L [facility] Potassium 4.2 3.5 - 5.1 meq/L [facility] Chloride 100 98 - 107 meq/L [facility] CO2 24 22 - 29 meq/L [facility] BUN 14 7 - 21 mg/dL [facility] Creatinine 0.75 0.57 - 1.25 mg/dL [facility] Glucose 99 70 - 105 mg/dL [facility] Calcium 8.7 8.4 - 10.2 mg/dL [facility] EGFR 74Comment: ESTIMATED GFR IS mL/min/1.73 sq m [facility] NOT ACCURATE CREATININE [facility] CLEARANCE IN PREDICTING MEDICAL CENTER GLOMERULAR FILTRATION RATE. ESTIMATED GFR IS NOT APPLICABLE FOR DIALYSIS PATIENTS. Specimen Blood Narrative Performed At [employer] ID - TESFAYE Osborne [facility] Performing Organization Address [facility] one Number [address] [facility] * Troponin I (01/23/2020 10:02 PM OPTICS TEST TECHNICIAN) Only the most recent of 3 results within the time period is included. Troponin I 0.03 0.00 - 0.03 ng/mL [facility] Specimen Blood Narrative Performed At Troponin I (TnI) levels must be interpreted in the co ntext of the presenting [facility] symptoms and the clinical findings. Elevated TnI leve ls indicate myocardial [facility] damage, but are not specific for ischem ic heart disease. Elevated TnI levels are seen in patients with other cardiac con ditions (including myocarditis and congestive heart failure), and slight T nI elevations occur in patients with other conditions, including sepsis, aliza al failure, acidosis, acute neurological disease, and persistent tachyarrhythmia . [employer] ID - BS Performing Organization Address [facility] one Number [place] [address] [facility] * Urinalysis without Microscopic (01/23/2020 4:02 PM OPTICS TEST TECHNICIAN) Color, UA Yellow [facility] Clarity, UA Hazy [facility] Specific 1.010 1.001 - 1.035 [facility] [place], [facility] pH, UA 6.0 5.0 - 8.0 [facility] Protein, UA Negative Negative [facility] Glucose, UA Negative Negative [facility] Ketones, UA Negative Negative [facility] Bilirubin, UA Negative Negative [facility] Blood, UA Negative Negative [facility] Nitrite, UA Negative Negative [facility] Leukocytes, UA Large (A) Negative [facility] Urobilinogen, 0.2 0.2 - 1.0 mg/dL [facility] Specimen Source [facility] Specimen Urine Narrative Performed At [employer] ID - [auto] [facility] Performing Organization Address [facility] one Number [place] [address] [facility] * Sodium, random urine (01/23/2020 4:02 PM OPTICS TEST TECHNICIAN) Sodium Urine 34 meq/L [facility] Specimen Urine Narrative Performed At Reference Range: No Normals [facility] Super[employer] ID - BS [facility] Performing Organization Address [facility] one Number [address] [facility] * Osmolality, urine (01/23/2020 4:02 PM OPTICS TEST TECHNICIAN) Osmolality, Ur 276 50-1,200 mOsm/kg [facility] mOsm/kg [facility] Specimen Urine Performing Organization Address [facility] one Number [address] [facility] * Chloride, random urine (01/23/2020 4:02 PM OPTICS TEST TECHNICIAN) ChlorideUr 32 meq/L [facility] Specimen Urine Narrative Performed At Reference Range: No Normals [facility] [employer] ID - BS [facility] Performing Organization Address [facility] one Number [address] [facility] * Prothrombin time/INR (01/23/2020 6:04 AM OPTICS TEST TECHNICIAN) Protime 13.0 11.9 - 14.2 seconds [facility] INR 1.01 <=5.90 [facility] Specimen Blood Narrative Performed At Effective 08/02/2018: PT Reference Range Change [facility] New: 11.9-14.2 Previous: 11.7-14.7 [facility] MEDICAL SANDRA TER RECOMMENDED COUMADIN/WARFARIN INR THERA PY RANGES STANDARD DOSE: 2.0-3.0 Includes: PROP HYLAXIS for venous thrombosis, systemic embolization; TREATMENT for venous thro mbosis and/or pulmonary embolus. HIGH RISK: Target INR is 2.5-3.5 for pa tients wiht mechanical heart valves. Performing Organization Address [facility] one Number [address] [facility] * Phosphorus (01/23/2020 6:04 AM OPTICS TEST TECHNICIAN) Phosphorus 3.3 2.3 - 4.7 mg/dL [facility] Specimen Blood Narrative Performed At [employer] ID - PRISCILLA Serrano [facility] Performing Organization Address City/[facility] one Number [facility] [address] [place] [address] [address] [facility] * Osmolality, serum (01/23/2020 6:04 AM OPTICS TEST TECHNICIAN) Osmolality 278 275 - 295 mOsm/kg [facility] Specimen Blood Performing Organization Address City/[facility] one Anil [address] [facility] * Magnesium (01/23/2020 6:04 AM OPTICS TEST TECHNICIAN) Magnesium 1.9 1.6 - 2.6 mg/dL [facility] Specimen Blood Narrative Performed At [employer] ID - PRISCILLA Serrano [facility] Performing Organization Address City/[facility] Ph one Number [address] 0 [phone] [place] [address] * CT chest without IV contrast (01/23/2020 4:10 AM OPTICS TEST TECHNICIAN) Specimen Narrative Performed At FINAL REPORT [employer] [facility] TECHNIQUE: CT scan of the chest WITHOUT intravenous contrast. Dose modulation, iterative reconstruction, a nd/or weight-based adjustment of the mA/kV was utilized to reduce the radiation dose to as low as reasonably achievable. INDICATION: Dyspnea, chronic Shortness of breath. COMPARISON: None. FINDINGS: ABSENCE OF INTRAVENOUS CONTRAST DECREAS ES SENSITIVITY FOR DETECTION OF FOCAL LESIONS AND VASCULAR PATHOLOGY . LINES/TUBES: None. LUNGS AND AIRWAYS: A right lower lobe c alcified granuloma measures 0.3 cm. There bilateral subpleural reti cular opacities. Mild bronchiectasis in the right base. There are more central prominent interstitial opacities as well. PLEURA: The pleural spaces are clear. HEART AND MEDIASTINUM: Prior left thyro idectomy. A nodule in thyroid measures 2.1 cm. No significant mediast inal, hilar, or axillary lymphadenopathy. Calcified subcarinal a nd right hilar lymph nodes. The heart and pericardium are within no rmal limits. Moderate calcification of the arch branch vessel s. Marked calcification of the descending thoracic aorta. Marked calci fication the left anterior descending coronary artery. Moderate ca lcification of the right coronary artery. SOFT TISSUES AND BONES: The bones are d iffusely demineralized. UPPER ABDOMEN: A fat density left renal mass measures 0.9 cm. A cyst in segment IV measures 0.5 cm. A cyst i n segment III measures 2.9 cm. Moderate calcification of the proximal superior mesenteric artery. IMPRESSION: 1.The bilateral subpleural reticular op acities could be atelectasis but are concerning for interstitial fib rosis. Interstitial lung opacities in the right base are most li hiro fibrosis given the adjacent bronchiectasis. This could be further evaluated with an interstitial lung disease protocol CT o n a nonemergent basis. 2.There are more prominent central inte rstitial opacities as well which are indeterminate but may be due to interstitial pulmonary edema. 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 4.A right thyroid nodule measures 2.1 c m. Further evaluation with a thyroid ultrasound is recommended. Signed: Sincere Begum MD Report Verified Date/Time: 01/23/2020 08:17:57 Reading Location: [facility] Reading Room - [place] [address] Procedure Note Interface, External Ris In - 01/23/2020 8:20 AM OPTICS TEST TECHNICIAN FINAL REPORT TECHNIQUE: CT scan of the chest WITHOUT intravenous contrast. Dose modulation, iterative reconstruction, and/or weight-based adjustment of the mA/kV was utilized to reduce the radiation dose to as low as reasonably achievable. INDICATION: Dyspnea, chronic Shortness of breath. COMPARISON: None. FINDINGS: ABSENCE OF INTRAVENOUS CONTRAST DECREASES SENSITIVITY FOR DETECTION OF FOCAL LESIONS AND VASCULAR PATHOLOGY. LINES/TUBES: None. LUNGS AND AIRWAYS: A right lower lobe calcified granuloma measures 0.3 cm. There bilateral subpleural retic ular opacities. Mild bronchiectasis in the right base. There are more central prominent interstitial opacities as well. PLEURA: The pleural spaces are clear. HEART AND MEDIASTINUM: Prior left thyroidectomy. A nodule in thyroid measures 2.1 cm. No significant mediastinal, hilar, or axillary lymphadenopathy. Calcified subcarinal and right hilar lymph nodes. The heart and pericardium are within normal limits. Moderate calcification of the arch branch vessels. Marked calcification of the descending thoracic aorta. Marked calcification the left anterior descending coronary artery. Moderate calcification of the right coronary artery. SOFT TISSUES AND BONES: The bones are diffusely demineralized. UPPER ABDOMEN: A fat density left renal mass measures 0.9 cm. A cyst in segment IV measures 0.5 cm. A cyst in segment III measures 2.9 cm. Moderate calcification of the proximal superior mesenteric artery. IMPRESSION: 1.The bilateral subpleural reticular opa cities could be atelectasis but are concerning for interstitial fibrosis. Interstitial lung opacities in the right base are most likely fibrosis given the adjacent bronchiectasis. This could be further evaluated with an interstitial lung disease protocol CT on a nonemergent basis. 2.There are more prominent central inter stitial opacities as well which are indeterminate but may be due to interstitial pulmonary edema. 3.A left renal angiomyolipoma measures 0 .9 cm. 4.A right thyroid nodule measures 2.1 cm . Further evaluation with a thyroid ultrasound is recommended. Signed: Sincere Begum MD Report Verified Date/Time: 01/23/2020 08:17:57 Reading Location: [facility] Diagnostic Imaging Reading Room - [place] [address] Performing Organization Address City/State/Zipcode Ph one Number [facility] * SARS-CoV2/RT-PCR (Asymptomatic ONLY) (01/22/2020 10:47 PM OPTICS TEST TECHNICIAN) SARS-COV2/RT-PC Negative Not Detected, [facility] R Negative, See [facility] external report for [facility] linked test SARS-COV-2 [facility] SAMEER [facility] PERFORMING LAB [facility] Specimen Other - Nasopharyngeal wall structure (body structure) Narrative Performed At Negative result for this test determine s that SARS-CoV-2 RNA was not present in [facility] the specimen above the Limit of Detecti on (LOD). However, Negative results do [facility] not preclude SARS-CoV-2 infection and s hould not be used as the sole basis for treatment or patient management decisio ns. Negative results must be combined with clinical observations, patient his tory, and epidemiological information. A false negative result may occur if a sp ecimen is improperly collected, transported or handled. A false negat chen result should be considered if patient's recent exposures or clinical presentation indicate that COVID-19 (SARS-CoV-2) is likely and diagnostic t ests for other causes of illness are negative. Re-testing should be consid ered in cases of suspected false negatives. The limit of detection for this assay i s 800 copies/mL. This SARS CoV-2 test is a real-time RT- PCR test intended for the qualitative detection of nucleic acid from SARS-CoV -2 in a nasopharyngeal swab specimen collected from individuals suspected of COVID-19 by their healthcare provider. This test has not been Food and Drug Ad ministration (FDA) cleared or approved. This is a modified version of an appr mallory Emergency Use Authorization (EUA) and is in the process of review by the FDA. Once authorized by the FDA, the issued EUA will be effective until the declaration that circumstances exist justifying the authorization of the khurram rgency use of in vitro diagnostic tests for detection and/or diagnosis of COVID -19 is terminated under Section 564(b)(2) of the Act or the EUA is revoked under Section 564(g) of the Act. Fact Sheet for Healthcare Providers: https://www.[employer]/sites/default/files/product/documents/Fact_Sheet_HC_Provi papv_Fcsy_HKCJ-IgI-6.pdf Fact Sheet for Healthcare Patients: https://www.[employer]/sites/default/files/product/documents/Fact_Sheet_Patients _Czna_DRWZ-QgF-7.pdf Performing Laboratory: [address] [place] [address] Performing Organization Address City/State/Zipcode Ph one Number [address] [facility] * D-dimer, quantitative (01/22/2020 8:55 PM OPTICS TEST TECHNICIAN) D-Dimer, Quant 0.70 (H) <0.50 MG/L FEU [facility] Specimen Blood Narrative Performed At Intended Use: The D-Dimer Assay can be used to aid in the diagnosis of Deep Vein [facility] Thrombosis (DVT) and Pulmonary Embolism Disease (PED) . [facility] In patients with low pre-test probabili ty, various studies concerning STA Liatest D-dimer test have reported that with a cutoff value of 0.50 MG/L FEU, the Negative Predictive Value (NPV) reg arding the exclusion of thrombosis is within 95-100% range. Performing Organization Address [facility] one Number [place] [address] [phone] [place] [address] * B-type Natriuretic Factor (BNP) (01/22/2020 8:54 PM OPTICS TEST TECHNICIAN) BNP 66 0 - 100 pg/mL [facility] Specimen Blood Narrative Performed At [employer] ID - BS [facility] Performing Organization Address [facility] Ph one Number [place] [address] [phone] [place] [address] * Hepatic function panel (01/22/2020 8:54 PM OPTICS TEST TECHNICIAN) Protein, Total 7.1Comment: Specimen slightly 6.0 - 8.3 gm/dL [facility] Albumin 4.1Comment: Specimen slightly 3.5 - 5.0 g/dL [facility] Total Bilirubin 0.2Comment: Specimen slightly 0.2 - 1.2 mg/dL [facility] Bilirubin, 0.1Comment: Specimen slightly 0.1 - 0.5 mg/dL [facility] Direct [facility] Alkaline 35 (L) 40 - 150 U/L [facility] AST 24Comment: Specimen slightly 5 - 34 U/L [facility] ALT 17Comment: Specimen slightly 6 - 55 U/L C HI [facility] hemolyzed [facility] Specimen Blood Narrative Performed At [employer] ID - TESFAYE [place] [facility] Performing Organization Address City/[facility] Ph one Number [facility] [address] [place], [place] [address] [facility] * XR chest 1 view portable / bedside (01/22/2020 8:25 PM OPTICS TEST TECHNICIAN) Specimen Narrative Performed At FINAL REPORT [facility] INDICATION: SHORTNESS OF BREATH COMPARISON: None TECHNIQUE: Single frontal view of the c hest. IMPRESSION: Lungs and pleura: There is bilateral ve nous congestion with bibasilar streaky opacities suggestive of atelect asis. No consolidation or effusion.. Heart and mediastinum: Normal heart siz e. Unremarkable mediastinal contours. Osseous structures: No acute abnormalit y. Other: None. Signed: Elbert Fitzpatrick MD Report Verified Date/Time: 01/22/2020 21:03:40 Procedure Note Interface, External Ris In - 01/22/2020 9:05 PM OPTICS TEST TECHNICIAN FINAL REPORT INDICATION: SHORTNESS OF BREATH COMPARISON: None TECHNIQUE: Single frontal view of the chest. IMPRESSION: Lungs and pleura: There is bilateral venous congestion with bibasilar streaky opacities suggestive of atelectasis. No consolidation or effusion.. Heart and mediastinum: Normal heart size. Unremarkable mediastinal contours. Osseous structures: No acute abnormality. Other: None. Signed: Elbert Fitzpatrick MD Report Verified Date/Time: 01/22/2020 21:03:40 Performing Organization Address City/State/Zipcode Ph one Number [facility] * ECG/EKG Interpretation (01/22/2020 8:11 PM OPTICS TEST TECHNICIAN) Narrative Performed At Vasyl Cesar MD 01/23/2020 10:38 AM ECG/EKG Interpretation Date/Time: 01/22/2020 9:16 PM Performed by: Vasyl Cesar MD Authorized by: Vasyl Cesar MD The ECG was interpreted by ED physician . This ECG was compared with previous ECG(s).The ECG is interpreted as sinus rhythm. Rate is normal rate. Heart rate is 79 BPM. Conduction: conduction normal. ST segme nts normal. T waves abnormal. T-wave flattening in lead(s) aVL. [place] is normal. Clinical Impression: non-specific ECG a nd abnormal ECGECG reviewed and does not meet STEMI criteria. after 01/25/2019 Insurance Type Payer Benefit Subscriber ID Effective Phone Address Plan / Dates Group Medicare MEDICARE MEDICARE A [id number] [id number] B resent MCR SUPPLEMENT/INDIVIDUAL [employer] [id number] 2019-P SENIOR resent SUPPLEMENT [place] Advance Directives For more information, please contact: [phone] Date Inactivated Comments Code Status Date Activated 01/24/2020 10:49 PM Full Code 01/23/2020 1:01 AM This code status was determined by: Patient
--- OUTSIDE RECORDS SUMMARY | 2020-01-26 10:30 | XMS REPORT | Continuity of Care Document ---
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
--- OUTSIDE RECORDS SUMMARY | 2020-01-26 10:31 | XMS REPORT | Continuity of Care Document ---
Author Author TelepathyLILLY Telepathy Address Unknown Phone Unavailable Care Team Providers Care Cigar Brander Name Role Phone [employer] Unavailable Un available Problems Problem [...]
--- OUTSIDE RECORDS SUMMARY | 2020-01-26 10:31 | XMS REPORT | Continuity of Care Document ---
Author Author [facility] t Organization [facility] Address [address] [place] [address] Phone Unavailable Care Team Providers Care Fractionation Supervisor Name Role Phone NO, PCP PCP Unavailable MAGDALENA ESCOTO Attphys Unavailable Donn ALEXIS, Hedy Attphys Arsenio ALEXIS, David Fallon Attphys Raghav ALEXIS, Jose Guadalupe Mohamud Attphys Danielito ALEXIS, Coretta Attphys [phone] DAVID CESAR Attphys Unavailable Nate REYES Attphys Unavailable Nate Reyes MD Attphys [place] [employer], Phillip Casas Attphys [phone] Shaun Tony MD Attphys Anjali PhD, Graeme Attphys Chelo Rodríguez MA Attphys Unavailable Lucina ALEXIS, Usman Attphys ALIRIO HARRIS Attphys Unavailable Janae STEVE Attphys Unavailable JOSE GUADALUPE GANDHI Admphys Unavailable Payers Payer Name Policy Type Policy Number Effective Date Expiration Date Federico austin MEDICAREMEDICARE A [id number] 2000-PresentMedicare [id number] 2000 00:00:00 [facility] r MCR SUPPLEMENT/INDIVIDUALAETNA SENIOR [id number] 2019-Present [id number] 2019 00:00:00 [facility] MEDICARE PART A AND B [id number] 2000 00:00:00 [employer]ETNA SENIOR SUPPLEMENT-SECONDARY ONLY [id number] 00:00:00 GENERIC [id number] 2015 00:00:00 MEDICAREMEDICARE PART A AND [id number]/[id number][place] [id number] 2000 00:00:00 Randall Savage AETNACONTINENTAL LIFE INS CO OF [id number] [id number] 2015 00:00:00 Randall Justine cowart Aetna Medicare Replacement [id number] 2015 00:00:00 [facility] Medicare A & B [id number] 2000 00:00:00 [facility] Aetna Medicare Supplement Plan [id number] 2015 00:00 :00 [facility] Problems Condition Name Condition Details Condition Category Status Onset Date Resolution Date Last Treatment Date Treating Clinician Comments Source SOB (shortness of breath) SOB (shortness of breath) Disease Ac tive 2020-01-24 00:00:00 [facility] Chest pain Chest pain Disease Active 2020-01-22 00:00:00 [facility] Monoclonal gammopathy of uncertain significance Monocl onal [...] Path Review Gel 1 Gel 2 U [place]-Shields <0.9000 mg/dL Lambda Total Light Chain Urine <0.7000 mg/dL U K/L Ratio-Shields 0.7000 - 6.20 SPE Path Interp The follow-up serum protein electrophoretic pattern does not show definitive evidence of an M-protein peak. If a paraproteinemia is suspected clinically, however, serum JOHANNA studies, serum immunoglobulin quantitation and urine Bence-Patrick protein studies . . . 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 We will continue to observe. MD Ardon Osteoporosis Osteoporosis Disease Active 2015-12-22 00:00:00 Last Assessment & Plan: I have seen the patient with Ms. Dilcia Gardner and co- managed the case. [...] reflux Gastric reflux syndrome Problem Active [facility] Hyponatremia Hyponatremia Problem Active [facility] Hypertensive urgency Problem Active [facility] Abnormal EKG Abno rmal EKG Active Problem 04/19/2017 Sallie Vincent Problem Active 2017-04-19 03:45:20 [facility] Essential hypertension Esse ntial hypertension Active Problem 04/19/2017 Sallie Vincent Problem Active 24-04-12 03:45:20 Asiya Woodson Precordial pain Prec ordial pain Active Problem 04/19/2017 Sallie Vincent Problem Active 2017-04-19 03:45:20 [facility] Hypertensive left ventricular hypertrophy, without hea rt failure Hypertensive left ventricular hypertrophy, without heart failure Active Problem 04/19/2017 Sallie Vincent Problem Active 24-04-12 03:45:20 Asiya Woodson Arteriosclerosis of both carotid arteries Arteriosclerosis of both carotid arteries Active Problem 04/19/2017 Sallie Vincent Problem Active 2017-04-19 03:45:20 Cal rial [place] Nonrheumatic tricuspid (valve) insufficiency Nonrheumatic tricuspid (valve) insufficiency Active Problem 04/19/2017 Sallie Vincent Problem Active 2017-04-19 03:45:20 [facility] Former smoker Form er smoker Active Problem 04/19/2017 Sallie Vincent Problem Active 2017-04-19 03:45:20 [facility] Palpitations Palp itations Active Problem 04/19/2017 Sallie Vincent Problem Active 2017-04-19 03:45:20 [facility] Right carotid bruit Righ t carotid bruit Active Problem 04/19/2017 Sallie Vincent Problem Active 2017-04-19 03:45:20 [facility] Exertional dyspnea Exer tional dyspnea Active Problem 04/19/2017 Sallie Vincent Problem Active 2017-04-19 03:45:20 [facility] Memory loss, short term Cal ry loss, short term Active Diagnosis 04/19/2017 Sallie Vincent Diagnosis Active 2017-04-19 03:45:20 [facility] Memory loss or impairment Memory loss or impairment Disease Active [facility] Arthritis of spine Arthritis of spine Disease Active MD Ardon Allergies, Adverse Reactions, Alerts Allergy Name Allergy Type Status Severity Reaction(s) Onset Date Inacti ve Date Treating Clinician Comments Source Aloe Drug Allergy Active 2020-01-22 00:00:00 [facility] Amoxicillin-Pot Clavulanate Propensity to adverse reactions Active 2020-01-22 00:00:00 [facility] Azithromycin Propensity to adverse reactions Active 202 00:00:00 [facility] Sulfamethoxazole-Trimethoprim Propensity to adverse reactions Active 2020-01-22 00:00:00 [facility] Carvedilol Propensity to adverse reactions Active 2020-01-06 7 00:00:00 [facility] Diltiazem Propensity to adverse reactions Active 2020-01-22 00:00:00 [facility] Doxycycline Propensity to adverse reactions Active 2019 00:00:00 [facility] Erythromycin Propensity to adverse reactions Active 202 00:00:00 [facility] Alendronate Propensity to adverse reactions Active 2019 00:00:00 [facility] Hydrochlorothiazide Propensity to adverse reactions Active 2020-01-22 00:00:00 [facility] Levofloxacin Propensity to adverse reactions Active 00:00:00 [facility] Lisinopril Propensity to adverse reactions Active 2020-01-06 00:00:00 [facility] Metoprolol Propensity to adverse reactions Active 2020-01-06 7 00:00:00 [facility] Paroxetine Hcl Propensity to adverse reactions Active 2 [facility] Sim[facility] Propensity to adverse reactions Active 2019 00:00:00 [facility] Sertraline Propensity to adverse reactions Active 2020-01-06 00:00:00 [facility] Zoloft Zoloft Active tingling 2017-02-23 00:00:00 [facility] Zocor Zocor Active myalgias 2017-02-23 00:00:00 [facility]an Diltiazem CD Diltiazem CD Active rash 2017-02-23 00:00:00 [facility] Metoprolol Succinate Metoprolol Succinate Active cold extremities 2017-02-23 00:00:00 [facility] Lisinopril Lisinopril Active rash 2017-02-23 00:00:00 [facility] Levaquin Levaquin Active dizziness 2017-02-23 00:00:00 [facility] Hydrochlorothiazide Hydrochlorothiazide Active hyponat remia 2017-02-23 00:00:00 [facility] Fosamax Fosamax Active nausea 2017-02-23 00:00:00 [facility] Erythromycin Erythromycin Active rash 2017-02-23 00:00:00 [facility] Coreg Coreg Active fatigue 2017-02-23 00:00:00 [facility] Bactrim Bactrim Active palpitations 2017-02-23 00:00:00 [facility] Azithromycin Azithromycin Active rash 2017-02-23 00:00:00 [facility] aloe vera latex gloves aloe vera latex gloves Active b listers 2017-02-23 00:00:00 [facility] Erythromycin Lactobionate Allergy to substance Active 2 00:00:00 [facility] sertraline HCl Allergy to substance Active 2017-01-18 00:00 :00 [facility] paroxetine HCl Allergy to substance Active 2017-01-18 00:00 :00 [facility] Lisinopril Allergy to substance Active 2017-01-18 00:00:00 [facility] aloe vera Allergy to substance Active 2017-01-18 00:00:00 [facility] Hydrochlorothiazide Allergy to substance Active 2017-01-18 00:00:00 [facility] Sulfamethoxazole Allergy to substance Active 2017-01-18 00: 00:00 [facility] Trimethoprim Allergy to substance Active 2017-01-18 00:00:0 0 [facility] Simvastatin Allergy to substance Active 2017-01-18 00:00:00 [facility] Metoprolol Allergy to substance Active 2017-01-18 00:00:00 [facility] Azithromycin Allergy to substance Active 2017-01-18 00:00:0 0 [facility] Carvedilol Allergy to substance Active 2017-01-18 00:00:00 [facility] Diltiazem Allergy to substance Active 2017-01-18 00:00:00 [facility] Alendronate sodium Allergy to substance Active 2017-01-18 0 0:00:00 [facility] Levofloxacin Allergy to substance Active 2017-01-18 00:00:0 0 [facility] Latex Allergy to substance Active 2017-01-18 00:00:00 [facility] NOVACAINE Allergy to substance Active 2017-01-18 00:00:00 [facility] lisinopril DA Active U 2013-09-12 00:00:00 [facility] erythromycin base DA Active U 2013-09-12 00:00:00 [facility] sulfamethoxazole DA Active U 2013-09-12 00:00:00 [facility] trimethoprim DA Active U 2013-09-12 00:00:00 [facility] simvastatin DA Active U 2013-09-12 00:00:00 [facility] azithromycin DA Active U 2013-09-12 00:00:00 [facility] paroxetine DA Active U 2013-09-12 00:00:00 [facility] diltiazem DA Active U 2013-09-12 00:00:00 [facility] sertraline DA Active U 2013-09-12 00:00:00 [facility] levofloxacin DA Active U 2013-09-12 00:00:00 [facility] NOVACAIN DA Active U 2013-09-12 00:00:00 [facility] Family History Family Member Diagnosis Comments Start Date Stop Date Source Natural brother Heart disease [facility] Natural brother Heart attack MD Wild rseloy Natural sister Heart disease [facility] Natural sister Heart attack MD Gray son Natural father Heart attack MD Gray son Natural mother Osteoporosis Isaac son Natural son Heart attack MD Ardon Social History Social Habit Start Date Stop Date Quantity Comments Source History of tobacco use 1955-12-22 00:00:00 Current smoker MD Ardon History SDOH Alcohol Std Drinks [facility] History SDOH Alcohol Binge [facility] Exposure to SARS-CoV-2 (event) Not sure [facility] Sex Assigned At MD Ardon History SDOH Alcohol Frequency 2020-01-23 00:00:00 2020-01-23 00:00:0 0 2 [facility] Tobacco use and exposure 2018-07-24 00:00:00 2018-07-24 00:00:00 Den castelan used MD Ardon Alcohol intake 2018-07-24 00:00:00 2018-07-24 00:00:00 Current drinker of alcohol (finding) MD Ardon Tobacco Comment 2015-12-22 00:00:00 2015-12-22 00:00:00 Socially , but heavily for a total of 2 yrs MD Ardon Alcohol Comment 2015-12-22 00:00:00 2015-12-22 00:00:00 Once or twi ce per week. MD Ardon Smoking Status Start Date Stop Date Source Former smoker 2018-07-24 00:00:00 2018-07-24 00:00:00 Isaac son Never smoker [place] richard Medications Ordered Medication Name Filled Medication Name Start Date Stop Da te Current Medication? Ordering Clinician Indication Dosage Frequency Signature (SIG) Comments Components Source acyclovir (ZOVIRAX) 400 MG tablet 2020-01-24 20:49:09 Yes 400mg Take 400 mg by mouth 3 (three) times daily as needed for Outbreaks. [facility] aspirin 81 MG EC tablet 2020-01-24 20:49:09 Yes 81mg QD Take 81 mg by mouth daily. [facility] hydrALAZINE (APRESOLINE) 25 MG tablet 2020-01-24 20:49:09 Y es 25mg Q.5D Take 25 mg by mouth 2 (two) times daily . [facility] verapamiL (CALAN-SR) 120 MG ER tablet 2020-01-24 20:49:09 Y es 120mg QD Take 120 mg by mouth nightly. [facility] cholecalciferol, vitamin D3, (VITAMIN D3) 5,000 units tab ta blet 2020-01-07 18:04:11 Yes 5000U Take 5,000 Units by mouth cristobal ry 7 days. MD Ardon acyclovir (ZOVIRAX) 400 mg tablet 2020-01-07 18:04:11 Yes 400mg Take 400 mg by mouth daily. MD Ardon aspirin 81 mg EC tablet 2020-01-07 18:04:11 Yes 1{tbl} Take 1 tablet by mouth daily. MD Ardon UNABLE TO FIND 2020-01-07 18:04:11 Yes 1{t bl} Take 1 tablet by mouth daily. Med Name: Melaluca vitamin supplement Z-good. Unknown amount of Calcium and D. MD Junito jha celecoxib (CeleBREX) 200 mg capsule 2018-07-21 00:00:0 0 2020-01-07 00:00:00 No 1{capsule} Take 1 capsule by mouth daily. MD Ardon hydrALAZINE (APRESOLINE) 25 MG tablet 2018-06-20 00:00:00 Yes 25mg [id number] 25 mg 3 (three) times a day. Randall Savage atorvastatin (LIPITOR) 40 mg tablet 2018-06-20 00:00:0 0 2020-01-07 00:00:00 No 1{tbl} Take 1 tablet by mouth at bedtime. MD Ardon hydrALAZINE (APRESOLINE) 25 mg tablet 2017-04-29 00:00:00 Y es 1{tbl} Take 1 tablet by mouth 3 (three) times a day. MD Ardon Verapamil HCl 2017-04-19 03:45:20 Yes [facility] Jeroudi 1 tablet [facility] Losartan Potassium 2017-04-19 03:45:20 Yes [facility] Iyeroudi 1 tablet [facility] HydrALAZINE HCl 2017-04-19 03:45:20 Yes [facility] Jaylonoudi 1 tablet [facility] Vitamin D3 2017-04-19 03:45:20 Yes [facility] Garciadi 1 capsule [facility] Doxazosin Mesylate 2017-04-19 03:45:20 Yes [facility] Jaylonoudi 2 tablet [facility] Acyclovir 2017-04-19 03:45:20 Yes [facility] Jaylonoudi 1 tablet [facility] verapamil sustained release (CALAN-SR) 120 MG SR tablet 2015-11-17 00:00:00 Yes 120mg Take 120 mg by mouth. Jose Escobarist verapamil (CALAN-SR) 120 mg CR tablet 2015-11-17 00:00:00 Y es 120mg Take 120 mg by mouth at bedtime. MD Zoey leon Acyclovir Acyclovir Yes 400 Four Times Daily [facility] Acyclovir Acyclovir Yes 400 Daily [facility] Aspirin (Aspir 81) 81 Mg TABLET. Aspirin (Aspir 81) 81 Mg TABLET. Yes 81 Daily [facility] Hydralazine Hcl Hydralazine Hcl Yes 25 Daily [facility] Losartan Potassium Losartan Potassium Yes 100 Da maurice [facility] Omeprazole Omeprazole Yes 40 Daily [facility] Perform Total Health Perform Total Health Yes 1 Daily [facility] Pravastatin Sodium Pravastatin Sodium Yes 80 Da maurice [facility] Premarin Vaginal Crm Premarin Vaginal Crm Yes 1 As Needed [facility] Ranitidine Hcl Ranitidine Hcl Yes 150 Daily [facility] Ropinirole Hcl Ropinirole Hcl Yes .25 Daily [facility] Verapamil Hcl (Verapamil Er) 120 Mg CAP24H.PEL Verapam il Hcl (Verapamil Er) 120 Mg CAP24H.PEL Yes 120 Daily [facility] Doxazosin Mesylate Doxazosin Mesylate 2017-08-06 00:00:00 No 2 Daily [facility] Doxazosin Mesylate Doxazosin Mesylate 2017-08-06 00:00:00 No 1 Bedtime [facility] Estrogens, Conjugated (Premarin) 42.5 Gm CREAM.APPL Es trogens, Conjugated (Premarin) 42.5 Gm CREAM.APPL 2017-08-06 00:00:00 No 45 Use As Directed [facility] Multivitamin (Multivitamins) 1 Each CAPSULE Multivitam in (Multivitamins) 1 Each CAPSULE 2017-08-06 00:00:00 No Daily [facility] Pravastatin Sodium Pravastatin Sodium 2017-08-06 00:00:00 No 80 Daily [facility] Verapamil Hcl (Calan Sr) 120 Mg TABLET.ER Verapamil Hc l (Calan Sr) 120 Mg TABLET.ER 2017-08-06 00:00:00 No 120 Bedtime [facility] Esomeprazole Magnesium (Nexium) 40 Mg CAPSULE.DR Pro prazole Magnesium (Nexium) 40 Mg CAPSULE. 2014-10-04 00:00:00 No 40 Daily [facility] Acyclovir Acyclovir 2014-02-18 00:00:00 No [facility] Calcium Carbonate (Calcium) 600 Mg TABLET Calcium Carb michael (Calcium) 600 Mg TABLET 2014-02-18 00:00:00 No 1200 Rt Daily [facility] Hydrocortisone Acetate (Anucort-Hc) 25 Mg SUPP.RECT Hy drocortisone Acetate (Anucort-Hc) 25 Mg SUPP.RECT 2014-02-18 00:00:00 No [facility] Losartan Potassium Losartan Potassium 2014-02-18 00:00:00 No 50 Rt Daily [facility] Lysine Lysine 2014-02-18 00:00:00 No 1500 [facility] Magnesium Magnesium 2014-02-18 00:00:00 No [facility] Nitrofurantoin Macrocrystal (Nitrofurantoin) 100 Mg CA PSULE Nitrofurantoin Macrocrystal (Nitrofurantoin) 100 Mg CAPSULE 2014-02-18 00:00:00 No 100 Daily [facility] Nitroglycerin Nitroglycerin 2014-02-18 00:00:00 No .4 [facility] Marlow-3 Fatty Acids (Fish Oil) 500 Mg CAPSULE. Marlow -3 Fatty Acids (Fish Oil) 500 Mg CAPSULE. 2014-02-18 00:00:00 No [facility] Polyethylene Glycol 3350 (Miralax) 17 Gm POWD.PACK Fab yethylene Glycol 3350 (Miralax) 17 Gm POWD.PACK 2014-02-18 00:00:00 No 17 Rt Daily [facility] Pravastatin Sodium (Pravachol) 40 Mg TABLET Pravastati n Sodium (Pravachol) 40 Mg TABLET 2014-02-18 00:00:00 No 40 Rt Daily [facility] Verapamil Hcl (Verapamil Er) 120 Mg CAP24H.PEL Verapam il Hcl (Verapamil Er) 120 Mg CAP24H.PEL 2014-02-18 00:00:00 No 120 Rt Daily [facility] Vital Signs Vital Name Observation Time Observation Value Comments Source HEIGHT 2020-01-07 11:53:50 160 cm WEIGHT 2020-01-07 11:53:50 51.9 kg HEIGHT 2020-01-07 11:53:50 160 cm WEIGHT 2020-01-07 11:53:50 51.9 kg Systolic blood pressure 2020-01-24 20:16:00 145 mm[Hg] [facility] Diastolic blood pressure 2020-01-24 20:16:00 63 mm[Hg] [facility] Heart rate 2020-01-24 20:16:00 77 /min [facility] Body temperature 2020-01-24 20:16:00 36.22 Mariana [facility] Respiratory rate 2020-01-24 20:16:00 18 /min [facility] Oxygen saturation in Arterial blood by Pulse oximetry 2019-03 20:16:00 97 /min [facility] Body weight 2020-01-24 04:59:00 60.011 kg [facility] BMI 2020-01-24 04:59:00 23.44 kg/m2 [facility] Body height 2020-01-23 04:00:00 160 cm [facility] Systolic blood pressure 2020-01-07 17:53:50 166 mm[Hg] MD Ardon Diastolic blood pressure 2020-01-07 17:53:50 60 mm[Hg] MD Ardon Heart rate 2020-01-07 17:53:50 69 /min MD Gray son Body temperature 2020-01-07 17:53:50 36.61 Mariana MD Keya burkett Respiratory rate 2020-01-07 17:53:50 17 /min MD Keya burkett Body height 2020-01-07 17:53:50 160 cm MD Isaac culver Body weight 2020-01-07 17:53:50 51.9 kg MD Isaac culver BMI 2020-01-07 17:53:50 20.27 kg/m2 MD Isaac culver Oxygen saturation in Arterial blood by Pulse oximetry 2019-03 17:53:50 98 /min MD Ardon Weight 2019-10-13 19:34:00 138 [lb_av] [facility] BMI (Body Mass Index) 2019-10-13 19:34:00 25.2 kg/m2 [facility] Weight 2017-02-23 20:00:00 [facility] Height 2017-02-23 20:00:00 [facility] Temperature Oral (F) 2017-02-23 20:00:00 97.0 F [facility] Heart Rate 2017-02-23 20:00:00 [facility] Diastolic (mm Hg) 2017-02-23 20:00:00 Mem [facility] Systolic (mm Hg) 2017-02-23 20:00:00 Cal rial [facility] Procedures Procedure Date / Time Performed Performing Clinician Debra ESTRADA MYOCARDIAL PERFUSION PET/CT (REST & STRESS) 2020-01-24 12 :27:00 Usman Verdugo [facility] ECG 12-LEAD 2020-01-24 12:19:44 Unknown, Hl7 Doctor [facility] ECG 12-LEAD 2020-01-24 12:19:26 Unknown, Hl7 Doctor [facility] 2D ECHO W/ DOPPLER (CW/PW/COLOR) 2020-01-24 07:58:33 Chance Verdugo [facility] BASIC METABOLIC PANEL (7) 2020-01-24 03:54:00 Harry Estrada [facility] TSH/FREE T4 IF INDICATED 2020-01-24 03:54:00 [facility] VITAMIN B12 AND FOLATE 2020-01-24 03:54:00 [facility] IRON, TIBC, % SAT. (WITHOUT FERRITIN) 2020-01-24 03:54:00 [facility] CBC W/PLT COUNT & AUTO DIFFERENTIAL 2020-01-24 03:54:00 Harry Estrada [facility] TROPONIN I 2020-01-23 22:02:00 Coretta Esteves [facility] URINALYSIS WITHOUT MICROSCOPIC 2020-01-23 16:02:00 Hue Estrada [facility] OSMOLALITY, URINE 2020-01-23 16:02:00 Natalie, Harry [facility] SODIUM, RANDOM URINE 2020-01-23 16:02:00 Natalie, Harry [facility] CHLORIDE, RANDOM URINE 2020-01-23 16:02:00 [place], Harry Bennett [facility] TROPONIN I 2020-01-23 15:35:00 Coretta Esteves [facility] PROTHROMBIN TIME/INR 2020-01-23 06:04:00 Natalie, Harry Bennett [facility] MAGNESIUM 2020-01-23 06:04:00 Natalie, Harry Bennett [facility] PHOSPHORUS 2020-01-23 06:04:00 [place], Harrydiego Bennett [facility] OSMOLALITY, SERUM 2020-01-23 06:04:00 [place], [facility] BASIC METABOLIC PANEL (7) 2020-01-23 06:04:00 [place], Harry lin [facility] CBC W/PLT COUNT & AUTO DIFFERENTIAL 2020-01-23 06:04:00 Natalie, Harry [facility] CT CHEST WITHOUT IV CONTRAST 2020-01-23 04:10:00 [place], Harry [facility] SARS-COV2/RT-PCR ([facility]) 2020-01-22 22:47:00 [place] [facility] D-DIMER 2020-01-22 20:55:00 Vasyl Cesar [facility] B-TYPE NATRIURETIC FACTOR (BNP) 2020-01-22 20:54:00 Vasyl Cesar [facility] BASIC METABOLIC PANEL (7) 2020-01-22 20:54:00 Vasyl Cesar [facility] TROPONIN I 2020-01-22 20:54:00 ArsenioVasyl rader [facility] HEPATIC FUNCTION PANEL 2020-01-22 20:54:00 [place] [facility] CBC W/PLT COUNT & AUTO DIFFERENTIAL 2020-01-22 20:54:00 Arsenio, [facility] VIEW PORTABLE/BEDSIDE 2020-01-22 20:25:00 Vasyl Cesar [facility] ED ECG INTERPRETATION 2020-01-22 20:11:15 Vasyl Cesar [facility] ECG 12-LEAD 2020-01-22 19:24:23 Unknown, Hl7 Doctor [facility] DEXA BONE MINERAL DENSITY BOTH HIPS AND SPINE 2020-01-07 17: 20:42 Joe Reyes MD ALBUMIN LEVEL 2020-01-07 16:16:00 Joe Reyes MD CTX BETA CROSSLAPS 2020-01-07 16:16:00 Joe Reyes MD son OSTEOCALCIN 2020-01-07 16:16:00 Joe Reyes MD PHOSPHORUS LEVEL 2020-01-07 16:16:00 Joe Reyes MD PTH INTACT 2020-01-07 16:16:00 Joe Reyes MD VITAMIN D 25 HYDROXY LEVEL 2020-01-07 16:16:00 Joe Reyes MD PROCOLLAGEN 1 INTACT N-TERM PP 2020-01-07 16:16:00 Joe Reyes MD FREE LAMBDA LIGHT CHAIN 2020-01-07 16:16:00 Joe Reyes MD SERUM CREATININE 2020-01-07 16:16:00 Joe Reyes MD CALCIUM LEVEL TOTAL 2020-01-07 16:16:00 Joe Reyes MD rson SERUM CREATININE 2020-01-07 16:16:00 Joe Reyes MD .GLOMERULAR FILTRATION RATE 2020-01-07 16:16:00 Joe Reyes MD FREE KAPPA/FREE LAMBDA RATIO 2020-01-07 16:16:00 Joe Reyes MD .DR. EDEN SPENCER PATH REVIEW 2020-01-07 16:16:00 Joe Reyes MD .DR. EDEN ANAYA PATH REVIEW 2020-01-07 16:16:00 Selvin Reyes MD SEDIMENTATION RATE 2019-12-20 12:35:00 Zohra Tony on [facility] VITAMIN B1 LEVEL 2019-12-20 12:35:00 Zohra Tony FOLATE LEVEL 2019-12-20 12:35:00 Zohra Tony THYROID STIMULATING HORMONE 2019-12-20 12:35:00 Zohra Tony VITAMIN B12 LEVEL 2019-12-20 12:35:00 Zohra Tonyto n [facility] VITAMIN B6 LEVEL, PLASMA 2019-12-20 12:35:00 Zohra Tony HEMOGLOBIN A1C 2019-12-20 12:35:00 Zohra Tony MRI BRAIN WO CONTRAST 2019-12-06 11:01:38 Zohra Tony uston [facility] KARINA SCREEN W IFA W REFLEX TO TITER 2019-12-06 00:00:00 Zohra Tony Plan of Care Planned Activity Planned Date Details Comments Source Future Scheduled Test 2019-11-06 00:00:00 INFLUENZA VACCINE (#1) [code = INFLUENZA VACCINE (#1)] [facility] Future Scheduled Test 2019-10-06 00:00:00 INFLUENZA VACCINE [code = INFLUENZA VACCINE] [facility] Future Scheduled Test 2001-04-08 00:00:00 MEDICARE ANNUAL WE LLNESS (YEAR 2 or FIRST YEAR if no IPPE) [code = MEDICARE ANNUAL WELLNESS (YEAR 2 or FIRST YEAR if no IPPE)] [facility] Future Scheduled Test 2000 00:00:00 65+ PNEUMOCOCCAL V ACCINE (1 of 1 - PPSV23) [code = 65+ PNEUMOCOCCAL VACCINE (1 of 1 - PPSV23)] [facility] Future Scheduled Test 2000 00:00:00 PNEUMOCOCCAL 65+ Y RS (1 of 1 - [id number] PCV13) [code = PNEUMOCOCCAL 65+ YRS (1 of 1 - VDIZ50_Xnuirlq PCV13)] [facility] Future Scheduled Test 1985 00:00:00 SHINGLES VACCINES (#1) [code = SHINGLES VACCINES (#1)] [facility] Instructions Hypertension [facility] Encounters Start Date/Time End Date/Time Encounter Type Admission Type Attendi [facility] Care Department Encounter ID Source 2020-01-07 10:02:58 2020-01-07 23:59:00 Outpatient JOE GARDUNO MDA MDA [id number] [place] 2020-01-07 11:45:54 2020-01-07 13:44:08 Outpatient JOE GARDUNO MDA MDA [id number] [place] 2020-01-07 10:41:37 2020-01-07 10:41:37 Outpatient JOE GARDUNO MDA MDA [id number] [place] 2019-12-06 00:00:00 2019-12-06 00:00:00 Outpatient ZOHRA TONY [facility] [id number] [facility] 2019-12-06 00:00:00 2019-12-06 00:00:00 Outpatient ZOHRA TONY [facility] [id number] [facility] 2019-11-30 00:00:00 2019-11-30 00:00:00 Outpatient ZOHRA TONY [facility] [id number] [facility] 2019-10-19 08:42:58 2019-10-19 09:02:58 Office Visit Usman Verdugo [facility] [id number] 2019-10-13 20:10:00 2019-10-13 21:00:00 Departed Emergency Room [facility] [id number] [facility] 2018-12-12 10:18:03 2018-12-12 10:38:03 Office Visit Usman Verdugo [facility] [id number] 2018-10-24 15:00:00 2018-11-04 23:59:00 Discharged Recurring [facility] [id number] [facility] 2018-10-24 09:13:19 2018-10-24 09:33:19 Office Visit Usman Verdugo [facility] [id number] 2018-09-05 11:12:00 2018-10-04 23:59:00 Discharged Recurring [facility] [id number] [facility] 2018-09-01 08:05:00 2018-09-03 23:59:00 Discharged Recurring [facility] [id number] [facility] 2018-08-14 10:58:00 2018-08-14 10:58:00 Registered Clinic 3 ALIRIO HARRIS [facility] [id number] [facility] 2018-06-06 13:34:00 2018-06-06 16:58:00 Departed Emergency Room [facility] [id number] [facility] 2017-08-06 04:55:00 2017-08-07 15:58:00 Discharged Inpatient [facility] [id number] [facility] 2017-02-23 14:00:00 2017-02-23 14:00:00 Outpatient Sallie Vincent MD [place] [id number] [employer] 2017-01-18 08:56:00 2017-01-18 18:20:00 Departed Emergency Room ER ALE STEVE [facility] [id number] [facility] Results Test Description Test Time Test Comments Results Result Comments Source CT ABDOMEN/PELVIS WO 2020-01-26 03:48:00 [facility] 1935 Sex: F [facility] [address] [address] Patient Name: LILLY BREWSTER MR #: [id number] : 1935 Age/Sex: 84/F Req #: [id number] Adm Physician: Ordered by: MAGDALENA ESCOTO DO Report #: [id number] Location: ER Room/Bed: Procedure: [id number] CT/CT ABDOMEN/PELVIS WO Exam Date: 01/26/20 Exam Time: 316 REPORT STATUS: Signed EXAM: CT Abdomen and Pelvis WITHOUT contrast INDICATION: epigastric [id number] COMPARISON: TECHNIQUE: Abdomen and pelvis were scanned utilizing a multidetector helical scanner from the lung base to the pubic symphysis without administration of IV contrast. Absence of intravenous contrast decreases sensitivity for detection of focal lesions and vascular pathology. Coronal and sagittal reformations were obtained. Routine protocol was performed. IV CONTRAST: None ORAL CONTRAST: None COMPLICATIONS: None FINDINGS: LOWER THORAX: Unremarkable HEPATOBILIARY: Unchanged lobulated left hepatic lobe cysts as seen on prior CT. No biliary ductal dilation. GALLBLADDER: No radio-opaque stones or sludge. No wall thickening. Nondistended. SPLEEN: No splenomegaly. PANCREAS: No focal masses or ductal dilatation. ADRENALS: Mild thickening of the left adrenal gland. 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 Additional complex cystic lesions seen on prior CT no definitely increased in size, but although evaluation is markedly limited given noncontrast technique. No urinary tract calculi. No hydronephrosis. GI TRACT: No abnormal distention, wall thickening, or evidence of bowel obstruction. Appendix is not clearly identified. There is however no fat stranding or adenopathy in the right lower quadrant to suggest appendicitis. Stomach is decompressed which limits evaluation. Extensive sigmoid diverticulosis without evidence of acute diverticulitis. PELVIC ORGANS/B LADDER: Uterus is absent.. LYMPH NODES: No lymphadenopathy. 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 Moderate to severe atherosclerotic calcifications of the abdominal aorta and its main branches. No aneurysmal dilatation of the abdominal aorta. PERITONEUM / RETROPERITONEUM: No free air or fluid. BONES: There are degenerative changes in the spine. IMPRESSION: 1. No acute abdominopelvic process. 2. Complex bilateral renal lesions are incompletely assessed on this noncontrast CT exam, but not definitely changed in size. Recommend nonemergent follow-up renal mass protocol MRI for definitive characterization. 3. Extensive diverticulosis of the sigmoid colon without evidence of acute diverticulitis. Signed by: Elbert Hill MD on 01/26/2020 4:23 AM Dictated By: ELBERT HILL MD 2 Transcribed By: CODEY on 01/26/20422 COPY TO: MAGDALENA ESCOTO DO CHEST SINGLE (PORTABLE) 2020-01-26 03:47:00 [facility] 1935 Sex: F [facility] [address] [place] [address] Patient Name: LILLY BREWSTER MR #: [id number] : 1935 Age/Sex: 84/F Req #: [id number] Adm Physician: Ordered by: MAGDALENA ESCOTO DO Report #: [id number] Location: ER Room/Bed: Procedure: [id number] DX/CHEST SINGLE (PORTABLE) Exam Date: Exam Time: REPORT STATUS: Signed EXAMINATION: CHEST SINGLE (PORTABLE) INDICATION: epigastric COMPARISON: xray 01/18/17 FINDINGS: LUNGS: Normal lung volumes. Lungs are clear. No consolidations. PLEURA: No pleural effusion or pneumothorax. HEART AND MEDIASTINUM: The cardiomediastinal silhouette is unremarkable. IMPRESSION: No acute thoracic radiographic abnormality. Signed by: Elbert Hill MD on 01/26/2020 3:48 AM Dictated By: ELBERT HILL MD 7 Transcribed By: CODEY on 01/26/20347 COPY TO: MAGDALENA ESCOTO DO PET/CT, CARDIAC PERF REST AND STRESS 2020-01-24 15:06:00 Reason for exam:->[facility] 1935 Sex: FFINAL REPORT PROCEDURE: MYOCARDIAL PERFUSION PET/CT IMAGING (Rest/Stress)CPT CODE: 00790 INDICATION: Chest pain, coronary artery disease CARDIOVASCULAR PROFILE:CAD History: NoneSymptoms: Chest pain, dyspneaRisk Factors: Hypertension, tobacco useBMI: 24.2Medications: Hydralazine STRESS PROTOCOL:Pharmacologic stress was achieved with a 10-second intravenous infusion of regadenoson 0.4 mg. The radiopharmaceutical was administered 30 seconds after the start of the regadenoson infusion. IMAGING PROTOCOL:Limited low-dose CT imaging was performed for attenuation correction. 40.0 mCi of Rb-82 chloride was injected intravenously at rest, and gated PET images were obtained. Then, 40.1 mCi of Rb-82 chloride was injected intravenously at peak stress, and gated PET images were obtained. REST FINDINGS:HR: 69/minBP: 143/63 mmHgPrelim. EKG: Normal sinus rhythm.Perfusion: Mild decrease in activity in the apical LVWall Motion: Normal (LVEF >70%).LV Volume: Normal. STRESS FINDINGS:HR: 83/min (61% of MPHR)BP: 113/29 mmHgPrelim. EKG: >than [address] depressions.Symptoms: None (treatment not required).Perfusion:Mild decrease in activity in the lateral apical, apical LV segments.Wall Motion: Normal (LVEF >70%).LV Volume: Not significantly changed from rest. IMPRESSION:1. Abnormal study.2. Abnormal myocardial perfusion. There is a small, mild, mostly reversible apical /periapical perfusion defect. 3. Normal resting LVEF, which does not deteriorate with pharmacologic stress.4. Normal extracardiac tracer distribution.5. There is no prior study for comparison. Signed: Bryan Alex MDReport Verified Date/Time: 01/24/2020 15:06:52 Reading Location: [address] Reading Room Myocardial Perfusion Pet/CT (Rest & Stress) 2020-01-24 15:06: 00 Interface, External Ris In - 01/24/2020 3:09 PM CSTFINAL REPORT PROCEDURE: MYOCARDIAL PERFUSION PET/CT IMAGING (Rest/Stress)CPT CODE: 78905 INDICATION: Chest pain, coronary artery disease CARDIOVASCULAR PROFILE:CAD History: NoneSymptoms: Chest pain, dyspneaRisk Factors: Hypertension, tobacco useBMI: 24.2Medications: Hydralazine STRESS PROTOCOL:Pharmacologic stress was achieved with a 10-second intravenous infusion of regadenoson 0.4 mg. The radiopharmaceutical was administered 30 seconds after the start of the regadenoson infusion. IMAGING PROTOCOL:Limited low-dose CT imaging was performed for attenuation correction. 40.0 mCi of Rb-82 chloride was injected intravenously at rest, and gated PET images were obtained. Then, 40.1 mCi of Rb- 82 chloride was injected intravenously at peak stress, and gated PET images were obtained. REST FINDINGS:HR: 69/minBP: 143/63 mmHgPrelim. EKG: Normal sinus rhythm.Perfusion: Mild decrease in activity in the apical LVWall Motion: Normal (LVEF >70%).LV Volume: Normal. STRESS FINDINGS:HR: 83/min (61% of MPHR)BP: 113/29 mmHgPrelim. EKG: >than [address] depressions.Symptoms: None (treatment not required).Perfusion:Mild decrease in activity in the lateral apical, apical LV segments.Wall Motion: Normal (LVEF >70%).LV Volume: Not significantly changed from rest. IMPRESSION:1. Abnormal study.2. Abnormal myocardial perfusion. There is a small, mild, mostly reversible apical/periapical perfusion defect. 3. Normal resting LVEF, which does not deteriorate with pharmacologic stress.4. Normal extracardiac tracer distribution.5. There is no prior study for comparison. Signed: Bryan Alex MDReport Verified Date/Time: 01/24/2020 15:06:52 Reading Location: [address] Reading [facility] 2020-01-24 15:04:33 Interface, E xternal Ris In - 01/24/2020 3:04 PM CSTVentricular Rate 67 BPMAtrial Rate 67 BPMP-R Interval 202 msQRS Duration 80 msQ-T Interval 428 msQTC Calculation(Bazett) 452 msP [place] 64 degreesR [place] 47 degreesT [place] [address] and T wave abnormalityAbnormal ECGConfirmed by MD Almaraz Roberto ([id number]) on 01/24/2020 3:04:31 PM [facility] W/Doppler(CW/PW/Color) 2020-01-24 12:59:51 Ejection FractionSLEH ECHO HEARTLAB MKCKESSON CPACSInterface, External Ris In - 01/24/2020 1:00 PM CSTTransthoracic Echocardiography Report (TTE) Demographics Patient Name LILLY BREWSTER Date of Study 01/24/2020 KELLY Gender Female Visit Number [id number] Race Room Number 1135 Number Date of 1935 Referring Physician Lucina Mary MD Age 84 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 [...] prior studies available for comparison. Signature Findings Rhyt hm/BP Regular sinus rhythm during the exam. Left [...] CO: 5.92 l/min LVOT CI: 3.65 l/min/m^2 [facility] TSH/Free T4 If Indicated 2020-01-24 05:00:00 Test Item TSH (test code = 48540-2) 1.768 0.350- 4.940 uIU/mL CHOLO (test code = CHOLO) [employer] ID - TESFAYE M Lab Interpretation (test code = 88872-2) Normal [facility] CenterVitamin B12 and [id number] 05:00:00* Test Item Value Reference Range Interpretation Comments Vitamin B12 (test code = 2132-9) 512 pg/mL 213-816 Folate (test code = 2284-8) 13.20 ng/mL >=7.00 CHOLO (test code = CHOLO) [employer] ID - TESFAYE M Lab Interpretation (test code = 73425-6) Normal [facility] CenterTSH/FREE T4 IF [id number] 05:00:00* Test Item Value Reference Range Interpretation Comments THYROID STIMULATING HORMONE (BEAKER) (test code = 772) 1.768 uIU /mL 0.350-4.940 [employer] ID - TESFAYE MVITAMIN B12 AND [id number] 05:00:00* Test Item Value Reference Range Interpretation Comments VITAMIN B12 (BEAKER) (test code = 774) 512 pg/mL 213-816 FOLATE (BEAKER) (test code = 362) 13.20 ng/mL >=7.00 [employer] ID - TESFAYE MBasic metabolic [id number] 04:39:00* Test Item Value Reference Range Interpretation Comments Sodium (test code = 2951-2) 131 meq/L 136-145 L Potassium (test code = 2823-3) 4.2 meq/L 3.5-5.1 Chloride (test code = 2075-0) 100 meq/L 98-107 CO2 (test code = 8-9) 24 meq/L 22-29 BUN (test code = 3094-0) 14 mg/dL 7-21 Creatinine (test code = 2160-0) 0.75 mg/dL 0.57-1.25 Glucose (test code = 2345-7) 99 mg/dL 70-105 Calcium (test code = 87953-5) 8.7 mg/dL 8.4-10.2 EGFR (test code = 54484-3) 74 mL/min/1.73 sq m ESTIMATED GFR IS NOT ACCURATE CREATININE CLEARANCE IN PREDICTING GLOMERULAR FILTRATION RATE. ESTIMATED GFR IS NOT APPLICABLE FOR DIALYSIS PATIENTS. CHOLO (test code = CHOLO) [employer] ID Nelly CARLIN M Lab Interpretation (test code = 83976-4) Abnormal [facility] METABOL[facility] [id number] 04:39:00* Test Item Value Reference Range Interpretation Comments SODIUM (BEAKER) (test code = 381) 131 meq/L 136-145 L POTASSIUM (BEAKER) (test code = 379) 4.2 meq/L 3.5-5.1 CHLORIDE (BEAKER) (test code = 382) 100 meq/L 98-107 CO2 (BEAKER) (test code = 355) 24 meq/L 22-29 BLOOD UREA NITROGEN (BEAKER) (test code = 354) 14 mg/dL 7-21 CREATININE (BEAKER) (test code = 358) 0.75 mg/dL 0.57-1.25 GLUCOSE RANDOM (BEAKER) (test code = 652) 99 mg/dL 70-105 CALCIUM (BEAKER) (test code = 697) 8.7 mg/dL 8.4-10.2 EGFR (BEAKER) (test code = 1092) 74 mL/min/1.73 sq m ESTIMATED GFR IS NOT ACCURATE CREATININE CLEARANCE IN PREDICTING GLOMERULAR FILTRATION RATE. ESTIMATED GFR IS NOT APPLICABLE FOR DIALYSIS PATIENTS. [employer] ID - TESFAYE [place]on, TIBC, % sat. (without ferritin)2020-01-24 04:25:00* Test Item Value Reference Range Interpretation Comments Iron (test code = 2498-4) 73.0 ug/dL 40-160 TIBC (test code = 2500-7) 271 ug/dL 250-450 Iron % Saturation (test code = 2502-3) 27 % 20-55 CHOLO (test code = CHOLO) [employer] MATEO Villegas TESFAYE [place] Lab Interpretation (test code = 07151-1) Normal [facility] Hollywood[facility], TIBC, % SAT. (WITHOUT FERRITIN)2020-01-24 04:25:00* Test Item Value Reference Range Interpretation Comments IRON (BEAKER) (test code = 547) 73.0 ug/dL 40.0-160.0 TOTAL IRON BINDING CAPACITY (BEAKER) (test code = 769) 271 ug/dL 250-450 IRON % SATURATION (2) (BEAKER) (test code = 2590) 27 % 20-5 5 [employer] MATEO Villegas TESFAYE MCBC with platelet count + automated [id number] 04:08:00 * Test Item Value Reference Range Interpretation Comments WBC (test code = 6690-2) 10.6 3.5- 10.5 K/L H RBC (test code = 789-8) 3.26 3.93- 5.22 M/L L MCHC (test code = 786-4) 33.4 32.2- 35.5 GM/DL L Hematocrit (test code = 4544-3) 28.7 % 34.1-44.9 L MCV (test code = 787-2) 88.0 fL 79.4-94.8 MCH (test code = 785-6) 29.4 pg 25.6-32.2 RDW (test code = 788-0) 13.0 % 11.7-14.4 Platelets (test code = 777-3) 242 150- 450 K/CU MM MPV (test code = 23827-0) 8.9 fL 9.4-12.3 L nRBC (test code = 413) 0 0- 0 /100 WBC % Neutros (test code = 429) 71 % % Lymphs (test code = 430) 12 % % Monos (test code = 431) 13 % % Eos (test code = 432) 3 % % Baso (test code = 437) 1 % # Neutros (test code = 670) 7.53 1.56- 6.13 K/L H # Lymphs (test code = 414) 1.28 1.18- 3.74 K/L # Monos (test code = 415) 1.39 0.24- 0.36 K/L H # Eos (test code = 416) 0.30 0.04- 0.36 K/L # Baso (test code = 417) 0.05 0.01- 0.08 K/L Immature Granulocytes-Relative (test code = 2801) 0 % 0-1 Lab Interpretation (test code = 42674-6) Abnormal [facility] W/PLT COUNT & AUTO [id number] 04:08:00* Test Item Value Reference Range Interpretation Comments WHITE BLOOD CELL COUNT (BEAKER) (test code = 775) 10.6 K/ L 3.5- 10.5 H RED BLOOD CELL COUNT (BEAKER) (test code = 761) 3.26 M/ L 3.93-5 .22 L HEMOGLOBIN (BEAKER) (test code = 410) 9.6 GM/DL 11.2-15.7 L HEMATOCRIT (BEAKER) (test code = 411) 28.7 % 34.1-44.9 L MEAN CORPUSCULAR VOLUME (BEAKER) (test code = 753) 88.0 fL 79. 4-94.8 MEAN CORPUSCULAR HEMOGLOBIN (BEAKER) (test code = 751) 29.4 pg 25.6-32.2 MEAN CORPUSCULAR HEMOGLOBIN CONC (BEAKER) (test code = 752) 33.4 GM/DL 32.2-35.5 RED CELL DISTRIBUTION WIDTH (BEAKER) (test code = 412) 13.0 % 11.7-14.4 PLATELET COUNT (BEAKER) (test code = 756) 242 K/CU MM 150-450 MEAN PLATELET VOLUME (BEAKER) (test code = 754) 8.9 fL 9.4-12 .3 L NUCLEATED RED BLOOD CELLS (BEAKER) (test code = 413) 0 /100 WBC 0 -0 NEUTROPHILS RELATIVE PERCENT (BEAKER) (test code = 429) 71 % LYMPHOCYTES RELATIVE PERCENT (BEAKER) (test code = 430) 12 % MONOCYTES RELATIVE PERCENT (BEAKER) (test code = 431) 13 % EOSINOPHILS RELATIVE PERCENT (BEAKER) (test code = 432) 3 % BASOPHILS RELATIVE PERCENT (BEAKER) (test code = 437) 1 % NEUTROPHILS ABSOLUTE COUNT (BEAKER) (test code = 670) 7.53 K/ L 1.56-6.13 H LYMPHOCYTES ABSOLUTE COUNT (BEAKER) (test code = 414) 1.28 K/ L 1.18-3.74 MONOCYTES ABSOLUTE COUNT (BEAKER) (test code = 415) 1.39 K/ L 0. 24-0.36 H EOSINOPHILS ABSOLUTE COUNT (BEAKER) (test code = 416) 0.30 K/ L 0.04-0.36 BASOPHILS ABSOLUTE COUNT (BEAKER) (test code = 417) 0.05 K/ L 0. 01-0.08 IMMATURE GRANULOCYTES-RELATIVE PERCENT (BEAKER) (test code = 2801) 0 % 0-1 Troponin [id number] 22:49:00* Test Item Value Reference Range Interpretation Comments Troponin I (test code = 60867-2) 0.03 ng/mL 0-0.03 CHOLO (test code = CHOLO) Troponin I (TnI) levels must be interpreted in the context of the presenting symptoms and the clinical findings. Elevated TnI levels indicate myocardial damage, but are not specific for ischemic heart disease. Elevated TnI levels are seen in patients with other cardiac conditions (including myocarditis and congestive heart failure), and slight TnI elevations occur in patients with other conditions, including sepsis, renal failure, acidosis, acute neurological disease, and persistent tachyarrhythmia.[employer] ID - BS Lab Interpretation (test code = 72330-8) Normal [facility] Hollywood[facility]IN [id number] 22:49:00* Test Item Value Reference Range Interpretation Comments TROPONIN I (BEAKER) (test code = 397) 0.03 ng/mL 0.00-0.03 Troponin I (TnI) levels must be interpreted in the context of the presenting sym ptoms and the clinical findings. Elevated TnI levels indicate myocardial damage, but are not specific for ischemic heart disease. Elevated TnI levels are seen in patients with other cardiac conditions (including myocarditis and congestive h eart failure), and slight TnI elevations occur in patients with other conditions , including sepsis, renal failure, acidosis, acute neurological disease, and per sistent tachyarrhythmia.[employer] ID - BSOsmolality, [id number] 16:43:00* Test Item Value Reference Range Interpretation Comments Osmolality, Ur (test code = 2695-5) 276 50-1,200 mOsm/kg m Osm/kg Lab Interpretation (test code = 95712-1) Normal [facility] CenterUrinalysis without [id number] 16:43:00* Test Item Value Reference Range Interpretation Comments Color, UA (test code = 5778-6) Yellow Clarity, UA (test code = 5767-9) Hazy Specific [place], UA (test code = 5811-5) 1.010 1.001-1.035 pH, UA (test code = 5803-2) 6.0 5.0-8.0 Protein, UA (test code = 10136-0) Negative Negative Glucose, UA (test code = 365) Negative Negative Ketones, UA (test code = 2514-8) Negative Negative Bilirubin, UA (test code = 64639-9) Negative Negative Blood, UA (test code = 83961-8) Negative Negative Nitrite, UA (test code = 5802-4) Negative Negative Leukocytes, UA (test code = 5799-2) Large Negative A Urobilinogen, UA (test code = 45499-0) 0.2 mg/dL 0.2-1 Specimen Source (test code = 2795) CHOLO (test code = CHOLO) [employer] ID - [auto] Lab Interpretation (test code = 58898-3) Abnormal [facility] CenterOSMOLALITY, [id number] 16:43:00* Test Item Value Reference Range Interpretation Comments OSMOLALITY URINE (BEAKER) (test code = 614) 276 mOsm/kg 50-1,200 m Osm/kg URINALYSIS WITHOUT [id number] 16:43:00* Test Item Value Reference Range Interpretation Comments COLOR (BEAKER) (test code = 470) Yellow CLARITY (BEAKER) (test code = 469) Hazy SPECIFIC GRAVITY UA (BEAKER) (test code = 468) 1.010 1.001-1 .035 PH UA (BEAKER) (test code = 467) 6.0 5.0-8.0 PROTEIN UA (BEAKER) (test code = 464) Negative Negative GLUCOSE UA (BEAKER) (test code = 365) Negative Negative KETONES UA (BEAKER) (test code = 371) Negative Negative BILIRUBIN UA (BEAKER) (test code = 462) Negative Negative BLOOD UA (BEAKER) (test code = 461) Negative Negative NITRITE UA (BEAKER) (test code = 465) Negative Negative LEUKOCYTE ESTERASE UA (BEAKER) (test code = 466) Large Negat chen A UROBILINOGEN UA (BEAKER) (test code = 463) 0.2 mg/dL 0.2-1.0 SOURCE(BEAKER) (test code = 2795) [employer] ID - [auto]Chloride, random [id number] 16:39:00* Test Item Value Reference Range Interpretation Comments ChlorideUr (test code = 11105-7) 32 meq/L CHOLO (test code = CHOLO) Reference Range: No NormalsOperator ID - BS [facility] [id number] 16:39:00* Test Item Value Reference Range Interpretation Comments Sodium Urine (test code = 2955-3) 34 meq/L CHOLO (test code = CHOLO) Reference Range: No NormalsOperator ID - BS [facility] CenterCHLORIDE, RANDOM [id number] 16:39:00* Test Item Value Reference Range Interpretation Comments CHLORIDE URINE (BEAKER) (test code = 682) 32 meq/L Reference Range: No NormalsOperator ID - BSSODIUM, RANDOM [id number] 16:39:00* Test Item Value Reference Range Interpretation Comments SODIUM URINE (BEAKER) (test code = 243) 34 meq/L Reference Range: No NormalsOperator ID - BLANKA [id number] 16:13:00* Test Item Value Reference Range Interpretation Comments TROPONIN I (DUCAKER) (test code = 397) 0.02 ng/mL 0.00-0.03 Troponin I (TnI) levels must be interpreted in the context of the presenting sym ptoms and the clinical findings. Elevated TnI levels indicate myocardial damage, but are not specific for ischemic heart disease. Elevated TnI levels are seen i n patients with other cardiac conditions (including myocarditis and congestive h eart failure), and slight TnI elevations occur in patients with other conditions , including sepsis, renal failure, acidosis, acute neurological disease, and per sistent tachyarrhythmia.[employer] Executive ID - ADMINSARS-CoV2/RT-PCR (Asymptomatic ONLY) 2020-01-23 12:56:00* Test Item Value Reference Range Interpretation Comments SARS-COV2/RT-PCR (test code = 11546-5) Negative N ot Detected, Negative, See external report for linked test SARS-COV-2 PERFORMING LAB (test code = 40675-2) [facility] SAMEER EMMANUEL (test code = CHOLO) Negative result for this chuyita t determines that SARS-CoV-2 RNA was not present in the specimen above the Limit of Detection (LOD). However, Negative results do not preclude SARS-CoV-2 infection and should not be used as the sole basis for treatment or patient management decisions. Negative results must be combined with clinical observations, patient history, and epidemiological information. A false negative result may occur if a specimen is improperly collected, transported or handled. A false negative result should be considered if patient's recent exposures or clinical presentation indicate that COVID-19 (SARS-CoV-2) is likely and diagnostic tests for other causes of illness are negative. Re-testing should be considered in cases of suspected false negatives. The limit of detection for this assay is 800 copies/mL. This SARS CoV-2 test is a real-time RT-PCR test intended for the qualitative detection of nucleic acid from SARS-CoV-2 in a nasopharyngeal swab specimen collected from individuals suspected of COVID-19 by their healthcare provider. This test has not been Food and Drug Administration (FDA) cleared or approved. This is a modified version of an approved Emergency Use Authorization (EUA) and is in the process of review by the FDA. Once authorized by the FDA, the issued EUA will be effective until the declaration that circumstances exist justifying the authorization of the emergency use of in vitro diagnostic tests for detection and/or diagnosis of COVID-19 is terminated under Section 564(b)(2) of the Act or the EUA is revoked under Section 564(g) of the Act. Fact Sheet for Healthcare Providers:https://www.[employer]/sites/default/files/product/documents/Fact_Shee b_RG_Spziyoqim_Hqwv_AZSB-CiE-0.pdf Fact Sheet for Healthcare Patients:https://www.[employer]/sites/default/files/pro duct/documents/Zhcc_Jdrmx_Rrlnczld_Owho_XXTE-SeR-0.pdf Performing Laboratory:[facility] [place] [address] [facility] ([facility])2020-01-23 12:56:00* Test Item Value Reference Range Interpretation Comments SARS-COV2/RT-PCR (test code = 1056945) Negative N ot Detected, Negative, See external report for linked test SARS-COV-2 PERFORMING LAB (test code = 9401829) [facility] SAMEER Negative result for this test determines that SARS-CoV-2 RNA was not present in the specimen above the Limit of Detection (LOD). However, Negative results do n ot preclude SARS-CoV-2 infection and should not be used as the sole basis for tr eatment or patient management decisions. Negative results must be combined with clinical observations, patient history, and epidemiological information. A false negative result may occur if a specimen is improperly collected, transported or handled. A false negative result should be considered if patient's recent expo sures or clinical presentation indicate that COVID-19 (SARS-CoV-2) is likely and diagnostic tests for other causes of illness are negative. Re-testing should b e considered in cases of suspected false negatives.The limit of detection for th is assay is 800 copies/mL.This SARS CoV-2 test is a real-time RT-PCR test intend ed for the qualitative detection of nucleic acid from SARS-CoV-2 in a nasopharyn geal swab specimen collected from individuals suspected of COVID-19 by their [facility] provider.This test has not been Food and Drug Administration (FDA) clear ed or approved. This is a modified version of an approved Emergency Use Authori zation (EUA) and is in the process of review by the FDA. Once authorized by [facility] FDA, the issued EUA will be effective until the declaration that circumstances exist justifying the authorization of the emergency use of in vitro diagnostic tests for detection and/or diagnosis of COVID-19 is terminated under Section 564 (b)(2) of the Act or the EUA is revoked under Section 564(g) of the Act.Fact She et for Healthcare Providers:https://www.[employer]/sites/default/files/product/d ocuments/Vixx_Esqbr_KN_Jwboghzqd_Eaio_ZGCK-CmO-2.pdfFact Sheet for Healthcare Pa leroy:https://www.[employer]/sites/default/files/product/documents/Fact_Sheet_P bhpusfy_Rodq_WFDE-MvB-6.pdfPerforming Laboratory:[facility] [address] [facility].[place], [place] [address]Bugqclvbxk, [id number] 08:21:00* Test Item Value Reference Range Interpretation Comments Osmolality Serum (test code = 2692-2) 278 275- 295 mOsm/kg Lab Interpretation (test code = 87559-9) Normal [facility] CenterOSMOLALITY, [id number] 08:21:00* Test Item Value Reference Range Interpretation Comments OSMOLALITY, SERUM (BEAKER) (test code = 615) 278 mOsm/kg 275-295 CT, CHEST, WITHOUT [id number] 08:17:00Unlisted Reason for Exam - Click Yes and Enter Reason Below->No [facility] : 1935 Sex: F FINAL REPORT 099 TECHNIQUE: CT scan of the chest WITHOUT intravenous contrast. Dose modulatio n, iterative reconstruction, and/or weight-based adjustment of the mA/kV was uti lized to reduce the radiation dose to as low as reasonably achievable. INDICATIO N: Dyspnea, chronicShortness of breath. COMPARISON: None. FINDINGS: ABSENCE OF INTRAVENOUS CONTRAST DECREASES SENSITIVITY FOR DETECTION OF FOCAL LESIONS AND V ASCULAR PATHOLOGY. LINES/TUBES: None. LUNGS AND AIRWAYS: A right lower lobe calc ified granuloma measures 0.3 cm. There bilateral subpleural reticular opacities. Mild bronchiectasis in the right base. There are more central prominent interst itial opacities as well. PLEURA: The pleural spaces are clear. HEART AND MEDIAST INUM: Prior left thyroidectomy. A nodule in thyroid measures 2.1 cm. No signific ant mediastinal, hilar, or axillary lymphadenopathy. Calcified subcarinal and ri ght hilar lymph nodes. The heart and pericardium are within normal limits. Moder ate calcification of the arch branch vessels. Marked calcification of the descen ding thoracic aorta. Marked calcification the left anterior descending coronary artery. Moderate calcification of the right coronary artery. SOFT TISSUES AND LADI ELIZABETH: The bones are diffusely demineralized. UPPER ABDOMEN: A fat density left re nal mass measures 0.9 cm. A cyst in segment IV measures 0.5 cm. A cyst in segmen t III measures 2.9 cm. Moderate calcification of the proximal superior mesenteri c artery. IMPRESSION: 1.The bilateral subpleural reticular opacities could be a telectasis but are concerning for interstitial fibrosis. Interstitial lung opaci ties in the right base are most likely fibrosis given the adjacent bronchiectasi s. This could be further evaluated with an interstitial lung disease protocol CT on a nonemergent basis. 2.There are more prominent central interstitial opaciti es as well which are indeterminate but may be due to interstitial pulmonary gabriela a. 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 4.A right thyroid nodule measu res 2.1 cm. Further evaluation with a thyroid ultrasound is recommended. Signed: Lesley Villatoro MDReport Verified Date/Time: 01/23/2020 08:17:57 Reading Location: [facility] Diagnostic Imaging Reading Room - [place] [address] [id number] chest without IV contrast 2020-01-23 08:17:00Interface, External Ris In - 01/23/2020 8:20 AM CSTFINAL REPORT TECHNIQUE: CT scan of the chest WITHOUT intravenous contrast. Dose modulation, iterative reconstruction, and/or weight- based adjustment of the mA/kV was utilized to reduce the radiation dose to as low as reasonably achievable. INDICATION: Dyspnea, chronicShortness of breath. COMPARISON: None. FINDINGS: ABSENCE OF INTRAVENOUS CONTRAST DECREASES SENSITIVITY FOR DETECTION OF FOCAL LESIONS AND VASCULAR PATHOLOGY. LINES/TUBES: None. LUNGS AND AIRWAYS: A right lower lobe calcified granuloma measures 0.3 cm. There bilateral subpleural reticular opacities. Mild bronchiectasis in the right base. [...] IV measures 0.5 cm. A cyst in se gment III measures 2.9 cm. Moderate calcification of the proximal superior mesen teric artery. IMPRESSION: 1.The bilateral subpleural reticular opacities could be atelectasis but are concerning for interstitial fibrosis. Interstitial lung o pacities in the right base are most likely fibrosis given the adjacent bronchiec tasis. This could be further evaluated with an interstitial lung disease protoco l CT on a nonemergent basis. 2.There are more prominent central interstitial opa cities as well which are indeterminate but may be due to interstitial pulmonary edema. 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 4.A right thyroid nodule m easures 2.1 cm. Further evaluation with a thyroid ultrasound is recommended. Sig nigel: Lesley Villatoro MDReport Verified Date/Time: 01/23/2020 08:17:57 Reading Locati on: [facility] Diagnostic Imaging Reading Room - [facility] F1 1129 Electronically sig nigel by: LESLEY VILLATORO MD on 01/23/2020 08:17 AM [facility] BASIC METABOLIC [id number] 07:25:00* Test Item Value Reference Range Interpretation Comments SODIUM (BEAKER) (test code = 381) 135 meq/L 136-145 L POTASSIUM (BEAKER) (test code = 379) 3.8 meq/L 3.5-5.1 CHLORIDE (BEAKER) (test code = 382) 101 meq/L 98-107 CO2 (BEAKER) (test code = 355) 25 meq/L 22-29 BLOOD UREA NITROGEN (BEAKER) (test code = 354) 14 mg/dL 7-21 CREATININE (BEAKER) (test code = 358) 0.72 mg/dL 0.57-1.25 GLUCOSE RANDOM (BEAKER) (test code = 652) 93 mg/dL 70-105 CALCIUM (BEAKER) (test code = 697) 9.1 mg/dL 8.4-10.2 EGFR (BEAKER) (test code = 1092) 77 mL/min/1.73 sq m ESTIMATED GFR IS NOT ACCURATE CREATININE CLEARANCE IN PREDICTING GLOMERULAR FILTRATION RATE. ESTIMATED GFR IS NOT APPLICABLE FOR DIALYSIS PATIENTS. [employer] Sales Executive ID - PRISCILLA [id number] 07:22:00* Test Item Value Reference Range Interpretation Comments Magnesium (test code = 10498-4) 1.9 mg/dL 1.6-2.6 CHOLO (test code = CHOLO) [employer] Executive ID - PRISCILLA C Lab Interpretation (test code = 21704-0) Normal [facility] CenterPhosphorus2020-11-18 07:22:00* Test Item Value Reference Range Interpretation Comments Phosphorus (test code = 2777-1) 3.3 mg/dL 2.3-4.7 CHOLO (test code = CHOLO) [employer] ID - PRISCILLA C Lab Interpretation (test code = 20061-7) Normal [facility] CenterMAGNESIUM2020-11-18 07:22:00* Test Item Value Reference Range Interpretation Comments MAGNESIUM (BEAKER) (test code = 627) 1.9 mg/dL 1.6-2.6 [employer] ID - PRISCILLA [id number] 07:22:00* Test Item Value Reference Range Interpretation Comments PHOSPHORUS (BEAKER) (test code = 604) 3.3 mg/dL 2.3-4.7 [employer] ID - PRISCILLA CProthrombin time/[id number] 06:34:00* Test Item Value Reference Range Interpretation Comments Protime (test code = 5902-2) 13.0 11.9- 14.2 seconds INR (test code = 6301-6) 1.01 <=5.90 CHOLO (test code = CHOLO) Effective 08/02/2018: PT Refe rence Range ChangeNew: 11.9- 14.2 Previous: 11.7-14.7 RECOMMENDED COUMADIN/WARFARIN INR THERAPY RANGESSTANDARD DOSE: 2.0-3.0 Includes: PROPHYLAXIS for venous thrombosis, sys temic embolization; TREATMENT for venous thrombosis and/or pulmonary embolus.HIGH RISK: Target INR is 2.5-3.5 for patients wiht mechanical heart valves. Lab Interpretation (test code = 35045-2) Normal [facility] CenterPROTHROMBIN TIME/[id number] 06:34:00* Test Item Value Reference Range Interpretation Comments PROTIME (BEAKER) (test code = 759) 13.0 seconds 11.9-14.2 INR (BEAKER) (test code = 370) 1.01 <=5.90 Effective 08/02/2018: PT Reference Range ChangeNew: 11.9-14.2 Previous: 11.7-14. 7RECOMMENDED COUMADIN/WARFARIN INR THERAPY RANGESSTANDARD DOSE: 2.0-3.0 Include s: PROPHYLAXIS for venous thrombosis, systemic embolization; TREATMENT for venou s thrombosis and/or pulmonary embolus.HIGH RISK: Target INR is 2.5-3.5 for patie nts wiht mechanical heart valves.CBC W/PLT COUNT & AUTO [id number] 06:28:00* Test Item Value Reference Range Interpretation Comments WHITE BLOOD CELL COUNT (BEAKER) (test code = 775) 6.8 K/ L 3.5- 10.5 RED BLOOD CELL COUNT (BEAKER) (test code = 761) 3.71 M/ L 3.93-5 .22 L HEMOGLOBIN (BEAKER) (test code = 410) 10.9 GM/DL 11.2-15.7 L HEMATOCRIT (BEAKER) (test code = 411) 32.5 % 34.1-44.9 L MEAN CORPUSCULAR VOLUME (BEAKER) (test code = 753) 87.6 fL 79. 4-94.8 MEAN CORPUSCULAR HEMOGLOBIN (BEAKER) (test code = 751) 29.4 pg 25.6-32.2 MEAN CORPUSCULAR HEMOGLOBIN CONC (BEAKER) (test code = 752) 33.5 GM/DL 32.2-35.5 RED CELL DISTRIBUTION WIDTH (BEAKER) (test code = 412) 12.8 % 11.7-14.4 PLATELET COUNT (BEAKER) (test code = 756) 253 K/CU MM 150-450 MEAN PLATELET VOLUME (BEAKER) (test code = 754) 9.2 fL 9.4-12 .3 L NUCLEATED RED BLOOD CELLS (BEAKER) (test code = 413) 0 /100 WBC 0 -0 NEUTROPHILS RELATIVE PERCENT (BEAKER) (test code = 429) 52 % LYMPHOCYTES RELATIVE PERCENT (BEAKER) (test code = 430) 26 % MONOCYTES RELATIVE PERCENT (BEAKER) (test code = 431) 16 % EOSINOPHILS RELATIVE PERCENT (BEAKER) (test code = 432) 5 % BASOPHILS RELATIVE PERCENT (BEAKER) (test code = 437) 1 % NEUTROPHILS ABSOLUTE COUNT (BEAKER) (test code = 670) 3.56 K/ L 1.56-6.13 LYMPHOCYTES ABSOLUTE COUNT (BEAKER) (test code = 414) 1.80 K/ L 1.18-3.74 MONOCYTES ABSOLUTE COUNT (BEAKER) (test code = 415) 1.06 K/ L 0. 24-0.36 H EOSINOPHILS ABSOLUTE COUNT (BEAKER) (test code = 416) 0.32 K/ L 0.04-0.36 BASOPHILS ABSOLUTE COUNT (BEAKER) (test code = 417) 0.07 K/ L 0. 01-0.08 IMMATURE GRANULOCYTES-RELATIVE PERCENT (BEAKER) (test code = 2801) 0 % 0-1 Hepatic function [id number] 03:11:00* Test Item Value Reference Range Interpretation Comments Protein, Total (test code = 2885-2) 7.1 6.0- 8.3 gm/dL Specimen slightly hemolyzed Albumin (test code = 69597-6) 4.1 g/dL 3.5-5 Specimen slightly hemolyzed Total Bilirubin (test code = 1975-2) 0.2 mg/dL 0.2-1.2 Specimen slightly hemolyzed Bilirubin, Direct (test code = 1968-7) 0.1 mg/dL 0.1-0.5 Specimen slightly hemolyzed Alkaline Phosphatase (test code = 6768-6) 35 U/L 40-150 L AST (test code = 1920-8) 24 U/L 5-34 Spe cimen slightly hemolyzed ALT (test code = 1742-6) 17 U/L 6-55 Spe cimen slightly hemolyzed CHOLO (test code = CHOLO) [employer] ID - TESFAYE M Lab Interpretation (test code = 01311-8) Abnormal [facility] Hollywood[facility]AT[facility] FUN[facility] [id number] 03:11:00* Test Item Value Reference Range Interpretation Comments TOTAL PROTEIN (BEAKER) (test code = 770) 7.1 gm/dL 6.0-8.3 Specimen slightly hemolyzed ALBUMIN (BEAKER) (test code = 1145) 4.1 g/dL 3.5-5.0 Specimen slightly hemolyzed BILIRUBIN TOTAL (BEAKER) (test code = 377) 0.2 mg/dL 0.2-1.2 Specimen slightly hemolyzed BILIRUBIN DIRECT (BEAKER) (test code = 706) 0.1 mg/dL 0.1-0.5 Specimen slightly hemolyzed ALKALINE PHOSPHATASE (BEAKER) (test code = 346) 35 U/L 40-150 L AST (SGOT) (BEAKER) (test code = 353) 24 U/L 5-34 Specimen slightly hemolyzed ALT (SGPT) (BEAKER) (test code = 347) 17 U/L 6-55 Specimen slightly hemolyzed [employer] ID - TESFAYE MTROPONIN [id number] 21:48:00* Test Item Value Reference Range Interpretation Comments TROPONIN I (BEAKER) (test code = 397) 0.03 ng/mL 0.00-0.03 Troponin I (TnI) levels must be interpreted in the context of the presenting sym ptoms and the clinical findings. Elevated TnI levels indicate myocardial damage, but are not specific for ischemic heart disease. Elevated TnI levels are seen i n patients with other cardiac conditions (including myocarditis and congestive h eart failure), and slight TnI elevations occur in patients with other conditions , including sepsis, renal failure, acidosis, acute neurological disease, and per sistent tachyarrhythmia.[employer] ID - BSB-type Natriuretic Factor (BNP) 2020-01-22 21:45:00* Test Item Value Reference Range Interpretation Comments BNP (test code = 48434-7) 66 pg/mL 0-100 CHOLO (test code = CHOLO) [employer] ID - BS Lab Interpretation (test code = 73875-4) Normal [facility] CenterB-TYPE NATRIURETIC FACTOR (BNP)2020-01-22 21:45:00 * Test Item Value Reference Range Interpretation Comments B-TYPE NATRIURETIC PEPTIDE (BEAKER) (test code = 700) 66 pg/mL 0-100 [employer] ID - BSBASIC METABOLIC [id number] 21:38:00* Test Item Value Reference Range Interpretation Comments SODIUM (BEAKER) (test code = 381) 127 meq/L 136-145 L POTASSIUM (BEAKER) (test code = 379) 4.1 meq/L 3.5-5.1 Specimen slightly hemolyzed CHLORIDE (BEAKER) (test code = 382) 97 meq/L 98-107 L CO2 (BEAKER) (test code = 355) 21 meq/L 22-29 L BLOOD UREA NITROGEN (BEAKER) (test code = 354) 19 mg/dL 7-21 CREATININE (BEAKER) (test code = 358) 0.85 mg/dL 0.57-1.25 Specimen slightly hemolyzed GLUCOSE RANDOM (BEAKER) (test code = 652) 100 mg/dL 70-105 CALCIUM (BEAKER) (test code = 697) 9.1 mg/dL 8.4-10.2 EGFR (BEAKER) (test code = 1092) 64 mL/min/1.73 sq m ESTIMATED GFR IS NOT ACCURATE CREATININE CLEARANCE IN PREDICTING GLOMERULAR FILTRATION RATE. ESTIMATED GFR IS NOT APPLICABLE FOR DIALYSIS PATIENTS. [employer] ID - BSD-dimer, [id number] 21:25:00* Test Item Value Reference Range Interpretation Comments D-Dimer, Quant (test code = 22117-5) 0.70 <0.50 MG/L FEU H CHOLO (test code = CHOLO) Intended Use: The D-Dimer As say can be used to aid in the diagnosis of Deep Vein Thrombosis (DVT) and Pulmonary Embolism Disease (PED).In patients with low pre-test probability, various studies concerning STA Liatest D-dimer test have reported that with a cutoff value of 0.50 MG/L FEU, the Negative Predictive Value (NPV) regarding the exclusion of thrombosis is within 95-100% range. Lab Interpretation (test code = 80905-4) Abnormal [facility] HollywoodD-[id number] 21:25:00* Test Item Value Reference Range Interpretation Comments D-DIMER QUANTITATIVE (BEAKER) (test code = 671) 0.70 MG/L FEU <0.50 H Intended Use: The D-Dimer Assay can be used to aid in the diagnosis of Deep Vein Thrombosis (DVT) and Pulmonary Embolism Disease (PED).In patients with low pre- test probability, various studies concerning STA Liatest D-dimer test have repor haley that with a cutoff value of 0.50 MG/L FEU, the Negative Predictive Value (REGIONAL TRAINER V) regarding the exclusion of thrombosis is within 95-100% range.CBC W/PLT COUNT & AUTO [id number] 21:22:00* Test Item Value Reference Range Interpretation Comments WHITE BLOOD CELL COUNT (BEAKER) (test code = 775) 9.3 K/ L 3.5- 10.5 RED BLOOD CELL COUNT (BEAKER) (test code = 761) 3.53 M/ L 3.93-5 .22 L HEMOGLOBIN (BEAKER) (test code = 410) 10.3 GM/DL 11.2-15.7 L HEMATOCRIT (BEAKER) (test code = 411) 30.8 % 34.1-44.9 L MEAN CORPUSCULAR VOLUME (BEAKER) (test code = 753) 87.3 fL 79. 4-94.8 MEAN CORPUSCULAR HEMOGLOBIN (BEAKER) (test code = 751) 29.2 pg 25.6-32.2 MEAN CORPUSCULAR HEMOGLOBIN CONC (BEAKER) (test code = 752) 33.4 GM/DL 32.2-35.5 RED CELL DISTRIBUTION WIDTH (BEAKER) (test code = 412) 12.7 % 11.7-14.4 PLATELET COUNT (BEAKER) (test code = 756) 246 K/CU MM 150-450 MEAN PLATELET VOLUME (BEAKER) (test code = 754) 9.8 fL 9.4-12 .3 NUCLEATED RED BLOOD CELLS (BEAKER) (test code = 413) 0 /100 WBC 0 -0 NEUTROPHILS RELATIVE PERCENT (BEAKER) (test code = 429) 64 % LYMPHOCYTES RELATIVE PERCENT (BEAKER) (test code = 430) 22 % MONOCYTES RELATIVE PERCENT (BEAKER) (test code = 431) 10 % EOSINOPHILS RELATIVE PERCENT (BEAKER) (test code = 432) 3 % BASOPHILS RELATIVE PERCENT (BEAKER) (test code = 437) 1 % NEUTROPHILS ABSOLUTE COUNT (BEAKER) (test code = 670) 5.87 K/ L 1.56-6.13 LYMPHOCYTES ABSOLUTE COUNT (BEAKER) (test code = 414) 2.00 K/ L 1.18-3.74 MONOCYTES ABSOLUTE COUNT (BEAKER) (test code = 415) 0.96 K/ L 0. 24-0.36 H EOSINOPHILS ABSOLUTE COUNT (BEAKER) (test code = 416) 0.27 K/ L 0.04-0.36 BASOPHILS ABSOLUTE COUNT (BEAKER) (test code = 417) 0.09 K/ L 0. 01-0.08 H IMMATURE GRANULOCYTES-RELATIVE PERCENT (BEAKER) (test code = 2801) 1 % 0-1 RAD, CHEST, 1 VIEW, NON [id number] 21:03:00Reason for exam:->SHORTNESS OF BREATHShould this be performed at the bedside?->Yes [facility] : 1935 Sex: F FINAL REPORT 099 INDICATION: SHORTNESS OF BREATH COMPARISON: None TECHNIQUE: Single frontal v iew of the chest. IMPRESSION: Lungs and pleura: There is bilateral venous conges tion with bibasilar streaky opacities suggestive of atelectasis. No consolidatio n or effusion..Heart and mediastinum: Normal heart size. Unremarkable mediastina l contours.Osseous structures: No acute abnormality.Other: None. Signed: Elbert Fitzpatrick Verified Date/Time: 01/22/2020 21:03:40 Electronically si gned by: ELBERT FITZPATRICK MD on 01/22/2020 09:03 PM XR chest 1 view portable / [id number] 21:03:00Interface, External Ris In - 01/22/2020 9:05 PM CSTFINAL REPORT INDICATION: SHORTNESS OF BREATH COMPARISON: None TECHNIQUE: Single frontal view of the chest. IMPRESSION: Lungs and pleura: There is bilateral venous congestion with bibasilar streaky opacities suggestive of atelectasis. No consolidation or effusion..Heart and mediastinum: Normal heart size. Unremarkable mediastinal contours.Osseous structures: No acute abnormality.Other: None. Signed: Elbert Fitzpatrick Verified Date/Time: 01/22/2020 21:03:40 [facility] [id number] 20:11:15* Test Item Value Reference Range Interpretation Comments CHOLO (test code = CHOLO) Vasyl Cesar MD 1 03/24/2019 10:38 AMECG/EKG Interpretation Date/Time: 01/22/2020 9:16 PMPerformed by: Vasyl eCsar MDAuthorized by: Vasyl Cesar MD The ECG was interpreted by ED physician. This ECG was compared with previous ECG(s).The ECG is interpreted as sinus rhythm. Rate is normal rate. Heart rate is 79 BPM.Conduction: conduction normal. ST segments normal. T waves abnormal. T-wave flattening in lead(s) aVL. [place] is normal. Clinical Impression: non-specific ECG and abnormal ECGECG reviewed and does not meet STEMI criteria. Lab Interpretation (test code = 58233-9) Abnormal [facility] Intact P-Cuil3726-35Qqqi2832-09-96 02:00:24* Test Item Value Reference Range Interpretation Comments Procolg I Intact V-Eszprfwq-Dfgr (test code = 84620-3) 21 mcg/L REFERENCE VALUE Premenopausal: Postmenopausal: Test Performed by:[facility] [address] [place] [address] 15431Kse Director: Ferny Freeman M.D. Ph.D.; CLIA# [id number] MD [place] Path Lxhmrr5921-25-33 16:12:29* Test Item Value Reference Range Interpretation Comments JOHANNA Path Int (test code = 5949) The follow-up serum pr otein immunofixation electrophoretic patterns obtained with the use of antisera against IgG, IgA, IgM, bound kappa and bound lambda light chains do not show definitive evidence of a monoclonal gammopathy. MD Nelly GARAY [id number] by: MD Nelly GARAY [id number] Date/Time: 01.08.2020 10:12 AM ON SITE COORDINATOR Transcribed Date/Time: 01.08.2020 10:12 AM CSTElectronically Signed By: MD Nelly GARAY [id number] on 01.08.2020 10:12 AM MD ArdonAqyuacjwVFG5874-67-62 16:12:28* Test Item Value Reference Range Interpretation Comments JOHANNA (test code = 5948) No M-protein MD ArdonProtein Electrophoresis Path Zwzgpn6007-13-50 16:12:27* Test Item Value Reference Range Interpretation Comments SPE Path Interp (test code = 7285) The follow-up serum protein electrophoretic pattern does not show definitive evidence of an M-protein peak. MD Nelly GARAY [id number] by: MD Nelly GARAY [id number] Date/Time: 01.08.2020 10:12 AM ON SITE COORDINATOR Transcribed Date/Time: 01.08.2020 10:12 AM CSTElectronically Signed By: MD Nelly GARAY [id number] on 01.08.2020 10:12 AM MD ArdonSerum Protein Ufifhaugfzrdbbt1984-22-90 16:12:26* Test Item Value Reference Range Interpretation Comments TOT PROTEIN (test code = 8545) 7.1 6.4- 8.3 gm/dL Albumin (test code = 1751-7) 4.3 3.6- 5.4 gm/dL Alpha 1 Globulin (test code = 2865-4) 0.3 0.2- 0.4 gm/dL Alpha 2 Globulin (test code = 2868-8) 0.7 0.5- 1.0 gm/dL Beta Globulin (test code = 2871-2) 0.9 0.5- 1.1 gm/dL Gamma Globulin (test code = 2874-6) 0.9 0.7- 1.6 gm/dL MD ArdonOrapjhxaNjerioakhep0661-43-35 19:33:45* Test Item Value Reference Range Interpretation Comments Osteocalcin (test code = 6574) 13 ng/mL 9-42 MD ArdonVitamin D [id number] 18:58:04* Test Item Value Reference Range Interpretation Comments Vitamin D 25 OH (test code = 8018) 73 ng/mL 30-100 Reference Range: Deficiency: <10 ng/mLInsufficiency: 10-29 ng/mLSufficiency: 30-100 ng/mLPotential toxicity: >100 ng/mL MD ArdonNM Bone Mineral Density Both Hips and Huztr7834-41-25 18:51:22 1. Osteoporosis.2. A statistically significant increases noted in the lumbar spine. I personally reviewed these image(s) along with the resident's/fellow's int erpretations, certify that if a procedure was performed I was physically present , and agree with the final report.Interface, Radiology Results In - 01/07/2020 1 2:53 PM CSTFULL RESULT: Examination: Bone Mineral Density (DXA), 01/07/2020Clparadise al History: An 84-year-old postmenopausal female.Indication: Assessment of bone mineral density.Comparison: 06/26/2018.Technique: Bone mineral density was obtain ed using Hologic dual-energy X-ray absorptiometry.Findings: The findings are pro vided in the below table(s). L1 and L2 were excluded from data analysis as in pr ior studyBone Density: Region Exam Date BMD T- Z- g/cm2 Score Score AP Spine (L3, L4) 0 0.823 -2.5 0.5 Femoral Neck (Left) 01/07/2020 0.5 43 -2.8 -0.2 Total Hip (Left) 01/07/2020 0.680 -2.2 0.2 Femoral Neck (Right) 01/07/2020 0.525 -2.9 -0.4 Total Hip (Right) 01/07/2020 0.665 -2.3 0.1 For postmenopa usal women and men age 50 and over, the World Health Organization criteria for B MD interpretation classify patients as: Normal (T-score at or above -1.0), Osteo penia (T-score between -1.0 and -2.5), or Osteoporosis (T-score at or below -2. 5). Previous Exams: Region Exam Age BMD T-score BMD Change vs Date g/cm2 Baseline Previous AP Spine(L3, L4) 01/07/2020 84 0.823 -2.5 5.4%* 11.5%* 06/26/2018 83 0.738 -3.3 -5.5%* -9.4%* 12/20/2016 81 0.815 -2.6 4.3%* 4.3%* 12/22/2015 80 0.781 -2.9 Total Hip(Left) 01/07/2020 84 0.680 -2.2 -3.4% 1.0% 06/26/2018 83 0.673 -2.2 -4.4% -4.5% 7 81 0.705 -1.9 0.2% 0.2% 12/22/2015 80 0.704 -2.0 Femoral Neck(Left) 01/07/2020 84 0.543 -2.8 -8.6%* 4.6% 06/26/2018 83 0.519 -3.0 - 12.6%* -11.4%* 12/20/2016 81 0.586 -2.4 -1.3% - 1.3% 12/22/2015 80 0.594 -2.3 Total Hip(Right) 01/07/2020 84 0.665 -2.3 -6.8%* -2.6% 06/26/2018 83 0.683 -2.1 -4.2% -3.2% 12/20/2016 81 0.706 -1.9 -1.1% -1.1% 12/22/2015 80 0.714 -1.9 Femoral Neck(Right) 01/07/2020 84 0.525 - 2.9 -9.9%* 2.3% 06/26/2018 83 0.514 -3.0 -11.9% * -7.1% 12/20/2016 81 0.553 -2.7 -5.1% -5.1% 12/22/2015 80 0.583 -2.4 *Denotes significance at 9 5% confidence level, site specific LSC for AP Spine = 0.029 g/cm2, site specific LSC for Total Hip = 0.033 g/cm2, site specific LSC for Femoral Neck = 0.045 g/c m2, LSC for 1/3 Forearm = 0.023 g/cm2 IMPRESSION:1. Osteoporosis.2. A statistica lly significant increases noted in the lumbar spine.I personally reviewed these image(s) along with the resident's/fellow's interpretations, certify that if a p rocedure was performed I was physically present, and agree with the final report .MD ArdonCTX Beta Vkkommqjd5403-69-92 18:50:24* Test Item Value Reference Range Interpretation Comments CTX (test code = 5250) 201 pg/mL Males:<30 years: not uacgqkrkqaj39-46 years: 16 - 584 pg/mL51-70 years: 10 - 704 pg/mL>70 years: 10 - 854 pg/mL Females:Premenopausal: 25 - 573 pg/mLPostmenopausal: 104 - 1008 pg/mL MD ArdonPTH Uqehbw1545-16-46 17:49:41* Test Item Value Reference Range Interpretation Comments PTH Intact (test code = 6769) 33.3 pg/mL 15-65 MD ArdonPhosphorus Rpxnb9663-88-18 17:31:35* Test Item Value Reference Range Interpretation Comments Phosphorus (test code = 6817) 3.1 mg/dL 2.5-4.5 MD ArdonCalcium Ejhjo6808-07-77 17:31:34* Test Item Value Reference Range Interpretation Comments Calcium Lvl (test code = 5258) 10.1 mg/dL 8.4-10.2 MD ArdonGlomerular Filtration Izjr5716-50-97 17:31:33* Test Item Value Reference Range Interpretation Comments eGFR-AA (test code = 8062) 75 >=60 mL/min/1.73 sq. m Normal eGFR: >= 60 mL/min/1.73 m2Note: The eGFR is calculated using the CKD-EPI equation. The eGFR declines with age. eGFR <60 mL/min/1.73 m2 is considered as "decreased". This equation should only be used for patients 18 and older. According to the National Kidney Foundation's Kidney Disease Outcome Quality Initiative (KDOQI) classification and 2012 Kidney Disease Improving Global Outcomes (KDIGO) Clinical Practice Guideline, the stage of CKD should be categorized based on estimated GFR. Stage Description GFR mL/min/1.73 m21 Normal or high GFR >=902 Mildly decreased GFR 60-893a Mildly to moderately decreased GFR 45-593b Moderately to severely decreased GFR 30-444 Severely decreased GFR 15-295 Kidney failure <15 eGFR-RENATA (test code = 8063) 65 >=60 mL/min/1.73 sq. m Normal eGFR: >= 60 mL/min/1.73 m2Note: The eGFR is calculated using the CKD-EPI equation. The eGFR declines with age. eGFR <60 mL/min/1.73 m2 is considered as "decreased". This equation should only be used for patients 18 and older. According to the National Kidney Foundation's Kidney Disease Outcome Quality Initiative (KDOQI) classification and 2012 Kidney Disease Improving Global Outcomes (KDIGO) Clinical Practice Guideline, the stage of CKD should be categorized based on estimated GFR. Stage Description GFR mL/min/1.73 m21 Normal or high GFR >=902 Mildly decreased GFR 60-893a Mildly to moderately decreased GFR 45-593b Moderately to severely decreased GFR 30-444 Severely decreased GFR 15-295 Kidney failure <15 MD ArdonAlbumin Uhmlq4161-24-73 17:31:32* Test Item Value Reference Range Interpretation Comments Albumin Lvl (test code = 4763) 4.7 3.5- 5.2 gm/dL MD Ardon.Serum Pkjqeeaope2399-27-64 17:31:31* Test Item Value Reference Range Interpretation Comments Creatinine (test code = 5399) 0.83 mg/dL 0.51-0.95 MD Johnson [place]/Free Lambda Chxqn4213-05-67 17:26:57* Test Item Value Reference Range Interpretation Comments FKap/FLam RT (test code = 5566) 1.32 0.26-1.65 MD Johnson Lambda Light Lutjw1975-34-26 17:26:56* Test Item Value Reference Range Interpretation Comments Free Lambda (test code = 5630) 19.95 mg/L 5.71-26.3 MD Johnson [place] Light Yxmhy4703-43-21 17:26:55* Test Item Value Reference Range Interpretation Comments Free [place] (test code = 5629) 26.25 mg/L 3.3-19.4 H Lab Interpretation (test code = 48973-4) Abnormal MD rAdonVitamin B12 yugou5092-47-55 11:41:00* Test Item Value Reference Range Interpretation Comments Vitamin B12 (test code = 2132-9) 694 pg/mL 200-1100 CHOLO (test code = CHOLO) FASTING:YESFASTING: YES RAC (test code = RAC) Performing Organization Info rmation: Site ID: RGA [facility] Address: [address] [place] [address] Director: Joe Cabrera [place] ShawnistFolate hadbe9656-70-54 11:41:00* Test Item Value Reference Range Interpretation Comments Folate (test code = 2284-8) 17.5 ng/mL Reference Range Low: <3.4 Borderline: 3.4-5.4 Normal: >5.4 CHOLO (test code = CHOLO) FASTING:YESFASTING: YES RAC (test code = RAC) Performing Organization Info rmation: Site ID: RGA [facility]: [facility] Address: [address] [place] [address] Director: Joe Cabrera [place] MethodistHemoglobin [id number] 11:41:00* Test Item Value Reference Range Interpretation Comments Hemoglobin A1C (test code = 4548-4) 5.2 <5.7 % of total Hg b For the purpose of screening for the presence ofdiabetes: <5.7% Consistent with the absence of diabetes5.7-6.4% Consistent with increased risk for diabetes (prediabetes)> or =6.5% Consistent with diabetes This assay result is consistent with a decreased riskof diabetes. Currently, no consensus exists regarding use ofhemoglobin A1c for diagnosis of diabetes in children. According to [place] Diabetes Association (ADA)guidelines, hemoglobin A1c <7.0% represents optimalcontrol in non- diabetic patients. Differentmetrics may apply to specific patient populations. Standards of Medical Care in Diabetes(ADA). CHOLO (test code = CHOLO) FASTING:YESFASTING: YES RAC (test code = RAC) Performing Organization Info rmation: Site ID: RGA Name: [facility] Address: [address] [place] [address] Director: Joe Cabrera [place] MethodistVitamin B6 level, gfijtn2325-06-55 11:41:00* Test Item Value Reference Range Interpretation Comments Vitamin B6 (test code = 2900-9) 29.2 ng/mL 2.1-21.7 H Vitamin supplementation within 24 hours prior to blood draw may affect the accuracy of results. This test was developed and its analytical performance characteristics have been determined by [facility]. It has not been cleared or approved by theFDA. This assay has been validated pursuant to the CLIA regulations and is used for clinical purposes. CHOLO (test code = CHOLO) FASTING:YESFASTING: YES RAC (test code = RAC) Performing Organization Info rmation: Site ID: SLI Name: [facility] Address: [address] [place] [address] Director: Cecil Hamlin M.D. Lab Interpretation (test code = 34876-2) Abnormal [place] MethodistVitamin B1 dokhy5741-13-96 11:41:00* Test Item Value Reference Range Interpretation Comments Vitamin B1 (test code = 25483-8) 24 nmol/L 8-30 Vitamin supplementation within 24 hours prior to blood draw may affect the accuracy of results. This test was developed and its analytical performance characteristics have been determined by [facility]. It has not been cleared or approved by theFDA. This assay has been validated pursuant to the CLIA regulations and is used for clinical purposes. CHOLO (test code = CHOLO) FASTING:YESFASTING: YES RAC (test code = RAC) Performing Organization Info rmation: Site ID: SLI Name: [facility] Address: [address] [place] [address] Director: Cecil Pereira MethodistThyroid stimulating ijhnxze7491-73-55 11:41:00* Test Item Value Reference Range Interpretation Comments TSH (test code = 3016-3) 2.64 0.40- 4.50 mIU/L CHOLO (test code = CHOLO) FASTING:YESFASTING: YES RAC (test code = RAC) Performing Organization Info rmation: Site ID: RGA Name: [facility] Address: [address] [place] [id number] Director: Joe Pereira MethodistSedimentation bxie4039-97-93 11:41:00* Test Item Value Reference Range Interpretation Comments Sedimentation rate (test code = 4537-7) 6 mm/h < OR = 30 CHOLO (test code = CHOLO) FASTING:YESFASTING: YES RAC (test code = RAC) Performing Organization Info rmation: Site ID: RGA [facility]: [facility] Address: [address] [place] [address] Director: Joe EscobaristANA SCREEN W IFA W REFLEX TO IUMIT0575-00-03 11:59:00* Test Item Value Reference Range Interpretation Comments KARINA screen (test code = 80123-6) POSITIVE NEGATIVE A KARINA IFA is a first line screen for detecting thepresence of up to approximately 150 autoantibodies invarious autoimmune diseases. A positive KARINA IFA resultis suggestive of autoimmune disease and reflexes totiter and pattern. Further laboratory testing may beconsidered if clinically indicated. For additional information, please refer tohttp://education.User Replay/faq/OMG065(This link is being provided for informational/educational purposes only.) KARINA titer (test code = 5048-4) 1:80 titer H A low level KARINA titer may be present in pre-clinicalautoimmune diseases and normal individuals. Reference Range <1:40 Negative 1:40-1:80 Low Antibody Level >1:80 Elevated Antibody Level KARINA pattern (test code = 01245-0) Nuclear, Homogeneous A Homogeneous pattern is associated with systemic lupuserythematosus (SLE), drug-induced lupus and juvenileidiopathic arthritis. AC-1: Homogeneous International Consensus on KARINA Patterns(https://doi.org/10.1515/uglt-1435-8171) RAC (test code = RAC) Performing Organization Info rmation: Site ID: IG [facility]: [facility] Address: [address] [place] [phone] Director: Dr. Joe Cabrera Lab Interpretation (test code = 01541-5) Abnormal [facility] Wo Mbxlqqhj8913-93-53 11:07:13Hm Interface, Radiology Results - 12/06/2019 11:10 AM CDTEXAMINATION: MRI BRAIN WO CONTRASTCLINICAL HISTORY: R41.89 Other symptoms and signs involving cognitive functions and awareness, Neuro deficit(s) subacuteCOMPARISON: NoneTECHNIQUE: Multiplanar and multisequence MRI imaging of the brain was obtained without contrast.FINDINGS:Extensive T2/FLAIR hyperintensities are noted throughout the periventricular and subcortical white matter, nonspecific but likely related to advanced chronic microvascular ischemic changes. No restricted diffusion betsy ntified to indicate recent infarct. No intra or extra-axial fluid collections id entified. No mass, mass effect, or midline shift is seen.The basal ganglia, thal ami, midbrain, huy and cervicomedullary junction are unremarkable. Sella turcic a is partially empty, nonspecific. The ventricular system and sulci are promine nt, compatible with global parenchymal volume loss, unremarkable for patient's a ge. The basal cisterns are patent. The calvarium appears intact. The major intra cranial vascular flow voids are present. Prior cataract lens extractions are not ed bilaterally. The paranasal sinuses are unremarkable. Tiny left mastoid effusi on is noted. The right mastoid air cells and middle ear cavities are clear.IMPRE SSION:No acute intracranial abnormality identified. Age commensurate global pare nchymal volume loss and extensive nonspecific white matter findings, likely refl ecting advanced chronic microvascular ischemic changes.[id number] MethodistDIAG MAMM BILATERAL ART CAD [id number] 14:55:54 - DIAG MAMM BILATERAL ART CAD DIGITALBILATERAL DIGITAL DIAGNOSTIC MAMMOGRAM 3D/2D WITH CAD: 11/16/2019CLINICAL: Thickness. Digital breast tomosynthesis was performed in addition to routine CC and MLO views. Current mammographic images were evaluated by either a PicsaStock M-Vu or a Spritzcker CAD (computer aided detection system). Comparison is made to exams dated 06/28/2018 mammogram, mammogram, and 03/18/2017 mammogram - [facility]-. There are scattered fibroglandular tissues in both breasts. No suspicious mass, arch itectural distortion, malignant type calcification, or lymph node abnormality de tected. INCOMPLETE: ADDITIONAL IMAGING EVALUATION NEEDEDThere is no mammographi c evidence of malignancy. Bilateral survey ultrasound to follow.- BREAST ULTRAS OUND BILATERALULTRASOUND OF BOTH BREASTS: 11/16/2019Comparison is made to exams d ated 06/28/2018 mammogram, 04/04/2017 mammogram, and 03/18/2017 mammogram - [facility]-. Color flow and real-time ultrasound of both breasts were performed. Heath scale images of the real-time examination were reviewed. The breast tissue has scattered fibroglandular background echotexture. Bilateral aviles rvey ultrasound demonstrates no suspicious sonographic abnormality. No axillary lymphadenopathy was seen.IMPRESSION: NEGATIVE There is no sonographic evidence of malignancy. Resume annual screening mammography in one year. Clinical follo w up is also recommended, and further management of clinical findings should be based on clinical examination.Shakeel Victor M.D. ss/:11/16/2019 14: 55:54 Entry: - 11/19/2019 09:14:03Imaging Technologist: Gayatri rand , [facility]-letter sent: BIRADS 1-2 Combo FU Letter Mammog jamey BI-RADS: 0 Incomplete: Additional Imaging Evaluation Needed Ultrasound BI-RA DS: 1 NegativeBREAST ULTRASOUND [id number] 14:55:54 - DIAG MAMM BILATERAL ART CAD DIGITALBILATERAL DIGITAL DIAGNOSTIC MAMMOGRAM 3D/2D WITH CAD: 11/16/2019CLINICAL: Thickness. Digital breast tomosynthesis was performed in addition to routine CC and MLO views. Current mammographic images were evaluated by either a P[employer]Stock M-Vu or a Spritzcker CAD (computer aided detection system). Comparison is made to exams dated 06/28/2018 mammogram, mammogram, and 03/18/2017 mammogram - [facility]-. There are scattered fibroglandular tissues in both breasts. No suspicious mass, arch itectural distortion, malignant type calcification, or lymph node abnormality de tected. INCOMPLETE: ADDITIONAL IMAGING EVALUATION NEEDEDThere is no mammographi c evidence of malignancy. Bilateral survey ultrasound to follow.- BREAST ULTRAS OUND BILATERALULTRASOUND OF BOTH BREASTS: 11/16/2019Comparison is made to exams d ated 06/28/2018 mammogram, 04/04/2017 mammogram, and 03/18/2017 mammogram - [facility]-. Color flow and real-time ultrasound of both breasts were performed. Heath scale images of the real-time examination were reviewed. The breast tissue has scattered fibroglandular background echotexture. Bilateral aviles rvey ultrasound demonstrates no suspicious sonographic abnormality. No axillary lymphadenopathy was seen.IMPRESSION: NEGATIVE There is no sonographic evidence of malignancy. Resume annual screening mammography in one year. Clinical follo w up is also recommended, and further management of clinical findings should be based on clinical examination.Shakeel Victor M.D. ss/:11/16/2019 14: 55:54 Entry: - 11/19/2019 09:14:03Imaging Technologist: Gayatri rand , [facility]-letter sent: BIRADS 1-2 Combo FU Letter Mammog jamey BI-RADS: 0 Incomplete: Additional Imaging Evaluation Needed Ultrasound BI-RA DS: 1 NegativeMRI SHOULDER LEFT [id number] 13:30:00 [place] [address] Patient Name: LILLY BREWSTER MR #: [id number] : 1935 Age/Sex: 83/F Req #: [id number] Adm Physician: Ordered by: ALIRIO HARRIS MD Report #: [id number] Location: MRI Room/Bed: Procedure: [id number] MRI/M RI SHOULDER LEFT WO Exam Date: Exam Time: REPORT STATUS: Signed TECHNIQUE: Magne tic resonance imaging of the LEFT SHOULDER was performed WITHOUT injected cont rast. COMPARISON: None available. HISTORY: Left shoulder pain FIN DINGS: MUSCLES AND TENDONS: Rotator Cuff: Tendons: Supraspinatus: Intact Infraspinatus: Intact Teres Minor: Intact Subscapularis: Intact Muscles: No focal muscle atrophy. Biceps Tendon: The long hea d of the biceps tendon is intact and within the intertubercular groove. G LENOHUMERAL JOINT: Glenoid Labrum: No displaced tear. Articular C artilage: No focal defect. AC JOINT AND ACROMION: Mild hypertrophic degenerative changes of the acromioclavicular joint. Subacromial spurring. BONE: No specific evidence of a focal or infiltrative bone marrow replacing abnormality. No acute fracture. SOFT TISSUES: Mild subacromial subdelt oid bursal fluid. IMPRESSION: Intact rotator cuff. Subacromia l spurring with mild subacromial subdeltoid bursal fluid may reflect bursitis. Signed by: Dr. Art Munoz M.D. on 08/14/2018 1:32 PM Dictated B y: ART MUNOZ MD 1332 COPY TO: ALIRIO HARRIS MD - XR FOREARM 2 VIEWS [id number] 18:29:00 FAX: Airam Tatum MD [phone] [place]: B St: REG Name: LILLY JOHNSON [facility] : [birth year] Age/S: 83/F Kyle Adrian Unit #: [id number] [place]: [place] [address] Phys: Airam Tatum MD Acct: [id number] Dis Date: Status: REG ER PHONE #: [phone] Exam Date: 07/08/2018 1810 FAX #: [phone] Reason: pain, trauma EXAMS: CPT CODE: [id number] XR FOREARM 2 [place] [address] CLINICAL HISTORY: pain, trauma TECHNIQUE: AP and lateral views of the bilateral forearms COMPARISON: None FINDINGS: No acute fracture. Bon y trabecular pattern is unremarkable. No cortical destruction or periostea l reaction. Elbow and wrist joints do not appear dislocated. Regional soft tissues are unremarkable. IMPRESSION: No acute fracture or dislocation of the bilateral forearms. Electro nically Signed by Naya Reddy D.O. on 07/08/2018 at 1829 R eported and signed by: Naya Reddy D.O. CC: Airam Tatum MD Technologist: JAROD BRADY RT(R) Trnscrd Date/Time/By: 07/08/2018 (1828) : By: Markus IvyLDP1 Orig Print D/T: S: 07/08/2018 (1831) PAG E 1 Signed Report - XR HUMERUS 2 + V [id number] 18:28:00 FAX: Airam Tatum MD [phone] [place]: B St: REG Name: LILLY JOHNSON [facility] : [birth year] Age/S: 83/F Kyle Adrian Unit #: [id number] Loc: [place] [address] Phys: Airam Tatum MD Acct: [id number] Dis Date: Status: REG ER PHONE #: [phone] Exam Date: 07/08/2018 1810 FAX #: [phone] Reason: pain, trauma EXAMS: CPT CODE: [id number] XR HUMERUS 2 + [place] [address] CLINICAL HISTORY: pain, trauma TECHNIQUE: AP and lateral views of the bilateral humerus COMPARISON: None FINDINGS: No acute fracture. Bony trabecular pattern is unremarkable. No cortical destruction or periosteal reaction. Shoulder and elbow joints do not appear dislocated. Regional so ft tissues are unremarkable. IMPRESSION: No acute fracture or dislocation of the bilateral humerus. Electr onically Signed by Naya Reddy D.O. on 07/08/2018 at 182 Reported and signed by: Naya Reddy D.O. CC: Airam Tatum MD Technologist: JAROD BRADY RT(R) Trnscrd Date/Time/By: 07/08/2018 (1827) : By: Letitia [email or web address] Orig Print D/T: S: 07/08/2018 (1830) HEMANTH ORO 1 Signed Report - CT C- SPINE W/O [id number] 18:22:00 Name: LILLY BREWSTER [facility] : 1935 Age/S: 83 / F [address] [facility] Unit #: [id number] Loc: [place] [address] Phys: Airam Tatum MD Acct: [id number] Dis Date: Status: REG ER PHONE #: [phone] Exam Date: 07/08/2018 1802 FAX #: [phone] Reason: pain, trauma EXAMS: CPT CODE: [id number] CT C-SPINE W/O CONTRAST 80538 HISTORY: pain, trauma TECHNIQUE: 2.5 mm axial [...] Naya Reddy D.O. CC: Airam Tatum MD Technologist:Morena Morejon,RT(R),CT; Estela CTDI: DLP: Trnscb Date/Time: 07/08/2018 (1821) [email or web address] Orig Print D/T: S: 07/08/2018 (1825) CTDI: DLP: PAGE 1 Signed Report - CT HEAD/BRAIN W/O [id number] 18:19:00 Name: LILLY BREWSTER [facility] : 1935 Age/S: 83 / F [address] [facility] Unit #: [id number] Loc: [place] [address] Phys: Airam Tatum MD Acct: [id number] Dis Date: Status: REG ER PHONE #: [phone] Exam Date: 07/08/20181801 FAX #: [phone] Reason: pain, trauma EXAMS: CPT CODE: [id number] CT HEAD/BRAIN W/O CONT 80173 HISTORY: pain, trauma TECHNIQUE: Noncontrast 2.5 mm [...] atrophy. No hydrocephalus. No extra-axial fluid collection. Ath erosclerotic vascular calcification of the internal carotid and vertebral arteries. Visualized paranasal sinuses are clear. Mastoid air cell s and middle ear cavities are clear. Bilateral lens implants. Calvarium an d skull base are intact. IMPRESSION: No acute intracranial process. No calvarial fracture. at 1819 Reported and signed by: Naya Reddy D.O. CC: Airam Tatum MD Technologist:Morena Morejon,RT(R),CT; Brian spear CTDI: DLP: Trnscb Date/Time: 07/08/2018 (1818) [email or web address] Orig Print D/T: S: 07/08/2018 (1821) CTDI: DLP: PAGE 1 Signed Report SCR MAMM BILATERAL ART CAD [id number] 08:45:36 - SCR MAMM BILATERAL ART CAD DIGITALBILATERAL DIGITAL SCREENING MAMMOGRAM 3D/2D WITH CAD: 06/28/2018CLINICAL: Asymptomatic. Digital breast tomosynthesis was performed in addition to routine CC and MLO views. Current mammographic images were evaluated by either a [employer] M-Vu or a [employer] ImageChecker CAD (computer aided detection system). Comparison is made to exams dated 03/18/2017 mammogram, 10/31/2015 mammogram, and 07/01/2014 mammogram - [facility]. Ther e are scattered fibroglandular tissues in both breasts. There are benign calcif ications in both breasts. No suspicious mass, architectural distortion, maligna nt type calcification, or lymph node abnormality detected. Breast architecture is stable compared to prior exams.IMPRESSION: BENIGNThere is no mammographic elvis dence of malignancy. Resume annual screening mammography in one year. Jeovanny jesus M.D. et/penrad:06/28/2018 08:45:36 Stoneworker: Shirin tai , [facility] sent: BIRADS 1-2 Normal Mammogram BI -RADS: 2 BenignUrine [id number] 14:39:00* Test Item Value Reference Range Interpretation Comments Urine WBC (test code = 5821-4) 0-5 0-5 [facility] OOW2610-76-10 14:39:00* Test Item Value Reference Range Interpretation Comments Urine RBC (test code = 17437-1) NONE 0-5 [facility] Udngbzcb9120-40-23 14:39:00* Test Item Value Reference Range Interpretation Comments Urine Bacteria (test code = 32679-9) NONE NONE [facility] Epithelial Wqcfp2023-88-99 14:39:00 * Test Item Value Reference Range Interpretation Comments Urine Epithelial Cells (test code = 70488-7) RARE NONE [facility] LKH6711-65-40 14:39:00* Test Item Value Reference Range Interpretation Comments Urine WBC (test code = 5821-4) 0-5 0-5 [facility] FMW6491-80-78 14:39:00* Test Item Value Reference Range Interpretation Comments Urine RBC (test code = 69538-7) NONE 0-5 [facility] Mczpciub3227-67-27 14:39:00* Test Item Value Reference Range Interpretation Comments Urine Bacteria (test code = 32641-5) NONE NONE [facility] Epithelial Auyly3203-04-00 14:39:00 * Test Item Value Reference Range Interpretation Comments Urine Epithelial Cells (test code = 58850-2) RARE NONE [facility] AKS9194-92-50 14:39:00* Test Item Value Reference Range Interpretation Comments Urine WBC (test code = 5821-4) 0-5 0-5 [facility] HYK6986-83-36 14:39:00* Test Item Value Reference Range Interpretation Comments Urine RBC (test code = 00816-2) NONE 0-5 [facility] Hqqixmfg2244-62-58 14:39:00* Test Item Value Reference Range Interpretation Comments Urine Bacteria (test code = 73176-9) NONE NONE [facility] Epithelial Hfdam8181-93-28 14:39:00 * Test Item Value Reference Range Interpretation Comments Urine Epithelial Cells (test code = 72294-4) RARE NONE [facility] KKI0553-85-12 14:39:00* Test Item Value Reference Range Interpretation Comments Urine WBC (test code = 5821-4) 0-5 0-5 [facility] LCN7025-89-49 14:39:00* Test Item Value Reference Range Interpretation Comments Urine RBC (test code = 72194-5) NONE 0-5 [facility] Vtgawrjx7963-78-31 14:39:00* Test Item Value Reference Range Interpretation Comments Urine Bacteria (test code = 43204-3) NONE NONE [facility] Epithelial Wclhx5288-10-61 14:39:00 * Test Item Value Reference Range Interpretation Comments Urine Epithelial Cells (test code = 75307-0) RARE NONE [facility] America[facility] Inuua2631-07-44 14:32:00* Test Item Value Reference Range Interpretation Comments Sodium Level (test code = 2951-2) 130 136-145 L [facility] TexasPotassium Eetcf1504-66-96 14:32:00* Test Item Value Reference Range Interpretation Comments Potassium Level (test code = 2823-3) 3.8 3.5-5.1 [facility] TexasChloride Ghwkk7672-80-97 14:32:00* Test Item Value Reference Range Interpretation Comments Chloride Level (test code = 2075-0) 97 98-107 L [facility] TexasCarbon Dioxide Otjah8600-80-79 14:32:00* Test Item Value Reference Range Interpretation Comments Carbon Dioxide Level (test code = 2028-9) 26 22-29 [facility] TexasAnion Jpp8076-03-99 14:32:00* Test Item Value Reference Range Interpretation Comments Anion Gap (test code = 16567-1) 10.8 8-16 [facility] TexasBlood Urea Leaqxtrs1543-90-31 14:32:00* Test Item Value Reference Range Interpretation Comments Blood Urea Nitrogen (test code = 3094-0) 12 7-26 [facility] TexasCreatinine2019-04-02 14:32:00* Test Item Value Reference Range Interpretation Comments Creatinine (test code = 2160-0) 0.75 0.57-1.11 [facility] TexasBUN/Creatinine Zulsd9074-94-21 14:32:00* Test Item Value Reference Range Interpretation Comments BUN/Creatinine Ratio (test code = 3097-3) 16 6-25 [facility] TexasEstimat Glomerular Filtration Rate 2018-06-06 14:32:00* Test Item Value Reference Range Interpretation Comments Estimat Glomerular Filtration Rate (test code = 802845220) > 60 >60 Ranges were taken from the National Kidney Disease Education Program and the [facility] literature.Reference ranges:60 or greater: Vyczqi95-27 ( for 3 consecutive months): Chronic kidney disease 15 or less: Kidney failureThe [facility] Center of Southeast TexasGlucose Zhjpe9403-56-56 14:32:00* Test Item Value Reference Range Interpretation Comments Glucose Level (test code = HNE9087) 86 74-118 [facility] TexasCalcium Wgleg5342-59-60 14:32:00* Test Item Value Reference Range Interpretation Comments Calcium Level (test code = 06388-4) 10.1 8.4-10.2 [facility] TexasTotal Nyrjpichc6700-97-24 14:32:00* Test Item Value Reference Range Interpretation Comments Total Bilirubin (test code = 1975-2) 0.4 0.2-1.2 [facility] TexasAspartate Amino Transf (AST/SGOT) 2018-06-06 14:32:00* Test Item Value Reference Range Interpretation Comments Aspartate Amino Transf (AST/SGOT) (test code = Aspartate Amino Transf (AST/SGOT)) 27 5-34 [facility] TexasAlanine Aminotransferase (ALT/SGPT) 2018-06-06 14:32:00* Test Item Value Reference Range Interpretation Comments Alanine Aminotransferase (ALT/SGPT) (test code = 1742-6) 21 0-55 [facility] TexasTotal Wkeltkj1769-03-23 14:32:00* Test Item Value Reference Range Interpretation Comments Total Protein (test code = 2885-2) 7.5 6.5-8.1 [facility] TexasAlbumin2019-04-02 14:32:00* Test Item Value Reference Range Interpretation Comments Albumin (test code = 1751-7) 3.7 3.5-5.0 [facility] TexasGlobulin2019-04-02 14:32:00* Test Item Value Reference Range Interpretation Comments Globulin (test code = 96459-9) 3.8 2.3-3.5 H [facility] TexasAlbumin/Globulin Jryva1845-61-95 14:32:00 * Test Item Value Reference Range Interpretation Comments Albumin/Globulin Ratio (test code = 1759-0) 1.0 0.8-2.0 [facility] TexasAlkaline Stpupgxxypu6209-16-59 14:32:00* Test Item Value Reference Range Interpretation Comments Alkaline Phosphatase (test code = 6768-6) 48 40-150 [facility] Americaodium Dwdxh1932-46-74 14:32:00* Test Item Value Reference Range Interpretation Comments Sodium Level (test code = 2951-2) 130 136-145 L [facility] TexasPotassium Ekqnt0243-03-98 14:32:00* Test Item Value Reference Range Interpretation Comments Potassium Level (test code = 2823-3) 3.8 3.5-5.1 [facility] TexasChloride Pqgwl6294-79-19 14:32:00* Test Item Value Reference Range Interpretation Comments Chloride Level (test code = 2075-0) 97 98-107 L [facility] TexasCarbon Dioxide Cwwcj5469-90-31 14:32:00* Test Item Value Reference Range Interpretation Comments Carbon Dioxide Level (test code = 2028-9) 26 22-29 [facility] TexasAnion Pfv8979-93-07 14:32:00* Test Item Value Reference Range Interpretation Comments Anion Gap (test code = 96361-2) 10.8 8-16 [facility] TexasBlood Urea Htvnytcf4612-60-18 14:32:00* Test Item Value Reference Range Interpretation Comments Blood Urea Nitrogen (test code = 3094-0) 12 7-26 [facility] TexasCreatinine2019-04-02 14:32:00* Test Item Value Reference Range Interpretation Comments Creatinine (test code = 2160-0) 0.75 0.57-1.11 [facility] TexasBUN/Creatinine Onbkn2217-82-98 14:32:00* Test Item Value Reference Range Interpretation Comments BUN/Creatinine Ratio (test code = 3097-3) 16 6-25 [facility] TexasEstimat Glomerular Filtration Rate 2018-06-06 14:32:00* Test Item Value Reference Range Interpretation Comments Estimat Glomerular Filtration Rate (test code = 686735802) > 60 >60 Ranges were taken from the National Kidney Disease Education Program and the [facility] Kidney Foundation literature.Reference ranges:60 or greater: Dvzicg07-93 ( for 3 consecutive months): Chronic kidney disease 15 or less: Kidney failureThe Medical Center of Southeast TexasGlucose Ngoyt0547-68-87 14:32:00* Test Item Value Reference Range Interpretation Comments Glucose Level (test code = WBJ1120) 86 74-118 [facility] TexasCalcium Yqffq4418-16-97 14:32:00* Test Item Value Reference Range Interpretation Comments Calcium Level (test code = 39386-9) 10.1 8.4-10.2 [facility] TexasTotal Gqkefosvq7540-21-29 14:32:00* Test Item Value Reference Range Interpretation Comments Total Bilirubin (test code = 1975-2) 0.4 0.2-1.2 [facility] TexasAspartate Amino Transf (AST/SGOT) 2018-06-06 14:32:00* Test Item Value Reference Range Interpretation Comments Aspartate Amino Transf (AST/SGOT) (test code = Aspartate Amino Transf (AST/SGOT)) 27 5-34 [facility] TexasAlanine Aminotransferase (ALT/SGPT) 2018-06-06 14:32:00* Test Item Value Reference Range Interpretation Comments Alanine Aminotransferase (ALT/SGPT) (test code = 1742-6) 21 0-55 [facility] TexasTotal Zvwtlnr6350-71-86 14:32:00* Test Item Value Reference Range Interpretation Comments Total Protein (test code = 2885-2) 7.5 6.5-8.1 [facility] TexasAlbumin2019-04-02 14:32:00* Test Item Value Reference Range Interpretation Comments Albumin (test code = 1751-7) 3.7 3.5-5.0 [facility] TexasGlobulin2019-04-02 14:32:00* Test Item Value Reference Range Interpretation Comments Globulin (test code = 39914-4) 3.8 2.3-3.5 H [facility] TexasAlbumin/Globulin Winhy6975-91-21 14:32:00 * Test Item Value Reference Range Interpretation Comments Albumin/Globulin Ratio (test code = 1759-0) 1.0 0.8-2.0 [facility] TexasAlkaline Zzfbvtgebkl8006-35-49 14:32:00* Test Item Value Reference Range Interpretation Comments Alkaline Phosphatase (test code = 6768-6) 48 40-150 [facility] Americaodium Jemfm0699-84-95 14:32:00* Test Item Value Reference Range Interpretation Comments Sodium Level (test code = 2951-2) 130 136-145 L [facility] TexasPotassium Prxys9384-84-59 14:32:00* Test Item Value Reference Range Interpretation Comments Potassium Level (test code = 2823-3) 3.8 3.5-5.1 [facility] TexasChloride Buqst3167-68-26 14:32:00* Test Item Value Reference Range Interpretation Comments Chloride Level (test code = 2075-0) 97 98-107 L [facility] TexasCarbon Dioxide Wlfvl0664-61-96 14:32:00* Test Item Value Reference Range Interpretation Comments Carbon Dioxide Level (test code = 2028-9) 26 22-29 [facility] TexasAnion Mtp1076-62-34 14:32:00* Test Item Value Reference Range Interpretation Comments Anion Gap (test code = 24212-7) 10.8 8-16 [facility] TexasBlood Urea Bnvmsvms5831-37-00 14:32:00* Test Item Value Reference Range Interpretation Comments Blood Urea Nitrogen (test code = 3094-0) 12 7-26 [facility] TexasCreatinine2019-04-02 14:32:00* Test Item Value Reference Range Interpretation Comments Creatinine (test code = 2160-0) 0.75 0.57-1.11 [facility] TexasBUN/Creatinine Maigg8110-64-58 14:32:00* Test Item Value Reference Range Interpretation Comments BUN/Creatinine Ratio (test code = 3097-3) 16 6-25 [facility] TexasEstimat Glomerular Filtration Rate 2018-06-06 14:32:00* Test Item Value Reference Range Interpretation Comments Estimat Glomerular Filtration Rate (test code = 356724186) > 60 >60 Ranges were taken from the National Kidney Disease Education Program and the [facility] literature.Reference ranges:60 or greater: Sbnryi49-70 ( for 3 consecutive months): Chronic kidney disease 15 or less: Kidney failureThe Medical Center of Southeast TexasGlucose Rqefi0274-48-05 14:32:00* Test Item Value Reference Range Interpretation Comments Glucose Level (test code = FFJ8548) 86 74-118 [facility] TexasCalcium Iurae2913-98-60 14:32:00* Test Item Value Reference Range Interpretation Comments Calcium Level (test code = 17976-3) 10.1 8.4-10.2 [facility] TexasTotal Lmjdkylom3959-25-38 14:32:00* Test Item Value Reference Range Interpretation Comments Total Bilirubin (test code = 1975-2) 0.4 0.2-1.2 [facility] TexasAspartate Amino Transf (AST/SGOT) 2018-06-06 14:32:00* Test Item Value Reference Range Interpretation Comments Aspartate Amino Transf (AST/SGOT) (test code = Aspartate Amino Transf (AST/SGOT)) 27 5-34 [facility] TexasAlanine Aminotransferase (ALT/SGPT) 2018-06-06 14:32:00* Test Item Value Reference Range Interpretation Comments Alanine Aminotransferase (ALT/SGPT) (test code = 1742-6) 21 0-55 [facility] TexasTotal Fnelumc3309-69-88 14:32:00* Test Item Value Reference Range Interpretation Comments Total Protein (test code = 2885-2) 7.5 6.5-8.1 [facility] TexasAlbumin2019-04-02 14:32:00* Test Item Value Reference Range Interpretation Comments Albumin (test code = 1751-7) 3.7 3.5-5.0 [facility] TexasGlobulin2019-04-02 14:32:00* Test Item Value Reference Range Interpretation Comments Globulin (test code = 12537-7) 3.8 2.3-3.5 H [facility] TexasAlbumin/Globulin Fwhtj0481-38-83 14:32:00 * Test Item Value Reference Range Interpretation Comments Albumin/Globulin Ratio (test code = 1759-0) 1.0 0.8-2.0 [facility] TexasAlkaline Yzmfoewtjwm9701-25-08 14:32:00* Test Item Value Reference Range Interpretation Comments Alkaline Phosphatase (test code = 6768-6) 48 40-150 [facility] Americaodium Acvur2033-56-39 14:32:00* Test Item Value Reference Range Interpretation Comments Sodium Level (test code = 2951-2) 130 136-145 L [facility] TexasPotassium Fjbmh9176-24-68 14:32:00* Test Item Value Reference Range Interpretation Comments Potassium Level (test code = 2823-3) 3.8 3.5-5.1 [facility] TexasChloride Reoel5125-41-54 14:32:00* Test Item Value Reference Range Interpretation Comments Chloride Level (test code = 2075-0) 97 98-107 L [facility] TexasCarbon Dioxide Axoeb9215-42-62 14:32:00* Test Item Value Reference Range Interpretation Comments Carbon Dioxide Level (test code = 2028-9) 26 22-29 [facility] TexasAnion Eoo1580-07-08 14:32:00* Test Item Value Reference Range Interpretation Comments Anion Gap (test code = 48623-8) 10.8 8-16 [facility] TexasBlood Urea Puvfiidy5011-05-27 14:32:00* Test Item Value Reference Range Interpretation Comments Blood Urea Nitrogen (test code = 3094-0) 12 7-26 [facility] TexasCreatinine2019-04-02 14:32:00* Test Item Value Reference Range Interpretation Comments Creatinine (test code = 2160-0) 0.75 0.57-1.11 [facility] TexasBUN/Creatinine Cniih3814-49-77 14:32:00* Test Item Value Reference Range Interpretation Comments BUN/Creatinine Ratio (test code = 3097-3) 16 6-25 [facility] TexasEstimat Glomerular Filtration Rate 2018-06-06 14:32:00* Test Item Value Reference Range Interpretation Comments Estimat Glomerular Filtration Rate (test code = 055555807) > 60 >60 Ranges were taken from the National Kidney Disease Education Program and the [facility] literature.Reference ranges:60 or greater: Ifchdp23-22 ( for 3 consecutive months): Chronic kidney disease 15 or less: Kidney failureThe [facility] Center of Southeast TexasGlucose Jiiue0788-72-08 14:32:00* Test Item Value Reference Range Interpretation Comments Glucose Level (test code = BAC2507) 86 74-118 [facility] TexasCalcium Niljf3460-86-73 14:32:00* Test Item Value Reference Range Interpretation Comments Calcium Level (test code = 34566-4) 10.1 8.4-10.2 [facility] TexasTotal Onnvwnisk7400-78-79 14:32:00* Test Item Value Reference Range Interpretation Comments Total Bilirubin (test code = 1975-2) 0.4 0.2-1.2 [facility] TexasAspartate Amino Transf (AST/SGOT) 2018-06-06 14:32:00* Test Item Value Reference Range Interpretation Comments Aspartate Amino Transf (AST/SGOT) (test code = Aspartate Amino Transf (AST/SGOT)) 27 5-34 [facility] TexasAlanine Aminotransferase (ALT/SGPT) 2018-06-06 14:32:00* Test Item Value Reference Range Interpretation Comments Alanine Aminotransferase (ALT/SGPT) (test code = 1742-6) 21 0-55 [facility] TexasTotal Wnksebp3857-39-94 14:32:00* Test Item Value Reference Range Interpretation Comments Total Protein (test code = 2885-2) 7.5 6.5-8.1 [facility] TexasAlbumin2019-04-02 14:32:00* Test Item Value Reference Range Interpretation Comments Albumin (test code = 1751-7) 3.7 3.5-5.0 [facility] TexasGlobulin2019-04-02 14:32:00* Test Item Value Reference Range Interpretation Comments Globulin (test code = 80336-2) 3.8 2.3-3.5 H [facility] TexasAlbumin/Globulin Yrupw2114-74-60 14:32:00 * Test Item Value Reference Range Interpretation Comments Albumin/Globulin Ratio (test code = 1759-0) 1.0 0.8-2.0 [facility] TexasAlkaline Stvkhptfypf5457-15-29 14:32:00* Test Item Value Reference Range Interpretation Comments Alkaline Phosphatase (test code = 6768-6) 48 40-150 [facility] TexasUrine Rbruo4500-84-95 14:30:00* Test Item Value Reference Range Interpretation Comments Urine Color (test code = 5778-6) YELLOW YELLOW [facility] TexasUrine Ycsglir1353-81-87 14:30:00* Test Item Value Reference Range Interpretation Comments Urine Clarity (test code = 54017-5) CLEAR CLEAR [facility] TexasUrine Specific Sshqybv9120-34-26 14:30:00 * Test Item Value Reference Range Interpretation Comments Urine Specific Doerun (test code = 5811-5) 1.010 1.010-1.02 5 [facility] TexasUrine nJ8098-37-29 14:30:00* Test Item Value Reference Range Interpretation Comments Urine pH (test code = 78804-1) 7 5-7 [facility] Leukocyte Czfufijz7760-19-40 14:30:00* Test Item Value Reference Range Interpretation Comments Urine Leukocyte Esterase (test code = 5799-2) NEGATIVE NEGATIVE [facility] TexasU[facility] Ssfxoor1850-76-86 14:30:00* Test Item Value Reference Range Interpretation Comments Urine Nitrite (test code = 42018-0) NEGATIVE NEGATIVE [facility] TexasUrine Vwugwon4029-13-02 14:30:00* Test Item Value Reference Range Interpretation Comments Urine Protein (test code = 5804-0) NEGATIVE NEGATIVE [facility] TexasUrine Glucose (UA)2018-06-06 14:30:00* Test Item Value Reference Range Interpretation Comments Urine Glucose (UA) (test code = 2349-9) NEGATIVE NEGATIVE [facility] TexasU[facility] Kzvpeun2479-09-90 14:30:00* Test Item Value Reference Range Interpretation Comments Urine Ketones (test code = 08673-1) NEGATIVE NEGATIVE [facility] TexasU[facility] Jalfogvqviip8459-93-87 14:30:00* Test Item Value Reference Range Interpretation Comments Urine Urobilinogen (test code = 62108-2) 0.2 0.2-1 [facility] TexasU[facility] Oqzkwqqne9366-75-68 14:30:00* Test Item Value Reference Range Interpretation Comments Urine Bilirubin (test code = 1978-6) NEGATIVE NEGATIVE [facility] Mjxcx6197-14-14 14:30:00* Test Item Value Reference Range Interpretation Comments Urine Blood (test code = 36326-6) NEGATIVE NEGATIVE [facility] TexasU[facility] Ajwne7551-83-24 14:30:00* Test Item Value Reference Range Interpretation Comments Urine Color (test code = 5778-6) YELLOW YELLOW [facility] TexasU[facility] Rbbgsuq3652-98-14 14:30:00* Test Item Value Reference Range Interpretation Comments Urine Clarity (test code = 68903-0) CLEAR CLEAR [facility] TexasU[facility] Specific Ntrbuyx7338-51-66 14:30:00 * Test Item Value Reference Range Interpretation Comments Urine Specific Doerun (test code = 5811-5) 1.010 1.010-1.02 5 [facility] TexasUrine hX8659-85-06 14:30:00* Test Item Value Reference Range Interpretation Comments Urine pH (test code = 99643-8) 7 5-7 [facility] Leukocyte Qnjglfud1169-44-32 14:30:00* Test Item Value Reference Range Interpretation Comments Urine Leukocyte Esterase (test code = 5799-2) NEGATIVE NEGATIVE [facility] TexasU[facility] Kxcjttc1125-51-84 14:30:00* Test Item Value Reference Range Interpretation Comments Urine Nitrite (test code = 29551-2) NEGATIVE NEGATIVE [facility] TexasUrine Bwdzcfn9205-10-86 14:30:00* Test Item Value Reference Range Interpretation Comments Urine Protein (test code = 5804-0) NEGATIVE NEGATIVE [facility] TexasUrine Glucose (UA)2018-06-06 14:30:00* Test Item Value Reference Range Interpretation Comments Urine Glucose (UA) (test code = 2349-9) NEGATIVE NEGATIVE [facility] TexasUrine Pwpxoiy5553-28-58 14:30:00* Test Item Value Reference Range Interpretation Comments Urine Ketones (test code = 80530-1) NEGATIVE NEGATIVE [facility] Zbvosatbbkxx1143-17-47 14:30:00* Test Item Value Reference Range Interpretation Comments Urine Urobilinogen (test code = 12540-0) 0.2 0.2-1 [facility] Lfnuafoce6435-49-10 14:30:00* Test Item Value Reference Range Interpretation Comments Urine Bilirubin (test code = 1978-6) NEGATIVE NEGATIVE [facility] Rydpn2137-12-17 14:30:00* Test Item Value Reference Range Interpretation Comments Urine Blood (test code = 63811-6) NEGATIVE NEGATIVE [facility] Uuyuc8301-56-84 14:30:00* Test Item Value Reference Range Interpretation Comments Urine Color (test code = 5778-6) YELLOW YELLOW [facility] Efjdqdw1636-14-80 14:30:00* Test Item Value Reference Range Interpretation Comments Urine Clarity (test code = 25220-4) CLEAR CLEAR [facility] [place] Specific Kbfmkzn4872-29-05 14:30:00 * Test Item Value Reference Range Interpretation Comments Urine Specific Doerun (test code = 5811-5) 1.010 1.010-1.02 5 [facility] bE5490-44-50 14:30:00* Test Item Value Reference Range Interpretation Comments Urine pH (test code = 09716-3) 7 5-7 [facility] Leukocyte Kybwhtvd5757-87-23 14:30:00* Test Item Value Reference Range Interpretation Comments Urine Leukocyte Esterase (test code = 5799-2) NEGATIVE NEGATIVE [facility] Ytcbpmn6136-45-66 14:30:00* Test Item Value Reference Range Interpretation Comments Urine Nitrite (test code = 53712-8) NEGATIVE NEGATIVE [facility]Urine Twoqfta5576-84-02 14:30:00* Test Item Value Reference Range Interpretation Comments Urine Protein (test code = 5804-0) NEGATIVE NEGATIVE [facility] Glucose (UA)2018-06-06 14:30:00* Test Item Value Reference Range Interpretation Comments Urine Glucose (UA) (test code = 2349-9) NEGATIVE NEGATIVE [facility] Actzued4672-17-39 14:30:00* Test Item Value Reference Range Interpretation Comments Urine Ketones (test code = 36924-5) NEGATIVE NEGATIVE [facility] Styawzdyrlbj8641-38-04 14:30:00* Test Item Value Reference Range Interpretation Comments Urine Urobilinogen (test code = 48889-3) 0.2 0.2-1 [facility] Yyjbcpvye2166-60-95 14:30:00* Test Item Value Reference Range Interpretation Comments Urine Bilirubin (test code = 1978-6) NEGATIVE NEGATIVE [facility] Tvbap4606-88-07 14:30:00* Test Item Value Reference Range Interpretation Comments Urine Blood (test code = 56758-0) NEGATIVE NEGATIVE [facility] Yqdxz3840-60-63 14:30:00* Test Item Value Reference Range Interpretation Comments Urine Color (test code = 5778-6) YELLOW YELLOW [facility] Zffbmgr2815-68-61 14:30:00* Test Item Value Reference Range Interpretation Comments Urine Clarity (test code = 26656-1) CLEAR CLEAR [facility] Specific Ehvbqsq8292-81-44 14:30:00 * Test Item Value Reference Range Interpretation Comments Urine Specific Doerun (test code = 5811-5) 1.010 1.010-1.02 5 [facility] aW2773-12-10 14:30:00* Test Item Value Reference Range Interpretation Comments Urine pH (test code = 36588-2) 7 5-7 [facility] Leukocyte Mplfqxbn6963-92-91 14:30:00* Test Item Value Reference Range Interpretation Comments Urine Leukocyte Esterase (test code = 5799-2) NEGATIVE NEGATIVE [facility] Lvuvfko6429-08-59 14:30:00* Test Item Value Reference Range Interpretation Comments Urine Nitrite (test code = 14105-5) NEGATIVE NEGATIVE [facility]Urine Wtuihqm9098-77-88 14:30:00* Test Item Value Reference Range Interpretation Comments Urine Protein (test code = 5804-0) NEGATIVE NEGATIVE [facility] Glucose (UA)2018-06-06 14:30:00* Test Item Value Reference Range Interpretation Comments Urine Glucose (UA) (test code = 2349-9) NEGATIVE NEGATIVE [facility] Qrekmtk8937-39-33 14:30:00* Test Item Value Reference Range Interpretation Comments Urine Ketones (test code = 28864-9) NEGATIVE NEGATIVE [facility] Wahkbpnfbgov3987-18-17 14:30:00* Test Item Value Reference Range Interpretation Comments Urine Urobilinogen (test code = 04764-5) 0.2 0.2-1 [facility] Sgkdevwkq7035-51-66 14:30:00* Test Item Value Reference Range Interpretation Comments Urine Bilirubin (test code = 1978-6) NEGATIVE NEGATIVE [facility] Ebckt2455-43-88 14:30:00* Test Item Value Reference Range Interpretation Comments Urine Blood (test code = 62443-7) NEGATIVE NEGATIVE [facility]White Blood Bgedj2967-98-28 14:13:00* Test Item Value Reference Range Interpretation Comments White Blood Count (test code = 6690-2) 5.63 4.8-10.8 [facility] TexasRed Blood Bnctl0343-20-18 14:13:00* Test Item Value Reference Range Interpretation Comments Red Blood Count (test code = 789-8) 3.81 3.6-5.1 [facility] TexasHemoglobin2019-04-02 14:13:00* Test Item Value Reference Range Interpretation Comments Hemoglobin (test code = 56517-6) 11.4 12.0-16.0 L [facility] TexasHematocrit2019-04-02 14:13:00* Test Item Value Reference Range Interpretation Comments Hematocrit (test code = 4544-3) 33.8 34.2-44.1 L [facility] TexasMean Corpuscular Uvdgps9387-40-88 14:13:00* Test Item Value Reference Range Interpretation Comments Mean Corpuscular Volume (test code = 787-2) 88.7 81-99 [facility] TexasMean Corpuscular Llbryxuhei8814-28-87 14:13:00* Test Item Value Reference Range Interpretation Comments Mean Corpuscular Hemoglobin (test code = 785-6) 29.9 28-32 [facility] TexasMean Corpuscular Hemoglobin Concent 2018-06-06 14:13:00* Test Item Value Reference Range Interpretation Comments Mean Corpuscular Hemoglobin Concent (test code = 786-4) 33.7 31-35 [facility] TexasRed Cell Distribution Dmiiy7130-49-22 14:13:00* Test Item Value Reference Range Interpretation Comments Red Cell Distribution Width (test code = 22212-9) 13.1 11.7 -14.4 [facility] TexasPlatelet Ntyvo7905-36-92 14:13:00* Test Item Value Reference Range Interpretation Comments Platelet Count (test code = 777-3) 284 140-360 [facility] TexasNeutrophils (%) (Auto)2018-06-06 14:13:00 * Test Item Value Reference Range Interpretation Comments Neutrophils (%) (Auto) (test code = 30424-4) 55.5 38.7-80.0 [facility] TexasLymphocytes (%) (Auto)2018-06-06 14:13:00 * Test Item Value Reference Range Interpretation Comments Lymphocytes (%) (Auto) (test code = 736-9) 25.8 18.0-39.1 [facility] TexasMonocytes (%) (Auto)2018-06-06 14:13:00* Test Item Value Reference Range Interpretation Comments Monocytes (%) (Auto) (test code = 5905-5) 13.0 4.4-11.3 H [facility] TexasEosinophils (%) (Auto)2018-06-06 14:13:00 * Test Item Value Reference Range Interpretation Comments Eosinophils (%) (Auto) (test code = 713-8) 4.3 0.0-6.0 [facility]Basophils (%) (Auto)2018-06-06 14:13:00* Test Item Value Reference Range Interpretation Comments Basophils (%) (Auto) (test code = 706-2) 1.2 0.0-1.0 H [facility] TexasIM GRANULOCYTES %2018-06-06 14:13:00* Test Item Value Reference Range Interpretation Comments IM GRANULOCYTES % (test code = IM GRANULOCYTES %) 0.2 0.0- 1.0 [facility] TexasNeutrophils # (Auto)2018-06-06 14:13:00* Test Item Value Reference Range Interpretation Comments Neutrophils # (Auto) (test code = 751-8) 3.1 2.1-6.9 [facility] TexasLymphocytes # (Auto)2018-06-06 14:13:00* Test Item Value Reference Range Interpretation Comments Lymphocytes # (Auto) (test code = 67284-3) 1.5 1.0-3.2 [facility] TexasMonocytes # (Auto)2018-06-06 14:13:00* Test Item Value Reference Range Interpretation Comments Monocytes # (Auto) (test code = 742-7) 0.7 0.2-0.8 [facility] TexasEosinophils # (Auto)2018-06-06 14:13:00* Test Item Value Reference Range Interpretation Comments Eosinophils # (Auto) (test code = 711-2) 0.2 0.0-0.4 [facility]Basophils # (Auto)2018-06-06 14:13:00* Test Item Value Reference Range Interpretation Comments Basophils # (Auto) (test code = 704-7) 0.1 0.0-0.1 [facility] TexasAbsolute Immature Granulocyte (auto 2018-06-06 14:13:00* Test Item Value Reference Range Interpretation Comments Absolute Immature Granulocyte (auto (chuyita t code = Absolute Immature Granulocyte (auto) 0.01 0-0.1 [facility] TexasWhite Blood Eerso8246-71-52 14:13:00* Test Item Value Reference Range Interpretation Comments White Blood Count (test code = 6690-2) 5.63 4.8-10.8 [facility] TexasRed Blood Ncjvg4604-45-10 14:13:00* Test Item Value Reference Range Interpretation Comments Red Blood Count (test code = 789-8) 3.81 3.6-5.1 [facility] TexasHemoglobin2019-04-02 14:13:00* Test Item Value Reference Range Interpretation Comments Hemoglobin (test code = 12165-1) 11.4 12.0-16.0 L [facility] TexasHematocrit2019-04-02 14:13:00* Test Item Value Reference Range Interpretation Comments Hematocrit (test code = 4544-3) 33.8 34.2-44.1 L [facility] TexasMean Corpuscular Cpyrgc7835-92-16 14:13:00* Test Item Value Reference Range Interpretation Comments Mean Corpuscular Volume (test code = 787-2) 88.7 81-99 [facility] TexasMean Corpuscular Goernkwugb4453-12-47 14:13:00* Test Item Value Reference Range Interpretation Comments Mean Corpuscular Hemoglobin (test code = 785-6) 29.9 28-32 [facility] TexasMean Corpuscular Hemoglobin Concent 2018-06-06 14:13:00* Test Item Value Reference Range Interpretation Comments Mean Corpuscular Hemoglobin Concent (test code = 786-4) 33.7 31-35 [facility] TexasRed Cell Distribution Xyzcj7658-44-14 14:13:00* Test Item Value Reference Range Interpretation Comments Red Cell Distribution Width (test code = 32397-5) 13.1 11.7 -14.4 [facility] TexasPlatelet Lesfm6111-09-18 14:13:00* Test Item Value Reference Range Interpretation Comments Platelet Count (test code = 777-3) 284 140-360 [facility] TexasNeutrophils (%) (Auto)2018-06-06 14:13:00 * Test Item Value Reference Range Interpretation Comments Neutrophils (%) (Auto) (test code = 91396-2) 55.5 38.7-80.0 [facility] TexasLymphocytes (%) (Auto)2018-06-06 14:13:00 * Test Item Value Reference Range Interpretation Comments Lymphocytes (%) (Auto) (test code = 736-9) 25.8 18.0-39.1 [facility] TexasMonocytes (%) (Auto)2018-06-06 14:13:00* Test Item Value Reference Range Interpretation Comments Monocytes (%) (Auto) (test code = 5905-5) 13.0 4.4-11.3 H [facility] TexasEosinophils (%) (Auto)2018-06-06 14:13:00 * Test Item Value Reference Range Interpretation Comments Eosinophils (%) (Auto) (test code = 713-8) 4.3 0.0-6.0 [facility]Basophils (%) (Auto)2018-06-06 14:13:00* Test Item Value Reference Range Interpretation Comments Basophils (%) (Auto) (test code = 706-2) 1.2 0.0-1.0 H [facility] TexasIM GRANULOCYTES %2018-06-06 14:13:00* Test Item Value Reference Range Interpretation Comments IM GRANULOCYTES % (test code = IM GRANULOCYTES %) 0.2 0.0- 1.0 [facility] TexasNeutrophils # (Auto)2018-06-06 14:13:00* Test Item Value Reference Range Interpretation Comments Neutrophils # (Auto) (test code = 751-8) 3.1 2.1-6.9 [facility] TexasLymphocytes # (Auto)2018-06-06 14:13:00* Test Item Value Reference Range Interpretation Comments Lymphocytes # (Auto) (test code = 92364-5) 1.5 1.0-3.2 [facility] TexasMonocytes # (Auto)2018-06-06 14:13:00* Test Item Value Reference Range Interpretation Comments Monocytes # (Auto) (test code = 742-7) 0.7 0.2-0.8 [facility] TexasEosinophils # (Auto)2018-06-06 14:13:00* Test Item Value Reference Range Interpretation Comments Eosinophils # (Auto) (test code = 711-2) 0.2 0.0-0.4 [facility] TexasBasophils # (Auto)2018-06-06 14:13:00* Test Item Value Reference Range Interpretation Comments Basophils # (Auto) (test code = 704-7) 0.1 0.0-0.1 [facility] TexasAbsolute Immature Granulocyte (auto 2018-06-06 14:13:00* Test Item Value Reference Range Interpretation Comments Absolute Immature Granulocyte (auto (chuyita t code = Absolute Immature Granulocyte (auto) 0.01 0-0.1 [facility] TexasWhite Blood Hpefe4438-93-72 14:13:00* Test Item Value Reference Range Interpretation Comments White Blood Count (test code = 6690-2) 5.63 4.8-10.8 [facility] TexasRed Blood Eijfg3920-05-66 14:13:00* Test Item Value Reference Range Interpretation Comments Red Blood Count (test code = 789-8) 3.81 3.6-5.1 [facility] TexasHemoglobin2019-04-02 14:13:00* Test Item Value Reference Range Interpretation Comments Hemoglobin (test code = 13687-7) 11.4 12.0-16.0 L [facility] TexasHematocrit2019-04-02 14:13:00* Test Item Value Reference Range Interpretation Comments Hematocrit (test code = 4544-3) 33.8 34.2-44.1 L [facility] TexasMean Corpuscular Tmfshk7461-49-19 14:13:00* Test Item Value Reference Range Interpretation Comments Mean Corpuscular Volume (test code = 787-2) 88.7 81-99 [facility] TexasMean Corpuscular Ilhkuchlpq4524-06-85 14:13:00* Test Item Value Reference Range Interpretation Comments Mean Corpuscular Hemoglobin (test code = 785-6) 29.9 28-32 [facility] TexasMean Corpuscular Hemoglobin Concent 2018-06-06 14:13:00* Test Item Value Reference Range Interpretation Comments Mean Corpuscular Hemoglobin Concent (test code = 786-4) 33.7 31-35 [facility] TexasRed Cell Distribution Ykrak0808-36-99 14:13:00* Test Item Value Reference Range Interpretation Comments Red Cell Distribution Width (test code = 32991-4) 13.1 11.7 -14.4 [facility] TexasPlatelet Bhcaq6938-33-65 14:13:00* Test Item Value Reference Range Interpretation Comments Platelet Count (test code = 777-3) 284 140-360 [facility] TexasNeutrophils (%) (Auto)2018-06-06 14:13:00 * Test Item Value Reference Range Interpretation Comments Neutrophils (%) (Auto) (test code = 25443-6) 55.5 38.7-80.0 [facility] TexasLymphocytes (%) (Auto)2018-06-06 14:13:00 * Test Item Value Reference Range Interpretation Comments Lymphocytes (%) (Auto) (test code = 736-9) 25.8 18.0-39.1 [facility] TexasMonocytes (%) (Auto)2018-06-06 14:13:00* Test Item Value Reference Range Interpretation Comments Monocytes (%) (Auto) (test code = 5905-5) 13.0 4.4-11.3 H [facility] TexasEosinophils (%) (Auto)2018-06-06 14:13:00 * Test Item Value Reference Range Interpretation Comments Eosinophils (%) (Auto) (test code = 713-8) 4.3 0.0-6.0 [facility] TexasBasophils (%) (Auto)2018-06-06 14:13:00* Test Item Value Reference Range Interpretation Comments Basophils (%) (Auto) (test code = 706-2) 1.2 0.0-1.0 H [facility] TexasIM GRANULOCYTES %2018-06-06 14:13:00* Test Item Value Reference Range Interpretation Comments IM GRANULOCYTES % (test code = IM GRANULOCYTES %) 0.2 0.0- 1.0 [facility] TexasNeutrophils # (Auto)2018-06-06 14:13:00* Test Item Value Reference Range Interpretation Comments Neutrophils # (Auto) (test code = 751-8) 3.1 2.1-6.9 [facility] TexasLymphocytes # (Auto)2018-06-06 14:13:00* Test Item Value Reference Range Interpretation Comments Lymphocytes # (Auto) (test code = 94540-5) 1.5 1.0-3.2 [facility] TexasMonocytes # (Auto)2018-06-06 14:13:00* Test Item Value Reference Range Interpretation Comments Monocytes # (Auto) (test code = 742-7) 0.7 0.2-0.8 [facility] TexasEosinophils # (Auto)2018-06-06 14:13:00* Test Item Value Reference Range Interpretation Comments Eosinophils # (Auto) (test code = 711-2) 0.2 0.0-0.4 [facility] [place]Basophils # (Auto)2018-06-06 14:13:00* Test Item Value Reference Range Interpretation Comments Basophils # (Auto) (test code = 704-7) 0.1 0.0-0.1 [facility] TexasAbsolute Immature Granulocyte (auto 2018-06-06 14:13:00* Test Item Value Reference Range Interpretation Comments Absolute Immature Granulocyte (auto (chuyita t code = Absolute Immature Granulocyte (auto) 0.01 0-0.1 [facility] TexasWhite Blood Jycwo1302-42-44 14:13:00* Test Item Value Reference Range Interpretation Comments White Blood Count (test code = 6690-2) 5.63 4.8-10.8 [facility] TexasRed Blood Glbta1606-88-72 14:13:00* Test Item Value Reference Range Interpretation Comments Red Blood Count (test code = 789-8) 3.81 3.6-5.1 [facility] TexasHemoglobin2019-04-02 14:13:00* Test Item Value Reference Range Interpretation Comments Hemoglobin (test code = 25857-0) 11.4 12.0-16.0 L [facility] TexasHematocrit2019-04-02 14:13:00* Test Item Value Reference Range Interpretation Comments Hematocrit (test code = 4544-3) 33.8 34.2-44.1 L [facility] TexasMean Corpuscular Sttfle4807-47-61 14:13:00* Test Item Value Reference Range Interpretation Comments Mean Corpuscular Volume (test code = 787-2) 88.7 81-99 [facility] TexasMean Corpuscular Gzfpwophmk7166-91-28 14:13:00* Test Item Value Reference Range Interpretation Comments Mean Corpuscular Hemoglobin (test code = 785-6) 29.9 28-32 [facility] TexasMean Corpuscular Hemoglobin Concent 2018-06-06 14:13:00* Test Item Value Reference Range Interpretation Comments Mean Corpuscular Hemoglobin Concent (test code = 786-4) 33.7 31-35 [facility] TexasRed Cell Distribution Qhkxe2163-28-07 14:13:00* Test Item Value Reference Range Interpretation Comments Red Cell Distribution Width (test code = 88684-4) 13.1 11.7 -14.4 [facility] TexasPlatelet Vxvmm5600-85-34 14:13:00* Test Item Value Reference Range Interpretation Comments Platelet Count (test code = 777-3) 284 140-360 [facility] TexasNeutrophils (%) (Auto)2018-06-06 14:13:00 * Test Item Value Reference Range Interpretation Comments Neutrophils (%) (Auto) (test code = 87296-0) 55.5 38.7-80.0 [facility] TexasLymphocytes (%) (Auto)2018-06-06 14:13:00 * Test Item Value Reference Range Interpretation Comments Lymphocytes (%) (Auto) (test code = 736-9) 25.8 18.0-39.1 [facility] TexasMonocytes (%) (Auto)2018-06-06 14:13:00* Test Item Value Reference Range Interpretation Comments Monocytes (%) (Auto) (test code = 5905-5) 13.0 4.4-11.3 H [facility] TexasEosinophils (%) (Auto)2018-06-06 14:13:00 * Test Item Value Reference Range Interpretation Comments Eosinophils (%) (Auto) (test code = 713-8) 4.3 0.0-6.0 [facility]Basophils (%) (Auto)2018-06-06 14:13:00* Test Item Value Reference Range Interpretation Comments Basophils (%) (Auto) (test code = 706-2) 1.2 0.0-1.0 H [facility] TexasIM GRANULOCYTES %2018-06-06 14:13:00* Test Item Value Reference Range Interpretation Comments IM GRANULOCYTES % (test code = IM GRANULOCYTES %) 0.2 0.0- 1.0 [facility] TexasNeutrophils # (Auto)2018-06-06 14:13:00* Test Item Value Reference Range Interpretation Comments Neutrophils # (Auto) (test code = 751-8) 3.1 2.1-6.9 [facility] TexasLymphocytes # (Auto)2018-06-06 14:13:00* Test Item Value Reference Range Interpretation Comments Lymphocytes # (Auto) (test code = 70852-5) 1.5 1.0-3.2 [facility] TexasMonocytes # (Auto)2018-06-06 14:13:00* Test Item Value Reference Range Interpretation Comments Monocytes # (Auto) (test code = 742-7) 0.7 0.2-0.8 [facility] TexasEosinophils # (Auto)2018-06-06 14:13:00* Test Item Value Reference Range Interpretation Comments Eosinophils # (Auto) (test code = 711-2) 0.2 0.0-0.4 [facility] TexasBasophils # (Auto)2018-06-06 14:13:00* Test Item Value Reference Range Interpretation Comments Basophils # (Auto) (test code = 704-7) 0.1 0.0-0.1 [facility] TexasAbsolute Immature Granulocyte (auto 2018-06-06 14:13:00* Test Item Value Reference Range Interpretation Comments Absolute Immature Granulocyte (auto (chuyita t code = Absolute Immature Granulocyte (auto) 0.01 0-0.1 [facility] Americaodium Zjhsn5285-76-97 08:28:00* Test Item Value Reference Range Interpretation Comments Sodium Level (test code = 2951-2) 133 136-145 L [facility] TexasPotassium Kdgzj2616-14-40 08:28:00* Test Item Value Reference Range Interpretation Comments Potassium Level (test code = 2823-3) 4.3 3.5-5.1 [facility] TexasChloride Ohtev6470-51-21 08:28:00* Test Item Value Reference Range Interpretation Comments Chloride Level (test code = 2075-0) 103 98-107 [facility] TexasCarbon Dioxide Pjcsj7891-10-28 08:28:00* Test Item Value Reference Range Interpretation Comments Carbon Dioxide Level (test code = 2028-9) 24 22-29 [facility] TexasAnion Yly1996-69-85 08:28:00* Test Item Value Reference Range Interpretation Comments Anion Gap (test code = 95668-2) 10.3 8-16 [facility] TexasBlood Urea Gbsffovb6088-31-94 08:28:00* Test Item Value Reference Range Interpretation Comments Blood Urea Nitrogen (test code = 3094-0) 18 7-26 [facility] TexasCreatinine2018-06-03 08:28:00* Test Item Value Reference Range Interpretation Comments Creatinine (test code = 2160-0) 0.80 0.57-1.11 [facility] TexasBUN/Creatinine Wsmsz1890-73-49 08:28:00* Test Item Value Reference Range Interpretation Comments BUN/Creatinine Ratio (test code = 3097-3) 23 6-25 [facility] TexasEstimat Glomerular Filtration Rate 2017-08-07 08:28:00* Test Item Value Reference Range Interpretation Comments Estimat Glomerular Filtration Rate (test code = 96042-7) 60- >60 Ranges were taken from the National Kidney Disease Education Program and the [facility] Foundation literature.Reference ranges:60 or greater: Hrinan12-76 ( for 3 consecutive months): Chronic kidney disease 15 or less: Kidney failureThe [facility] of [facility] TexasGlucose Mmpoo9387-90-08 08:28:00* Test Item Value Reference Range Interpretation Comments Glucose Level (test code = CGI3147) 80 74-118 [facility] TexasCalcium Snbpt6446-71-04 08:28:00* Test Item Value Reference Range Interpretation Comments Calcium Level (test code = 14822-5) 9.6 8.4-10.2 [facility] TexasTotal Dhfuuamxk0352-09-44 00:37:00* Test Item Value Reference Range Interpretation Comments Total Bilirubin (test code = 1975-2) 0.8 0.2-1.2 [facility] TexasAspartate Amino Transf (AST/SGOT) 2017-08-06 00:37:00* Test Item Value Reference Range Interpretation Comments Aspartate Amino Transf (AST/SGOT) (test code = Aspartate Amino Transf (AST/SGOT)) 21 5-34 [facility] TexasAlanine Aminotransferase (ALT/SGPT) 2017-08-06 00:37:00* Test Item Value Reference Range Interpretation Comments Alanine Aminotransferase (ALT/SGPT) (test code = 1742-6) 18 0-55 [facility] [facility]Total Buelsxo3172-00-11 00:37:00* Test Item Value Reference Range Interpretation Comments Total Protein (test code = 2885-2) 6.9 6.5-8.1 [facility]Albumin2018-06[facility]02 00:37:00* Test Item Value Reference Range Interpretation Comments Albumin (test code = 1751-7) 4.0 3.5-5.0 [facility]Globulin2018-06-02 00:37:00* Test Item Value Reference Range Interpretation Comments Globulin (test code = 90531-3) 2.9 2.3-3.5 [facility] [place]Albumin/Globulin Mtntt1062-99-99 00:37:00 * Test Item Value Reference Range Interpretation Comments Albumin/Globulin Ratio (test code = 1759-0) 1.4 0.8-2.0 [facility] [place]Alkaline Rcyxxqgrgea7536-07-37 00:37:00* Test Item Value Reference Range Interpretation Comments Alkaline Phosphatase (test code = 6768-6) 44 40-150 [facility] [place]White Blood Iudbm4369-11-23 00:13:00* Test Item Value Reference Range Interpretation Comments White Blood Count (test code = 6690-2) 8.90 4.8-10.8 [facility] [place]Red Blood Scgzi7482-02-83 00:13:00* Test Item Value Reference Range Interpretation Comments Red Blood Count (test code = 789-8) 3.50 3.6-5.1 L [facility] [place]Hemoglobin2018-06-02 00:13:00* Test Item Value Reference Range Interpretation Comments Hemoglobin (test code = 56093-6) 10.2 12.0-16.0 L [facility] [place]Hematocrit2018-06-02 00:13:00* Test Item Value Reference Range Interpretation Comments Hematocrit (test code = 4544-3) 29.0 34.2-44.1 L [facility] TexasMean Corpuscular Zploou5131-23-65 00:13:00* Test Item Value Reference Range Interpretation Comments Mean Corpuscular Volume (test code = 787-2) 82.9 81-99 [facility] [place]Mean Corpuscular Nooxbgpzmg9780-24-31 00:13:00* Test Item Value Reference Range Interpretation Comments Mean Corpuscular Hemoglobin (test code = 785-6) 29.1 28-32 [facility] [place]Mean Corpuscular Hemoglobin Concent 2017-08-06 00:13:00* Test Item Value Reference Range Interpretation Comments Mean Corpuscular Hemoglobin Concent (test code = 786-4) 35.2 31-35 H [facility] [place]Red Cell Distribution Qdpej9419-02-64 00:13:00* Test Item Value Reference Range Interpretation Comments Red Cell Distribution Width (test code = 55230-5) 12.4 11.7 -14.4 [facility] TexasPlatelet Ooben3345-45-36 00:13:00* Test Item Value Reference Range Interpretation Comments Platelet Count (test code = 777-3) 274 140-360 [facility] TexasNeutrophils (%) (Auto)2017-08-06 00:13:00 * Test Item Value Reference Range Interpretation Comments Neutrophils (%) (Auto) (test code = 10857-9) 60.5 38.7-80.0 [facility] [place]Lymphocytes (%) (Auto)2017-08-06 00:13:00 * Test Item Value Reference Range Interpretation Comments Lymphocytes (%) (Auto) (test code = 736-9) 21.9 18.0-39.1 [facility] [place]Monocytes (%) (Auto)2017-08-06 00:13:00* Test Item Value Reference Range Interpretation Comments Monocytes (%) (Auto) (test code = 5905-5) 13.9 4.4-11.3 H [facility] [place]Eosinophils (%) (Auto)2017-08-06 00:13:00 * Test Item Value Reference Range Interpretation Comments Eosinophils (%) (Auto) (test code = 713-8) 2.4 0.0-6.0 [facility] [place]Basophils (%) (Auto)2017-08-06 00:13:00* Test Item Value Reference Range Interpretation Comments Basophils (%) (Auto) (test code = 706-2) 1.1 0.0-1.0 H [facility] TexasIM GRANULOCYTES %2017-08-06 00:13:00* Test Item Value Reference Range Interpretation Comments IM GRANULOCYTES % (test code = IM GRANULOCYTES %) 0.2 0.0- 1.0 [facility] TexasNeutrophils # (Auto)2017-08-06 00:13:00* Test Item Value Reference Range Interpretation Comments Neutrophils # (Auto) (test code = 751-8) 5.4 2.1-6.9 [facility] TexasLymphocytes # (Auto)2017-08-06 00:13:00* Test Item Value Reference Range Interpretation Comments Lymphocytes # (Auto) (test code = 59595-1) 2.0 1.0-3.2 [facility] [place]Monocytes # (Auto)2017-08-06 00:13:00* Test Item Value Reference Range Interpretation Comments Monocytes # (Auto) (test code = 742-7) 1.2 0.2-0.8 H [facility] [place]Eosinophils # (Auto)2017-08-06 00:13:00* Test Item Value Reference Range Interpretation Comments Eosinophils # (Auto) (test code = 711-2) 0.2 0.0-0.4 [facility] [place]Basophils # (Auto)2017-08-06 00:13:00* Test Item Value Reference Range Interpretation Comments Basophils # (Auto) (test code = 704-7) 0.1 0.0-0.1 [facility] TexasAbsolute Immature Granulocyte (auto 2017-08-06 00:13:00* Test Item Value Reference Range Interpretation Comments Absolute Immature Granulocyte (auto (chuyita t code = Absolute Immature Granulocyte (auto) 0.02 0-0.1 [facility] TexasUrine Goarqvi7011-85-12 09:24:00* Test Item Value Reference Range Interpretation Comments Urine Culture (test code = 630-4) Organism: STREPTOCOCCUS VIRIDANS [facility] TexasTroponin S2641-06-13 16:20:00* Test Item Value Reference Range Interpretation Comments Troponin I (test code = BZJ4164) 0.017 0-0.300 [facility] TexasUrine LVN8381-06-50 12:48:00* Test Item Value Reference Range Interpretation Comments Urine WBC (test code = 5821-4) 6-10 0-5 H [facility] TexasUrine TVC9870-47-34 12:48:00* Test Item Value Reference Range Interpretation Comments Urine RBC (test code = 86971-7) NONE 0-5 [facility]Urine Mpwrzfzx3512-11-66 12:48:00* Test Item Value Reference Range Interpretation Comments Urine Bacteria (test code = 86835-9) FEW NONE [facility] Epithelial Qmvzm6045-34-87 12:48:00 * Test Item Value Reference Range Interpretation Comments Urine Epithelial Cells (test code = 33399-9) RARE NONE [facility] Transitional Epithelial Cells 2017-01-18 12:48:00* Test Item Value Reference Range Interpretation Comments Urine Transitional Epithelial Cells (test code = 8249-5) FEW NONE H [facility] Renal Epithelial Gczru0473-35-19 12:48:00* Test Item Value Reference Range Interpretation Comments Urine Renal Epithelial Cells (test code = 60645-9) RARE NON E H [facility] TexasUrine Gerul3590-01-31 12:29:00* Test Item Value Reference Range Interpretation Comments Urine Color (test code = 5778-6) YELLOW YELLOW [facility] Linpyxg3835-04-25 12:29:00* Test Item Value Reference Range Interpretation Comments Urine Clarity (test code = 37186-5) SL CLOUDY CLEAR [facility]Urine Specific Tfhkdpz5812-41-17 12:29:00 * Test Item Value Reference Range Interpretation Comments Urine Specific [place]un (test code = 5811-5) 1.015 1.010-1.02 5 [facility]Urine jU4969-44-99 12:29:00* Test Item Value Reference Range Interpretation Comments Urine pH (test code = 92632-5) 8 5-7 H [facility] Leukocyte Hbciilom6528-95-29 12:29:00* Test Item Value Reference Range Interpretation Comments Urine Leukocyte Esterase (test code = 5799-2) 2+ NEGATIVE H [facility]Urine Zmpyqkl1666-61-28 12:29:00* Test Item Value Reference Range Interpretation Comments Urine Nitrite (test code = 18549-2) NEGATIVE NEGATIVE [facility] Hkliomi2339-13-50 12:29:00* Test Item Value Reference Range Interpretation Comments Urine Protein (test code = 5804-0) NEGATIVE NEGATIVE [facility]Urine Glucose (UA)2017-01-18 12:29:00* Test Item Value Reference Range Interpretation Comments Urine Glucose (UA) (test code = 2349-9) NEGATIVE NEGATIVE [facility] Wwnpzji5189-13-97 12:29:00* Test Item Value Reference Range Interpretation Comments Urine Ketones (test code = 62548-4) NEGATIVE NEGATIVE [facility] Faoqgrtqpvug7277-05-24 12:29:00* Test Item Value Reference Range Interpretation Comments Urine Urobilinogen (test code = 56548-5) 0.2 0.2-1 [facility] TexasUrine Nwwunwwie6453-95-08 12:29:00* Test Item Value Reference Range Interpretation Comments Urine Bilirubin (test code = 1978-6) NEGATIVE NEGATIVE [facility] Dveir3910-19-44 12:29:00* Test Item Value Reference Range Interpretation Comments Urine Blood (test code = 56199-9) NEGATIVE NEGATIVE [facility] TexasCreatine Kinase WR3575-48-95 10:52:00* Test Item Value Reference Range Interpretation Comments Creatine Kinase MB (test code = 73876-6) 1.80 0-4.3 [facility] TexasCreatine Jsqkmx1391-89-27 10:50:00* Test Item Value Reference Range Interpretation Comments Creatine Kinase (test code = 2157-6) 103 29-168 [facility] TexasLipase2017-11-14 10:50:00* Test Item Value Reference Range Interpretation Comments Lipase (test code = 3040-3) 17 8-78 [facility] TexasD-Dimer Quantitative (PE/DVT)2017-01-18 10:43:00* Test Item Value Reference Range Interpretation Comments D-Dimer Quantitative (PE/DVT) (test code = 90436-3) 0.78 0. 00-0.45 H As with all in vitro diagnostic tests, the test results should be interpreted by the physician in conjunction with clinical findings and other test results.Test results are reported in NEW D-dimer units(ug/mLFEU).[facility] SINGLE (PORTABLE) [facility] [address] [address] Patient Name: LILLY BREWSTER MR #: [id number] : 1935 Age/Sex: 81/F Req #: [id number] Adm Physician: Ordered by: ALE STEVE MD Report #: [id number] Location: ER Room/Bed: Procedure: [id number] DX/CHEST SINGLE (PORTABLE) Ex am Date: 01/18/17 Exam Time: 0920 REPORT STATUS : Signed PROCEDURE: A single [...] acute radiographic ab normality. Dictated by: Elbert Fernández M.D. on 01/18/2017 at 9:55 El ectronically approved by: Elbert Fernández M.D. on 01/18/2017 at 9:55 Dictated By: ELBERT FERNÁNDEZ MD 4 COPY TO: ALE STEVE MD
--- OUTSIDE RECORDS SUMMARY | 2020-01-26 10:32 | XMS REPORT | Continuity of Care Document ---
Author Author [facility] t Organization [facility] Address 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 Automatic Name Role Phone NO, PCP PCP Unavailable MAGDALENA ESCOTO Attphys Unavailable Donn ALEXIS, Hedy Attphys Arsenio ALEXIS, David Fallon Attphys Raghav ALEXIS, Jose Guadalupe Mohamud Attphys [phone] Danielito ALEXIS, Coretta Attphys [phone] DAVID CESAR Attphys Unavailable Nate REYES Attphys Unavailable Nate Reyes MD Attphys Sidney BRINE WELL OPERATOR-C, Phillip Casas Attphys [phone] Shaun Tony MD Attphys Anjali PhD, Graeme Attphys Chelo Rodríguez MA Attphys Unavailable Lucina ALEXIS, Usman Attphys ALIRIO HARRIS Attphys Unavailable Janae STEVE Attphys Unavailable JOSE GUADALUPE GANDHI Admphys Unavailable Payers Payer Name Policy Type Policy Number Effective Date Expiration Date Federico austin MEDICAREMEDICARE A [id number] 2000-PresentMedicare [id number] 2000 00:00:00 [facility] r MCR SUPPLEMENT/INDIVIDUALAETNA SENIOR [id number] 2019-Present [id number] 2019 00:00:00 [facility] MEDICARE PART A AND B [id number] 2000 00:00:00 AETNA SENIOR SUPPLEMENT-SECONDARY ONLY [id number] 00:00:00 GENERIC [id number] 2015 00:00:00 MEDICAREMEDICARE PART A AND [id number] [place] [id number] 2000 00:00:00 Randall Savage AETNACONTINENTAL LIFE INS CO OF [id number] [id number] 2015 00:00:00 Randall Justine cowart Aetna Medicare Replacement [id number] 2015 00:00:00 [facility] Medicare A & B [id number] 2000 00:00:00 [facility] Aetna Medicare Supplement Plan [id number] 2015 00:00 :00 [facility] Problems Condition Name Condition Details Condition Category Status Onset Date Resolution Date Last Treatment Date Treating Clinician Comments Source SOB (shortness of breath) SOB (shortness of breath) Disease Ac tive 2020-01-24 00:00:00 [facility] Chest pain Chest pain Disease Active 2020-01-22 00:00:00 [facility] Gastric reflux Gastric reflux syndrome Problem Active [facility] Hyponatremia Hyponatremia Problem Active [facility] Hypertensive urgency Problem Active [facility] Abnormal EKG Abno rmal EKG Active Problem 04/19/2017 Sallie Vincent Problem Active 2017-04-19 03:45:20 Asiya Woodson Essential hypertension Esse ntial hypertension Active Problem 04/19/2017 Sallie Vincent Problem Active 24-04-12 03:45:20 Asiya Woodson Precordial pain Prec ordial pain Active Problem 04/19/2017 Sallie Vincent Problem Active 2017-04-19 03:45:20 Asiya Woodson Hypertensive left ventricular hypertrophy, without hea rt [...] 04/19/2017 Sallie Vincent Problem Active 2017-04-19 03:45:20 [facility] Former smoker Form er smoker Active Problem 04/19/2017 Sallie Vincent Problem Active 2017-04-19 03:45:20 Asiya Woodson Palpitations Palp itations Active Problem 04/19/2017 Sallie Vincent Problem Active 2017-04-19 03:45:20 Asiya Woodson Right carotid bruit Righ t carotid bruit Active Problem 04/19/2017 Sallie Vincent Problem Active 2017-04-19 03:45:20 [facility] Exertional dyspnea Exer tional dyspnea Active Problem 04/19/2017 Sallie Vincent Problem Active 2017-04-19 03:45:20 [facility] Memory loss, short term Cal ry loss, short term Active Diagnosis 04/19/2017 Sallie Vincent Diagnosis Active 2017-04-19 03:45:20 [facility] Arthritis of spine Arthritis of spine Disease Active MD Ardon Osteoporosis Osteoporosis Disease Active [facility] Memory loss or impairment Memory loss or impairment Disease Active [facility] MGUS (monoclonal gammopathy of unknown significance) M DRE (monoclonal gammopathy of unknown significance) Disease Active [facility] Allergies, Adverse Reactions, Alerts Allergy Name Allergy Type Status Severity Reaction(s) Onset Date Inacti ve Date Treating Clinician Comments Source Aloe Drug Allergy Active 2020-01-22 00:00:00 [facility] Amoxicillin-Pot Clavulanate Propensity to adverse reactions Active 2020-01-22 00:00:00 [facility] Azithromycin Propensity to adverse reactions Active 202 00:00:00 [facility] Sulfamethoxazole-Trimethoprim Propensity to adverse reactions Active 2020-01-22 00:00:00 [facility] Carvedilol Propensity to adverse reactions Active 2020-01-06 7 00:00:00 [facility] Diltiazem Propensity to adverse reactions Active 2020-01-22 00:00:00 [facility] Doxycycline Propensity to adverse reactions Active 2019 00:00:00 [facility] Erythromycin Propensity to adverse reactions Active 00:00:00 [facility] Alendronate Propensity to adverse reactions Active 2019 00:00:00 [facility] Hydrochlorothiazide Propensity to adverse reactions Active 2020-01-22 00:00:00 [facility] Levofloxacin Propensity to adverse reactions Active 00:00:00 [facility] Lisinopril Propensity to adverse reactions Active 2020-01-06 7 00:00:00 [facility] Metoprolol Propensity to adverse reactions Active 2020-01-06 00:00:00 [facility] Paroxetine Hcl Propensity to adverse reactions [facility] Sim[facility] Propensity to adverse reactions Active 2019 00:00:00 [facility] Sertraline Propensity to adverse reactions Active 2020-01-06 7 00:00:00 [facility] Zoloft Zoloft Active tingling 2017-02-23 00:00:00 [facility] Zocor Zocor Active myalgias 2017-02-23 00:00:00 [facility] Diltiazem CD Diltiazem CD Active rash 2017-02-23 00:00:00 [facility] Metoprolol Succinate Metoprolol Succinate Active cold extremities 2017-02-23 00:00:00 [facility] Lisinopril Lisinopril Active rash 2017-02-23 00:00:00 [facility] Levaquin Levaquin Active dizziness 2017-02-23 00:00:00 [facility] Hydrochlorothiazide Hydrochlorothiazide Active hyponat remia 2017-02-23 00:00:00 [facility] Fosamax Fosamax Active nausea 2017-02-23 00:00:00 [facility] Erythromycin Erythromycin Active rash 2017-02-23 00:00:00 [facility] Coreg Coreg Active fatigue 2017-02-23 00:00:00 [facility] Bactrim Bactrim Active palpitations 2017-02-23 00:00:00 [facility] Azithromycin Azithromycin Active rash 2017-02-23 00:00:00 [facility] aloe vera latex gloves aloe vera latex gloves Active b listers 2017-02-23 00:00:00 [facility] Erythromycin Lactobionate Allergy to substance Active 2 00:00:00 [facility] sertraline HCl Allergy to substance Active 2017-01-18 00:00 :00 [facility] paroxetine HCl Allergy to substance Active 2017-01-18 00:00 :00 [facility] Lisinopril Allergy to substance Active 2017-01-18 00:00:00 [facility] aloe vera Allergy to substance Active 2017-01-18 00:00:00 [facility] Hydrochlorothiazide Allergy to substance Active 2017-01-18 00:00:00 [facility] Sulfamethoxazole Allergy to substance Active 2017-01-18 00: 00:00 [facility] Trimethoprim Allergy to substance Active 2017-01-18 00:00:0 0 [facility] Simvastatin Allergy to substance Active 2017-01-18 00:00:00 [facility] Metoprolol Allergy to substance Active 2017-01-18 00:00:00 [facility] Azithromycin Allergy to substance Active 2017-01-18 00:00:0 0 [facility] Carvedilol Allergy to substance Active 2017-01-18 00:00:00 [facility] Diltiazem Allergy to substance Active 2017-01-18 00:00:00 [facility] Alendronate sodium Allergy to substance Active 2017-01-18 0 0:00:00 [facility] Levofloxacin Allergy to substance Active 2017-01-18 00:00:0 0 [facility] Latex Allergy to substance Active 2017-01-18 00:00:00 [facility] NOVACAINE Allergy to substance Active 2017-01-18 00:00:00 [facility] lisinopril DA Active U 2013-09-12 00:00:00 [facility] erythromycin base DA Active U 2013-09-12 00:00:00 [facility] sulfamethoxazole DA Active U 2013-09-12 00:00:00 [facility] trimethoprim DA Active U 2013-09-12 00:00:00 [facility] simvastatin DA Active U 2013-09-12 00:00:00 [facility] azithromycin DA Active U 2013-09-12 00:00:00 [facility] paroxetine DA Active U 2013-09-12 00:00:00 [facility] diltiazem DA Active U 2013-09-12 00:00:00 [facility] sertraline DA Active U 2013-09-12 00:00:00 [facility] levofloxacin DA Active U 2013-09-12 00:00:00 [facility] NOVACAIN DA Active U 2013-09-12 00:00:00 [facility] Family History Family Member Diagnosis Comments Start Date Stop Date Source Natural brother Heart attack MD Junito jha Natural brother Heart disease [facility] Natural father Heart attack Isaac son Natural mother Osteoporosis Isaac son Natural sister Heart attack Isaac son Natural sister Heart disease [facility] Natural son Heart attack MD Ardon Social History Social Habit Start Date Stop Date Quantity Comments Source History of tobacco use 1955-12-22 00:00:00 Current smoker MD Ardon History SDOH Alcohol Std Drinks [facility] History SDOH Alcohol Binge [facility] Sex Assigned At [facility] Exposure to SARS-CoV-2 (event) Not sure [facility] Tobacco use and exposure 2020-01-23 00:00:00 2020-01-23 00:00:00 Den castelan used [facility] Alcohol intake 2020-01-23 00:00:00 2020-01-23 00:00:00 Current drinker of alcohol (finding) [facility] Pollo castelan History SDOH Alcohol Frequency 2020-01-23 00:00:00 2020-01-23 00:00:0 0 2 [facility] Tobacco Comment 2015-12-22 00:00:00 2015-12-22 00:00:00 Socially , but heavily for a total of 2 yrs MD Ardon Alcohol Comment 2015-12-22 00:00:00 2015-12-22 00:00:00 Once or twi ce per week. MD Ardon Smoking Status Start Date Stop Date Source Former smoker 2020-01-23 00:00:00 2020-01-23 00:00:00 [facility] Never smoker [facility] Medications Ordered Medication Name Filled Medication Name Start Date Stop Da te Current Medication? Ordering Clinician Indication Dosage Frequency Signature (SIG) Comments Components Source acyclovir (ZOVIRAX) 400 MG tablet 2020-01-24 20:49:09 Yes 400mg Take 400 mg by mouth 3 (three) times daily as needed for Outbreaks. [facility] aspirin 81 MG EC tablet 2020-01-24 20:49:09 Yes 81mg QD Take 81 mg by mouth daily. [facility] hydrALAZINE (APRESOLINE) 25 MG tablet 2020-01-24 20:49:09 Y es 25mg Q.5D Take 25 mg by mouth 2 (two) times daily . [facility] verapamiL (CALAN-SR) 120 MG ER tablet 2020-01-24 20:49:09 Y es 120mg QD Take 120 mg by mouth nightly. [facility] cholecalciferol, vitamin D3, (VITAMIN D3) 5,000 units [...] mouth daily. Med Name: Melaluca vitamin supplement Nexercise. Unknown amount of Calcium and D. MD Junito jha celecoxib (CeleBREX) 200 mg capsule 2018-07-21 00:00:0 0 2020-01-07 00:00:00 No 1{capsule} Take 1 capsule by mouth daily. MD Ardon hydrALAZINE (APRESOLINE) 25 MG tablet 2018-06-20 00:00:00 Yes 25mg [id number] 25 mg 3 (three) times a day. Randall Savage atorvastatin (LIPITOR) 40 mg tablet 2018-06-20 00:00:0 0 2020-01-07 00:00:00 No 1{tbl} Take 1 tablet by mouth at bedtime. MD Ardon hydrALAZINE (APRESOLINE) 25 mg tablet 2017-04-29 00:00:00 Y es 1{tbl} Take 1 tablet by mouth 3 (three) times a day. MD Ardon Verapamil HCl 2017-04-19 03:45:20 Yes Sallie Vincent 1 tablet [facility] Losartan Potassium 2017-04-19 03:45:20 Yes Sallie Vincent 1 tablet [facility] HydrALAZINE HCl 2017-04-19 03:45:20 Yes Sallie Vincent 1 tablet [facility] Vitamin D3 2017-04-19 03:45:20 Yes Sallie Vincent 1 capsule [facility] Doxazosin Mesylate 2017-04-19 03:45:20 Yes Sallie Vincent 2 tablet [facility] Acyclovir 2017-04-19 03:45:20 Yes Sallie Vincent 1 tablet [facility] verapamil sustained release (CALAN-SR) 120 MG SR tablet 2015-11-17 00:00:00 Yes 120mg Take 120 mg by mouth. Jose Savage verapamil (CALAN-SR) 120 mg CR tablet 2015-11-17 00:00:00 Y es 120mg Take 120 mg by mouth at bedtime. MD Zoey leon Acyclovir Acyclovir Yes 400 Four Times Daily [facility] Acyclovir Acyclovir Yes 400 Daily [facility] Aspirin (Aspir 81) 81 Mg TABLET. Aspirin (Aspir 81) 81 Mg TABLET. Yes 81 Daily [facility] Hydralazine Hcl Hydralazine Hcl Yes 25 Daily [facility] Losartan Potassium Losartan Potassium Yes 100 Da maurice [facility] Omeprazole Omeprazole Yes 40 Daily [facility] Perform Total Health Perform Total Health Yes 1 Daily [facility] Pravastatin Sodium Pravastatin Sodium Yes 80 Da maurice [facility] Premarin Vaginal Crm Premarin Vaginal Crm Yes 1 As Needed [facility] Ranitidine Hcl Ranitidine Hcl Yes 150 Daily [facility] Ropinirole Hcl Ropinirole Hcl Yes .25 Daily [facility] Verapamil Hcl (Verapamil Er) 120 Mg CAP24H.PEL Verapam il Hcl (Verapamil Er) 120 Mg CAP24H.PEL Yes 120 Daily [facility] Doxazosin Mesylate Doxazosin Mesylate 2017-08-06 00:00:00 No 2 Daily [facility] Doxazosin Mesylate Doxazosin Mesylate 2017-08-06 00:00:00 No 1 Bedtime [facility] Estrogens, Conjugated (Premarin) 42.5 Gm CREAM.APPL Es trogens, Conjugated (Premarin) 42.5 Gm CREAM.APPL 2017-08-06 00:00:00 No 45 Use As Directed [facility] Multivitamin (Multivitamins) 1 Each CAPSULE Multivitam in (Multivitamins) 1 Each CAPSULE 2017-08-06 00:00:00 No Daily [facility] Pravastatin Sodium Pravastatin Sodium 2017-08-06 00:00:00 No 80 Daily [facility] Verapamil Hcl (Calan Sr) 120 Mg TABLET.ER Verapamil Hc l (Calan Sr) 120 Mg TABLET.ER 2017-08-06 00:00:00 No 120 Bedtime [facility] Esomeprazole Magnesium (Nexium) 40 Mg CAPSULE.DR Pro prazole Magnesium (Nexium) 40 Mg CAPSULE. 2014-10-04 00:00:00 No 40 Daily [facility] Acyclovir Acyclovir 2014-02-18 00:00:00 No [facility] Calcium Carbonate (Calcium) 600 Mg TABLET Calcium Carb michael (Calcium) 600 Mg TABLET 2014-02-18 00:00:00 No 1200 Rt Daily [facility] Hydrocortisone Acetate (Anucort-Hc) 25 Mg SUPP.RECT Hy drocortisone Acetate (Anucort-Hc) 25 Mg SUPP.RECT 2014-02-18 00:00:00 No [facility] Losartan Potassium Losartan Potassium 2014-02-18 00:00:00 No 50 Rt Daily [facility] Lysine Lysine 2014-02-18 00:00:00 No 1500 [facility] Magnesium Magnesium 2014-02-18 00:00:00 No [facility] Nitrofurantoin Macrocrystal (Nitrofurantoin) 100 Mg CA PSULE Nitrofurantoin Macrocrystal (Nitrofurantoin) 100 Mg CAPSULE 2014-02-18 00:00:00 No 100 Daily [facility] Nitroglycerin Nitroglycerin 2014-02-18 00:00:00 No .4 [facility] Dexter-3 Fatty Acids (Fish Oil) 500 Mg CAPSULE. Dexter -3 Fatty Acids (Fish Oil) 500 Mg CAPSULE. 2014-02-18 00:00:00 No [facility] Polyethylene Glycol 3350 (Miralax) 17 Gm POWD.PACK Fab yethylene Glycol 3350 (Miralax) 17 Gm POWD.PACK 2014-02-18 00:00:00 No 17 Rt Daily [facility] Pravastatin Sodium (Pravachol) 40 Mg TABLET Pravastati n Sodium (Pravachol) 40 Mg TABLET 2014-02-18 00:00:00 No 40 Rt Daily [facility] Verapamil Hcl (Verapamil Er) 120 Mg CAP24H.PEL Verapam il Hcl (Verapamil Er) 120 Mg CAP24H.PEL 2014-02-18 00:00:00 No 120 Rt Daily [facility] Vital Signs Vital Name Observation Time Observation Value Comments Source HEIGHT 2020-01-07 11:53:50 160 cm WEIGHT 2020-01-07 11:53:50 51.9 kg HEIGHT 2020-01-07 11:53:50 160 cm WEIGHT 2020-01-07 11:53:50 51.9 kg Systolic blood pressure 2020-01-24 20:16:00 145 mm[Hg] [facility] Diastolic blood pressure 2020-01-24 20:16:00 63 mm[Hg] [facility] Heart rate 2020-01-24 20:16:00 77 /min [facility] Body temperature 2020-01-24 20:16:00 36.22 Mariana [facility] Respiratory rate 2020-01-24 20:16:00 18 /min [facility] Oxygen saturation in Arterial blood by Pulse oximetry 2019-03 20:16:00 97 /min [facility] weight 2020-01-24 04:59:[address] [facility] BMI 2020-01-24 04:59:00 23.44 kg/m2 [facility] Body height 2020-01-23 04:00:[address] [facility] Systolic blood pressure 2020-01-07 17:53:50 166 mm[Hg] MD Ardon Diastolic blood pressure 2020-01-07 17:53:50 60 mm[Hg] MD Ardon Heart rate 2020-01-07 17:53:50 69 /min MD Isaac culver Body temperature 2020-01-07 17:53:50 36.61 Mariana MD Keya burkett Respiratory rate 2020-01-07 17:53:50 17 /min MD Keya burkett Body height 2020-01-07 17:53:50 160 cm MD Isaac culver Body weight 2020-01-07 17:53:50 51.9 kg MD Isaac culver BMI 2020-01-07 17:53:50 20.27 kg/m2 MD Isaac culver Oxygen saturation in Arterial blood by Pulse oximetry 2019-03 17:53:50 98 /min MD Ardon Weight 2019-10-13 19:34:00 138 [lb_av] [facility] BMI (Body Mass Index) 2019-10-13 19:34:00 25.2 kg/m2 [facility] Weight 2017-02-23 20:00:00 [facility] Height 2017-02-23 20:00:00 [facility] Temperature Oral (F) 2017-02-23 20:00:00 97.0 F [facility] Heart Rate 2017-02-23 20:00:00 [facility] Diastolic (mm Hg) 2017-02-23 20:00:00 [facility]an Systolic (mm Hg) 2017-02-23 20:00:00 [facility] Procedures Procedure Date / Time Performed Performing Clinician Debra ESTRADA MYOCARDIAL PERFUSION PET/CT (REST & STRESS) 2020-01-24 12 :27:00 [facility] 2020-01-24 12:19:44 Unknown, Hl7 [facility] ECG 12-LEAD 2020-01-24 12:19:26 Unknown, Hl7 [facility] 2D ECHO W/ DOPPLER (CW/PW/COLOR) 2020-01-24 07:58:33 [facility] BASIC METABOLIC PANEL (7) 2020-01-24 03:54:00 Harry Estrada [facility] TSH/FREE T4 IF INDICATED 2020-01-24 03:54:00 Donn [facility] VITAMIN B12 AND FOLATE 2020-01-24 03:54:00 Donn [facility] IRON, TIBC, % SAT. (WITHOUT FERRITIN) 2020-01-24 03:54:00 [facility] CBC W/PLT COUNT & AUTO DIFFERENTIAL 2020-01-24 03:54:00 Reston, Harry Elbert [facility] TROPONIN I 2020-01-23 22:02:00 Coretta Esteves [facility] URINALYSIS WITHOUT MICROSCOPIC 2020-01-23 16:02:00 Natalie, Hue sky [facility] OSMOLALITY, URINE 2020-01-23 16:02:00 Reston, Harry [facility] SODIUM, RANDOM URINE 2020-01-23 16:02:00 Natalie, Harry Bennett [facility] CHLORIDE, RANDOM URINE 2020-01-23 16:02:00 [place]on, Harry Bennett [facility] TROPONIN I 2020-01-23 15:35:00 Coretta Esteves [facility] PROTHROMBIN TIME/INR 2020-01-23 06:04:00 Natalie, Harry Bennett [facility] MAGNESIUM 2020-01-23 06:04:00 Natalie, Harry Bennett [facility] PHOSPHORUS 2020-01-23 06:04:00 Reston, Harry [facility] OSMOLALITY, SERUM 2020-01-23 06:04:00 Reston, Harrydiego Bennett [facility] BASIC METABOLIC PANEL (7) 2020-01-23 06:04:00 Reston, Harry lin [facility] CBC W/PLT COUNT & AUTO DIFFERENTIAL 2020-01-23 06:04:00 Natalie, Harry [facility] CT CHEST WITHOUT IV CONTRAST 2020-01-23 04:10:00 Reston, Harry [facility] SARS-COV2/RT-PCR ([facility]) 2020-01-22 22:47:00 [place]on, Roz auguste [facility] D-DIMER 2020-01-22 20:55:00 Vasyl Cesra [facility] B-TYPE NATRIURETIC FACTOR (BNP) 2020-01-22 20:54:00 Arsenio [facility] BASIC METABOLIC PANEL (7) 2020-01-22 20:54:00 Vasyl Cesar [facility] TROPONIN I 2020-01-22 20:54:00 Vasyl Cesar [facility] HEPATIC FUNCTION PANEL 2020-01-22 20:54:00 Harry Estrada [facility] CBC W/PLT COUNT & AUTO DIFFERENTIAL 2020-01-22 20:54:00 Jacqueline Cesar [facility] XR CHEST 1 VIEW PORTABLE/BEDSIDE 2020-01-22 20:25:00 Arsenio [facility] ED ECG INTERPRETATION 2020-01-22 20:11:15 Arsenio Vasyl [facility] ECG 12-LEAD 2020-01-22 19:24:23 Unknown, Hl7 [facility] DEXA BONE MINERAL DENSITY BOTH HIPS AND SPINE 2020-01-07 17: 20:42 Joe Reyes MD ALBUMIN LEVEL 2020-01-07 16:16:00 Joe Reyes MD CTX BETA CROSSLAPS 2020-01-07 16:16:00 Joe Reyeser son OSTEOCALCIN 2020-01-07 16:16:00 Joe Reyes MD [...] MD rson SERUM CREATININE 2020-01-07 16:16:00 Joe Reyse MD .GLOMERULAR FILTRATION RATE 2020-01-07 16:16:00 Joe Reyes MD FREE KAPPA/FREE LAMBDA RATIO 2020-01-07 16:16:00 Joe Reyes MD .DR. EDEN SPENCER PATH REVIEW 2020-01-07 16:16:00 Joe Reyes MD .DR. HARMON PROT HÉCTOR PATH REVIEW 2020-01-07 16:16:00 Selvin Reyes MD SEDIMENTATION RATE 2019-12-20 12:35:00 Zohra Tony on [employer] VITAMIN B1 LEVEL 2019-12-20 12:35:00 Zohra Tony [employer] FOLATE LEVEL 2019-12-20 12:35:00 ChavoZhora dickerson THYROID STIMULATING HORMONE 2019-12-20 12:35:00 Zohra Tony [employer] VITAMIN B12 LEVEL 2019-12-20 12:35:00 Zohra Tonyto n [employer] VITAMIN B6 LEVEL, PLASMA 2019-12-20 12:35:00 Zohra Tony HEMOGLOBIN A1C 2019-12-20 12:35:00 Zohra Tony MRI BRAIN WO CONTRAST 2019-12-06 11:01:38 Zohra Tony [place] [employer] KARINA SCREEN W IFA W REFLEX TO TITER 2019-12-06 00:00:00 Zohra Tony Plan of Care Planned Activity Planned Date Details Comments Source Future Scheduled Test 2019-11-06 00:00:00 INFLUENZA VACCINE (#1) [code = INFLUENZA VACCINE (#1)] [facility] Future Scheduled Test 2019-10-06 00:00:00 INFLUENZA VACCINE [code = INFLUENZA VACCINE] [facility] Future Scheduled Test 2001-04-08 00:00:00 MEDICARE ANNUAL WE LLNESS (YEAR 2 or FIRST YEAR if no IPPE) [code = MEDICARE ANNUAL WELLNESS (YEAR 2 or FIRST YEAR if no IPPE)] [facility] r Future Scheduled Test 2000 00:00:00 65+ PNEUMOCOCCAL V ACCINE (1 of 1 - PPSV23) [code = 65+ PNEUMOCOCCAL VACCINE (1 of 1 - PPSV23)] [facility] Future Scheduled Test 2000 00:00:00 PNEUMOCOCCAL 65+ Y RS (1 of 1 - [id number]) [code = PNEUMOCOCCAL 65+ YRS (1 of 1 - [id number] PCV13)] [facility] Scheduled Test 1985 00:00:00 SHINGLES VACCINES (#1) [code = SHINGLES VACCINES (#1)] [facility] Hypertension [facility] Encounters Start Date/Time End Date/Time Encounter Type Admission Type Attendi [facility] Care Department Encounter ID Source 2020-01-07 10:02:58 2020-01-07 23:59:00 Outpatient NABEEL REYES JOE CON [facility] [id number] [facility] 2020-01-07 11:45:54 2020-01-07 13:44:08 Outpatient JOE GARDUNO MDA [facility] [id number] [facility] 2020-01-07 10:41:37 2020-01-07 10:41:37 Outpatient JOE GARDUNO [facility] [id number] [facility] 2019-12-06 00:00:00 2019-12-06 00:00:00 Outpatient ZOHRA TONY [facility] [id number] [facility] 2019-12-06 00:00:00 2019-12-06 00:00:00 Outpatient ZOHRA TONY [facility] [id number] [facility] 2019-11-30 00:00:00 2019-11-30 00:00:00 Outpatient ZOHRA TONY [facility] [id number] [facility] 2019-10-19 08:42:58 2019-10-19 09:02:58 Office Visit Usman Verdugo [facility] [id number] 2019-10-13 20:10:00 2019-10-13 21:00:00 Departed Emergency Room [facility] [id number] [facility] 2018-12-12 10:18:03 2018-12-12 10:38:03 Office Visit Usman Verdugo [facility] [id number] 2018-10-24 15:00:00 2018-11-04 23:59:[address] [facility] [id number] [facility] 2018-10-24 09:13:19 2018-10-24 09:33:19 Office Visit Usman Verdugo [facility] [id number] 2018-09-05 11:12:00 2018-10-04 23:59:[address] [facility] [id number] [facility] 2018-09-01 08:05:00 2018-09-03 23:59:[address] [facility] [id number] [facility] 2018-08-14 10:58:00 2018-08-14 10:58:00 Registered Clinic [address] [facility] [id number] [facility] 2018-06-06 13:34:00 2018-06-06 16:58:[address] [facility] [id number] [facility] 2017-08-06 04:55:00 2017-08-07 15:58:[address] [facility] [id number] [facility] 2017-02-23 14:00:00 2017-02-23 14:00:00 Outpatient Sallie Vincent [place] [id number] [employer] 2017-01-18 08:56:00 2017-01-18 18:20:00 Departed Emergency Room ER ALE STEVE [facility] [id number] [facility] Results Test Description Test Time Test Comments Results Result Comments Source CT ABDOMEN/PELVIS WO 2020-01-26 03:48:00 [facility] 1935 Sex: F [place] [address] Patient Name: LILLY BREWSTER MR #: [id number] : 1935 Age/Sex: 84/F Req #: [id number] Adm Physician: Ordered by: MAGDALENA ESCOTO DO Report #: [id number] Location: ER Room/Bed: Procedure: [id number] CT/CT ABDOMEN/PELVIS WO Exam Date: 01/26/20 Exam [...] Transcribed By: CODEY on 01/26/20422 COPY TO: JEVONMAGDALENA [facility] SINGLE (PORTABLE) 2020-01-26 03:47:00 [facility] 1935 Sex: F [place] [address] Patient Name: LILLY BREWSTER #: [id number] : 1935 Age/Sex: 84/F Req #: [id number] [facility] Physician: Ordered by: MAGDALENA ESCOTO DO Report #: [id number] Location: ER Room/Bed: Procedure: [id number] DX/CHEST SINGLE (PORTABLE) Exam Date: Exam Time: [...] AND STRESS 2020-01-24 15:06:00 Reason for exam:->[facility] 1935 Sex: FFINAL REPORT PROCEDURE: MYOCARDIAL PERFUSION PET/CT IMAGING (Rest/Stress)CPT CODE: 04068 INDICATION: Chest pain, coronary artery disease CARDIOVASCULAR [...] Verified Date/Time: 01/24/2020 15:06:52 Reading Location: [address] Reading Room Myocardial Perfusion Pet/CT (Rest & Stress) 2020-01-24 15:06: 00 Interface, External Ris In - 01/24/2020 3:09 PM CSTFINAL REPORT PROCEDURE: MYOCARDIAL PERFUSION PET/CT IMAGING (Rest/Stress)CPT CODE: 60635 INDICATION: Chest pain, coronary artery disease CARDIOVASCULAR [...] Verified Date/Time: 01/24/2020 15:06:52 Reading Location: [address] Reading Room [facility] r ECG 12 lead 2020-01-24 15:04:33 Interface, E xternal Ris In - 01/24/2020 3:04 PM CSTVentricular Rate 67 BPMAtrial Rate 67 BPMP-R Interval 202 msQRS Duration 80 msQ-T Interval 428 msQTC Calculation(Bazefelice) 452 msP Henrietta 64 degreesR Henrietta 47 degreesT Henrietta [address] and T wave abnormalityAbnormal ECGConfirmed by MD Sung, Robert ([id number]) on 01/24/2020 3:04:31 PM 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 Fanny Duffy RUST Interpreting Bob Carpenter MD Physician Procedure Type [...] CO: 5.92 l/min LVOT CI: 3.65 l/min/m^2 [facility] TSH/Free T4 If Indicated 2020-01-24 05:00:00 Test Item TSH (test code = 73435-7) 1.768 0.350- 4.940 uIU/mL CHOLO (test code = CHOLO) Software Licensing Specialist ID - TESFAYE M Lab Interpretation (test code = 65027-7) Normal [facility] CenterVitamin B12 and Eypxek4927-64-86 05:00:00* Test Item Value Reference Range Interpretation Comments Vitamin B12 (test code = 2132-9) 512 pg/mL 213-816 Folate (test code = 2284-8) 13.20 ng/mL >=7.00 CHOLO (test code = CHOLO) Software Licensing Specialist ID - TESFAYE M Lab Interpretation (test code = 21656-9) Normal [facility] CenterTSH/FREE T4 IF [id number] 05:00:00* Test Item Value Reference Range Interpretation Comments THYROID STIMULATING HORMONE (BEAKER) (test code = 772) 1.768 uIU /mL 0.350-4.940 Software Licensing Specialist ID - TESFAYE MVITAMIN B12 AND ZZEFAD2668-19-77 05:00:00* Test Item Value Reference Range Interpretation Comments VITAMIN B12 (BEAKER) (test code = 774) 512 pg/mL 213-816 FOLATE (BEAKER) (test code = 362) 13.20 ng/mL >=7.00 Software Licensing Specialist ID - TESFAYE MBasic metabolic cmtey7128-26-45 04:39:00* Test Item Value Reference Range Interpretation Comments Sodium (test code = 2951-2) 131 meq/L 136-145 L Potassium (test code = 2823-3) 4.2 meq/L 3.5-5.1 Chloride (test code = 5-0) 100 meq/L 98-107 CO2 (test code = 2027-9) 24 meq/L 22-29 BUN (test code = 3094-0) 14 mg/dL 7-21 Creatinine (test code = 2160-0) 0.75 mg/dL 0.57-1.25 Glucose (test code = 2345-7) 99 mg/dL 70-105 Calcium (test code = 95823-2) 8.7 mg/dL 8.4-10.2 EGFR (test code = 54310-3) 74 mL/min/1.73 sq m ESTIMATED GFR IS NOT ACCURATE CREATININE CLEARANCE IN PREDICTING GLOMERULAR FILTRATION RATE. ESTIMATED GFR IS NOT APPLICABLE FOR DIALYSIS PATIENTS. CHOLO (test code = CHOLO) Software Licensing Specialist ID - TESFAYE M Lab Interpretation (test code = 47836-5) Abnormal [facility] CenterBASIC METABOLIC NAPQN4810-01-56 04:39:00* Test Item Value Reference Range Interpretation [...] GFR IS NOT APPLICABLE FOR DIALYSIS PATIENTS. Software Licensing Specialist ID - TESFAYE Vineson, TIBC, % sat. (without ferritin)2020-01-24 04:25:00* Test Item Value Reference Range Interpretation Comments Iron (test code = 2498-4) 73.0 ug/dL 40-160 TIBC (test code = 2500-7) 271 ug/dL 250-450 Iron % Saturation (test code = 2502-3) 27 % 20-55 CHOLO (test code = CHOLO) Software Licensing Specialist MATEO Villegas TESFAYE Sky Lab Interpretation (test code = 32245-4) Normal [facility] Hospital[facility], [facility]BC, % SAT. (WITHOUT FERRITIN)2020-01-24 04:25:00* Test Item Value Reference Range Interpretation Comments IRON (BEAKER) (test code = 547) 73.0 ug/dL 40.0-160.0 TOTAL IRON BINDING CAPACITY (BEAKER) (test code = 769) 271 ug/dL 250-450 IRON % SATURATION (2) (BEAKER) (test code = 2590) 27 % 20-5 5 Software Licensing Specialist MATEO CARLIN MCBC with platelet count + automated ypby4632-37-00 04:08:00 * Test Item Value Reference Range [...] 450 K/CU MM MPV (test code = 35020-9) 8.9 fL 9.4-12.3 L nRBC (test code [...] % 0-1 Lab Interpretation (test code = 11578-9) Abnormal [facility] W/PLT COUNT & AUTO XZRSRTHUEXZZ9265-12-08 04:08:00* Test Item Value Reference Range Interpretation [...] code = 2801) 0 % 0-1 Troponin [id number] 22:49:00* Test Item Value Reference Range Interpretation Comments Troponin I (test code = 34417-6) 0.03 ng/mL 0-0.03 CHOLO (test code = [...] failure, acidosis, acute neurological disease, and persistent tachyarrhythmia.Software Licensing Specialist ID - BS Lab Interpretation (test code = 00174-4) Normal [facility] CenterTROPONIN [id number] 22:49:00* Test Item Value Reference Range Interpretation [...] acidosis, acute neurological disease, and per sistent tachyarrhythmia.Software Licensing Specialist ID - BSOsmolality, gmoni4032-28-89 16:43:00* Test Item Value Reference Range Interpretation Comments Osmolality, Ur (test code = 2695-5) 276 50-1,200 mOsm/kg m Osm/kg Lab Interpretation (test code = 96386-9) Normal [facility] CenterUrinalysis without Zvknhnjiktx0336-41-48 16:43:00* Test Item Value Reference Range Interpretation Comments Color, UA (test code = 5778-6) Yellow Clarity, UA (test code = 5767-9) Hazy Specific Nuevo, UA (test code = 5811-5) 1.010 1.001-1.035 pH, UA (test code = 5803-2) 6.0 5.0-8.0 Protein, UA (test code = 95062-2) Negative Negative Glucose, UA (test code = 365) Negative Negative Ketones, UA (test code = 2514-8) Negative Negative Bilirubin, UA (test code = 26077-8) Negative Negative Blood, UA (test code = 23407-8) Negative Negative Nitrite, UA (test code = 5802-4) Negative Negative Leukocytes, UA (test code = 5799-2) Large Negative A Urobilinogen, UA (test code = 36559-1) 0.2 mg/dL 0.2-1 Specimen Source (test code = 2795) CHOLO (test code = CHOLO) Software Licensing Specialist ID - [auto] Lab Interpretation (test code = 71940-0) Abnormal [facility] CenterOSMOLALITY, VTVRE0557-96-29 16:43:00* Test Item Value Reference Range Interpretation Comments OSMOLALITY URINE (BEAKER) (test code = 614) 276 mOsm/kg 50-1,200 m Osm/kg URINALYSIS WITHOUT BVLRHOWSAEJ8713-57-92 16:43:00* Test Item Value Reference Range Interpretation [...] mg/dL 0.2-1.0 SOURCE(BEAKER) (test code = 2795) Software Licensing Specialist ID - [auto]Chloride, random yywcf0577-82-31 16:39:00* Test Item Value Reference Range Interpretation Comments ChlorideUr (test code = 55113-6) 32 meq/L CHOLO (test code = CHOLO) Reference Range: No NormalsOperator ID - BS [facility] Centerodium, random wnuhy4705-09-11 16:39:00* Test Item Value Reference Range Interpretation Comments Sodium Urine (test code = 2955-3) 34 meq/L CHOLO (test code = CHOLO) Reference Range: No NormalsOperator ID - BS [facility] CenterCHLORIDE, RANDOM [id number] 16:39:00* Test Item Value Reference Range Interpretation Comments CHLORIDE URINE (BEAKER) (test code = 682) 32 meq/L Reference Range: No NormalsOperator ID - BSSODIUM, RANDOM [id number] 16:39:00* Test Item Value Reference Range Interpretation Comments SODIUM URINE (BEAKER) (test code = 243) 34 meq/L Reference Range: No NormalsOperator ID - BSTROPONIN [id number] 16:13:00* Test Item Value Reference Range Interpretation Comments TROPONIN I (BEAKER) (test code = 397) 0.02 ng/mL 0.00-0.03 [...] acidosis, acute neurological disease, and per sistent tachyarrhythmia.Software Licensing Specialist ID - ADMINSARS-CoV2/RT-PCR (Asymptomatic ONLY) 2020-01-23 12:56:00* Test Item Value Reference Range Interpretation Comments SARS-COV2/RT-PCR (test code = 12943-3) Negative N ot Detected, Negative, See external report for linked test SARS-COV-2 PERFORMING LAB (test code = 27093-2) [facility] SAMEER EMMANUEL [...] of the Act. Fact Sheet for Healthcare Providers:https://www.[employer]sites/default/files/product/documents/Fact_Shee d_IC_Daxcxzkid_Evrz_TIGW-GoD-7.pdf Fact Sheet for Healthcare Patients:https://www.[employer]sites/default/files/pro duct/documents/Ttzu_Eufxd_Vbxywxpy_Hjsm_RMDP-ZyA-6.pdf Performing Laboratory:[facility] [place] [address] [facility] CenterARS-COV2/RT-PCR ([facility])2020-01-23 12:56:00* Test Item Value Reference Range Interpretation Comments SARS-COV2/RT-PCR (test code = 9131547) Negative N ot Detected, Negative, See external report for linked test SARS-COV-2 PERFORMING LAB (test code = 6916781) [facility] SAMEER Negative [...] suspected false negatives.The limit of detection for is assay is 800 copies/mL.This SARS CoV-2 test is a real-time RT-PCR test intend ed for the qualitative detection of nucleic acid from SARS-CoV-2 in a nasopharyn geal swab specimen collected from individuals suspected of COVID-19 by their [facility] provider.This test has not been Food and Drug Administration (FDA) clear ed or approved. This is a modified version of an approved Emergency Use Authori zation (EUA) and is in the process of review by the FDA. Once authorized by [facility] FDA, the issued EUA will be effective until the declaration that circumstances exist justifying the authorization of the emergency use of in vitro diagnostic tests for detection and/or diagnosis of COVID-19 is terminated under Section 564 (b)(2) of the Act or the EUA is revoked under Section 564(g) of the Act.Fact She et for Healthcare Providers:https://www.[employer]walk/sites/default/files/product/d ocuments/Fecy_Jqsum_NP_Qujlhianu_Yofh_SLCW-JmC-1.pdfFact Sheet for Healthcare Pa leroy:https://www.[employer]walk/sites/default/files/product/documents/Fact_Sheet_P wtphfze_Lwoo_GVFY-BvT-0.pdfPerforming Laboratory:[facility] r[address], [place] [address]Dmovltrcwz, htiyf7601-58-47 08:21:00* Test Item Value Reference Range Interpretation Comments Osmolality Serum (test code = 2692-2) 278 275- 295 mOsm/kg Lab Interpretation (test code = 12997-2) Normal [facility] CenterOSMOLALITY, RCWDB7162-57-73 08:21:00* Test Item Value Reference Range Interpretation Comments OSMOLALITY, SERUM (BEAKER) (test code = 615) 278 mOsm/kg 275-295 CT, CHEST, WITHOUT OAVDTVFH8967-77-80 08:17:00Unlisted Reason for Exam - Click Yes and Enter Reason Below->No [facility] : 1935 Sex: F [...] the right coronary artery. SOFT TISSUES AND LDAI ELIZABETH: The bones are diffusely demineralized. UPPER [...] MDReport Verified Date/Time: 01/23/2020 08:17:57 Reading Location: [facility] Diagnostic Imaging Reading Room - [place] [address] chest without IV contrast 2020-01-23 08:17:00Interface, External [...] Verified Date/Time: 01/23/2020 08:17:57 Reading Locati on: [facility] Diagnostic Imaging Reading Room - [facility] F1 1129 Electronically sig nigel by: LESLEY VILLATORO MD on 01/23/2020 08:17 AM [facility] BASIC METABOLIC [id number] 07:25:00* Test Item Value Reference Range Interpretation [...] GFR IS NOT APPLICABLE FOR DIALYSIS PATIENTS. Software Licensing Specialist ID - PRISCILLA BKylsmdqjh1250-04-88 07:22:00* Test Item Value Reference Range Interpretation Comments Magnesium (test code = 61490-3) 1.9 mg/dL 1.6-2.6 CHOLO (test code = CHOLO) Software Licensing Specialist ID - PRISCILLA C Lab Interpretation (test code = 81100-8) Normal [facility] CenterPhosphorus2020-11-18 07:22:00* Test Item Value Reference Range Interpretation Comments Phosphorus (test code = 2777-1) 3.3 mg/dL 2.3-4.7 CHOLO (test code = CHOLO) Software Licensing Specialist ID - PRISCILLA C Lab Interpretation (test code = 20886-0) Normal [facility] CenterMAGNESIUM2020-11-18 07:22:00* Test Item Value Reference Range Interpretation Comments MAGNESIUM (BEAKER) (test code = 627) 1.9 mg/dL 1.6-2.6 Software Licensing Specialist ID - PRISCILLA HRUTHSHWOFN9274-52-52 07:22:00* Test Item Value Reference Range Interpretation Comments PHOSPHORUS (BEAKER) (test code = 604) 3.3 mg/dL 2.3-4.7 Software Licensing Specialist ID - PRISCILLA CProthrombin time/[id number] 06:34:00* Test Item Value Reference Range Interpretation [...] heart valves. Lab Interpretation (test code = 24981-4) Normal [facility] CenterPROTHROMBIN TIME/BVX6441-30-69 06:34:00* Test Item Value Reference Range Interpretation [...] mechanical heart valves.CBC W/PLT COUNT & AUTO ZDGHHIHUVZOF6800-40-11 06:28:00* Test Item Value Reference Range Interpretation [...] = 2801) 0 % 0-1 Hepatic function cgews0617-14-22 03:11:00* Test Item Value Reference Range Interpretation Comments Protein, Total (test code = 2885-2) 7.1 6.0- 8.3 gm/dL Specimen slightly hemolyzed Albumin (test code = 42914-4) 4.1 g/dL 3.5-5 Specimen slightly hemolyzed Total Bilirubin (test code = 1974-2) 0.2 mg/dL 0.2-1.2 Specimen slightly hemolyzed Bilirubin, Direct (test code = 1967-7) 0.1 mg/dL 0.1-0.5 Specimen slightly hemolyzed Alkaline Phosphatase (test code = 6768-6) 35 U/L 40-150 L AST (test code = 1920-8) 24 U/L 5-34 Spe cimen slightly hemolyzed ALT (test code = 1742-6) 17 U/L 6-55 Spe cimen slightly hemolyzed CHOLO (test code = CHOLO) Software Licensing Specialist ID - TESFAYE M Lab Interpretation (test code = 46048-7) Abnormal [facility] HospitalHEPATIC FUNCTION NYBMT9640-48-62 03:11:00* Test Item Value Reference Range Interpretation [...] 347) 17 U/L 6-55 Specimen slightly hemolyzed Software Licensing Specialist ID - TESFAYE MTROPONIN [id number] 21:48:00* Test Item Value Reference Range Interpretation [...] acidosis, acute neurological disease, and per sistent tachyarrhythmia.Software Licensing Specialist ID - BSB-type Natriuretic Factor (BNP) 2020-01-22 21:45:00* Test Item Value Reference Range Interpretation Comments BNP (test code = 59424-3) 66 pg/mL 0-100 CHOLO (test code = CHOLO) Software Licensing Specialist ID - BS Lab Interpretation (test code = 33252-7) Normal [facility] HospitalB-TYPE NATRIURETIC FACTOR (BNP)2020-01-22 21:45:00 * Test Item Value Reference Range Interpretation Comments B-TYPE NATRIURETIC PEPTIDE (BEAKER) (test code = 700) 66 pg/mL 0-100 Software Licensing Specialist ID - BSBASIC METABOLIC NJTPI8209-20-19 21:38:00* Test Item Value Reference Range Interpretation [...] GFR IS NOT APPLICABLE FOR DIALYSIS PATIENTS. Software Licensing Specialist ID - BSD-dimer, uitdltmmzzoy4362-71-21 21:25:00* Test Item Value Reference Range Interpretation Comments D-Dimer, Quant (test code = 84349-5) 0.70 <0.50 MG/L FEU H CHOLO (test [...] 95-100% range. Lab Interpretation (test code = 08841-2) Abnormal [facility] CenterD-FENCJ4908-52-24 21:25:00* Test Item Value Reference Range Interpretation [...] 0.50 MG/L FEU, the Negative Predictive Value (BRINE WELL OPERATOR V) regarding the exclusion of thrombosis is within 95-100% range.CBC W/PLT COUNT & AUTO RBLFZWPPPMXU1353-78-95 21:22:00* Test Item Value Reference Range Interpretation [...] % 0-1 RAD, CHEST, 1 VIEW, NON [id number] 21:03:00Reason for exam:->SHORTNESS OF BREATHShould this be performed at the bedside?->Yes [facility] 1935 Sex: [...] PM XR chest 1 view portable / tddkcuy4223-65-91 21:03:00Interface, External Ris In - 01/22/2020 9:05 PM CSTFINAL REPORT INDICATION: SHORTNESS OF BREATH COMPARISON: None TECHNIQUE: Single frontal view of the chest. IMPRESSION: Lungs and pleura: There is bilateral venous congestion with bibasilar streaky opacities suggestive of atelectasis. No consolidation or effusion..Heart and mediastinum: Normal heart size. Unremarkable mediastinal contours.Osseous structures: No acute abnormality.Other: None. Signed: Elbert Fitzpatrick Verified Date/Time: 01/22/2020 21:03:40 [facility] CenterECG/EKG Yqjbwukmcmmzui7006-11-85 20:11:15* Test Item Value Reference Range Interpretation Comments CHOLO (test code = CHOLO) Vasyl Cesar MD 1 03/24/2019 10:38 AMECG/EKG Interpretation Date/Time: 01/22/2020 9:16 PMPerformed by: Vasyl Cesar MDAuthorized by: Vasyl Cesar MD The ECG was interpreted by ED physician. This ECG was compared with previous ECG(s).The ECG is interpreted as sinus rhythm. Rate is normal rate. Heart rate is 79 BPM.Conduction: conduction normal. ST segments normal. T waves abnormal. T-wave flattening in lead(s) aVL. Henrietta is normal. Clinical Impression: non-specific ECG and abnormal ECGECG reviewed and does not meet STEMI criteria. Lab Interpretation (test code = 01063-0) Abnormal [facility] I Intact C-Cihd4170-20Mwio7146-83-02 02:00:24* Test Item Value Reference Range Interpretation Comments Procolg I Intact H-Vgxyywju-Knby (test code = 23882-8) 21 mcg/L REFERENCE VALUE Premenopausal: Postmenopausal: Test Performed by:[address] [id number] Director: Ferny Freeman M.D. Ph.D.; CLIA# [id number] MD [place] Path Mzaaje0506-66-48 16:12:29* Test Item Value Reference Range Interpretation Comments JOHANNA Path Int (test code = 5949) The follow-up serum pr otein immunofixation electrophoretic patterns obtained with the use of antisera against IgG, IgA, IgM, bound kappa and bound lambda light chains do not show definitive evidence of a monoclonal gammopathy. MD Nelly GARAY [id number] by: MD Nelly GARAY [id number] Date/Time: 01.08.2020 10:12 AM PYTHON ARCHITECT Transcribed Date/Time: 01.08.2020 10:12 AM CSTElectronically Signed By: MD Nelly GARAY [id number] on 01.08.2020 10:12 AM MD TijerinaMrhioyrpPCL6300-61-97 16:12:28* Test Item Value Reference Range Interpretation Comments JOHANNA (test code = 5948) No M-protein MD AndersonProtein Electrophoresis Path Sztpwd6117-91-44 16:12:27* Test Item Value Reference Range Interpretation Comments SPE Path Interp (test code = 7285) The follow-up serum protein electrophoretic pattern does not show definitive evidence of an M-protein peak. MD Nelly GARAY [id number] by: MD Nelly GARAY84Dictated Date/Time: 01.08.2020 10:12 AM PYTHON ARCHITECT Transcribed Date/Time: 01.08.2020 10:12 AM CSTElectronically Signed By: MD Nelly GARAY [id number] on 01.08.2020 10:12 AM MD ArdonSerum Protein Hdkeqhndutcgvzx1508-37-78 16:12:26* Test Item Value Reference Range Interpretation [...] = 2874-6) 0.9 0.7- 1.6 gm/dL MD ArdonXykliafkDcgizmymmjx0951-05-67 19:33:45* Test Item Value Reference Range Interpretation Comments Osteocalcin (test code = 6574) 13 ng/mL 9-42 MD ArdonVitamin D 83QB2471-09-29 18:58:04* Test Item Value Reference Range Interpretation Comments Vitamin D 25 OH (test code = 8018) 73 ng/mL 30-100 Reference Range: Deficiency: <10 ng/mLInsufficiency: 10-29 ng/mLSufficiency: 30-100 ng/mLPotential toxicity: >100 ng/mL MD ArdonNM Bone Mineral Density Both Hips and Iblcs0434-73-09 18:51:22 1. Osteoporosis.2. A statistically significant increases noted in the lumbar spine. I personally reviewed these image(s) along with the resident's/fellow's int erpretations, certify that if a procedure was performed I was physically present , and agree with the final report.Interface, Radiology Results In - 01/07/2020 1 2:53 PM CSTFULL RESULT: Examination: Bone Mineral Density (DXA), 01/07/2020Clinic al History: An 84-year-old postmenopausal female.Indication: Assessment [...] and agree with the final report .MD ArdonCTJeison Beta Qphszpgdj6073-12-25 18:50:24* Test Item Value Reference Range Interpretation Comments CTX (test code = 5250) 201 pg/mL Males:<30 years: not uiqxfzatoqi92-20 years: 16 - 584 pg/mL51-70 years: 10 - 704 pg/mL>70 years: 10 - 854 pg/mL Females:Premenopausal: 25 - 573 pg/mLPostmenopausal: 104 - 1008 pg/mL DuglasPTH Spxtin0923-17-83 17:49:41* Test Item Value Reference Range Interpretation Comments PTH Intact (test code = 6769) 33.3 pg/mL 15-65 MD ArdonPhosphorus Ysbyv6336-90-03 17:31:35* Test Item Value Reference Range Interpretation Comments Phosphorus (test code = 6817) 3.1 mg/dL 2.5-4.5 MD ArdonCalcium Cnijd0108-06-66 17:31:34* Test Item Value Reference Range Interpretation Comments Calcium Lvl (test code = 5258) 10.1 mg/dL 8.4-10.2 MD ArdonGlomerular Filtration Ljwz6684-73-03 17:31:33* Test Item Value Reference Range Interpretation [...] GFR 15-295 Kidney failure <15 MD ArdonAlbumin Gzckb6196-40-07 17:31:32* Test Item Value Reference Range Interpretation Comments Albumin Lvl (test code = 4763) 4.7 3.5- 5.2 gm/dL MD Ardon.Serum Albkqpjogw2730-05-88 17:31:31* Test Item Value Reference Range Interpretation Comments Creatinine (test code = 5399) 0.83 mg/dL 0.51-0.95 [facility] [place]/Free Lambda Usreo2288-84-92 17:26:57* Test Item Value Reference Range Interpretation Comments FKap/FLam RT (test code = 5566) 1.32 0.26-1.65 [facility] Lambda Light Movbg4652-21-87 17:26:56* Test Item Value Reference Range Interpretation Comments Free Lambda (test code = 5630) 19.95 mg/L 5.71-26.3 [facility] [place] Light Dttnx5685-49-09 17:26:55* Test Item Value Reference Range Interpretation Comments Free [place] (test code = 5629) 26.25 mg/L 3.3-19.4 H Lab Interpretation (test code = 74814-4) Abnormal MD ArdonVitamin B12 gssdb9883-43-29 11:41:00* Test Item Value Reference Range Interpretation Comments Vitamin B12 (test code = 2132-9) 694 pg/mL 200-1100 CHOLO (test code = CHOLO) FASTING:YESFASTING: YES RAC (test code = RAC) Performing Organization Info rmation: Site ID: RGA Name: [facility] Address: [address] [place] [phone] Director: Joe SavageFolate wjgib1513-06-64 11:41:00* Test Item Value Reference Range Interpretation Comments Folate (test code = 2284-8) 17.5 ng/mL Reference Range Low: <3.4 Borderline: 3.4-5.4 Normal: >5.4 CHOOL (test code = CHOLO) FASTING:YESFASTING: YES RAC (test code = RAC) Performing Organization Info rmation: Site ID: RGA Name: [facility] Address: [address] [place] [address] Director: Joe Cabrera [facility] MethodistHemoglobin K2v2989-24-69 11:41:00* Test Item Value Reference Range Interpretation [...] diagnosis of diabetes in children. According to [place] Diabetes Association (ADA)guidelines, hemoglobin A1c <7.0% represents optimalcontrol in non- diabetic patients. Differentmetrics may apply to specific patient populations. Standards of Medical Care in Diabetes(ADA). CHOLO (test code = CHOLO) FASTING:YESFASTING: YES RAC (test code = RAC) Performing Organization Info rmation: Site ID: RGA Name: [facility] Address: [address] [place] [phone] Director: Joe Cabrera [facility] MethodistVitamin B6 level, yckshr4729-09-84 11:41:00* Test Item Value Reference Range Interpretation Comments Vitamin B6 (test code = 2900-9) 29.2 ng/mL 2.1-21.7 H Vitamin supplementation within 24 hours prior to blood draw may affect the accuracy of results. This test was developed and its analytical performance characteristics have been determined by [facility]. It has not been cleared or approved by theA. This assay has been validated pursuant to the CLIA regulations and is used for clinical purposes. CHOLO (test code = CHOLO) FASTING:YESFASTING: YES RAC (test code = RAC) Performing Organization Info rmation: Site ID: SLI Name: [facility] Address: [address] [place] [address] Director: Cecil Hamlin M.D. Lab Interpretation (test code = 45242-0) Abnormal [facility] MethodistVitamin B1 knkzk8963-56-72 11:41:00* Test Item Value Reference Range Interpretation Comments Vitamin B1 (test code = 94247-2) 24 nmol/L 8-30 Vitamin supplementation within 24 hours prior to blood draw may affect the accuracy of results. This test was developed and its analytical performance characteristics have been determined by [facility]. It has not been cleared or approved by theA. This assay has been validated pursuant to the CLIA regulations and is used for clinical purposes. CHOLO (test code = CHOLO) FASTING:YESFASTING: YES RAC (test code = RAC) Performing Organization Info rmation: Site ID: SLI Name: [facility] Address: [address] [place] [address] Director: Cecil Pereira MethodistThyroid stimulating hzbkmfc8056-03-41 11:41:00* Test Item Value Reference Range Interpretation Comments TSH (test code = 3016-3) 2.64 0.40- 4.50 mIU/L CHOLO (test code = CHOLO) FASTING:YESFASTING: YES RAC (test code = RAC) Performing Organization Info rmation: Site ID: RGA Name: [facility] Address: [address] [place], [place] [address] Director: Joe Cabrera [facility] MethodistSedimentation envr3258-09-80 11:41:00* Test Item Value Reference Range Interpretation Comments Sedimentation rate (test code = 4537-7) 6 mm/h < OR = 30 CHOLO (test code = CHOLO) FASTING:YESFASTING: YES RAC (test code = RAC) Performing Organization Info rmation: Site ID: RGA Name: [facility] Address: [address] [place] [address] Director: Joe Cabrera [facility] MethodistANA SCREEN W IFA W REFLEX TO [id number] 11:59:00* Test Item Value Reference Range Interpretation Comments KARINA screen (test code = 12080-9) POSITIVE NEGATIVE A KARINA IFA is a first line screen for detecting thepresence of up to approximately 150 autoantibodies invarious autoimmune diseases. A positive KARINA IFA resultis suggestive of autoimmune disease and reflexes totiter and pattern. Further laboratory testing may beconsidered if clinically indicated. For additional information, please refer tohttp://education.[employer]/faq/URP229(This link is being provided for informational/educational purposes only.) KARINA titer (test code = 5048-4) 1:80 titer H A low level KARINA titer may be present in pre-clinicalautoimmune diseases and normal individuals. Reference Range <1:40 Negative 1:40-1:80 Low Antibody Level >1:80 Elevated Antibody Level KARINA pattern (test code = 23429-3) Nuclear, Homogeneous A Homogeneous pattern is associated with systemic lupuserythematosus (SLE), drug-induced lupus and juvenileidiopathic arthritis. AC-1: Homogeneous International Consensus on KARINA Patterns(https://doi.org/10.1515/gdqt-6011-7560) RAC (test code = RAC) Performing Organization Info rmation: Site ID: IG Name: [facility] Address: [address] [place] [address] Director: Dr. Joe Cabrera Lab Interpretation (test code = 74157-0) Abnormal [facility] Brain Wo Kisxdizg1136-21-52 11:07:13Hm Interface, Radiology Results 12/06/2019 11:10 AM CDTEXAMINATION: MRI BRAIN WO [...] ischemic changes.[id number] MethodistDIAG MAMM BILATERAL ART CAD NZKHWES0689-83-51 14:55:54 - DIAG MAMM BILATERAL ART CAD DIGITALBILATERAL DIGITAL DIAGNOSTIC MAMMOGRAM 3D/2D WITH CAD: 11/16/2019CLINICAL: Thickness. Digital breast tomosynthesis was performed in addition to routine CC and MLO views. Current mammographic images were evaluated by either a MONTAJ M-Vu or a [employer] ImageChecker CAD (computer aided detection system). Comparison is made to exams dated 06/28/2018 mammogram, mammogram, and 03/18/2017 mammogram - [facility]. There are scattered fibroglandular tissues [...] 04/04/2017 mammogram, and 03/18/2017 [facility] Color flow and real-time ultrasound of both [...] 11/19/2019 09:14:03Imaging Technologist: Gayatri rand , [facility]FW[facility] sent: BIRADS 1-2 Combo FU Letter Mammog jamey BI-RADS: 0 Incomplete: Additional Imaging Evaluation Needed Ultrasound BI-RA DS: 1 NegativeBREAST ULTRASOUND LEOQXUHSU5709-97-52 14:55:54 - DIAG MAMM BILATERAL ART CAD DIGITALBILATERAL DIGITAL DIAGNOSTIC MAMMOGRAM 3D/2D WITH CAD: 11/16/2019CLINICAL: Thickness. Digital breast tomosynthesis was performed in addition to routine CC and MLO views. Current mammographic images were evaluated by either a MONTAJ M-Vu or a [employer] ImageChecker CAD (computer aided detection system). Comparison is made to exams dated 06/28/2018 mammogram, mammogram, and 03/18/2017 mammogram - [facility]. There are scattered fibroglandular tissues [...] 04/04/2017 mammogram, and 03/18/2017 [facility] Color flow and real-time ultrasound of both [...] 11/19/2019 09:14:03Imaging Technologist: Gayatri rand , [facility] sent: BIRADS 1-2 Combo FU Letter Mammog jamey BI-RADS: 0 Incomplete: Additional Imaging Evaluation Needed Ultrasound BI-RA DS: 1 NegativeMRI SHOULDER LEFT [id number] 13:30:00 [place] [address] Patient Name: LILLY BREWSTER MR #: [id number] : 1935 Age/Sex: 83/F Req #: [id number] [facility] Physician: Ordered by: ALIRIO HARRIS MD Report #: [id number] Location: MRI Room/Bed: Procedure: MRI/M RI SHOULDER LEFT WO Exam Date: [...] HARRIS MD - XR FOREARM 2 VIEWS [id number] 18:29:00 FAX: Airam Tatum MD [phone] [place]: B St: REG Name: LILLY JOHNSON [facility] : [birth year] Age/S: 83/F [address] Unit #: [id number] Loc: [place] [address] Phys: Airam Tatum MD Acct: [id number] Dis Date: Status: REG ER PHONE #: [phone] Exam Date: 07/08/2018 181 FAX #: [phone] Reason: pain, trauma EXAMS: CPT CODE: [id number] XR [place]EARM 2 [place] [address] CLINICAL HISTORY: pain, trauma TECHNIQUE: AP and [...] Naya Reddy D.O. on 07/08/2018 at 182 R eported and signed by: Naya Reddy D.O. CC: Airam Tatum MD Technologist: JAROD BUCHANAN(R) Trnscrd Date/Time/By: 07/08/2018 (1828) : By: Markus [email or web address] Orig Print D/T: S: 07/08/2018 (1831) PAG E 1 Signed Report - XR HUMERUS 2 + V [id number] 18:28:00 FAX: Airam Tatum MD [phone] [place]: St: REG Name: LILLY JOHNSON [facility] : 04[birth year]20/18 36 Age/S: 83/F [address] Unit #: [id number] Loc: [place] [address] Phys: Airam Tatum MD Acct: [id number] Dis Date: Status: REG ER PHONE #: [phone] Exam Date: 07/08/2018 181 FAX #: [phone] Reason: pain, trauma EXAMS: CPT CODE: [id number] XR HUMERUS 2 + [place] [address] CLINICAL HISTORY: pain, trauma TECHNIQUE: AP and [...] by Naya Reddy D.O. on 07/08/2018 at 1828 Reported and signed by: Naya Reddy D.O. CC: Airam Tatum MD Technologist: JAROD BUCHANAN(R) Trnscrd Date/Time/By: 07/08/2018 (1827) : By: Letitia [email or web address] Orig Print D/T: S: 07/08/2018 (183) HEMANTH ORO 1 Signed Report - CT C- SPINE W/O [id number] 18:22:00 Name: LILLY BREWSTER [facility] : 1935 Age/S: 83 / F [address] Unit #: [id number] Loc: [place] [address] Phys: Airam Tatum MD Acct: [id number] Dis Date: Status: REG ER PHONE #: [phone] Exam Date: 07/08/2018 180 FAX #: [phone] Reason: pain, trauma EXAMS: CPT CODE: [id number] CT C-SPINE W/O CONTRAST 28513 HISTORY: pain, trauma TECHNIQUE: 2.5 mm axial [...] Estela CTDI: DLP: Trnscb Date/Time: 07/08/2018 (1821) t.MARY [email or web address] Orig Print D/T: S: 07/08/2018 (1825) CTDI: DLP: PAGE 1 Signed Report - CT HEAD/BRAIN W/O [id number] 18:19:00 Name: LILLY BREWSTER [facility] : 1935 Age/S: 83 / F [address] [facility] Unit #: [id number] Loc: [place] [address] Phys: Airam Tatum MD Acct: [id number] Dis Date: Status: REG ER PHONE #: [phone] Exam Date: 07/08/2018 180 FAX #: [phone] Reason: pain, trauma EXAMS: CPT CODE: [id number] CT HEAD/BRAIN W/O CONT 92808 HISTORY: pain, trauma TECHNIQUE: Noncontrast 2.5 mm [...] spear CTDI: DLP: Trnscb Date/Time: 07/08/2018 (1818) [email or web address] Orig Print D/T: S: 07/08/2018 (1821) CTDI: DLP: PAGE 1 Signed Report SCR MAMM BILATERAL ART CAD [id number] 08:45:36 - SCR MAMM BILATERAL ART CAD DIGITALBILATERAL DIGITAL SCREENING MAMMOGRAM 3D/2D WITH CAD: 06/28/2018CLINICAL: Asymptomatic. Digital breast tomosynthesis was performed in addition to routine CC and MLO views. Current mammographic images were evaluated by either a MONTAJ M-Vu or a NativeEnergy ImageAgroSavfecker CAD (computer aided detection system). Comparison is made to exams dated 03/18/2017 mammogram, 10/31/2015 mammogram, and 07/01/2014 mammogram - [facility] Ther e are scattered fibroglandular tissues in both breasts. There are benign calcif ications in both breasts. No suspicious mass, architectural distortion, maligna nt type calcification, or lymph node abnormality detected. Breast architecture is stable compared to prior exams.IMPRESSION: BENIGNThere is no mammographic elvis dence of malignancy. Resume annual screening mammography in one year. Jeovanny jesus M.D. et/penrad:06/28/2018 08:45:36 Associate Medical Director: Shirin tai FW, [facility]-letter sent: BIRADS 1-2 Normal Mammogram BI -RADS: 2 BenignUrine [id number] 14:39:00* Test Item Value Reference Range Interpretation Comments Urine WBC (test code = 5821-4) 0-5 0-5 [facility] [id number] 14:39:00* Test Item Value Reference Range Interpretation Comments Urine RBC (test code = 95123-1) NONE 0-5 [facility] Rsyfvrwb6716-74-54 14:39:00* Test Item Value Reference Range Interpretation Comments Urine Bacteria (test code = 88682-8) NONE NONE [facility] Epithelial Vocee2863-19-53 14:39:00 * Test Item Value Reference Range Interpretation Comments Urine Epithelial Cells (test code = 51551-8) RARE NONE [facility] [id number] 14:39:00* Test Item Value Reference Range Interpretation Comments Urine WBC (test code = 5821-4) 0-5 0-5 [facility] [id number] 14:39:00* Test Item Value Reference Range Interpretation Comments Urine RBC (test code = 74875-4) NONE 0-5 [facility] Yteozopc4236-86-83 14:39:00* Test Item Value Reference Range Interpretation Comments Urine Bacteria (test code = 23243-0) NONE NONE [facility] Epithelial Qxden0735-60-40 14:39:00 * Test Item Value Reference Range Interpretation Comments Urine Epithelial Cells (test code = 41028-0) RARE NONE [facility] [id number] 14:39:00* Test Item Value Reference Range Interpretation Comments Urine WBC (test code = 5821-4) 0-5 0-5 [facility] [id number] 14:39:00* Test Item Value Reference Range Interpretation Comments Urine RBC (test code = 78872-5) NONE 0-5 [facility] Mdqbvvpm3888-49-45 14:39:00* Test Item Value Reference Range Interpretation Comments Urine Bacteria (test code = 51923-5) NONE NONE [facility] Epithelial Xomui6159-64-62 14:39:00 * Test Item Value Reference Range Interpretation Comments Urine Epithelial Cells (test code = 36484-4) RARE NONE [facility] [id number] 14:39:00* Test Item Value Reference Range Interpretation Comments Urine WBC (test code = 5821-4) 0-5 0-5 [facility] [id number] 14:39:00* Test Item Value Reference Range Interpretation Comments Urine RBC (test code = 18190-1) NONE 0-5 [facility] Tzxzvxna2016-30-61 14:39:00* Test Item Value Reference Range Interpretation Comments Urine Bacteria (test code = 10331-5) NONE NONE [facility] Epithelial Vsrka1649-29-48 14:39:00 * Test Item Value Reference Range Interpretation Comments Urine Epithelial Cells (test code = 48652-1) RARE NONE [facility] Mepgw8819-37-91 14:32:00* Test Item Value Reference Range Interpretation Comments Sodium Level (test code = 2951-2) 130 136-145 L [facility]Pot[facility] Gtzdm5382-39-67 14:32:00* Test Item Value Reference Range Interpretation Comments Potassium Level (test code = 2823-3) 3.8 3.5-5.1 [facility] HospitalChloride Xnava4436-34-04 14:32:00* Test Item Value Reference Range Interpretation Comments Chloride Level (test code = 2075-0) 97 98-107 L [facility] HospitalCarbon Dioxide Taara3315-03-05 14:32:00* Test Item Value Reference Range Interpretation Comments Carbon Dioxide Level (test code = 2028-9) 26 22-29 [facility] HospitalAnion Brh3532-37-26 14:32:00* Test Item Value Reference Range Interpretation Comments Anion Gap (test code = 19608-6) 10.8 8-16 [facility] HospitalBlood Urea Wadjyqtf7011-03-74 14:32:00* Test Item Value Reference Range Interpretation Comments Blood Urea Nitrogen (test code = 3094-0) 12 7-26 [facility] HospitalCreatinine2019-04-02 14:32:00* Test Item Value Reference Range Interpretation Comments Creatinine (test code = 2160-0) 0.75 0.57-1.11 [facility] HospitalBUN/Creatinine Ssdhj0941-52-79 14:32:00* Test Item Value Reference Range Interpretation Comments BUN/Creatinine Ratio (test code = 3097-3) 16 6-25 [facility] HospitalEstimat Glomerular Filtration Rate 2018-06-06 14:32:00* Test Item Value Reference Range Interpretation Comments Estimat Glomerular Filtration Rate (test code = 329631920) > 60 >60 Ranges were taken from the National Kidney Disease Education Program and the [facility] literature.Reference ranges:60 or greater: Zolavq40-51 ( for 3 consecutive months): Chronic kidney disease 15 or less: Kidney failureParkview Regional HospitalGlucose Wxziw7711-51-72 14:32:00* Test Item Value Reference Range Interpretation Comments Glucose Level (test code = NTA2323) 86 74-118 [facility] HospitalCalcium Qgymx8274-19-09 14:32:00* Test Item Value Reference Range Interpretation Comments Calcium Level (test code = 63855-8) 10.1 8.4-10.2 [facility] HospitalTotal Criacutca8724-54-89 14:32:00* Test Item Value Reference Range Interpretation Comments Total Bilirubin (test code = 1975-2) 0.4 0.2-1.2 [facility] HospitalAspartate Amino Transf (AST/SGOT) 2018-06-06 14:32:00* Test Item Value Reference Range Interpretation Comments Aspartate Amino Transf (AST/SGOT) (test code = Aspartate Amino Transf (AST/SGOT)) 27 5-34 [facility] HospitalAlanine Aminotransferase (ALT/SGPT) 2018-06-06 14:32:00* Test Item Value Reference Range Interpretation Comments Alanine Aminotransferase (ALT/SGPT) (test code = 1742-6) 21 0-55 [facility] HospitalTotal Eodlkhl9211-35-06 14:32:00* Test Item Value Reference Range Interpretation Comments Total Protein (test code = 2885-2) 7.5 6.5-8.1 [facility] HospitalAlbumin2019-04-02 14:32:00* Test Item Value Reference Range Interpretation Comments Albumin (test code = 1751-7) 3.7 3.5-5.0 [facility] HospitalGlobulin2019-04-02 14:32:00* Test Item Value Reference Range Interpretation Comments Globulin (test code = 47915-7) 3.8 2.3-3.5 H [facility] HospitalAlbumin/Globulin Wqbcu8467-63-80 14:32:00 * Test Item Value Reference Range Interpretation Comments Albumin/Globulin Ratio (test code = 1759-0) 1.0 0.8-2.0 [facility] HospitalAlkaline Jafdrsbklgq8611-23-65 14:32:00* Test Item Value Reference Range Interpretation Comments Alkaline Phosphatase (test code = 6768-6) 48 40-150 [facility] Tkbkf0128-52-13 14:32:00* Test Item Value Reference Range Interpretation Comments Sodium Level (test code = 2951-2) 130 136-145 L [facility] HospitalPotassium Vdmae9236-84-03 14:32:00* Test Item Value Reference Range Interpretation Comments Potassium Level (test code = 2823-3) 3.8 3.5-5.1 [facility] HospitalChloride Pjgnw1518-95-83 14:32:00* Test Item Value Reference Range Interpretation Comments Chloride Level (test code = 2075-0) 97 98-107 L [facility] HospitalCarbon Dioxide Vvjme7963-52-43 14:32:00* Test Item Value Reference Range Interpretation Comments Carbon Dioxide Level (test code = 2028-9) 26 22-29 [facility] HospitalAnion Emh6373-28-87 14:32:00* Test Item Value Reference Range Interpretation Comments Anion Gap (test code = 25479-2) 10.8 8-16 [facility] HospitalBlood Urea Belwbqxw8068-28-29 14:32:00* Test Item Value Reference Range Interpretation Comments Blood Urea Nitrogen (test code = 3094-0) 12 7-26 [facility] HospitalCreatinine2019-04-02 14:32:00* Test Item Value Reference Range Interpretation Comments Creatinine (test code = 2160-0) 0.75 0.57-1.11 [facility] HospitalBUN/Creatinine Pioew1927-95-07 14:32:00* Test Item Value Reference Range Interpretation Comments BUN/Creatinine Ratio (test code = 3097-3) 16 6-25 [facility] HospitalEstimat Glomerular Filtration Rate 2018-06-06 14:32:00* Test Item Value Reference Range Interpretation Comments Estimat Glomerular Filtration Rate (test code = 329520506) > 60 >60 Ranges were taken from the National Kidney Disease Education Program and the [facility] literature.Reference ranges:60 or greater: Ozedgb47-25 ( for 3 consecutive months): Chronic kidney disease 15 or less: Kidney failureParkview Regional HospitalGlucose Rmaaf6806-95-81 14:32:00* Test Item Value Reference Range Interpretation Comments Glucose Level (test code = PKZ8954) 86 74-118 [facility] HospitalCalcium Vpidr5189-18-47 14:32:00* Test Item Value Reference Range Interpretation Comments Calcium Level (test code = 51701-2) 10.1 8.4-10.2 [facility] HospitalTotal Ciezvuqti6464-81-64 14:32:00* Test Item Value Reference Range Interpretation Comments Total Bilirubin (test code = 1975-2) 0.4 0.2-1.2 [facility] HospitalAspartate Amino Transf (AST/SGOT) 2018-06-06 14:32:00* Test Item Value Reference Range Interpretation Comments Aspartate Amino Transf (AST/SGOT) (test code = Aspartate Amino Transf (AST/SGOT)) 27 5-34 [facility] HospitalAlanine Aminotransferase (ALT/SGPT) 2018-06-06 14:32:00* Test Item Value Reference Range Interpretation Comments Alanine Aminotransferase (ALT/SGPT) (test code = 1742-6) 21 0-55 [facility] HospitalTotal Weolipp6949-26-41 14:32:00* Test Item Value Reference Range Interpretation Comments Total Protein (test code = 2885-2) 7.5 6.5-8.1 [facility] HospitalAlbumin2019-04-02 14:32:00* Test Item Value Reference Range Interpretation Comments Albumin (test code = 1751-7) 3.7 3.5-5.0 [facility] HospitalGlobulin2019-04-02 14:32:00* Test Item Value Reference Range Interpretation Comments Globulin (test code = 52581-1) 3.8 2.3-3.5 H [facility] HospitalAlbumin/Globulin Ovqmq8084-28-46 14:32:00 * Test Item Value Reference Range Interpretation Comments Albumin/Globulin Ratio (test code = 1759-0) 1.0 0.8-2.0 [facility] HospitalAlkaline Kepfgbnqoys5578-77-18 14:32:00* Test Item Value Reference Range Interpretation Comments Alkaline Phosphatase (test code = 6768-6) 48 40-150 [facility] Pjuiv4081-35-71 14:32:00* Test Item Value Reference Range Interpretation Comments Sodium Level (test code = 2951-2) 130 136-145 L [facility] HospitalPotassium Apqhe4818-12-18 14:32:00* Test Item Value Reference Range Interpretation Comments Potassium Level (test code = 2823-3) 3.8 3.5-5.1 [facility] HospitalChloride Sparl3813-26-20 14:32:00* Test Item Value Reference Range Interpretation Comments Chloride Level (test code = 2075-0) 97 98-107 L [facility] HospitalCarbon Dioxide Ozuav0130-19-05 14:32:00* Test Item Value Reference Range Interpretation Comments Carbon Dioxide Level (test code = 2028-9) 26 22-29 [facility] HospitalAnion Jto7201-67-86 14:32:00* Test Item Value Reference Range Interpretation Comments Anion Gap (test code = 68796-5) 10.8 8-16 [facility] HospitalBlood Urea Ecsgoxpb6943-44-26 14:32:00* Test Item Value Reference Range Interpretation Comments Blood Urea Nitrogen (test code = 3094-0) 12 7-26 [facility] HospitalCreatinine2019-04-02 14:32:00* Test Item Value Reference Range Interpretation Comments Creatinine (test code = 2160-0) 0.75 0.57-1.11 [facility] HospitalBUN/Creatinine Owfqt1701-05-64 14:32:00* Test Item Value Reference Range Interpretation Comments BUN/Creatinine Ratio (test code = 3097-3) 16 6-25 [facility] HospitalEstimat Glomerular Filtration Rate 2018-06-06 14:32:00* Test Item Value Reference Range Interpretation Comments Estimat Glomerular Filtration Rate (test code = 657892422) > 60 >60 Ranges were taken from the National Kidney Disease Education Program and the [facility] literature.Reference ranges:60 or greater: Gpogbs15-28 ( for 3 consecutive months): Chronic kidney disease 15 or less: Kidney failureParkview [facility] HospitalGlucose Hawgc4842-17-11 14:32:00* Test Item Value Reference Range Interpretation Comments Glucose Level (test code = KWT3144) 86 74-118 [facility] HospitalCalcium Vstyb6177-55-28 14:32:00* Test Item Value Reference Range Interpretation Comments Calcium Level (test code = 29680-6) 10.1 8.4-10.2 [facility] HospitalTotal Mmukgjuzq5424-15-95 14:32:00* Test Item Value Reference Range Interpretation Comments Total Bilirubin (test code = 1975-2) 0.4 0.2-1.2 [facility] HospitalAspartate Amino Transf (AST/SGOT) 2018-06-06 14:32:00* Test Item Value Reference Range Interpretation Comments Aspartate Amino Transf (AST/SGOT) (test code = Aspartate Amino Transf (AST/SGOT)) 27 5-34 [facility] HospitalAlanine Aminotransferase (ALT/SGPT) 2018-06-06 14:32:00* Test Item Value Reference Range Interpretation Comments Alanine Aminotransferase (ALT/SGPT) (test code = 1742-6) 21 0-55 [facility] HospitalTotal Aqtgydk4144-05-12 14:32:00* Test Item Value Reference Range Interpretation Comments Total Protein (test code = 2885-2) 7.5 6.5-8.1 [facility] HospitalAlbumin2019-04-02 14:32:00* Test Item Value Reference Range Interpretation Comments Albumin (test code = 1751-7) 3.7 3.5-5.0 [facility] HospitalGlobulin2019-04-02 14:32:00* Test Item Value Reference Range Interpretation Comments Globulin (test code = 36473-3) 3.8 2.3-3.5 H [facility] HospitalAlbumin/Globulin Bwfim4125-01-00 14:32:00 * Test Item Value Reference Range Interpretation Comments Albumin/Globulin Ratio (test code = 1759-0) 1.0 0.8-2.0 [facility] HospitalAlkaline Tcfessivncu3923-57-93 14:32:00* Test Item Value Reference Range Interpretation Comments Alkaline Phosphatase (test code = 6768-6) 48 40-150 [facility] Rgifa7814-39-45 14:32:00* Test Item Value Reference Range Interpretation Comments Sodium Level (test code = 2951-2) 130 136-145 L [facility] HospitalPotassium Meunl3454-44-01 14:32:00* Test Item Value Reference Range Interpretation Comments Potassium Level (test code = 2823-3) 3.8 3.5-5.1 [facility] HospitalChloride Zfibt7490-27-88 14:32:00* Test Item Value Reference Range Interpretation Comments Chloride Level (test code = 2075-0) 97 98-107 L [facility] HospitalCarbon Dioxide Ozavu0734-86-27 14:32:00* Test Item Value Reference Range Interpretation Comments Carbon Dioxide Level (test code = 2028-9) 26 22-29 [facility] HospitalAnion Lrk0600-92-97 14:32:00* Test Item Value Reference Range Interpretation Comments Anion Gap (test code = 86196-0) 10.8 8-16 [facility] HospitalBlood Urea Dwvpcupz6152-77-30 14:32:00* Test Item Value Reference Range Interpretation Comments Blood Urea Nitrogen (test code = 3094-0) 12 7-26 [facility] HospitalCreatinine2019-04-02 14:32:00* Test Item Value Reference Range Interpretation Comments Creatinine (test code = 2160-0) 0.75 0.57-1.11 [facility] HospitalBUN/Creatinine Lxpug3322-76-29 14:32:00* Test Item Value Reference Range Interpretation Comments BUN/Creatinine Ratio (test code = 3097-3) 16 6-25 [facility] HospitalEstimat Glomerular Filtration Rate 2018-06-06 14:32:00* Test Item Value Reference Range Interpretation Comments Estimat Glomerular Filtration Rate (test code = 165169998) > 60 >60 Ranges were taken from the National Kidney Disease Education Program and the [facility] literature.Reference ranges:60 or greater: Mqbvcn53-35 ( for 3 consecutive months): Chronic kidney disease 15 or less: Kidney failureParkview Regional HospitalGlucose Pthhp3986-07-75 14:32:00* Test Item Value Reference Range Interpretation Comments Glucose Level (test code = ZQQ3356) 86 74-118 [facility] HospitalCalcium Ufnsp6329-73-24 14:32:00* Test Item Value Reference Range Interpretation Comments Calcium Level (test code = 36575-2) 10.1 8.4-10.2 [facility] HospitalTotal Juzcigdvz0054-54-67 14:32:00* Test Item Value Reference Range Interpretation Comments Total Bilirubin (test code = 1975-2) 0.4 0.2-1.2 [facility] HospitalAspartate Amino Transf (AST/SGOT) 2018-06-06 14:32:00* Test Item Value Reference Range Interpretation Comments Aspartate Amino Transf (AST/SGOT) (test code = Aspartate Amino Transf (AST/SGOT)) 27 5-34 [facility] HospitalAlanine Aminotransferase (ALT/SGPT) 2018-06-06 14:32:00* Test Item Value Reference Range Interpretation Comments Alanine Aminotransferase (ALT/SGPT) (test code = 1742-6) 21 0-55 [facility] HospitalTotal Qxhvlki3914-31-80 14:32:00* Test Item Value Reference Range Interpretation Comments Total Protein (test code = 2885-2) 7.5 6.5-8.1 [facility] HospitalAlbumin2019-04-02 14:32:00* Test Item Value Reference Range Interpretation Comments Albumin (test code = 1751-7) 3.7 3.5-5.0 [facility] HospitalGlobulin2019-04-02 14:32:00* Test Item Value Reference Range Interpretation Comments Globulin (test code = 34006-6) 3.8 2.3-3.5 H [facility] HospitalAlbumin/Globulin Jdxav5155-14-59 14:32:00 * Test Item Value Reference Range Interpretation Comments Albumin/Globulin Ratio (test code = 1759-0) 1.0 0.8-2.0 [facility] HospitalAlkaline Gpwtakwowov9431-46-76 14:32:00* Test Item Value Reference Range Interpretation Comments Alkaline Phosphatase (test code = 6768-6) 48 40-150 [facility] HospitalUrine Efoie5424-01-05 14:30:00* Test Item Value Reference Range Interpretation Comments Urine Color (test code = 5778-6) YELLOW YELLOW [facility] HospitalUrine Phwvnps0809-54-16 14:30:00* Test Item Value Reference Range Interpretation Comments Urine Clarity (test code = 25987-3) CLEAR CLEAR [facility] HospitalUrine Specific Dxlclct1946-74-08 14:30:00 * Test Item Value Reference Range Interpretation Comments Urine Specific [place] (test code = 5811-5) 1.010 1.010-1.02 5 [facility] HospitalUrine xK7601-41-16 14:30:00* Test Item Value Reference Range Interpretation Comments Urine pH (test code = 43859-0) 7 5-7 [facility] HospitalUrine Leukocyte Vxphaofi0917-30-61 14:30:00* Test Item Value Reference Range Interpretation Comments Urine Leukocyte Esterase (test code = 5799-2) NEGATIVE NEGATIVE [facility] HospitalUrine Danbihh4216-45-73 14:30:00* Test Item Value Reference Range Interpretation Comments Urine Nitrite (test code = 72945-6) NEGATIVE NEGATIVE [facility] Bmeccms9264-34-84 14:30:00* Test Item Value Reference Range Interpretation Comments Urine Protein (test code = 5804-0) NEGATIVE NEGATIVE [facility] HospitalUrine Glucose (UA)2018-06-06 14:30:00* Test Item Value Reference Range Interpretation Comments Urine Glucose (UA) (test code = 2349-9) NEGATIVE NEGATIVE [facility] Amsxttm0328-27-46 14:30:00* Test Item Value Reference Range Interpretation Comments Urine Ketones (test code = 16484-1) NEGATIVE NEGATIVE [facility] Gqratbfywmus8721-70-71 14:30:00* Test Item Value Reference Range Interpretation Comments Urine Urobilinogen (test code = 74642-3) 0.2 0.2-1 [facility] Qksugqdbt6262-72-43 14:30:00* Test Item Value Reference Range Interpretation Comments Urine Bilirubin (test code = 1978-6) NEGATIVE NEGATIVE [facility] Ffnvz7855-07-08 14:30:00* Test Item Value Reference Range Interpretation Comments Urine Blood (test code = 42764-3) NEGATIVE NEGATIVE [facility] HospitalUrine Cpsjd2515-86-95 14:30:00* Test Item Value Reference Range Interpretation Comments Urine Color (test code = 5778-6) YELLOW YELLOW [facility] HospitalUrine Mzwfrfw0263-72-95 14:30:00* Test Item Value Reference Range Interpretation Comments Urine Clarity (test code = 59686-6) CLEAR CLEAR [facility] HospitalUrine Specific Jokjxhw2834-08-15 14:30:00 * Test Item Value Reference Range Interpretation Comments Urine Specific [place] (test code = 5811-5) 1.010 1.010-1.02 5 [facility] HospitalUrine hC1635-94-68 14:30:00* Test Item Value Reference Range Interpretation Comments Urine pH (test code = 66941-9) 7 5-7 [facility] HospitalUrine Leukocyte Wfkroqik7120-02-40 14:30:00* Test Item Value Reference Range Interpretation Comments Urine Leukocyte Esterase (test code = 5799-2) NEGATIVE NEGATIVE [facility] HospitalUrine Cornwbx2002-71-83 14:30:00* Test Item Value Reference Range Interpretation Comments Urine Nitrite (test code = 84118-3) NEGATIVE NEGATIVE [facility] HospitalUrine Mwvgotb0031-02-11 14:30:00* Test Item Value Reference Range Interpretation Comments Urine Protein (test code = 5804-0) NEGATIVE NEGATIVE [facility] Glucose (UA)2018-06-06 14:30:00* Test Item Value Reference Range Interpretation Comments Urine Glucose (UA) (test code = 2349-9) NEGATIVE NEGATIVE [facility] Bxfynqs3897-88-75 14:30:00* Test Item Value Reference Range Interpretation Comments Urine Ketones (test code = 62895-5) NEGATIVE NEGATIVE [facility] Xldxracpgxko4870-20-53 14:30:00* Test Item Value Reference Range Interpretation Comments Urine Urobilinogen (test code = 32215-3) 0.2 0.2-1 [facility] Egrkednly6794-34-73 14:30:00* Test Item Value Reference Range Interpretation Comments Urine Bilirubin (test code = 1978-6) NEGATIVE NEGATIVE [facility] Nuorb0257-03-79 14:30:00* Test Item Value Reference Range Interpretation Comments Urine Blood (test code = 87202-6) NEGATIVE NEGATIVE [facility] Nfber5878-55-12 14:30:00* Test Item Value Reference Range Interpretation Comments Urine Color (test code = 5778-6) YELLOW YELLOW [facility] HospitalUrine Bmsyfzm2865-75-21 14:30:00* Test Item Value Reference Range Interpretation Comments Urine Clarity (test code = 32053-3) CLEAR CLEAR [facility] HospitalUrine Specific Rtbocjq3689-71-76 14:30:00 * Test Item Value Reference Range Interpretation Comments Urine Specific [place] (test code = 5811-5) 1.010 1.010-1.02 5 [facility] HospitalUrine xM9725-25-34 14:30:00* Test Item Value Reference Range Interpretation Comments Urine pH (test code = 24110-8) 7 5-7 [facility] HospitalUrine Leukocyte Wwsrvumn1399-21-77 14:30:00* Test Item Value Reference Range Interpretation Comments Urine Leukocyte Esterase (test code = 5799-2) NEGATIVE NEGATIVE [facility] HospitalUrine Kuzojqg7727-40-98 14:30:00* Test Item Value Reference Range Interpretation Comments Urine Nitrite (test code = 39710-0) NEGATIVE NEGATIVE [facility] HospitalUrine Cwecbrm5938-01-76 14:30:00* Test Item Value Reference Range Interpretation Comments Urine Protein (test code = 5804-0) NEGATIVE NEGATIVE [facility] HospitalUrine Glucose (UA)2018-06-06 14:30:00* Test Item Value Reference Range Interpretation Comments Urine Glucose (UA) (test code = 2349-9) NEGATIVE NEGATIVE [facility] HospitalU[facility] Edabyds9524-52-37 14:30:00* Test Item Value Reference Range Interpretation Comments Urine Ketones (test code = 53823-9) NEGATIVE NEGATIVE [facility] HospitalU[facility] Nocvswyjwsgf1683-42-26 14:30:00* Test Item Value Reference Range Interpretation Comments Urine Urobilinogen (test code = 69520-8) 0.2 0.2-1 [facility] HospitalUrine Uvdapstmy0251-32-94 14:30:00* Test Item Value Reference Range Interpretation Comments Urine Bilirubin (test code = 1978-6) NEGATIVE NEGATIVE [facility] HospitalU[facility] Ueyst3681-49-30 14:30:00* Test Item Value Reference Range Interpretation Comments Urine Blood (test code = 38897-1) NEGATIVE NEGATIVE [facility] HospitalU[facility] Ygqpq9345-60-07 14:30:00* Test Item Value Reference Range Interpretation Comments Urine Color (test code = 5778-6) YELLOW YELLOW [facility] HospitalUrine Eqitkhw5265-70-60 14:30:00* Test Item Value Reference Range Interpretation Comments Urine Clarity (test code = 61970-2) CLEAR CLEAR [facility] HospitalUrine Specific Aoogeue5957-43-52 14:30:00 * Test Item Value Reference Range Interpretation Comments Urine Specific [place] (test code = 5811-5) 1.010 1.010-1.02 5 [facility] HospitalUrine lY7046-64-98 14:30:00* Test Item Value Reference Range Interpretation Comments Urine pH (test code = 79750-5) 7 5-7 [facility] HospitalU[facility] Leukocyte Xeytmamx0247-54-50 14:30:00* Test Item Value Reference Range Interpretation Comments Urine Leukocyte Esterase (test code = 5799-2) NEGATIVE NEGATIVE [facility] HospitalU[facility] Oxglpuq4531-66-61 14:30:00* Test Item Value Reference Range Interpretation Comments Urine Nitrite (test code = 71930-9) NEGATIVE NEGATIVE [facility] HospitalUrine Unfgsuu5330-62-14 14:30:00* Test Item Value Reference Range Interpretation Comments Urine Protein (test code = 5804-0) NEGATIVE NEGATIVE [facility] HospitalUrine Glucose (UA)2018-06-06 14:30:00* Test Item Value Reference Range Interpretation Comments Urine Glucose (UA) (test code = 2349-9) NEGATIVE NEGATIVE [facility] HospitalU[facility] Tvrprxo5572-94-96 14:30:00* Test Item Value Reference Range Interpretation Comments Urine Ketones (test code = 97447-8) NEGATIVE NEGATIVE [facility] HospitalUrine Jkyihpfjlvfq2191-02-41 14:30:00* Test Item Value Reference Range Interpretation Comments Urine Urobilinogen (test code = 56534-6) 0.2 0.2-1 [facility] HospitalUrine Feaavuuvr3740-59-94 14:30:00* Test Item Value Reference Range Interpretation Comments Urine Bilirubin (test code = 1978-6) NEGATIVE NEGATIVE [facility] HospitalUrine Dytgn4709-11-01 14:30:00* Test Item Value Reference Range Interpretation Comments Urine Blood (test code = 01661-2) NEGATIVE NEGATIVE [facility] HospitalWhite Blood Dmhbm0943-56-85 14:13:00* Test Item Value Reference Range Interpretation Comments White Blood Count (test code = 6690-2) 5.63 4.8-10.8 [facility] HospitalRed Blood Grtym2116-34-19 14:13:00* Test Item Value Reference Range Interpretation Comments Red Blood Count (test code = 789-8) 3.81 3.6-5.1 [facility] HospitalHemoglobin2019-04-02 14:13:00* Test Item Value Reference Range Interpretation Comments Hemoglobin (test code = 65388-6) 11.4 12.0-16.0 L [facility] HospitalHematocrit2019-04-02 14:13:00* Test Item Value Reference Range Interpretation Comments Hematocrit (test code = 4544-3) 33.8 34.2-44.1 L [facility] HospitalMean Corpuscular Heymot9406-11-06 14:13:00* Test Item Value Reference Range Interpretation Comments Mean Corpuscular Volume (test code = 787-2) 88.7 81-99 [facility] HospitalMean Corpuscular Xeeuufwkrv4836-23-59 14:13:00* Test Item Value Reference Range Interpretation Comments Mean Corpuscular Hemoglobin (test code = 785-6) 29.9 28-32 [facility] HospitalMean Corpuscular Hemoglobin Concent 2018-06-06 14:13:00* Test Item Value Reference Range Interpretation Comments Mean Corpuscular Hemoglobin Concent (test code = 786-4) 33.7 31-35 [facility] HospitalRed Cell Distribution Orhie5184-77-29 14:13:00* Test Item Value Reference Range Interpretation Comments Red Cell Distribution Width (test code = 47482-9) 13.1 11.7 -14.4 [facility] HospitalPlatelet Bxrre7043-74-49 14:13:00* Test Item Value Reference Range Interpretation Comments Platelet Count (test code = 777-3) 284 140-360 [facility] HospitalNeutrophils (%) (Auto)2018-06-06 14:13:00 * Test Item Value Reference Range Interpretation Comments Neutrophils (%) (Auto) (test code = 26624-6) 55.5 38.7-80.0 [facility] HospitalLymphocytes (%) (Auto)2018-06-06 14:13:00 * Test Item Value Reference Range Interpretation Comments Lymphocytes (%) (Auto) (test code = 736-9) 25.8 18.0-39.1 [facility] HospitalMonocytes (%) (Auto)2018-06-06 14:13:00* Test Item Value Reference Range Interpretation Comments Monocytes (%) (Auto) (test code = 5905-5) 13.0 4.4-11.3 H [facility] HospitalEosinophils (%) (Auto)2018-06-06 14:13:00 * Test Item Value Reference Range Interpretation Comments Eosinophils (%) (Auto) (test code = 713-8) 4.3 0.0-6.0 [facility] HospitalBasophils (%) (Auto)2018-06-06 14:13:00* Test Item Value Reference Range Interpretation Comments Basophils (%) (Auto) (test code = 706-2) 1.2 0.0-1.0 H [facility] HospitalIM GRANULOCYTES %2018-06-06 14:13:00* Test Item Value Reference Range Interpretation Comments IM GRANULOCYTES % (test code = IM GRANULOCYTES %) 0.2 0.0- 1.0 [facility] HospitalNeutrophils # (Auto)2018-06-06 14:13:00* Test Item Value Reference Range Interpretation Comments Neutrophils # (Auto) (test code = 751-8) 3.1 2.1-6.9 [facility] HospitalLymphocytes # (Auto)2018-06-06 14:13:00* Test Item Value Reference Range Interpretation Comments Lymphocytes # (Auto) (test code = 93918-1) 1.5 1.0-3.2 [facility] HospitalMonocytes # (Auto)2018-06-06 14:13:00* Test Item Value Reference Range Interpretation Comments Monocytes # (Auto) (test code = 742-7) 0.7 0.2-0.8 [facility] HospitalEosinophils # (Auto)2018-06-06 14:13:00* Test Item Value Reference Range Interpretation Comments Eosinophils # (Auto) (test code = 711-2) 0.2 0.0-0.4 [facility] HospitalBasophils # (Auto)2018-06-06 14:13:00* Test Item Value Reference Range Interpretation Comments Basophils # (Auto) (test code = 704-7) 0.1 0.0-0.1 [facility] HospitalAbsolute Immature Granulocyte (auto 2018-06-06 14:13:00* Test Item Value Reference Range Interpretation Comments Absolute Immature Granulocyte (auto (chuyita t code = Absolute Immature Granulocyte (auto) 0.01 0-0.1 [facility] HospitalWhite Blood Avbup4115-25-87 14:13:00* Test Item Value Reference Range Interpretation Comments White Blood Count (test code = 6690-2) 5.63 4.8-10.8 [facility] HospitalRed Blood Ewxlm4202-93-04 14:13:00* Test Item Value Reference Range Interpretation Comments Red Blood Count (test code = 789-8) 3.81 3.6-5.1 [facility] HospitalHemoglobin2019-04-02 14:13:00* Test Item Value Reference Range Interpretation Comments Hemoglobin (test code = 98546-1) 11.4 12.0-16.0 L [facility] HospitalHematocrit2019-04-02 14:13:00* Test Item Value Reference Range Interpretation Comments Hematocrit (test code = 4544-3) 33.8 34.2-44.1 L [facility] HospitalMean Corpuscular Thgthw1069-30-93 14:13:00* Test Item Value Reference Range Interpretation Comments Mean Corpuscular Volume (test code = 787-2) 88.7 81-99 [facility] HospitalMean Corpuscular Hqsbuewhab7219-10-72 14:13:00* Test Item Value Reference Range Interpretation Comments Mean Corpuscular Hemoglobin (test code = 785-6) 29.9 28-32 [facility] HospitalMean Corpuscular Hemoglobin Concent 2018-06-06 14:13:00* Test Item Value Reference Range Interpretation Comments Mean Corpuscular Hemoglobin Concent (test code = 786-4) 33.7 31-35 [facility] HospitalRed Cell Distribution Tlxuw0045-61-21 14:13:00* Test Item Value Reference Range Interpretation Comments Red Cell Distribution Width (test code = 70410-2) 13.1 11.7 -14.4 [facility] HospitalPlatelet Ivueu9375-34-13 14:13:00* Test Item Value Reference Range Interpretation Comments Platelet Count (test code = 777-3) 284 140-360 [facility] HospitalNeutrophils (%) (Auto)2018-06-06 14:13:00 * Test Item Value Reference Range Interpretation Comments Neutrophils (%) (Auto) (test code = 38317-3) 55.5 38.7-80.0 [facility] HospitalLymphocytes (%) (Auto)2018-06-06 14:13:00 * Test Item Value Reference Range Interpretation Comments Lymphocytes (%) (Auto) (test code = 736-9) 25.8 18.0-39.1 [facility] HospitalMonocytes (%) (Auto)2018-06-06 14:13:00* Test Item Value Reference Range Interpretation Comments Monocytes (%) (Auto) (test code = 5905-5) 13.0 4.4-11.3 H [facility] HospitalEosinophils (%) (Auto)2018-06-06 14:13:00 * Test Item Value Reference Range Interpretation Comments Eosinophils (%) (Auto) (test code = 713-8) 4.3 0.0-6.0 [facility] HospitalBasophils (%) (Auto)2018-06-06 14:13:00* Test Item Value Reference Range Interpretation Comments Basophils (%) (Auto) (test code = 706-2) 1.2 0.0-1.0 H [facility] HospitalIM GRANULOCYTES %2018-06-06 14:13:00* Test Item Value Reference Range Interpretation Comments IM GRANULOCYTES % (test code = IM GRANULOCYTES %) 0.2 0.0- 1.0 [facility] HospitalNeutrophils # (Auto)2018-06-06 14:13:00* Test Item Value Reference Range Interpretation Comments Neutrophils # (Auto) (test code = 751-8) 3.1 2.1-6.9 [facility] HospitalLymphocytes # (Auto)2018-06-06 14:13:00* Test Item Value Reference Range Interpretation Comments Lymphocytes # (Auto) (test code = 71328-8) 1.5 1.0-3.2 [facility] HospitalMonocytes # (Auto)2018-06-06 14:13:00* Test Item Value Reference Range Interpretation Comments Monocytes # (Auto) (test code = 742-7) 0.7 0.2-0.8 [facility] HospitalEosinophils # (Auto)2018-06-06 14:13:00* Test Item Value Reference Range Interpretation Comments Eosinophils # (Auto) (test code = 711-2) 0.2 0.0-0.4 [facility] HospitalBasophils # (Auto)2018-06-06 14:13:00* Test Item Value Reference Range Interpretation Comments Basophils # (Auto) (test code = 704-7) 0.1 0.0-0.1 [facility] HospitalAbsolute Immature Granulocyte (auto 2018-06-06 14:13:00* Test Item Value Reference Range Interpretation Comments Absolute Immature Granulocyte (auto (chuyita t code = Absolute Immature Granulocyte (auto) 0.01 0-0.1 [facility] HospitalWhite Blood Uqlna8864-71-94 14:13:00* Test Item Value Reference Range Interpretation Comments White Blood Count (test code = 6690-2) 5.63 4.8-10.8 [facility] HospitalRed Blood Wnplu6250-63-14 14:13:00* Test Item Value Reference Range Interpretation Comments Red Blood Count (test code = 789-8) 3.81 3.6-5.1 [facility] HospitalHemoglobin2019-04-02 14:13:00* Test Item Value Reference Range Interpretation Comments Hemoglobin (test code = 89301-5) 11.4 12.0-16.0 L [facility] HospitalHematocrit2019-04-02 14:13:00* Test Item Value Reference Range Interpretation Comments Hematocrit (test code = 4544-3) 33.8 34.2-44.1 L [facility] HospitalMean Corpuscular Qokifm6204-46-16 14:13:00* Test Item Value Reference Range Interpretation Comments Mean Corpuscular Volume (test code = 787-2) 88.7 81-99 [facility] HospitalMean Corpuscular Ohvisrttoo9223-76-80 14:13:00* Test Item Value Reference Range Interpretation Comments Mean Corpuscular Hemoglobin (test code = 785-6) 29.9 28-32 [facility] HospitalMean Corpuscular Hemoglobin Concent 2018-06-06 14:13:00* Test Item Value Reference Range Interpretation Comments Mean Corpuscular Hemoglobin Concent (test code = 786-4) 33.7 31-35 [facility] HospitalRed Cell Distribution Advxy0317-60-02 14:13:00* Test Item Value Reference Range Interpretation Comments Red Cell Distribution Width (test code = 46979-8) 13.1 11.7 -14.4 [facility] HospitalPlatelet Dppez8263-61-71 14:13:00* Test Item Value Reference Range Interpretation Comments Platelet Count (test code = 777-3) 284 140-360 [facility] HospitalNeutrophils (%) (Auto)2018-06-06 14:13:00 * Test Item Value Reference Range Interpretation Comments Neutrophils (%) (Auto) (test code = 64561-9) 55.5 38.7-80.0 [facility] HospitalLymphocytes (%) (Auto)2018-06-06 14:13:00 * Test Item Value Reference Range Interpretation Comments Lymphocytes (%) (Auto) (test code = 736-9) 25.8 18.0-39.1 [facility] HospitalMonocytes (%) (Auto)2018-06-06 14:13:00* Test Item Value Reference Range Interpretation Comments Monocytes (%) (Auto) (test code = 5905-5) 13.0 4.4-11.3 H [facility] HospitalEosinophils (%) (Auto)2018-06-06 14:13:00 * Test Item Value Reference Range Interpretation Comments Eosinophils (%) (Auto) (test code = 713-8) 4.3 0.0-6.0 [facility]Bas[facility] (%) (Auto)2018-06-06 14:13:00* Test Item Value Reference Range Interpretation Comments Basophils (%) (Auto) (test code = 706-2) 1.2 0.0-1.0 H [facility] HospitalIM GRANULOCYTES %2018-06-06 14:13:00* Test Item Value Reference Range Interpretation Comments IM GRANULOCYTES % (test code = IM GRANULOCYTES %) 0.2 0.0- 1.0 [facility] HospitalNeutrophils # (Auto)2018-06-06 14:13:00* Test Item Value Reference Range Interpretation Comments Neutrophils # (Auto) (test code = 751-8) 3.1 2.1-6.9 [facility] HospitalLymphocytes # (Auto)2018-06-06 14:13:00* Test Item Value Reference Range Interpretation Comments Lymphocytes # (Auto) (test code = 59188-4) 1.5 1.0-3.2 [facility] HospitalMonocytes # (Auto)2018-06-06 14:13:00* Test Item Value Reference Range Interpretation Comments Monocytes # (Auto) (test code = 742-7) 0.7 0.2-0.8 [facility]Eosinophils # (Auto)2018-06-06 14:13:00* Test Item Value Reference Range Interpretation Comments Eosinophils # (Auto) (test code = 711-2) 0.2 0.0-0.4 [facility]Basophils # (Auto)2018-06-06 14:13:00* Test Item Value Reference Range Interpretation Comments Basophils # (Auto) (test code = 704-7) 0.1 0.0-0.1 [facility] HospitalAbsolute Immature Granulocyte (auto 2018-06-06 14:13:00* Test Item Value Reference Range Interpretation Comments Absolute Immature Granulocyte (auto (chuyita t code = Absolute Immature Granulocyte (auto) 0.01 0-0.1 [facility] HospitalWhite Blood Gjcgo7236-34-77 14:13:00* Test Item Value Reference Range Interpretation Comments White Blood Count (test code = 6690-2) 5.63 4.8-10.8 [facility] HospitalRed Blood Yyfbw8042-45-15 14:13:00* Test Item Value Reference Range Interpretation Comments Red Blood Count (test code = 789-8) 3.81 3.6-5.1 [facility] HospitalHemoglobin2019-04-02 14:13:00* Test Item Value Reference Range Interpretation Comments Hemoglobin (test code = 67274-1) 11.4 12.0-16.0 L [facility] HospitalHematocrit2019-04-02 14:13:00* Test Item Value Reference Range Interpretation Comments Hematocrit (test code = 4544-3) 33.8 34.2-44.1 L [facility] HospitalMean Corpuscular Gfgrur0082-18-20 14:13:00* Test Item Value Reference Range Interpretation Comments Mean Corpuscular Volume (test code = 787-2) 88.7 81-99 [facility] HospitalMean Corpuscular Syyeuuzbph0275-79-53 14:13:00* Test Item Value Reference Range Interpretation Comments Mean Corpuscular Hemoglobin (test code = 785-6) 29.9 28-32 [facility] HospitalMean Corpuscular Hemoglobin Concent 2018-06-06 14:13:00* Test Item Value Reference Range Interpretation Comments Mean Corpuscular Hemoglobin Concent (test code = 786-4) 33.7 31-35 [facility] HospitalRed Cell Distribution Ojvaa7240-50-30 14:13:00* Test Item Value Reference Range Interpretation Comments Red Cell Distribution Width (test code = 70955-1) 13.1 11.7 -14.4 [facility] HospitalPlatelet Slfdi0402-31-38 14:13:00* Test Item Value Reference Range Interpretation Comments Platelet Count (test code = 777-3) 134 311-354 [facility] HospitalNeutrophils (%) (Auto)2018-06-06 14:13:00 * Test Item Value Reference Range Interpretation Comments Neutrophils (%) (Auto) (test code = 19847-7) 55.5 38.7-80.0 [facility] HospitalLymphocytes (%) (Auto)2018-06-06 14:13:00 * Test Item Value Reference Range Interpretation Comments Lymphocytes (%) (Auto) (test code = 736-9) 25.8 18.0-39.1 [facility] HospitalMonocytes (%) (Auto)2018-06-06 14:13:00* Test Item Value Reference Range Interpretation Comments Monocytes (%) (Auto) (test code = 5905-5) 13.0 4.4-11.3 H [facility] HospitalEosinophils (%) (Auto)2018-06-06 14:13:00 * Test Item Value Reference Range Interpretation Comments Eosinophils (%) (Auto) (test code = 713-8) 4.3 0.0-6.0 [facility] HospitalBasophils (%) (Auto)2018-06-06 14:13:00* Test Item Value Reference Range Interpretation Comments Basophils (%) (Auto) (test code = 706-2) 1.2 0.0-1.0 H [facility] HospitalIM GRANULOCYTES %2018-06-06 14:13:00* Test Item Value Reference Range Interpretation Comments IM GRANULOCYTES % (test code = IM GRANULOCYTES %) 0.2 0.0- 1.0 [facility] HospitalNeutrophils # (Auto)2018-06-06 14:13:00* Test Item Value Reference Range Interpretation Comments Neutrophils # (Auto) (test code = 751-8) 3.1 2.1-6.9 [facility] HospitalLymphocytes # (Auto)2018-06-06 14:13:00* Test Item Value Reference Range Interpretation Comments Lymphocytes # (Auto) (test code = 04127-0) 1.5 1.0-3.2 [facility] HospitalMonocytes # (Auto)2018-06-06 14:13:00* Test Item Value Reference Range Interpretation Comments Monocytes # (Auto) (test code = 742-7) 0.7 0.2-0.8 [facility] HospitalEosinophils # (Auto)2018-06-06 14:13:00* Test Item Value Reference Range Interpretation Comments Eosinophils # (Auto) (test code = 711-2) 0.2 0.0-0.4 [facility] HospitalBasophils # (Auto)2018-06-06 14:13:00* Test Item Value Reference Range Interpretation Comments Basophils # (Auto) (test code = 704-7) 0.1 0.0-0.1 [facility] HospitalAbsolute Immature Granulocyte (auto 2018-06-06 14:13:00* Test Item Value Reference Range Interpretation Comments Absolute Immature Granulocyte (auto (chuyita t code = Absolute Immature Granulocyte (auto) 0.01 0-0.1 [facility] Fsuyh8618-08-06 08:28:00* Test Item Value Reference Range Interpretation Comments Sodium Level (test code = 2951-2) 133 136-145 L [facility] HospitalPotassium Lkldn9899-30-09 08:28:00* Test Item Value Reference Range Interpretation Comments Potassium Level (test code = 2823-3) 4.3 3.5-5.1 [facility] HospitalChloride Jholl6649-91-29 08:28:00* Test Item Value Reference Range Interpretation Comments Chloride Level (test code = 2075-0) 103 98-107 [facility] HospitalCarbon Dioxide Tuwgz1750-04-51 08:28:00* Test Item Value Reference Range Interpretation Comments Carbon Dioxide Level (test code = 2028-9) 24 22-29 [facility] HospitalAnion Uwm4786-28-22 08:28:00* Test Item Value Reference Range Interpretation Comments Anion Gap (test code = 29995-6) 10.3 8-16 [facility] HospitalBlood Urea Sfpskqte3680-77-86 08:28:00* Test Item Value Reference Range Interpretation Comments Blood Urea Nitrogen (test code = 3094-0) 18 7-26 [facility] HospitalCreatinine2018-06-03 08:28:00* Test Item Value Reference Range Interpretation Comments Creatinine (test code = 2160-0) 0.80 0.57-1.11 [facility] HospitalBUN/Creatinine Pbjtd6657-89-08 08:28:00* Test Item Value Reference Range Interpretation Comments BUN/Creatinine Ratio (test code = 3097-3) 23 6-25 [facility] HospitalEstimat Glomerular Filtration Rate 2017-08-07 08:28:00* Test Item Value Reference Range Interpretation Comments Estimat Glomerular Filtration Rate (test code = 60938-9) 60- >60 Ranges were taken from the National Kidney Disease Education Program and the [facility] literature.Reference ranges:60 or greater: Oehbgg53-12 ( for 3 consecutive months): Chronic kidney disease 15 or less: Kidney failureParkview Regional HospitalGlucose Lujep7653-08-29 08:28:00* Test Item Value Reference Range Interpretation Comments Glucose Level (test code = HOZ1952) 80 74-118 [facility] HospitalCalcium Aenpj2380-33-20 08:28:00* Test Item Value Reference Range Interpretation Comments Calcium Level (test code = 40846-2) 9.6 8.4-10.2 [facility] HospitalTotal Ibubvxqnz3798-86-79 00:37:00* Test Item Value Reference Range Interpretation Comments Total Bilirubin (test code = 1975-2) 0.8 0.2-1.2 [facility] HospitalAspartate Amino Transf (AST/SGOT) 2017-08-06 00:37:00* Test Item Value Reference Range Interpretation Comments Aspartate Amino Transf (AST/SGOT) (test code = Aspartate Amino Transf (AST/SGOT)) 21 5-34 [facility] HospitalAlanine Aminotransferase (ALT/SGPT) 2017-08-06 00:37:00* Test Item Value Reference Range Interpretation Comments Alanine Aminotransferase (ALT/SGPT) (test code = 1742-6) 18 0-55 [facility] HospitalTotal Kzdxeev3360-54-74 00:37:00* Test Item Value Reference Range Interpretation Comments Total Protein (test code = 2885-2) 6.9 6.5-8.1 [facility] HospitalAlbumin2018-06-02 00:37:00* Test Item Value Reference Range Interpretation Comments Albumin (test code = 1751-7) 4.0 3.5-5.0 [facility] HospitalGlobulin2018-06-02 00:37:00* Test Item Value Reference Range Interpretation Comments Globulin (test code = 10980-0) 2.9 2.3-3.5 [facility] HospitalAlbumin/Globulin Zoevs1507-94-92 00:37:00 * Test Item Value Reference Range Interpretation Comments Albumin/Globulin Ratio (test code = 1759-0) 1.4 0.8-2.0 [facility] HospitalAlkaline Wiwjpdhrhyg8635-44-26 00:37:00* Test Item Value Reference Range Interpretation Comments Alkaline Phosphatase (test code = 6768-6) 44 40-150 [facility] HospitalWhite Blood Kgiju1744-86-14 00:13:00* Test Item Value Reference Range Interpretation Comments White Blood Count (test code = 6690-2) 8.90 4.8-10.8 [facility] HospitalRed Blood Qhybd6440-92-60 00:13:00* Test Item Value Reference Range Interpretation Comments Red Blood Count (test code = 789-8) 3.50 3.6-5.1 L [facility] HospitalHemoglobin2018-06-02 00:13:00* Test Item Value Reference Range Interpretation Comments Hemoglobin (test code = 65103-8) 10.2 12.0-16.0 L [facility] HospitalHematocrit2018-06-02 00:13:00* Test Item Value Reference Range Interpretation Comments Hematocrit (test code = 4544-3) 29.0 34.2-44.1 L [facility] HospitalMean Corpuscular Hfnzzx1065-89-80 00:13:00* Test Item Value Reference Range Interpretation Comments Mean Corpuscular Volume (test code = 787-2) 82.9 81-99 [facility] HospitalMean Corpuscular Mabguworgl0484-94-51 00:13:00* Test Item Value Reference Range Interpretation Comments Mean Corpuscular Hemoglobin (test code = 785-6) 29.1 28-32 [facility] HospitalMean Corpuscular Hemoglobin Concent 2017-08-06 00:13:00* Test Item Value Reference Range Interpretation Comments Mean Corpuscular Hemoglobin Concent (test code = 786-4) 35.2 31-35 H [facility] HospitalRed Cell Distribution Lzajn1169-69-08 00:13:00* Test Item Value Reference Range Interpretation Comments Red Cell Distribution Width (test code = 49168-7) 12.4 11.7 -14.4 [facility] HospitalPlatelet Kxmxf8142-53-97 00:13:00* Test Item Value Reference Range Interpretation Comments Platelet Count (test code = 777-3) 274 140-360 [facility] HospitalNeutrophils (%) (Auto)2017-08-06 00:13:00 * Test Item Value Reference Range Interpretation Comments Neutrophils (%) (Auto) (test code = 12565-6) 60.5 38.7-80.0 [facility] HospitalLymphocytes (%) (Auto)2017-08-06 00:13:00 * Test Item Value Reference Range Interpretation Comments Lymphocytes (%) (Auto) (test code = 736-9) 21.9 18.0-39.1 [facility] HospitalMonocytes (%) (Auto)2017-08-06 00:13:00* Test Item Value Reference Range Interpretation Comments Monocytes (%) (Auto) (test code = 5905-5) 13.9 4.4-11.3 H [facility] HospitalEosinophils (%) (Auto)2017-08-06 00:13:00 * Test Item Value Reference Range Interpretation Comments Eosinophils (%) (Auto) (test code = 713-8) 2.4 0.0-6.0 [facility] HospitalBasophils (%) (Auto)2017-08-06 00:13:00* Test Item Value Reference Range Interpretation Comments Basophils (%) (Auto) (test code = 706-2) 1.1 0.0-1.0 H [facility] HospitalIM GRANULOCYTES %2017-08-06 00:13:00* Test Item Value Reference Range Interpretation Comments IM GRANULOCYTES % (test code = IM GRANULOCYTES %) 0.2 0.0- 1.0 [facility] HospitalNeutrophils # (Auto)2017-08-06 00:13:00* Test Item Value Reference Range Interpretation Comments Neutrophils # (Auto) (test code = 751-8) 5.4 2.1-6.9 [facility] HospitalLymphocytes # (Auto)2017-08-06 00:13:00* Test Item Value Reference Range Interpretation Comments Lymphocytes # (Auto) (test code = 91356-4) 2.0 1.0-3.2 [facility] HospitalMonocytes # (Auto)2017-08-06 00:13:00* Test Item Value Reference Range Interpretation Comments Monocytes # (Auto) (test code = 742-7) 1.2 0.2-0.8 H [facility] HospitalEosinophils # (Auto)2017-08-06 00:13:00* Test Item Value Reference Range Interpretation Comments Eosinophils # (Auto) (test code = 711-2) 0.2 0.0-0.4 [facility] HospitalBasophils # (Auto)2017-08-06 00:13:00* Test Item Value Reference Range Interpretation Comments Basophils # (Auto) (test code = 704-7) 0.1 0.0-0.1 [facility] HospitalAbsolute Immature Granulocyte (auto 2017-08-06 00:13:00* Test Item Value Reference Range Interpretation Comments Absolute Immature Granulocyte (auto (chuyita t code = Absolute Immature Granulocyte (auto) 0.02 0-0.1 [facility] HospitalUrine Lmecfki8897-94-22 09:24:00* Test Item Value Reference Range Interpretation Comments Urine Culture (test code = 630-4) Organism: STREPTOCOCCUS VIRIDANS [facility] HospitalTroponin X6227-01-31 16:20:00* Test Item Value Reference Range Interpretation Comments Troponin I (test code = TPE2162) 0.017 0-0.300 [facility] HospitalUrine ZFP1282-92-44 12:48:00* Test Item Value Reference Range Interpretation Comments Urine WBC (test code = 5821-4) 6-10 0-5 H [facility] HospitalUrine IOK8380-58-73 12:48:00* Test Item Value Reference Range Interpretation Comments Urine RBC (test code = 27036-6) NONE 0-5 [facility] HospitalUrine Wvcnwusq6152-44-83 12:48:00* Test Item Value Reference Range Interpretation Comments Urine Bacteria (test code = 08353-8) FEW NONE [facility] HospitalUrine Epithelial Fidgz0007-75-64 12:48:00 * Test Item Value Reference Range Interpretation Comments Urine Epithelial Cells (test code = 58313-6) RARE NONE [facility] HospitalUrine Transitional Epithelial Cells 2017-01-18 12:48:00* Test Item Value Reference Range Interpretation Comments Urine Transitional Epithelial Cells (test code = 8249-5) FEW NONE H [facility] HospitalUrine Renal Epithelial Zcnqs4127-10-41 12:48:00* Test Item Value Reference Range Interpretation Comments Urine Renal Epithelial Cells (test code = 91863-1) RARE NON E H [facility] HospitalUrine Edtvk2245-00-14 12:29:00* Test Item Value Reference Range Interpretation Comments Urine Color (test code = 5778-6) YELLOW YELLOW [facility] HospitalUrine Zmuiiao3445-36-37 12:29:00* Test Item Value Reference Range Interpretation Comments Urine Clarity (test code = 88977-9) SL CLOUDY CLEAR [facility] HospitalUrine Specific Nbimpxz5646-35-01 12:29:00 * Test Item Value Reference Range Interpretation Comments Urine Specific [place] (test code = 5811-5) 1.015 1.010-1.02 5 [facility] HospitalUrine wT5463-73-30 12:29:00* Test Item Value Reference Range Interpretation Comments Urine pH (test code = 34999-0) 8 5-7 H [facility] HospitalUrine Leukocyte Wpeoqpdg2835-61-16 12:29:00* Test Item Value Reference Range Interpretation Comments Urine Leukocyte Esterase (test code = 5799-2) 2+ NEGATIVE H [facility] HospitalUrine Gbcyrje7642-47-24 12:29:00* Test Item Value Reference Range Interpretation Comments Urine Nitrite (test code = 59895-2) NEGATIVE NEGATIVE [facility] HospitalUrine Ebtwxgg6805-40-13 12:29:00* Test Item Value Reference Range Interpretation Comments Urine Protein (test code = 5804-0) NEGATIVE NEGATIVE [facility] HospitalUrine Glucose (UA)2017-01-18 12:29:00* Test Item Value Reference Range Interpretation Comments Urine Glucose (UA) (test code = 2349-9) NEGATIVE NEGATIVE [facility] HospitalUrine Ivrrpjv5859-61-44 12:29:00* Test Item Value Reference Range Interpretation Comments Urine Ketones (test code = 66298-9) NEGATIVE NEGATIVE [facility] HospitalUrine Vdxeospnqhur6244-92-14 12:29:00* Test Item Value Reference Range Interpretation Comments Urine Urobilinogen (test code = 78997-8) 0.2 0.2-1 [facility] HospitalUrine Zsgsgtqsy6417-48-01 12:29:00* Test Item Value Reference Range Interpretation Comments Urine Bilirubin (test code = 1978-6) NEGATIVE NEGATIVE [facility] HospitalUrine Iacfd9904-18-95 12:29:00* Test Item Value Reference Range Interpretation Comments Urine Blood (test code = 70934-7) NEGATIVE NEGATIVE [facility] HospitalCreatine Kinase LI5116-00-31 10:52:00* Test Item Value Reference Range Interpretation Comments Creatine Kinase MB (test code = 51393-1) 1.80 0-4.3 [facility] HospitalCreatine Iyqsri5825-11-46 10:50:00* Test Item Value Reference Range Interpretation Comments Creatine Kinase (test code = 2157-6) 103 29-168 [facility] HospitalLipase2017-11-14 10:50:00* Test Item Value Reference Range Interpretation Comments Lipase (test code = 3040-3) 17 8 [facility] HospitalD-Dimer Quantitative (PE/DVT)2017-01-18 10:43:00* Test Item Value Reference Range Interpretation Comments D-Dimer Quantitative (PE/DVT) (test code = 70577-6) 0.78 0. 00-0.45 H As with all in vitro diagnostic tests, the test results should be interpreted by the physician in conjunction with clinical findings and other test results.Test results are reported in NEW D-dimer units(ug/mLFEU).[facility] HospitalCHES SINGLE (PORTABLE) [place] [address] Patient Name: LILLY BREWSTER MR #: [id number] : 1935 Age/Sex: 81/F Req #: [id number] Adm Physician: Ordered by: ALE STEVE MD Report #: [id number] Location: ER Room/Bed: Procedure: [id number] DX/CHEST SINGLE (PORTABLE) Ex am Date: 01/18/17 [...]
[2020-01-26] MEDS ORDERED: MIDAZOLAM HCL 2 MG/2 ML VIAL ONE (15:02)
[2020-01-26] MEDS ORDERED: FENTANYL CITRATE/PF 100MCG/2 ML INJ ONE (15:02)
--- NOTE | 2020-01-26 15:02 | History and Physical ---
CHIEF COMPLAINT: Chest pain and epigastric discomfort. HISTORY OF PRESENT ILLNESS: Ms. Hong is an 84-year-old female. She came in with mild epigastric pain and she has extensive cardiac history and all her workup is done at [facility] in [facility]. Cardiology was consulted and Dr. Lin evaluated the patient and recommended the patient can be discharged home from cardiac standpoint. She has mild epigastric discomfort and she is mildly hyponatremic. I recommended GI workup. However, she recommended that she does not want to do that inpatient and would like to do it as an outpatient. She denies any chest pain, nausea, or vomiting now. REVIEW OF SYSTEMS: GENERAL: Denies any fever or chills. HEAD: Denies any head trauma. ENT: Denies any earaches. CVS: Denies any chest pain. RESPIRATORY: Denies any shortness of breath. The rest of the review of systems are negative except as in HPI. PAST MEDICAL HISTORY: 1. Hypertension. 2. Coronary artery disease. 3. Hyperlipidemia. PAST SURGICAL HISTORY: She has history of left breast biopsy, uterus, hysterectomy, appendectomy, and cataract surgery. FAMILY AND SOCIAL HISTORY: She does not smoke. Does not drink. PHYSICAL EXAMINATION: VITAL SIGNS: Temperature 98.7, pulse of 72, blood pressure 148/58, respiratory rate of 18. HEENT: Head is atraumatic and normocephalic. NECK: Supple. CHEST: Clear to auscultation bilaterally. No wheezing. HEART: S1, S2 audible. ABDOMEN: Soft. EXTREMITIES: No pedal edema. NEUROLOGICAL: She is awake and alert. No focal neurologic deficit. LABORATORY DATA: White count of 10,000, hemoglobin 10.4, platelets 250. Chemistry, sodium 129, potassium 3.9, chloride 97, BUN 11, creatinine 0.72. ASSESSMENT/PLAN: Ms. Hong is an 84-year-old female has mild chest pain which has resolved and mild epigastric discomfort which resolved now. The patient's troponin was negative. Cardiology has cleared to be discharged. I have asked them to see if GI workup can be done, then steel buffer can be called, but they want to do the workup as an outpatient. I will recheck labs. The patient can be discharged home to follow up with her primary care physician. MD PRADIP Blanton/LAVERN /[id number]
[2020-01-26 15:44] LABS: ANION GAP 13.5 mmol/L (8-16); BLOOD UREA NITROGEN 11 mg/dL (7-26); BUN/CREATININE RATIO 16 (6-25); CALCIUM 9.1 mg/dL (8.4-10.2); CARBON DIOXIDE 23 mmol/L (22-29); CHLORIDE 99 mmol/L (98-107); EST GLOMERULAR FILTRATION RATE > 60 ML/MIN (60-); GLUCOSE 87 mg/dL (74-118); POTASSIUM 4.5 mmol/L (3.5-5.1); SODIUM 131 mmol/L (136-145)
--- NOTE | 2020-01-26 16:16 | NUR ---
Sodium level called to Dr. Brunson. ONI for patient to dc home. DC instructions were given to the patient , she verbalized understanding.
--- NOTE | 2020-01-26 23:58 | Consultation ---
DATE OF CONSULTATION: 01/26/2020 Cardiology Consultation REASON FOR CONSULTATION: Epigastric/chest discomfort. HISTORY OF PRESENT ILLNESS: An 84-year-old woman with history of hypertension, presents for evaluation of abdominal bloating with associated distention and discomfort in the upper abdomen/epigastric area. The patient was concerned about the possibility of cardiac etiology for her symptoms. However, she was recently evaluated at [facility] in November of this year for similar complaints. She was evaluated per the patient and family member report by her outpatient medical records administrator, Dr. Verdugo, workup included stress test and echocardiogram at that time. Abdominal discomfort and bloating has decreased since admission and symptoms of dyspnea and discomfort have resolved and not recurred since. She has no other complaints at this time. She denies exertional symptoms. REVIEW OF SYSTEMS: A 12-system review negative except for as noted above. ALLERGIES: TO ALOE VERA, BUPIVACAINE, VESICARE, LISINOPRIL, PAROXETINE, SERTRALINE, ERYTHROMYCIN, LACTOBIONATE, LATEX, LEVOFLOXACIN, ALENDRONATE, DILTIAZEM, CARVEDILOL, AMOXICILLIN, AZITHROMYCIN PER EMR. SOCIAL HISTORY: No smoking or alcohol. FAMILY HISTORY: Noncontributory. PHYSICAL EXAMINATION: VITAL SIGNS: Temperature 98.4, heart rate 72, blood pressure 126/41, respiratory rate 17, O2 saturation 95%. BMI 25. GENERAL: No acute distress. Alert and seems to have short-term memory issues, however, is oriented. NECK: Supple. No JVD. No carotid bruits. CHEST: Clear to auscultation bilaterally. CARDIOVASCULAR: Regular rate and rhythm. Normal S1 and S2. No S3. No S4. No murmurs. No rubs. ABDOMEN: Soft. Bowel sounds positive. EXTREMITIES: No edema. CARDIOVASCULAR MEDICATIONS: Reviewed. STUDIES: Reviewed. Sodium 129, potassium 3.9, chloride 97, bicarbonate 19, BUN 11, creatinine 0.7, glucose 113. White blood cells 10.9, hemoglobin 10.4, platelets 250. AST 22, ALT 18, total bilirubin 0.4, alkaline phosphatase 36. ASSESSMENT AND PLAN: 1. An 84-year-old woman presents with abdominal distention. 2. Epigastric/atypical chest discomfort. Dyspnea. Metabolic acidosis and hyponatremia. 3. Anemia. RECOMMEND: Request records from [facility]. Echocardiogram ordered and pending. Serial cardiac biomarkers are negative so far. Symptoms by clinical description seems noncardiac in nature. Workup for abdominal discomfort underway including CT abdomen and pelvis report pending. We will follow closely with you. MD CELESTE Ruffin/LAVERN /[id number]
== END 2020-01-26 16:20 | disposition home or self-care (01) ==
LOC: ER 02:26 → ERHOLD 04:36 → MED/SURG2 05:00
PROVIDERS: ADMIT Internal Medicine; ATTEND Internal Medicine
DX: R10.13 Epigastric pain (principal); R07.89 Other chest pain; D64.9 Anemia, unspecified; E87.1 Hypo-osmolality and hyponatremia; E87.2 Acidosis; I10 Essential (primary) hypertension; K57.30 Diverticulosis of large intestine without perforation or abscess without bleeding; E03.9 Hypothyroidism, unspecified; Z88.1 Allergy status to other antibiotic agents; Z91.040 Latex allergy status; Z88.8 Allergy status to other drugs, medicaments and biological substances; Z91.048 Other nonmedicinal substance allergy status; Z20.828 Contact with and (suspected) exposure to other viral communicable diseases
CPT/HCPCS: 36415; 36569; 71045; 74176; 80048; 80053; 81001; 82550; 82553; 83690; 84484; 85025; 93005; 93306; 99284; G0378; J2250; J3010; U0002

== ENCOUNTER 2020-09-13 09:48 | Emergency (ER) | payer OTHER, MEDICARE ==
[~2020-09-13] VITALS: Ht 157.5 cm; Wt 62.6 kg
== END 2020-09-13 10:51 | disposition home or self-care (01) ==
LOC: ER 10:22
DX: S00.83XA Contusion of other part of head, initial encounter (principal); W01.0XXA Fall on same level from slipping, tripping and stumbling without subsequent striking against object, initial encounter; Y93.01 Activity, walking, marching and hiking; Y92.015 Private garage of single-family (private) house as the place of occurrence of the external cause; I10 Essential (primary) hypertension; E03.9 Hypothyroidism, unspecified; Z87.19 Personal history of other diseases of the digestive system
CPT/HCPCS: 70450; 72125; 99284

== ENCOUNTER 2020-10-22 13:16 | Emergency (ER) | payer MEDICARE, OTHER ==
[~2020-10-22] VITALS: Ht 157.5 cm; Wt 62.6 kg
[2020-10-22] MEDS ORDERED: BENICAR20 MG PO (13:49)
[2020-10-22] MEDS ORDERED: AMLODIPINE BESYL5 MG PO (13:49)
[2020-10-22] MEDS ORDERED: SODIUM CHLORIDE 0.9% 50ML 50 ML ONE (14:18)
[2020-10-22] MEDS ORDERED: IOPAMIDOL 370 MG/ML 200 ML INFUS..BTL INJ ONE (14:18)
== END 2020-10-22 15:40 | disposition home or self-care (01) ==
LOC: FSED 13:36
DX: R07.9 Chest pain, unspecified (principal); R10.13 Epigastric pain; I10 Essential (primary) hypertension; E03.9 Hypothyroidism, unspecified; Z87.19 Personal history of other diseases of the digestive system
CPT/HCPCS: 71046; 71260; 93005; 99284; Q9967

== ENCOUNTER 2021-04-18 12:41 | Inpatient (IN) | payer MEDICARE, OTHER ==
[~2021-04-18] VITALS: Ht 160 cm; Wt 59.0 kg
[~2021-04-18 12:41] MED LIST changes: +AMLODIPINE BESYL5 MG PO; +BENICAR20 MG PO
[2021-04-18] MEDS ORDERED: ASPIRIN 81 MG CHEW TAB PO ONE (13:00)
[2021-04-18 13:24] LABS: BASOPHILS # (AUTO) 0.1 (0.0-0.1); BASOPHILS % 1.1 % (0.0-1.0); EOSINOPHILS # (AUTO) 0.3 (0.0-0.4); EOSINOPHILS % 3.3 % (0.0-6.0); HEMATOCRIT 36.2 % (34.2-44.1); HEMOGLOBIN 11.7 g/dL (12.0-16.0); LYMPHOCYTES # (AUTO) 2.2 (1.0-3.2); LYMPHOCYTES % 23.7 % (18.0-39.1); MEAN CORPUSCULAR HEMOGLOBIN 28.6 pg (28-32); MEAN CORPUSCULAR HGB CONC 32.3 g/dL (31-35); MEAN CORPUSCULAR VOLUME 88.5 fL (81-99); MONOCYTES # (AUTO) 1.1 (0.2-0.8); MONOCYTES % 11.5 % (4.4-11.3); NEUTROPHILS # (AUTO) 5.5 (2.1-6.9); NEUTROPHILS % 60.1 % (38.7-80.0); PLATELET COUNT 319 x10e3/uL (140-360); RED BLOOD COUNT 4.09 x10e6/uL (3.6-5.1); RED CELL DISTRIBUTION WIDTH 13.1 % (11.7-14.4)
[2021-04-18 13:56] LABS: ALBUMIN 4.2 g/dL (3.5-5.0); ALBUMIN/GLOBULIN RATIO 1.1 (0.8-2.0); CALCIUM 9.7 mg/dL (8.4-10.2); CREATININE, SERUM 0.77 mg/dL (0.57-1.11)
[2021-04-18 14:05] LABS: CREATINE KINASE MB 2.1 ng/mL (0-5.0)
[2021-04-18] MEDS ORDERED: ASPIRIN 81 MG CHEW TAB PO STA (15:33)
[2021-04-18] MEDS ORDERED: SODIUM CHLORIDE 0.9% 1000ML 1,000 ML IV SCH (16:00)
[2021-04-18 17:19] VITALS: BP 158/58
[2021-04-18 17:24] VITALS: BP 158/58
[2021-04-18 17:33] VITALS: BP 158/58
[2021-04-18 20:00] VITALS: BP 138/51
[2021-04-18 20:06] LABS: CREATINE KINASE MB 1.8 ng/mL (0-5.0)
[2021-04-19 01:10] VITALS: BP 138/51
[2021-04-19 04:00] VITALS: BP 116/55
[2021-04-19 04:30] VITALS: BP 138/51
[2021-04-19 06:09] LABS: BASOPHILS # (AUTO) 0.1 (0.0-0.1); BASOPHILS % 1.7 % (0.0-1.0); EOSINOPHILS # (AUTO) 0.4 (0.0-0.4); EOSINOPHILS % 6.8 % (0.0-6.0); HEMATOCRIT 31.2 % (34.2-44.1); HEMOGLOBIN 10.3 g/dL (12.0-16.0); LYMPHOCYTES # (AUTO) 1.8 (1.0-3.2); LYMPHOCYTES % 35.6 % (18.0-39.1); MEAN CORPUSCULAR HEMOGLOBIN 28.5 pg (28-32); MEAN CORPUSCULAR VOLUME 86.4 fL (81-99); MONOCYTES # (AUTO) 0.7 (0.2-0.8); MONOCYTES % 13.5 % (4.4-11.3); NEUTROPHILS # (AUTO) 2.2 (2.1-6.9); NEUTROPHILS % 42.2 % (38.7-80.0); PLATELET COUNT 299 x10e3/uL (140-360); RED BLOOD COUNT 3.61 x10e6/uL (3.6-5.1); RED CELL DISTRIBUTION WIDTH 13.1 % (11.7-14.4)
[2021-04-19 06:48] LABS: CREATINE KINASE MB 1.3 ng/mL (0-5.0)
[2021-04-19 07:38] LABS: ANION GAP 13.1 mmol/L (8-16); CALCIUM 8.7 mg/dL (8.4-10.2); CHOL/HDL RATIO 4.6 (3.0-3.6); CREATININE, SERUM 0.7 mg/dL (0.57-1.11); POTASSIUM 4.1 mmol/L (3.5-5.1)
[2021-04-19 07:47] LABS: ALBUMIN 3.2 g/dL (3.5-5.0)
[2021-04-19 08:44] VITALS: BP 138/51
[2021-04-19] MEDS ORDERED: AMLODIPINE BESYLATE 5 MG TAB PO SCH (09:00)
[2021-04-19] MEDS ORDERED: OLMESARTAN 20 MG TAB PO SCH (09:00)
[2021-04-19] MEDS ORDERED: ASPIRIN 81 MG ENTERIC COATED PO SCH (09:00)
[2021-04-19] MEDS ORDERED: ASPIRIN 81 MG CHEW TAB PO SCH (09:00)
[2021-04-19] MEDS ORDERED: REGADENOSON 0.4 MG/5 ML SYR IV ONE (12:54)
[2021-04-19 15:50] LABS: CREATINE KINASE MB 1.7 ng/mL (0-5.0)
[2021-04-19] MEDS ORDERED: ATORVASTATIN 20 MG TAB PO SCH (21:00)
== END 2021-04-19 16:46 | disposition home or self-care (01) | DRG 204 ==
LOC: ER 13:03 → ERHOLD 15:57 → MED/SURG3 16:44
PROVIDERS: ADMIT Internal Medicine; ATTEND Internal Medicine
DX: R07.81 Pleurodynia (principal); I11.9 Hypertensive heart disease without heart failure; E78.5 Hyperlipidemia, unspecified; Z88.2 Allergy status to sulfonamides; Z88.8 Allergy status to other drugs, medicaments and biological substances; Z88.1 Allergy status to other antibiotic agents; Z91.040 Latex allergy status; Z79.82 Long term (current) use of aspirin; Z79.899 Other long term (current) drug therapy; Z82.49 Family history of ischemic heart disease and other diseases of the circulatory system; Z20.822 Contact with and (suspected) exposure to COVID-19
CPT/HCPCS: 36415; 71045; 78452; 80053; 80061; 82550; 82553; 82948; 83880; 84484; 85025; 93005; 93017; 94799; 99284; A9502; J7030; U0002

== ENCOUNTER 2021-06-26 08:15 | Outpatient (RCR) | payer MEDICARE, OTHER | END 2021-07-04 | LOC: PT 08:15 | PROVIDERS: ATTEND Physician Assistant | DX: M70.61 Trochanteric bursitis, right hip (principal) ==